=== PATIENT | male | born 1980 ===

== ENCOUNTER 2016-08-11 15:19 | Inpatient (IN) | payer MEDICAID ==
[2016-08-11 15:19] VITALS: BMI 27.0
[2016-08-11] MEDS ORDERED: Sodium Chloride 0.9% 500 ML IV STA (15:49)
[2016-08-11] MEDS ORDERED: Iohexol 240 (50 ml) PO ONE (15:49)
--- NOTE | 2016-08-11 15:53 | ED PDOC ---
HPI: Abdomen Time Seen by Provider: 08/11/16 15:38 Chief Complaint (Nursing): Abdominal Pain Chief Complaint (Provider): Abd pain History Per: Patient History/Exam Limitations: no limitations Onset/Duration Of Symptoms: Days (Yesterday) Outside of [place] travel?: No Additional Complaint(s): Pt. with abd pain diffuse. Also nausea, vomit, diarrhea nonbloody. Started yesterday. Blood pressure was high at home yesterday as well in the 200s. Called EMS today and brought to the ED. No back pain. No headaches, vision changes, numbness, tingles, chest pain, dyspnea. Has had same multiple times and admitted last week at [facility]. Tried taking his meds, but is vomiting them out. No fever, cough. No neck pain. Past Medical History Reviewed: Nursing Documentation, Vital Signs Vital Signs: Last Vital Signs Temp 98.2 F 08/11/16 20:40 Pulse 91 H 08/11/16 16:50 Resp 20 08/11/16 16:50 BP 125/72 08/11/16 16:50 Pulse Ox 98 08/11/16 22:37 - Medical History PMH: Diabetes, Gastritis, HTN, Hypercholesterolemia, End Stage Renal Disease, Chronic Kidney Disease Denies: HIV - Family History Family History: States: Unknown Family Hx - Living Arrangements Living Arrangements: With Family - Social History Current smoker - smoking cessation education provided: No Alcohol: None Drugs: Denies - Immunization History Hx Tetanus Toxoid Vaccination: Yes Hx Influenza Vaccination: Yes Hx Pneumococcal Vaccination: Yes - Home Medications Home Medications: Ambulatory Orders Medication Instructions Recorded Atorvastatin Calcium 40 mg PO HS 02/29/16 Insulin Human NPH/Reg [HumuLIN 20 unit SC BID 02/29/16 70/30 (NPH/Reg)] amLODIPine [Norvasc] 10 mg PO DAILY 02/29/16 hydrALAZINE [Apresoline] 25 mg PO TID #0 tab 03/06/16 Lisinopril [Zestril] 20 mg PO DAILY #0 tab 04/16/16 Metoprolol Tartrate [Lopressor] 25 mg PO BID #0 tab 04/16/16 Aspirin [Lo-Dose Aspirin EC] 81 mg PO DAILY 05/07/16 Gabapentin [Neurontin] 800 mg PO TID 05/07/16 Saccharomyces Boulardi [Florastor] 250 mg PO BID #20 cap 06/24/16 Sucralfate [Carafate Tab] 1 gm PO BID #60 tab 06/24/16 Labetalol [Trandate] 200 mg PO Q12H #30 tab 07/22/16 cloNIDine 0.3 mg/24 hr 1 patch TD Q7D@1000 #10 patch 07/22/16 [catapres-TTS3 0.3 mg/24 hr] - Allergies Allergies/Adverse Reactions: Allergies Allergy/AdvReac Type Severity Reaction Status Date / Time No Known Allergies Allergy Verified 06/04/16 02:41 Review of Systems ROS Statement: Except As Marked, All Systems Reviewed And Found Negative Gastrointestinal: Positive for: Nausea, Vomiting, Abdominal Pain, Diarrhea Physical Exam - Reviewed Nursing Documentation Reviewed: Yes Vital Signs Reviewed: Yes - Physical Exam Appears: Positive for: Non-toxic, No Acute Distress Head Exam: Positive for: ATRAUMATIC, NORMAL INSPECTION, NORMOCEPHALIC Skin: Positive for: Normal Color, Warm, DRY Eye Exam: Positive for: EOMI, Normal appearance, PERRL ENT: Positive for: Normal ENT Inspection Neck: Positive for: Normal, Painless ROM, Supple Cardiovascular/Chest: Positive for: Regular Rate, Rhythm. Negative for: Edema Respiratory: Positive for: CNT, Normal Breath Sounds Gastrointestinal/Abdominal: Positive for: Bowel Sounds, Soft, Tenderness ( diffuse). Negative for: Distended, Guarding Back: Positive for: Normal Inspection. Negative for: L CVA Tenderness, R CVA Tenderness Extremity: Positive for: Normal ROM. 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 Negative for: Motor/Sensory Deficits, Aphasia, Facial Droop - Laboratory Results Result Diagrams: 08/11/16 16:00 08/11/16 16:00 Interpretation Of Abn Labs: 13.9 wbc; 9 bands; 2.6 lactate - ECG ECG: Positive for: Interpreted By Me, Viewed By Me ECG Rhythm: Positive for: Normal QRS, Normal ST Segment, Sinus Rhythm O2 Sat by Pulse Oximetry: 98 Pulse Ox Interpretation: Normal - Radiology X-Ray: Read By Radiologist X-Ray Interpretation: No Acute Disease - Progress ED Course And Treament: 2235: Stable. AAOx3. Lactate 1.[address] Sleeping comfortably in room. 2339: Stable. AAOx3. Dr. Hewitt to take over care. FU on CT. Disposition - Clinical Impression Clinical Impression: Abdominal pain, Vomiting - Disposition Disposition Time: 23:39 Condition: FAIR Patient Signed Over To: Remedios Hewitt
[2016-08-11] MEDS ORDERED: HYDROmorphone 0.5 mg/0.5 ml ISec ONE (15:56)
--- NOTE | 2016-08-11 16:09 | RAD ---
HISTORY: abd pain COMPARISON: Comparison chest 05/06/2016 FINDINGS: LUNGS: Large-bore right IJ dialysis catheter with tip in the SVC/RA junction no acute consolidation. PLEURA: No significant pleural effusion identified, no pneumothorax apparent. CARDIOVASCULAR: Normal. OSSEOUS STRUCTURES: No significant abnormalities. VISUALIZED UPPER ABDOMEN: Normal. OTHER FINDINGS: None. IMPRESSION: No active disease. Re- demonstrated is in situ right IJ dialysis catheter.
[2016-08-11] MEDS ORDERED: Iohexol 240 (50 ml) ONE (16:21)
[2016-08-11 16:27] LABS: BASO # 0.1 K/uL (0.0-0.2); BASO % 0.7 % (0.0-2.0); EOS % 0.2 % (0.0-4.0); HEMATOCRIT 39.6 % (35.0-51.0); LYMPH # 0.9 K/uL (1.0-4.3); LYMPH % 6.4 % (20.0-40.0); MEAN CELL VOLUME 92.2 fl (80.0-94.0); MEAN CORPUSCULAR HEMOGLOBIN 29.1 pg (27.0-31.0); MEAN CORPUSCULAR HGB CONC 31.6 g/dL (33.0-37.0); MEAN PLATELET VOLUME 8.7 fl (7.2-11.7); MONO # 1.1 K/uL (0.0-0.8); MONO % 8.2 % (0.0-10.0); NEUT # 11.8 K/uL (1.8-7.0); NEUT % 84.5 % (50.0-75.0); NRBC % 0.1 % (0.0-0.0); PLATELET COUNT 213 K/uL (130-400); RED CELL DISTRIBUTION WIDTH 17.2 % (11.5-14.5); WHITE BLOOD COUNT 13.9 K/uL (4.8-10.8)
[2016-08-11 16:30] LABS: VENOUS BLOOD GAS PCO2 49 mmHg (40-60); VENOUS BLOOD PH 7.38 (7.32-7.43)
[2016-08-11 16:41] LABS: ALB/GLOB RATIO 0.9 (1.0-2.1); ALCOHOL SERUM < 10 mg/dl (0-10); ALKALINE PHOSPHATASE 139 U/L (38-126); ALT/SGPT 34 U/L (21-72); AST/SGOT 31 U/L (17-59); BILIRUBIN,TOTAL 0.3 mg/dl (0.2-1.3); BLOOD UREA NITROGEN 50 mg/dl (9-20); CALCIUM 9.4 mg/dL (8.4-10.2); CARBON DIOXIDE 27 mmol/L (22-30); CHLORIDE 98 mmol/L (98-107); GFR AFRICAN-AMERICAN 17; GLUCOSE,RANDOM 227 mg/dL (75-110); LIPASE 245 U/L (23-300); POTASSIUM 4.3 MMOL/L (3.6-5.0); SODIUM 136 mmol/l (132-148); TOTAL PROTEIN 6.9 G/DL (6.3-8.2)
[2016-08-11 16:57] LABS: NEUTROPHIL 73 % (42-75); TOTAL CELLS COUNTED 100
[2016-08-11 16:59] LABS: LARGE PLATELETS PRESENT; STOMATOCYTES SLIGHT
[2016-08-11 20:27] LABS: VENOUS BLOOD GAS BASE EXCESS 4.7 mmol/L (0.0-2.0); VENOUS BLOOD GAS PCO2 52 mmHg (40-60); VENOUS BLOOD PH 7.38 (7.32-7.43)
--- NOTE | 2016-08-12 00:05 | ED PDOC ---
- Laboratory Results Result Diagrams: 08/11/16 16:00 08/11/16 16:00 - ECG O2 Sat by Pulse Oximetry: 98 (RA) Pulse Ox Interpretation: Normal Medical Decision Making Medical Decision Making: Receiving Sign Out: Patient signed out to me by Dr. Erickson pending CT AP and reevaluation. Scribe Attestation: Documented by Rabia Rendon acting as a scribe for Remedios Hewitt MD Provider Scribe Attestation: All medical record entries made by the Scribe were at my direction and personally dictated by me. I have reviewed the chart and agree that the record accurately reflects my personal performance of the history, physical exam, medical decision making, and the department course for this patient. I have also personally directed, reviewed, and agree with the discharge instructions and disposition. Disposition Discussed With : Jean Paul Song Doctor Will See Patient In The: Hospital Counseled Patient/Family Regarding: Studies Performed, Diagnosis - Clinical Impression Clinical Impression: CRF (chronic renal failure), Intractable abdominal pain - POA Present On Arrival: Poor Glycemic Control - Disposition Disposition: Admitted as In-Patient Disposition Time: :00 Condition: SERIOUS Progress Note - Review of Symptoms Events since last encounter: Time: 49 CT AP FINDINGS: Lower thorax: There is streak artifact from a central line in the right atrium. Heart size is normal. There is trace pericardial effusion. There is a small hiatal hernia. There is dependent atelectasis and scarring at the lung bases. ABDOMEN: Liver: unremarkable Gallbladder and bile ducts: unremarkable Pancreas: unremarkable Spleen: unremarkable Adrenals: unremarkable Kidneys and ureters: unremarkable Stomach and bowel: Stomach is incompletely distended which accentuates the gastric wall.Bowel rotation is normal. Small bowel is partially opacified oral contrast. There is mild old thickening. There is terminal ileal wall and fold thickening. There is cecal and ascending colon wall thickening. There is mid and distal transverse colon wall thickening there is descending, sigmoid and rectal wall thickening. Appendix: See stomach and bowel PELVIS: Bladder: unremarkable Reproductive: Seminal vesicles and prostate are unremarkable. ABDOMEN and PELVIS: Intraperitoneal space: There is no free air. There is trace fluid in the pelvis. Bones/joints: There are degenerative changes in the osseus structures. Soft tissues: There is mild body wall edema Vasculature: There are vascular calcifications. Lymph nodes: There is shotty adenopathy. IMPRESSION: Enterocolitis Pt has persistent pain. Hospitalized for intractable pain and gastoparesis. Had episode of hypoglycemia. Given D50 with improvement. Also oral fluids.
--- NOTE | 2016-08-12 00:42 | CT ---
EXAM: CT Abdomen and Pelvis With Intravenous Contrast. CLINICAL HISTORY: 35 years old, male; Pain; Abdominal pain; Localized; Lower; Prior surgery; Surgery date: 6+ months; Surgery type: As a child one testes removed TECHNIQUE: Axial computed tomography images of the abdomen and pelvis with intravenous contrast. This CT exam was performed using one or more of the following dose reduction techniques: automated exposure control, adjustment of the mA and/or kV according to patient size, and/or use of iterative reconstruction technique. Coronal and sagittal reformatted images were created and reviewed. EXAM DATE/TIME: 08/11/2016 3:48 PM COMPARISON: CT - ABD PELVIS W/O PO OR IV CONT 07/11/2016 8:30:53 PM FINDINGS: Lower thorax: There is streak artifact from a central line in the right atrium. Heart size is normal. There is trace pericardial effusion. There is a small hiatal hernia. There is dependent atelectasis and scarring at the lung bases. ABDOMEN: Liver: unremarkable Gallbladder and bile ducts: unremarkable Pancreas: unremarkable Spleen: unremarkable Adrenals: unremarkable Kidneys and ureters: unremarkable Stomach and bowel: Stomach is incompletely distended which accentuates the gastric wall.Bowel rotation is normal. Small bowel is partially opacified oral contrast. There is mild old thickening. There is terminal ileal wall and fold thickening. There is cecal and ascending colon wall thickening. There is mid and distal transverse colon wall thickening there is descending, sigmoid and rectal wall thickening. Appendix: See stomach and bowel PELVIS: Bladder: unremarkable Reproductive: Seminal vesicles and prostate are unremarkable. ABDOMEN and PELVIS: Intraperitoneal space: There is no free air. There is trace fluid in the pelvis. Bones/joints: There are degenerative changes in the osseus structures. Soft tissues: There is mild body wall edema Vasculature: There are vascular calcifications. Lymph nodes: There is shotty adenopathy. IMPRESSION: Enterocolitis
[2016-08-12] MEDS ORDERED: Dextrose 50% SYRINGE Inj (50 ml) IVP STA ×2 (02:12→02:13)
[2016-08-12] MEDS ORDERED: metroNIDAZOLE 500mg/100ml NS 100 ML IVPB SCH (05:17)
[2016-08-12] MEDS: metroNIDAZOLE 500mg/100ml NS 100 ML IVPB SCH ×3 (06:04→21:11)
[2016-08-12] MEDS ORDERED: Influenza Vaccine(5yr & older) 0.5 ML/45 MCG IM ONE (06:29)
[2016-08-12] MEDS ORDERED: Pneumococcal 23-Valent Vaccine IM ONE (06:29)
[2016-08-12 07:31] LABS: THYROID STIMULATING HORMONE 1.25 mIU/ML (0.46-4.68)
[2016-08-12] MEDS: Insulin Regular 100 units/ml SC SCH ×4 (08:06→22:44)
[2016-08-12] MEDS: Saccharomyces Boulardi 250 mg Cap PO SCH ×2 (08:52→16:23)
[2016-08-12] MEDS: Insulin Lispro Mix 75/25 100 units/ml (HumaLog) 10ml SC SCH ×2 (08:57→16:24)
[2016-08-12] MEDS ORDERED: INSULIN ISOPHANE SC SCH (09:00)
[2016-08-12] MEDS ORDERED: INSULIN REGULAR SC SCH (09:00)
--- NOTE | 2016-08-12 10:59 | CP.PCM.CON ---
History of Present Illness - History of Present Illness History of Present Illness: This patient who is 35 years old male known to me with end-stage renal disease on maintenance hemodialysis Friday. He presented to the emergency room complaining of epigastric pain and abdominal pain and vomited several times for which she did not take any oral medication for the blood pressure or something else. And when he came his blood pressure was also elevated CT of the abdomen showed enterocolitis. Past medical history related to numerous of [facility], [facility] and [facility] and her for abdominal pain and gastroparesis and renal disease and diabetic.. Social history as noted in the H&P and review of system as noted above. Review of Systems - Constitutional Constitutional: As Per HPI. absent: Night Sweats - Cardiovascular Cardiovascular: absent: Chest Pain, Dyspnea - Respiratory Respiratory: absent: Cough, Dyspnea, Hemoptysis - Gastrointestinal Gastrointestinal: As Per HPI, Abdominal Pain, Cramping, Vomiting. absent: Coffee Ground Emesis - Genitourinary Genitourinary: Nocturia - Integumentary Integumentary: As Per HPI - Neurological Neurological: As Per HPI Past Patient History - Infectious Disease Hx of Infectious Diseases: None - Past Medical History & Family History Past Medical History?: Yes - Past Social History Smoking Status: Never Smoked - CARDIAC Hx Cardiac Disorders: Yes - PULMONARY Hx Respiratory Disorders: No - NEUROLOGICAL Hx Neurological Disorder: No - HEENT Hx HEENT Problems: Yes (cataracts RIGHT) Hx Cataracts: Yes - RENAL Hx Chronic Kidney Disease: Yes - ENDOCRINE/METABOLIC Hx Endocrine Disorders: Yes - HEMATOLOGICAL/ONCOLOGICAL Hx Human Immunodeficiency Virus (HIV): No - INTEGUMENTARY Hx Dermatological Problems: No - MUSCULOSKELETAL/RHEUMATOLOGICAL Hx Falls: No - GASTROINTESTINAL Hx Gastritis: Yes - GENITOURINARY/GYNECOLOGICAL Hx Genitourinary Disorders: No - PSYCHIATRIC Hx Substance Use: No - SURGICAL HISTORY Hx Surgeries: Yes Hx Bile Duct Stent: Yes Hx Cataract Extraction: Yes Hx Eye Surgery: Yes (CATARACT REMOVAL RT.) Hx Vascular Access Device: Yes Other/Comment: RT.PERMACATH INSERTION 04/17. LT.AV SHUNT CREATION 06/04/16. UNDESCENDED TESTES LT. REMOVED DURING CHILDHOOD - ANESTHESIA Hx Anesthesia: Yes Hx Anesthesia Reactions: No Hx Malignant Hyperthermia: No Meds Allergies/Adverse Reactions: Allergies Allergy/AdvReac Type Severity Reaction Status Date / Time No Known Allergies Allergy Verified 06/04/16 02:41 - Medications Medications: Current Medications Amlodipine Besylate (Norvasc) 10 mg PO DAILY [facility] Last Admin: 08/12/16 08:54 Dose: 10 mg Aspirin (Ecotrin) 81 mg PO DAILY [facility] Last Admin: 08/12/16 08:52 Dose: 81 mg Atorvastatin Calcium (Lipitor) 40 mg PO HS [facility] Clonidine HCl (Catapres-Tts3 0.3 Mg/24 Hr) 1 patch TD Q7D@1000 [facility] Last Admin: 08/12/16 09:00 Dose: 1 patch Heparin Sodium (Porcine) (Heparin) 5,000 units SC Q8 [facility] PRN Reason: Protocol Last Admin: 08/12/16 08:53 Dose: 5,000 units Home Med (Gabapentin [Neurontin]) 800 mg PO TID [facility] Hydralazine HCl (Apresoline) 25 mg PO TID [facility] Last Admin: 08/12/16 08:52 Dose: 25 mg Ciprofloxacin (Cipro 400mg/200ml Dsw) 200 mls @ 200 mls/hr IVPB DAILY [facility] Metronidazole (Flagyl 500mg/100ml Ns) 100 mls @ 100 mls/hr IVPB Q8H [facility] Last Admin: 08/12/16 06:04 Dose: 100 mls/hr Insulin Human Regular (Humulin R) 0 units SC ACHS [facility] Last Admin: 08/12/16 08:06 Dose: Not Given Insulin Lispro Protam/Lispro Human (Humalog Mix 75/25) 20 units SC BID [facility] Last Admin: 08/12/16 08:57 Dose: 20 units Labetalol HCl (Trandate) 200 mg PO Q12H [facility] Last Admin: 08/12/16 06:04 Dose: 200 mg Lisinopril (Zestril) 20 mg PO DAILY [facility] Last Admin: 08/12/16 08:53 Dose: 20 mg Metoprolol Tartrate (Lopressor) 25 mg PO BID [facility] Last Admin: 08/12/16 08:53 Dose: 25 mg Saccharomyces Boulardii (Florastor) 250 mg PO BID [facility] Last Admin: 08/12/16 08:52 Dose: 250 mg Sucralfate (Carafate Tab) 1 gm PO BID [facility] Last Admin: 08/12/16 08:52 Dose: 1 gm Physical Exam - Constitutional Appears: No Acute Distress - ENT Exam ENT Exam: Mucous Membranes Moist - Respiratory Exam Respiratory Exam: NORMAL BREATHING PATTERN. absent: Chest Wall Tenderness - Cardiovascular Exam Cardiovascular Exam: REGULAR RHYTHM - GI/Abdominal Exam GI & Abdominal Exam: Normal Bowel Sounds - Extremities Exam Extremities exam: Negative for: calf tenderness, pedal edema - Back Exam Back exam: absent: CVA tenderness (L), CVA tenderness (R) - Neurological Exam Neurological exam: Alert Results - Vital Signs Recent Vital Signs: Last Vital Signs Temp 98.1 F 08/12/16 07:54 Pulse 78 08/12/16 09:00 Resp 20 08/12/16 07:54 BP 186/105 H 08/12/16 07:54 Pulse Ox 98 08/12/16 07:54 - Labs Result Diagrams: 08/11/16 16:00 08/11/16 16:00 Labs: Laboratory Results - last 24 hr 08/12/16 08/12/16 08/12/16 02:12 03:11 05:52 APTT POC Glucose (mg/dL) 31 L* 188 H 155 H Triglycerides Cholesterol LDL Cholesterol Direct HDL Cholesterol Vitamin B12 TSH 3rd Generation 08/12/16 06:15 APTT 26.8 POC Glucose (mg/dL) Triglycerides 69 Cholesterol 253 H LDL Cholesterol Direct 135 H HDL Cholesterol 70 Vitamin B12 728 TSH 3rd Generation 1.25 Assessment & Plan (1) Abdominal pain Status: Acute (2) Gastroparesis due to secondary diabetes Status: Acute (3) ESRD (end stage renal disease) on dialysis Assessment and Plan: Patient with end stage renal disease admitted with abdominal pain with CT scan and enterocolitis started on Flagyl we need to adjust the dose of Cipro 200 mg twice a day. As far as dialysis patient need hemodialysis today order was given consent was taken Continue monitoring We will do venous mapping of the upper extremity for potential AV fistula Status: Chronic
[2016-08-12] MEDS: Ciprofloxacin 400mg/200ml D5W 200 ML IVPB SCH (11:05)
--- NOTE | 2016-08-12 16:25 | CP.PCM.CON ---
<Janel Pop - Last Filed: 08/12/16 16:26> History of Present Illness - History of Present Illness History of Present Illness: Gastroenterology Fellow/PGY4 Consult Note 35 year old male with history of Diabetes complicated by retinopathy, neuropathy , gastroparesis, ESRD on HD MWF, Hypertenesion, and PUD presenting with abdominal pain, nausea, and diarrhea. Patient admits symptoms to be similar to prior presentations. He notes acute onset of diffuse, severe abdominal pain with associated food vomitus. He has diarrhea at baseline which is not new, noting two to three episodes a day. Denies hematemesis, fever, chills, sweats, sick contacts, constipation, melena, hematochezia, or weight loss. Nursing notes tolerating diet for breakfast and patient as well denies vomiting breakfast or lunch. Notes continued abdominal pain mainly to palpation. No bowel movements today or yesterday. Multiple prior EGD, most recent 07/19/16 showed LA Grade B esophagitis, antral 4mm gastric ulcer negative for H pylori. Colonoscopy 04/2016 with 4mm sessile hyperplastic ascending polyp. Social-203 cigarettes a day, marijuana, denies alcohol Surgery- AV fistula 06/2016, Right Perm-a-cath 04/2016 Family-denies colon cancer Review of Systems - Review of Systems Review of Systems: A 12-point review of systems negative except for as above Past Patient History - Infectious Disease Hx of Infectious Diseases: None - Past Medical History & Family History Past Medical History?: Yes - Past Social History Smoking Status: Never Smoked - CARDIAC Hx Cardiac Disorders: Yes - PULMONARY Hx Respiratory Disorders: No - NEUROLOGICAL Hx Neurological Disorder: No - HEENT Hx HEENT Problems: Yes (cataracts RIGHT) Hx Cataracts: Yes - RENAL Hx Chronic Kidney Disease: Yes - ENDOCRINE/METABOLIC Hx Endocrine Disorders: Yes - HEMATOLOGICAL/ONCOLOGICAL Hx Human Immunodeficiency Virus (HIV): No - INTEGUMENTARY Hx Dermatological Problems: No - MUSCULOSKELETAL/RHEUMATOLOGICAL Hx Falls: No - GASTROINTESTINAL Hx Gastritis: Yes - GENITOURINARY/GYNECOLOGICAL Hx Genitourinary Disorders: No - PSYCHIATRIC Hx Substance Use: No - SURGICAL HISTORY Hx Surgeries: Yes Hx Bile Duct Stent: Yes Hx Cataract Extraction: Yes Hx Eye Surgery: Yes (CATARACT REMOVAL RT.) Hx Vascular Access Device: Yes Other/Comment: RT.PERMACATH INSERTION 11/16. LT.AV SHUNT CREATION 06/04/16. UNDESCENDED TESTES LT. REMOVED DURING CHILDHOOD - ANESTHESIA Hx Anesthesia: Yes Hx Anesthesia Reactions: No Hx Malignant Hyperthermia: No Meds Allergies/Adverse Reactions: Allergies Allergy/AdvReac Type Severity Reaction Status Date / Time No Known Allergies Allergy Verified 06/04/16 02:41 - Medications Medications: Current Medications Amlodipine Besylate (Norvasc) 10 mg PO DAILY [facility] Last Admin: 08/12/16 08:54 Dose: 10 mg Aspirin (Ecotrin) 81 mg PO DAILY [facility] Last Admin: 08/12/16 08:52 Dose: 81 mg Atorvastatin Calcium (Lipitor) 40 mg PO HS [facility] Clonidine HCl (Catapres-Tts3 0.3 Mg/24 Hr) 1 patch TD Q7D@1000 [facility] Last Admin: 08/12/16 09:00 Dose: 1 patch Famotidine (Pepcid) 20 mg IVP Q12 [facility] Last Admin: 08/12/16 15:14 Dose: Not Given Gabapentin (Neurontin) 300 mg PO DAILY [facility] Last Admin: 08/12/16 13:06 Dose: 300 mg Heparin Sodium (Porcine) (Heparin) 5,000 units SC Q8 [facility] PRN Reason: Protocol Last Admin: 08/12/16 08:53 Dose: 5,000 units Hydralazine HCl (Apresoline) 25 mg PO TID [facility] Last Admin: 08/12/16 12:15 Dose: 25 mg Ciprofloxacin (Cipro 400mg/200ml Dsw) 200 mls @ 200 mls/hr IVPB DAILY [facility] Last Admin: 08/12/16 11:05 Dose: 200 mls/hr Metronidazole (Flagyl 500mg/100ml Ns) 100 mls @ 100 mls/hr IVPB Q8H [facility] Last Admin: 08/12/16 13:05 Dose: 100 mls/hr Insulin Human Regular (Humulin R) 0 units SC ACHS [facility] PRN Reason: Protocol Insulin Lispro Protam/Lispro Human (Humalog Mix 75/25) 20 units SC BID [facility] Last Admin: 08/12/16 08:57 Dose: 20 units Labetalol HCl (Trandate) 200 mg PO Q12H [facility] Last Admin: 08/12/16 06:04 Dose: 200 mg Lisinopril (Zestril) 20 mg PO DAILY [facility] Last Admin: 08/12/16 08:53 Dose: 20 mg Metoprolol Tartrate (Lopressor) 25 mg PO BID [facility] Last Admin: 08/12/16 08:53 Dose: 25 mg Morphine Sulfate (Morphine) 2 mg IVP Q6 PRN PRN Reason: Pain, severe (8-10) Last Admin: 08/12/16 12:13 Dose: 2 mg Saccharomyces Boulardii (Florastor) 250 mg PO BID [facility] Last Admin: 08/12/16 08:52 Dose: 250 mg Sucralfate (Carafate Tab) 1 gm PO BID [facility] Last Admin: 08/12/16 08:52 Dose: 1 gm Physical Exam - Constitutional Appears: Non-toxic, No Acute Distress - Head Exam Head Exam: ATRAUMATIC, NORMOCEPHALIC - Eye Exam Eye Exam: EOMI, PERRL Pupil Exam: PERRL. absent: Miosis, Mydriatic - ENT Exam ENT Exam: Mucous Membranes Moist, Normal Oropharynx - Neck Exam Neck exam: Positive for: Full Rom, Normal Inspection - Respiratory Exam Respiratory Exam: Clear to Auscultation Bilateral. absent: Rales, Rhonchi, Wheezes - Cardiovascular Exam Cardiovascular Exam: RRR, +S1, +S2. absent: Gallop, Rubs - GI/Abdominal Exam GI & Abdominal Exam: Normal Bowel Sounds, Soft, Tenderness. absent: Distended, Firm, Guarding, Organomegaly, Rebound, Rigid - Extremities Exam Extremities exam: Positive for: full ROM. Negative for: pedal edema - Neurological Exam Neurological exam: Alert - Psychiatric Exam Psychiatric exam: Normal Affect, Normal Mood - Skin Skin Exam: Dry, Intact, Normal Color, Warm Results - Vital Signs Recent Vital Signs: Last Vital Signs Temp 99 F 08/12/16 16:06 Pulse 89 08/12/16 16:06 Resp 18 08/12/16 16:06 BP 138/56 L 08/12/16 16:06 Pulse Ox 96 08/12/16 16:06 - Labs Result Diagrams: 08/11/16 16:00 08/11/16 16:00 Labs: Laboratory Results - last 24 hr 08/12/16 08/12/16 08/12/16 02:12 03:11 05:52 APTT POC Glucose (mg/dL) 31 L* 188 H 155 H Hemoglobin A1c Triglycerides Cholesterol LDL Cholesterol Direct HDL Cholesterol Vitamin B12 TSH 3rd Generation 08/12/16 06:15 APTT 26.8 POC Glucose (mg/dL) Hemoglobin A1c 6.9 H Triglycerides 69 Cholesterol 253 H LDL Cholesterol Direct 135 H HDL Cholesterol 70 Vitamin B12 728 TSH 3rd Generation 1.25 Assessment & Plan - Assessment and Plan (Free Text) Assessment: 35 year old male with history of Diabetes complicated by retinopathy, neuropathy , gastroparesis, ESRD on HD MWF, Hypertension, and PUD presenting with abdominal pain, nausea, and diarrhea. CT A/P PO contrast with nonspecific diffuse colonic thickening. Multiple prior EGD, most recent 07/19/16 showed LA Grade B esophagitis, antral 4mm gastric ulcer negative for H pylori. Colonoscopy 04/2016 with 4mm sessile hyperplastic ascending polyp. Abdominal pain Gastroparesis Plan: >nonspecific colonic thickening >tolerating diet >continue PPI, antiemetics >if vomiting recurs consider prokinetic agent >on Cipro/ Flagyl-possible enterocolitis >if diarrhea occurs inpatient- consider infectious workup >continue Insulin regimen, counselled on compliance to medications, A1c 6.9 >no indication for endoscopic evaluation with multiple EGDs most recently <Demarco Bermeo MDcostilla - Last Filed: 08/12/16 19:43> Meds - Medications Medications: Current Medications Amlodipine Besylate (Norvasc) 10 mg PO DAILY [facility] Last Admin: 08/12/16 08:54 Dose: 10 mg Aspirin (Ecotrin) 81 mg PO DAILY [facility] Last Admin: 08/12/16 08:52 Dose: 81 mg Atorvastatin Calcium (Lipitor) 40 mg PO HS [facility] Clonidine HCl (Catapres-Tts3 0.3 Mg/24 Hr) 1 patch TD Q7D@1000 [facility] Last Admin: 08/12/16 09:00 Dose: 1 patch Famotidine (Pepcid) 20 mg IVP Q12 [facility] Last Admin: 08/12/16 15:14 Dose: Not Given Gabapentin (Neurontin) 300 mg PO DAILY [facility] Last Admin: 08/12/16 13:06 Dose: 300 mg Heparin Sodium (Porcine) (Heparin) 5,000 units SC Q8 [facility] PRN Reason: Protocol Last Admin: 08/12/16 16:24 Dose: 5,000 units Hydralazine HCl (Apresoline) 25 mg PO TID [facility] Last Admin: 08/12/16 16:27 Dose: Not Given Ciprofloxacin (Cipro 400mg/200ml Dsw) 200 mls @ 200 mls/hr IVPB DAILY [facility] Last Admin: 08/12/16 11:05 Dose: 200 mls/hr Metronidazole (Flagyl 500mg/100ml Ns) 100 mls @ 100 mls/hr IVPB Q8H [facility] Last Admin: 08/12/16 13:05 Dose: 100 mls/hr Insulin Human Regular (Humulin R) 0 units SC ACHS [facility] PRN Reason: Protocol Last Admin: 08/12/16 16:25 Dose: Not Given Insulin Lispro Protam/Lispro Human (Humalog Mix 75/25) 20 units SC BID [facility] Last Admin: 08/12/16 16:24 Dose: 20 units Labetalol HCl (Trandate) 200 mg PO Q12H [facility] Last Admin: 08/12/16 16:26 Dose: Not Given Lisinopril (Zestril) 20 mg PO DAILY [facility] Last Admin: 08/12/16 08:53 Dose: 20 mg Metoprolol Tartrate (Lopressor) 25 mg PO BID [facility] Last Admin: 08/12/16 16:27 Dose: Not Given Morphine Sulfate (Morphine) 2 mg IVP Q6 PRN PRN Reason: Pain, severe (8-10) Last Admin: 08/12/16 12:13 Dose: 2 mg Saccharomyces Boulardii (Florastor) 250 mg PO BID [facility] Last Admin: 08/12/16 16:23 Dose: 250 mg Sucralfate (Carafate Tab) 1 gm PO BID [facility] Last Admin: 08/12/16 16:24 Dose: 1 gm Results - Vital Signs Recent Vital Signs: Last Vital Signs Temp 99 F 08/12/16 16:06 Pulse 89 08/12/16 16:06 Resp 18 08/12/16 16:06 BP 138/56 L 08/12/16 16:06 Pulse Ox 96 08/12/16 16:06 - Labs Result Diagrams: 08/11/16 16:00 08/11/16 16:00 Labs: Laboratory Results - last 24 hr 08/12/16 08/12/16 08/12/16 02:12 03:11 05:52 APTT POC Glucose (mg/dL) 31 L* 188 H 155 H Hemoglobin A1c Triglycerides Cholesterol LDL Cholesterol Direct HDL Cholesterol Vitamin B12 TSH 3rd Generation 08/12/16 08/12/16 08/12/16 06:15 10:51 16:05 APTT 26.8 POC Glucose (mg/dL) 235 H 256 H Hemoglobin A1c 6.9 H Triglycerides 69 Cholesterol 253 H LDL Cholesterol Direct 135 H HDL Cholesterol 70 Vitamin B12 728 TSH 3rd Generation 1.25 Attending/Attestation - Attestation I have personally seen and examined this patient.: Yes I have fully participated in the care of the patient.: Yes I have reviewed all pertinent clinical information: Yes Notes (Text): 08/12/16 19:37 Patient seen and examined at bedside with GI fellow. This is a 35 year old male with history of Diabetes complicated by retinopathy, neuropathy, gastroparesis, ESRD on HD MWF, Hypertension, and PUD presenting with abdominal pain, nausea, and diarrhea. CT A/P PO contrast with nonspecific diffuse colonic thickening. Multiple prior EGD, most recent 07/19/16 showed LA Grade B esophagitis, antral 4mm gastric ulcer negative for H pylori. Colonoscopy 04/2016 with 4mm sessile hyperplastic ascending polyp. Colonic thickening non specific- does not require antibiotics. Continue PPI, anti emetics as needed. Able to tolerate full solid meal for lunch. Strict glycemic control. No indication for another endoscopic evaluation (most recent on 07/19/16) Please call prn. Thank you for letting us participate in the care of your patient
--- NOTE | 2016-08-12 19:56 | CARD ---
APPROVED REPORT EKG Measurement Heart [id number] <Conclusion> Normal sinus rhythm Nonspecific ST abnormality Abnormal ECG
[2016-08-13] MEDS: metroNIDAZOLE 500mg/100ml NS 100 ML IVPB SCH ×3 (06:13→21:06)
[2016-08-13 06:49] LABS: HEMATOCRIT 36.7 % (35.0-51.0); MEAN CELL VOLUME 92.2 fl (80.0-94.0); MEAN CORPUSCULAR HEMOGLOBIN 29.2 pg (27.0-31.0); MEAN CORPUSCULAR HGB CONC 31.7 g/dL (33.0-37.0); RED CELL DISTRIBUTION WIDTH 17.5 % (11.5-14.5); WHITE BLOOD COUNT 8.3 K/uL (4.8-10.8)
[2016-08-13] MEDS: Insulin Regular 100 units/ml SC SCH ×4 (07:10→22:00)
[2016-08-13 07:47] LABS: BILIRUBIN,TOTAL 0.2 mg/dl (0.2-1.3); CALCIUM 7.5 mg/dL (8.4-10.2); POTASSIUM 4.2 MMOL/L (3.6-5.0); TOTAL PROTEIN 5.5 G/DL (6.3-8.2)
[2016-08-13 07:53] LABS: ALB/GLOB RATIO 0.8 (1.0-2.1)
[2016-08-13] MEDS: Ciprofloxacin 400mg/200ml D5W 200 ML IVPB SCH (08:47)
[2016-08-13] MEDS: Saccharomyces Boulardi 250 mg Cap PO SCH ×2 (08:55→17:24)
[2016-08-13] MEDS: Insulin Lispro Mix 75/25 100 units/ml (HumaLog) 10ml SC SCH ×2 (08:57→17:26)
--- NOTE | 2016-08-13 12:50 | CP.PCM.PN ---
Subjective - Date & Time of Evaluation Date of Evaluation: 08/13/16 Time of Evaluation: 08:10 - Subjective Subjective: Pt seen this morning, states he still has abdominal pain, but nausea has resolved. he is doing ok otherwise Objective - Vital Signs/Intake and Output Vital Signs (last 24 hours): Temp Pulse Resp BP Pulse Ox 98.7 F 88 20 157/89 H 98 08/13/16 07:50 08/13/16 08:57 08/13/16 07:50 08/13/16 08:57 08/13/16 07:50 - Medications Medications: Current Medications Amlodipine Besylate (Norvasc) 10 mg PO DAILY [facility] Last Admin: 08/13/16 08:55 Dose: 10 mg Aspirin (Ecotrin) 81 mg PO DAILY [facility] Last Admin: 08/13/16 08:55 Dose: 81 mg Atorvastatin Calcium (Lipitor) 40 mg PO HS [facility] Last Admin: 08/12/16 21:11 Dose: 40 mg Clonidine HCl (Catapres-Tts3 0.3 Mg/24 Hr) 1 patch TD Q7D@1000 [facility] Last Admin: 08/12/16 09:00 Dose: 1 patch Famotidine (Pepcid) 20 mg IVP Q12 [facility] Last Admin: 08/13/16 08:48 Dose: 20 mg Gabapentin (Neurontin) 300 mg PO DAILY [facility] Last Admin: 08/13/16 08:56 Dose: 300 mg Heparin Sodium (Porcine) (Heparin) 5,000 units SC Q8 [facility] PRN Reason: Protocol Last Admin: 08/13/16 08:52 Dose: 5,000 units Hydralazine HCl (Apresoline) 25 mg PO TID [facility] Last Admin: 08/13/16 08:57 Dose: 25 mg Ciprofloxacin (Cipro 400mg/200ml Dsw) 200 mls @ 200 mls/hr IVPB DAILY [facility] Last Admin: 08/13/16 08:47 Dose: 200 mls/hr Metronidazole (Flagyl 500mg/100ml Ns) 100 mls @ 100 mls/hr IVPB Q8H [facility] Last Admin: 08/13/16 06:13 Dose: 100 mls/hr Insulin Human Regular (Humulin R) 0 units SC ACHS [facility] PRN Reason: Protocol Last Admin: 08/13/16 07:10 Dose: Not Given Insulin Lispro Protam/Lispro Human (Humalog Mix 75/25) 20 units SC BID [facility] Last Admin: 08/13/16 08:57 Dose: 20 units Labetalol HCl (Trandate) 200 mg PO Q12H [facility] Last Admin: 08/13/16 06:00 Dose: 200 mg Lisinopril (Zestril) 20 mg PO DAILY [facility] Last Admin: 08/13/16 08:56 Dose: 20 mg Metoprolol Tartrate (Lopressor) 25 mg PO BID [facility] Last Admin: 08/13/16 08:55 Dose: 25 mg Morphine Sulfate (Morphine) 2 mg IVP Q6 PRN PRN Reason: Pain, severe (8-10) Last Admin: 08/13/16 08:44 Dose: 2 mg Saccharomyces Boulardii (Florastor) 250 mg PO BID [facility] Last Admin: 08/13/16 08:55 Dose: 250 mg Sucralfate (Carafate Tab) 1 gm PO BID [facility] Last Admin: 08/13/16 08:49 Dose: 1 gm - Labs Labs: 08/13/16 04:50 08/13/16 04:50 APTT 26.8 SECONDS (23.3-32.5) 08/12/16 06:15 - Constitutional Appears: Non-toxic, No Acute Distress - ENT Exam ENT Exam: Mucous Membranes Moist - Respiratory Exam Respiratory Exam: Clear to Ausculation Bilateral, NORMAL BREATHING PATTERN - Cardiovascular Exam Cardiovascular Exam: REGULAR RHYTHM, +S1, +S2 - GI/Abdominal Exam GI & Abdominal Exam: Soft, Tenderness, Normal Bowel Sounds - Extremities Exam Extremities Exam: absent: Calf Tenderness - Neurological Exam Neurological Exam: Alert, Awake, CN II-XII Intact, Oriented x3 Assessment and Plan - Assessment and Plan (Free Text) Assessment: 35 y/o male insulin dependent diabetic and on dialysis for renal failure admitted for abdominal pain Plan: 1. abdominal pain- infectious enteritis Not sure how much abdominal pain has improved as today is my first time assess pt; if pain persist will consider GI consult continue antibiotic as ordered 2. Renal Failure dialysis MWF 3. Insulin Dependent diabetes continue as ordered 4. dvt prophylaxis- Heparin 5. Diet- Heart healthy
[2016-08-14] MEDS: metroNIDAZOLE 500mg/100ml NS 100 ML IVPB SCH ×2 (05:43→21:02)
[2016-08-14] MEDS: Insulin Regular 100 units/ml SC SCH ×4 (06:41→22:27)
[2016-08-14 07:01] LABS: MEAN CELL VOLUME 92.2 fl (80.0-94.0); MEAN CORPUSCULAR HEMOGLOBIN 29.4 pg (27.0-31.0); MEAN CORPUSCULAR HGB CONC 31.9 g/dL (33.0-37.0); RED CELL DISTRIBUTION WIDTH 17.6 % (11.5-14.5); WHITE BLOOD COUNT 9.1 K/uL (4.8-10.8)
[2016-08-14 07:03] LABS: ALB/GLOB RATIO 0.8 (1.0-2.1); BILIRUBIN,TOTAL 0.2 mg/dl (0.2-1.3); CALCIUM 7.5 mg/dL (8.4-10.2); POTASSIUM 4.8 MMOL/L (3.6-5.0); TOTAL PROTEIN 5.2 G/DL (6.3-8.2)
[2016-08-14] MEDS: Saccharomyces Boulardi 250 mg Cap PO SCH ×2 (08:24→19:07)
[2016-08-14] MEDS: Ciprofloxacin 400mg/200ml D5W 200 ML IVPB SCH (08:26)
[2016-08-14] MEDS: Insulin Lispro Mix 75/25 100 units/ml (HumaLog) 10ml SC SCH ×2 (08:27→16:30)
--- NOTE | 2016-08-14 08:43 | HP ---
The patient seen and examined. CHIEF COMPLAINT: Abdominal pain. HISTORY OF PRESENT ILLNESS: This is a 35-year-old male without significant past medical history who was having abdominal pain, diffuse in nature, associated with nausea, vomiting starting day before . The patient was brought to Emergency Room and was admitted for further management. The pat ient also states that his blood pressure was very high at home and was more than 200. REVIEW OF SYSTEMS: Positive for abdominal pain, nausea, vomiting and diarrhea. Review of systems ot herwise is negative for headache, dizziness, syncope, loss of consciousness, chest pain, shortness of breath, any new joint or extremity pain. Review of systems of all other organ systems is unremarkab le. PAST MEDICAL HISTORY: Significant for diabetes, hypertension, dyspepsia, elevated cholesterol, end-s tage renal disease. PAST SURGICAL HISTORY: Remarkable for procedures. PERSONAL HISTORY: The patient is currently a nonsmoker, nondrinker, no substance abuse. MEDICATIONS: The patient is on multiple medications which are as per reconciliation sheet which was reviewed in order. FAMILY HISTORY: Noncontributory. MEDICATIONS: The patient is on atorvastatin, insulin, amlodipine, hydralazine, lisinopril, metoprolo l, aspirin, gabapentin, Florastor, Carafate, labetalol and clonidine. ALLERGIES: The patient is not allergic to any medication. PHYSICAL EXAMINATION: GENERAL: Fairly-built, fairly-nourished, chronically sick looking 35-year-old male in no acute distr ess. VITAL SIGNS: Temperature 99, pulse 89, respiration 18, blood pressure 138/56. HEENT: Pupils reacting to light. NECK: No JVD, no thyromegaly, no lymphadenopathy, no nystagmus. Normocephalic, atraumatic skull. HEART: S1, S2 normal, regular. No significant murmur, gallop or rub is heard. LUNGS: Shows good bilateral air entry. No rales or rhonchi. ABDOMEN: Diffusely mildly tender, but no guarding, no rigidity, no rebound. Bowel sounds are plus a nd normal. EXTREMITIES: No edema, no calf swelling, no tenderness, no acute ischemia. CENTRAL NERVOUS SYSTEM: Essentially unchanged. DIAGNOSTIC DATA: Available diagnostic data reviewed. WBC 13.9, hemoglobin 12.5, hematocrit 39.6, pl atelet 213. Venous blood gases: PH 7.38, pCO2 of 52, pO2 46. Sodium ____, potassium 4.3, chloride 98, bicarbonate 27, BUN 50, creatinine 4.8. SMA-12 is unremarkable. Lipase level is 245. Alcohol l evel was less than 10. CAT scan of abdomen shows enterocolitis. Chest x-ray is clear. EKG does not reveal any acute ST-T changes. ADMITTING IMPRESSION: Enterocolitis end-stage renal disease, hypertension, diabetes. PLAN: As ordered. Case and plan discussed with patient. Jean Paul Song MD cc: [id number] TT: 08/12/2016 18:50:12 nick
--- NOTE | 2016-08-14 10:59 | CP.PCM.PN ---
Subjective - Date & Time of Evaluation Date of Evaluation: 08/14/16 Time of Evaluation: 10:57 - Subjective Subjective: Patient sitting up in chair His still complaining of lower abdominal pain no vomiting no diarrhea White count coming down No nausea or vomiting Objective - Vital Signs/Intake and Output Vital Signs (last 24 hours): Temp Pulse Resp BP Pulse Ox 98.8 F 84 18 173/87 H 97 08/14/16 08:29 08/14/16 08:29 08/14/16 08:29 08/14/16 08:29 08/14/16 08:29 - Medications Medications: Current Medications Amlodipine Besylate (Norvasc) 10 mg PO DAILY [facility] Last Admin: 08/14/16 08:28 Dose: 10 mg Aspirin (Ecotrin) 81 mg PO DAILY [facility] Last Admin: 08/14/16 08:26 Dose: 81 mg Atorvastatin Calcium (Lipitor) 40 mg PO HS [facility] Last Admin: 08/13/16 21:06 Dose: 40 mg Clonidine HCl (Catapres) 0.3 mg PO BID [facility] Famotidine (Pepcid) 20 mg IVP Q12 [facility] Last Admin: 08/14/16 08:43 Dose: 20 mg Gabapentin (Neurontin) 300 mg PO DAILY [facility] Last Admin: 08/14/16 08:25 Dose: 300 mg Heparin Sodium (Porcine) (Heparin) 5,000 units SC Q8 [facility] PRN Reason: Protocol Last Admin: 08/14/16 08:24 Dose: 5,000 units Hydralazine HCl (Apresoline) 25 mg PO TID [facility] Last Admin: 08/14/16 08:25 Dose: 25 mg Ciprofloxacin (Cipro 400mg/200ml Dsw) 200 mls @ 200 mls/hr IVPB DAILY [facility] Last Admin: 08/14/16 08:26 Dose: 200 mls/hr Metronidazole (Flagyl 500mg/100ml Ns) 100 mls @ 100 mls/hr IVPB Q8H [facility] Last Admin: 08/14/16 05:43 Dose: 100 mls/hr Insulin Human Regular (Humulin R) 0 units SC ACHS [facility] PRN Reason: Protocol Last Admin: 08/14/16 06:41 Dose: 2 unit Insulin Lispro Protam/Lispro Human (Humalog Mix 75/25) 20 units SC BID [facility] Last Admin: 03/15/17 08:27 Dose: 20 units Labetalol HCl (Trandate) 200 mg PO Q12H [facility] Last Admin: 08/14/16 05:58 Dose: 200 mg Lisinopril (Zestril) 20 mg PO DAILY [facility] Last Admin: 08/14/16 08:24 Dose: 20 mg Metoprolol Tartrate (Lopressor) 25 mg PO BID [facility] Last Admin: 08/14/16 08:28 Dose: 25 mg Morphine Sulfate (Morphine) 2 mg IVP Q4 PRN PRN Reason: Pain, severe (8-10) Last Admin: 08/14/16 10:31 Dose: 2 mg Saccharomyces Boulardii (Florastor) 250 mg PO BID [facility] Last Admin: 08/14/16 08:24 Dose: 250 mg Sucralfate (Carafate Tab) 1 gm PO BID [facility] Last Admin: 08/14/16 08:25 Dose: 1 gm - Labs Labs: 08/14/16 05:40 08/14/16 05:40 APTT 26.8 SECONDS (23.3-32.5) 08/12/16 06:15 - Constitutional Appears: No Acute Distress - ENT Exam ENT Exam: Mucous Membranes Moist - Respiratory Exam Respiratory Exam: NORMAL BREATHING PATTERN. absent: Chest Wall Tenderness - Cardiovascular Exam Cardiovascular Exam: REGULAR RHYTHM. absent: JVD, Rubs - GI/Abdominal Exam GI & Abdominal Exam: Soft, Normal Bowel Sounds - Back Exam Back Exam: absent: CVA tenderness (L), CVA tenderness (R) - Neurological Exam Neurological Exam: Alert Assessment and Plan (1) Abdominal pain Status: Acute (2) Gastroparesis due to secondary diabetes Status: Acute (3) ESRD (end stage renal disease) on dialysis Assessment & Plan: End stage renal disease patient to have dialysis now scheduled. Blood pressure is still somewhat elevated DC clonidine patches and switched to clonidine by mouth Ultrafiltration about 1500 mL potassium bath 2 mEq Patient is still have some abdominal pain he is receiving antibiotics for enteritis Status: Chronic
--- NOTE | 2016-08-14 13:39 | US ---
PROCEDURE: Duplex hemodialysis access HISTORY: Left brachial basilic AV fistula. PRIORS: None. TECHNIQUE: Right and left upper extremity venous duplex evaluation was performed for purposes of vein mapping. Flow was assessed with color Doppler, compressibility, assessment of phasic flow and augmentation response. FINDINGS: Left upper extremity: LEFT brachiocephalic AVF is patent. There is no stenosis at the arterial anastamosis. The flow is turbulent. Outflow vein velocities are normal. Waveforms throughout the brachial artery and outflow veins are normal. All of the visualize veins have normal compressibility and no evidence of thrombus. The visualized left subclavian vein and left internal jugular vein are normal. The left cephalic vein measures 3.5 millimeters proximally. The cephalic vein is 6 millimeters below the skin. Right upper extremity: All veins have normal compressibility with no evidence of DVT. The right cephalic vein measures 3.9 millimeters proximally and 3.1 millimeters distally. The cephalic vein is 6 millimeters below skin. The basilic vein measures 5 millimeter proximally and 6.2 millimeters distally. The basilic vein is 1 centimeter below the skin. The right axillary vein, visualized portion of subclavian vein and internal jugular vein are patent. OTHER FINDINGS: IMPRESSION: Left upper extremity: Patent left brachial basilic AV fistula. Waveforms and flow velocities are normal. Right upper extremity: Patent and compressible right upper extremity deep veins as outlined. Measurements as per above.
[2016-08-14] MEDS: Pantoprazole 40 mg EC Tab PO SCH (15:00)
--- NOTE | 2016-08-14 15:22 | CP.PCM.PN ---
Subjective - Date & Time of Evaluation Date of Evaluation: 08/14/16 Time of Evaluation: 08:50 - Subjective Subjective: Pt seen and examined at bedside, reports still having abdominal pain, denies any nausea, vomiting, urinary frequency or constipation. and pt made aware he has dialysis today and an ultrasound for AV fistula toward as well Objective - Vital Signs/Intake and Output Vital Signs (last 24 hours): Temp Pulse Resp BP Pulse Ox 98.8 F 92 H 18 173/87 H 96 08/14/16 08:29 08/14/16 12:02 08/14/16 08:29 08/14/16 08:29 08/14/16 12:02 - Medications Medications: Current Medications Amlodipine Besylate (Norvasc) 10 mg PO DAILY [facility] Last Admin: 08/14/16 08:28 Dose: 10 mg Aspirin (Ecotrin) 81 mg PO DAILY [facility] Last Admin: 08/14/16 08:26 Dose: 81 mg Atorvastatin Calcium (Lipitor) 40 mg PO HS [facility] Last Admin: 08/13/16 21:06 Dose: 40 mg Clonidine HCl (Catapres) 0.3 mg PO BID [facility] Dicyclomine HCl (Bentyl) 20 mg PO QID [facility] Last Admin: 08/14/16 14:41 Dose: 20 mg Gabapentin (Neurontin) 300 mg PO DAILY [facility] Last Admin: 08/14/16 08:25 Dose: 300 mg Heparin Sodium (Porcine) (Heparin) 5,000 units SC Q8 [facility] PRN Reason: Protocol Last Admin: 08/14/16 08:24 Dose: 5,000 units Hydralazine HCl (Apresoline) 25 mg PO TID [facility] Last Admin: 08/14/16 08:25 Dose: 25 mg Ciprofloxacin (Cipro 400mg/200ml Dsw) 200 mls @ 200 mls/hr IVPB DAILY [facility] Last Admin: 08/14/16 08:26 Dose: 200 mls/hr Metronidazole (Flagyl 500mg/100ml Ns) 100 mls @ 100 mls/hr IVPB Q8H [facility] Last Admin: 08/14/16 05:43 Dose: 100 mls/hr Insulin Human Regular (Humulin R) 0 units SC ACHS [facility] PRN Reason: Protocol Last Admin: 08/14/16 06:41 Dose: 2 unit Insulin Lispro Protam/Lispro Human (Humalog Mix 75/25) 20 units SC BID [facility] Last Admin: 08/14/16 08:27 Dose: 20 units Labetalol HCl (Trandate) 200 mg PO Q12H [facility] Last Admin: 08/14/16 05:58 Dose: 200 mg Lisinopril (Zestril) 20 mg PO DAILY [facility] Last Admin: 08/14/16 08:24 Dose: 20 mg Metoprolol Tartrate (Lopressor) 25 mg PO BID [facility] Last Admin: 08/14/16 08:28 Dose: 25 mg Pantoprazole Sodium (Protonix Ec Tab) 40 mg PO DAILY [facility] Saccharomyces Boulardii (Florastor) 250 mg PO BID [facility] Last Admin: 08/14/16 08:24 Dose: 250 mg Sucralfate (Carafate Tab) 1 gm PO BID [facility] Last Admin: 08/14/16 08:25 Dose: 1 gm - Labs Labs: 08/14/16 05:40 08/14/16 05:40 APTT 26.8 SECONDS (23.3-32.5) 08/12/16 06:15 - Constitutional Appears: Non-toxic, No Acute Distress - Head Exam Head Exam: NORMOCEPHALIC - Eye Exam Eye Exam: Normal appearance - ENT Exam ENT Exam: Mucous Membranes Moist - Respiratory Exam Respiratory Exam: Clear to Ausculation Bilateral, NORMAL BREATHING PATTERN. absent: Rhonchi, Wheezes - Cardiovascular Exam Cardiovascular Exam: REGULAR RHYTHM, +S1, +S2 - GI/Abdominal Exam GI & Abdominal Exam: Soft, Tenderness, Normal Bowel Sounds - Back Exam Back Exam: NORMAL INSPECTION. absent: CVA tenderness (L), CVA tenderness (R) - Neurological Exam Neurological Exam: Alert, Awake, CN II-XII Intact, Oriented x3 Assessment and Plan - Assessment and Plan (Free Text) Assessment: 35 y/o male with an extensive medical problems admitted for colitis Plan: 1. Colitis GI following continue antibiotic as ordered 2. Renal Failure dialysis MWF 3. Insulin Dependent diabetes continue as ordered 4. dvt prophylaxis- Heparin 5. Diet- Heart healthy
--- NOTE | 2016-08-15 02:00 | CP.PCM.PCO ---
Physician Communication Note - Physician Communication Note Physician Communication Note: Hazel Villaseñor Addendum Addendum: 08/15/16 01:59 CC: Abdominal Pain S: Pt c/o abdominal pain but denies N/V, last BM this AM and he reports passing flatus. He is tolerating PO w/o problems. O: GEN: tearful otherwise NAD ABD: soft, ND, no rebound, diffuse mild ttp Intervention: Tylenol 975mg, PO, x1; Heating pad PRN pain; d/w patient and agreeable understands importance in medication choice A/P: 35M admitted for abdominal pain with ?colitis and hx gastric ulcers/ESRD/ gastroparesis, non-acute abd and opioids likely to exacerbate current condition. - Tylenol 975mg, PO, x1 - Heating pad PRN - Consider limiting carbonated beverages - Further pain management as per primary team - Plan d/w patient as well as nursing
[2016-08-15] MEDS: metroNIDAZOLE 500mg/100ml NS 100 ML IVPB SCH ×2 (05:20→12:34)
[2016-08-15] MEDS: Insulin Regular 100 units/ml SC SCH ×2 (06:46→12:35)
[2016-08-15] MEDS: Saccharomyces Boulardi 250 mg Cap PO SCH ×2 (08:38→16:33)
[2016-08-15] MEDS: Insulin Lispro Mix 75/25 100 units/ml (HumaLog) 10ml SC SCH (08:39)
[2016-08-15] MEDS: Pantoprazole 40 mg EC Tab PO SCH (08:41)
[2016-08-15] MEDS: Ciprofloxacin 400mg/200ml D5W 200 ML IVPB SCH (08:42)
--- NOTE | 2016-08-15 10:45 | CP.PCM.DIS ---
Provider - Provider Date of Admission: 08/12/16 01:11 Attending physician: Jean Paul Song MD Consults: GI, Nephrology Time Spent in preparation of Discharge (in minutes): 30 Diagnosis - Discharge Diagnosis (1) Colitis Status: Acute Hospital Course - Lab Results Lab Results: Most Recent Lab Values WBC 9.1 K/uL (4.8-10.8) 08/14/16 05:40 RBC 3.80 Mil/uL (4.40-5.90) L 08/14/16 05:40 Hgb 11.2 g/dL (12.0-18.0) L 08/14/16 05:40 Hct 35.0 % (35.0-51.0) 08/14/16 05:40 MCV 92.2 fl (80.0-94.0) 08/14/16 05:40 MCH 29.4 pg (27.0-31.0) 08/14/16 05:40 MCHC 31.9 g/dL (33.0-37.0) L 08/14/16 05:40 RDW 17.6 % (11.5-14.5) H 08/14/16 05:40 Plt Count 174 K/uL (130-400) 08/14/16 05:40 MPV 8.7 fl (7.2-11.7) 08/11/16 16:00 Neut % (Auto) 84.5 % (50.0-75.0) H 08/11/16 16:00 Lymph % (Auto) 6.4 % (20.0-40.0) L 08/11/16 16:00 Laurel % (Auto) 8.2 % (0.0-10.0) 08/11/16 16:00 Eos % (Auto) 0.2 % (0.0-4.0) 08/11/16 16:00 Baso % (Auto) 0.7 % (0.0-2.0) 08/11/16 16:00 Neut # 11.8 K/uL (1.8-7.0) H 08/11/16 16:00 Lymph # 0.9 K/uL (1.0-4.3) L 08/11/16 16:00 [place] # 1.1 K/uL (0.0-0.8) H 08/11/16 16:00 Eos # 0.0 K/uL (0.0-0.7) 08/11/16 16:00 Baso # 0.1 K/uL (0.0-0.2) 08/11/16 16:00 Neutrophils % (Manual) 73 % (42-75) 08/11/16 16:00 Band Neutrophils % 9 % (0-2) H 08/11/16 16:00 Lymphocytes % (Manual) 8 % (20-50) L 08/11/16 16:00 Monocytes % (Manual) 10 % (0-10) 08/11/16 16:00 Platelet Estimate Normal (NORMAL) 08/11/16 16:00 Large Platelets Present 08/11/16 16:00 Hypochromasia (manual) Slight 08/11/16 16:00 Poikilocytosis (manual Slight 08/11/16 16:00 Anisocytosis (manual) Slight 08/11/16 16:00 Stomatocytes Slight 08/11/16 16:00 APTT 26.8 SECONDS (23.3-32.5) 08/12/16 06:15 pO2 46 mm/Hg (30-55) 08/11/16 20:25 VBG pH 7.38 (7.32-7.43) 08/11/16 20:25 VBG pCO2 52 mmHg (40-60) 08/11/16 20:25 VBG HCO3 28.2 mmol/L 08/11/16 20:25 VBG Total CO2 32.4 mmol/L (22-28) H 08/11/16 20:25 VBG O2 Sat (Calc) 82.8 % (40-65) H 08/11/16 20:25 VBG Base Excess 4.7 mmol/L (0.0-2.0) H 08/11/16 20:25 VBG Potassium 4.4 mmol/L (3.6-5.2) 08/11/16 20:25 Sodium 135.0 mmol/L (132-148) 08/11/16 20:25 Chloride 103.0 mmol/L (98-107) 08/11/16 20:25 Glucose 124 mg/dL (75-110) H 08/11/16 20:25 Lactate 1.1 mmol/L (0.7-2.1) 08/11/16 20:25 FiO2 21.0 % 08/11/16 20:25 Blood Gas Comments Lactate 2.6 08/11/16 16:26 Crit Value Called To misty Wallace 08/11/16 16:26 Crit Value Called By 203 08/11/16 16:26 Crit Value Read Back Y 08/11/16 16:26 Blood Gas Notified Time 1630 08/11/16 16:26 Sodium 135 mmol/l (132-148) 08/14/16 05:40 Potassium 4.8 MMOL/L (3.6-5.0) 08/14/16 05:40 Chloride 97 mmol/L (98-107) L 08/14/16 05:40 Carbon Dioxide 25 mmol/L (22-30) 08/14/16 05:40 Anion Gap 18 (10-20) 08/14/16 05:40 BUN 48 mg/dl (9-20) H 08/14/16 05:40 Creatinine 5.4 mg/dL (0.8-1.5) H 08/14/16 05:40 Est GFR ( Amer) 08/14/16 05:40 Est GFR (Non-Af Amer) 12 08/14/16 05:40 POC Glucose (mg/dL) 337 mg/dL (65-110) H 08/15/16 07:08 Random Glucose 195 mg/dL (75-110) H 08/14/16 05:40 Hemoglobin A1c 6.9 % (4.2-6.5) H 08/12/16 06:15 Calcium 7.5 mg/dL (8.4-10.2) L 08/14/16 05:40 Total Bilirubin 0.2 mg/dl (0.2-1.3) 08/14/16 05:40 AST 21 U/L (17-59) 08/14/16 05:40 ALT 30 U/L (21-72) 08/14/16 05:40 Alkaline Phosphatase 95 U/L (38-126) 08/14/16 05:40 Troponin I 0.0440 ng/mL (0.00-0.120) 08/11/16 16:00 Total Protein 5.2 G/DL (6.3-8.2) L 08/14/16 05:40 Albumin 2.4 g/dL (3.5-5.0) L 08/14/16 05:40 Globulin 2.9 gm/dL (2.2-3.9) 08/14/16 05:40 Albumin/Globulin Ratio 0.8 (1.0-2.1) L 08/14/16 05:40 Triglycerides 69 mg/DL (0-149) 08/12/16 06:15 Cholesterol 253 mg/dL (0-199) H 08/12/16 06:15 LDL Cholesterol Direct 135 mg/dL (0-129) H 08/12/16 06:15 HDL Cholesterol 70 MG/DL (30-70) 08/12/16 06:15 Lipase 245 U/L (23-300) 08/11/16 16:00 Vitamin B12 728 pg/mL (239-931) 08/12/16 06:15 TSH 3rd Generation 1.25 mIU/ML (0.46-4.68) 08/12/16 06:15 Venous Blood Potassium 4.4 mmol/L (3.6-5.2) 08/11/16 20:25 Alcohol, Quantitative < 10 mg/dl (0-10) 08/11/16 16:00 - Hospital Course Hospital Course: Pt was admitted for colitis started on antibiotics, during hospital stay complained of abdominal pain out of proportion to diagnosis. GI was and evaluated and cleared pt. remained stabled throughout stay and is being discharged home. Discharge Exam - Head Exam Head Exam: NORMOCEPHALIC - Eye Exam Eye Exam: Normal appearance - ENT Exam ENT Exam: Mucous Membranes Moist - Respiratory Exam Respiratory Exam: NORMAL BREATHING PATTERN - Cardiovascular Exam Cardiovascular Exam: REGULAR RHYTHM, +S1, +S2 - GI/Abdominal Exam GI & Abdominal Exam: Normal Bowel Sounds, Soft, Tenderness - Neurological Exam Neurological exam: Alert, CN II-XII Intact, Oriented x3 - Psychiatric Exam Psychiatric exam: Normal Affect - Skin Skin Exam: Normal Color Discharge Plan - Discharge Medications Prescriptions: Metronidazole [Flagyl] 500 mg PO Q8 #12 tablet Acetaminophen [Tylenol 325mg tab] 975 mg PO Q6 PRN #20 tab PRN Reason: Pain, Severe (8-10) - Follow Up Plan Condition: SERIOUS Disposition: HOME/ ROUTINE Instructions: Acute Abdominal Pain (GEN), Infectious Colitis (GEN) Additional Instructions: please follow up with your PCP and make sure to go to Dialysis tomorrow at your regular time Referrals: Jean Paul Song MD [Staff Provider] - Jean-Claude TONG,MD Celeste [Medical Doctor] -
--- NOTE | 2016-08-15 11:05 | CP.PCM.PN ---
Subjective - Date & Time of Evaluation Date of Evaluation: 08/15/16 Time of Evaluation: 11:03 - Subjective Subjective: He feels much better although still complaining of some lower abdominal pain at time Completed hemodialysis yesterday No nausea or vomiting Objective - Vital Signs/Intake and Output Vital Signs (last 24 hours): Temp Pulse Resp BP Pulse Ox 98.5 F 86 20 162/77 H 98 08/15/16 07:53 08/15/16 08:41 08/15/16 07:53 08/15/16 08:41 08/15/16 07:53 - Medications Medications: Current Medications Amlodipine Besylate (Norvasc) 10 mg PO DAILY [facility] Last Admin: 08/15/16 08:41 Dose: 10 mg Aspirin (Ecotrin) 81 mg PO DAILY [facility] Last Admin: 08/15/16 08:38 Dose: 81 mg Atorvastatin Calcium (Lipitor) 40 mg PO HS [facility] Last Admin: 08/14/16 21:03 Dose: 40 mg Clonidine HCl (Catapres) 0.3 mg PO BID [facility] Last Admin: 08/15/16 08:38 Dose: 0.3 mg Dicyclomine HCl (Bentyl) 20 mg PO QID [facility] Last Admin: 08/15/16 08:37 Dose: 20 mg Gabapentin (Neurontin) 300 mg PO DAILY [facility] Last Admin: 08/15/16 08:40 Dose: 300 mg Heparin Sodium (Porcine) (Heparin) 5,000 units SC Q8 [facility] PRN Reason: Protocol Last Admin: 08/15/16 08:39 Dose: 5,000 units Hydralazine HCl (Apresoline) 25 mg PO TID [facility] Last Admin: 08/15/16 08:37 Dose: 25 mg Ciprofloxacin (Cipro 400mg/200ml Dsw) 200 mls @ 200 mls/hr IVPB DAILY [facility] Last Admin: 08/15/16 08:42 Dose: 200 mls/hr Metronidazole (Flagyl 500mg/100ml Ns) 100 mls @ 100 mls/hr IVPB Q8H [facility] Last Admin: 08/15/16 05:20 Dose: 100 mls/hr Insulin Human Regular (Humulin R) 0 units SC ACHS [facility] PRN Reason: Protocol Last Admin: 08/15/16 06:46 Dose: 5 unit Insulin Lispro Protam/Lispro Human (Humalog Mix 75/25) 20 units SC BID [facility] Last Admin: 08/15/16 08:39 Dose: 20 units Labetalol HCl (Trandate) 200 mg PO Q12H [facility] Last Admin: 08/15/16 05:21 Dose: 200 mg Lisinopril (Zestril) 20 mg PO DAILY [facility] Last Admin: 08/15/16 08:41 Dose: 20 mg Metoprolol Tartrate (Lopressor) 25 mg PO BID [facility] Last Admin: 08/15/16 08:40 Dose: 25 mg Pantoprazole Sodium (Protonix Ec Tab) 40 mg PO DAILY [facility] Last Admin: 08/15/16 08:41 Dose: 40 mg Saccharomyces Boulardii (Florastor) 250 mg PO BID [facility] Last Admin: 08/15/16 08:38 Dose: 250 mg Sucralfate (Carafate Tab) 1 gm PO BID [facility] Last Admin: 08/15/16 08:37 Dose: 1 gm - Labs Labs: 08/14/16 05:40 08/14/16 05:40 APTT 26.8 SECONDS (23.3-32.5) 08/12/16 06:15 - Constitutional Appears: No Acute Distress - ENT Exam ENT Exam: Mucous Membranes Moist - Respiratory Exam Respiratory Exam: absent: Chest Wall Tenderness - GI/Abdominal Exam GI & Abdominal Exam: Soft. absent: Guarding - Extremities Exam Extremities Exam: absent: Calf Tenderness - Back Exam Back Exam: absent: CVA tenderness (L), CVA tenderness (R) - Neurological Exam Neurological Exam: Alert Assessment and Plan (1) Abdominal pain Status: Acute (2) Gastroparesis due to secondary diabetes Status: Acute (3) ESRD (end stage renal disease) on dialysis Assessment & Plan: End stage renal disease on maintenance hemodialysis Friday is been doing good on dialysis Abdominal pain related to arthritis patient appears to be seeking pain medication. Gastroparesis appears to be stable Diabetes mellitus on treatment. Follow-up at the dialysis Status: Chronic
[2016-08-15 16:24] VITALS: RESP 18
[2016-08-15 16:26] VITALS: BP 147/79; PULSE 89; TEMP 99; O2SAT 97
== END 2016-08-15 17:15 | disposition home or self-care (01) | DRG 813 ==
LOC: H.ER 15:19 → H.ERHOLD 08-12 01:11 → H.MEDSURG1 08-12 03:25
PROVIDERS: ADMIT Internal Medicine; ATTEND Internal Medicine
PROC: 5A1D60Z (ICD-10-PCS; principal; 2016-08-13)
DX: A09 Infectious gastroenteritis and colitis, unspecified (principal); E11.22 Type 2 diabetes mellitus with diabetic chronic kidney disease; I12.0 Hypertensive chronic kidney disease with stage 5 chronic kidney disease or end stage renal disease; N18.6 End stage renal disease; E11.43 Type 2 diabetes mellitus with diabetic autonomic (poly)neuropathy; E11.319 Type 2 diabetes mellitus with unspecified diabetic retinopathy without macular edema; E11.649 Type 2 diabetes mellitus with hypoglycemia without coma; K31.84 Gastroparesis; E78.00 Pure hypercholesterolemia, unspecified; Z79.4 Long term (current) use of insulin; Z79.82 Long term (current) use of aspirin; Z87.11 Personal history of peptic ulcer disease; Z99.2 Dependence on renal dialysis

== ENCOUNTER 2016-10-16 19:24 | Observation (INO) | payer MEDICAID ==
[2016-10-16 19:25] VITALS: BMI 27.0
[2016-10-16] MEDS ORDERED: Sodium Chloride 0.9% 500 ML IV STA (19:53)
--- NOTE | 2016-10-16 20:04 | ED PDOC ---
HPI:Nausea, Vomiting, Diarrhea Time Seen by Provider: 10/16/16 19:45 Chief Complaint (Nursing): GI Problem Chief Complaint (Provider): Vomiting History/Exam Limitations: no limitations Onset/Duration Of Symptoms: Days (3 days), Persistent Current Symptoms Are (Timing): Still Present Have you had recent travel within the past 21 days to any of the following countries: [place], [place], [place] or [place]?: No Severity: Moderate Pain Scale Rating Of: 7 Associated Symptoms: Fever, Nausea, Vomiting, Diarrhea, Other (abdominal discomfort; denies a cough or shortness of breath). denies: Chills Additional Complaint(s): Malcolm Kline is a 36 year old male, with a past medical history of end stage renal disease, type 1 diabetes mellitus, and hypertension, who presents to the emergency department via EMS for the evaluation of persistent vomiting, that the patient has been experiencing for the past 3 days. Associated abdominal discomfort, nausea, diarrhea, and a fever are currently present. Denies chills, a cough, or shortness of breath. Of note, patient's last dialysis treatment was completed today. PMD: David Gtz Past Medical History Reviewed: Historical Data, Nursing Documentation, Vital Signs Vital Signs: Last Vital Signs Temp 98.4 F 10/16/16 19:29 Pulse 86 10/16/16 19:29 Resp 18 10/16/16 19:29 BP 245/108 H 10/16/16 19:29 Pulse Ox 99 10/16/16 19:29 - Medical History PMH: CHF, Diabetes (type I), Gastritis, HTN, Hypercholesterolemia, Peripheral Edema, End Stage Renal Disease, Chronic Kidney Disease Denies: HIV - Surgical History Other surgeries: L Arm AV Shunt (06/04/16), L Eye Cataract Surgery - Family History Family History: States: No Known Family Hx - Living Arrangements Living Arrangements: With Family (with mother) - Social History Current smoker - smoking cessation education provided: Yes (Heavy Smoker > 10 cigarettes daily) Alcohol: None Drugs: Cannabis - Immunization History Hx Tetanus Toxoid Vaccination: Yes Hx Influenza Vaccination: Yes Hx Pneumococcal Vaccination: Yes - Home Medications Home Medications: Ambulatory Orders Medication Instructions Recorded Labetalol [Trandate] 200 mg PO Q12H #30 tab 07/22/16 hydrALAZINE [Apresoline] 50 mg PO Q8 #90 tab 08/27/16 Lisinopril [Zestril] 10 mg PO DAILY 08/30/16 Gabapentin [Neurontin] 800 mg PO TID #30 tab 09/02/16 Metoclopramide HCl [Reglan] 10 mg PO TID PRN #90 tablet 09/02/16 Sucralfate [Carafate Tab] 1 gm PO BID #60 tab 09/02/16 Ondansetron ODT [Zofran ODT] 4 mg PO Q8 09/10/16 oxyCODONE/Acetaminophen [Percocet 1 ea PO Q6H PRN #15 tab 09/17/16 5/325 mg Tab] Pantoprazole [Protonix EC Tab] 40 mg PO DAILY #30 ect 10/09/16 - Allergies Allergies/Adverse Reactions: Allergies Allergy/AdvReac Type Severity Reaction Status Date / Time No Known Allergies Allergy Verified 09/27/16 19:42 Review of Systems ROS Statement: Except As Marked, All Systems Reviewed And Found Negative Constitutional: Positive for: Fever. Negative for: Chills Respiratory: Negative for: Cough, Shortness of Breath Gastrointestinal: Positive for: Nausea, Vomiting, Abdominal Pain, Diarrhea Physical Exam - Reviewed Nursing Documentation Reviewed: Yes Vital Signs Reviewed: Yes - Physical Exam Appears: Positive for: Non-toxic, In Acute Distress (moderate painful distress) Head Exam: Positive for: ATRAUMATIC, NORMOCEPHALIC Skin: Positive for: Normal Color, Warm, Dry Cardiovascular/Chest: Positive for: Regular Rate, Rhythm. Negative for: Murmur Respiratory: Positive for: Normal Breath Sounds. Negative for: Respiratory Distress Gastrointestinal/Abdominal: Positive for: Normal Exam, Soft, Tenderness (mild diffuse abdominal tenderness). Negative for: Distended, Guarding, Rebound Back: Positive for: Normal Inspection. Negative for: L CVA Tenderness, R CVA Tenderness Extremity: Positive for: Normal ROM. Negative for: Tenderness, Swelling Neurologic/Psych: Positive for: Alert, Oriented - Laboratory Results Result Diagrams: 10/16/16 19:55 10/16/16 19:55 - ECG O2 Sat by Pulse Oximetry: 99 (RA) Pulse Ox Interpretation: Normal Medical Decision Making Medical Decision Makin:45 Initial Impression: Persistent vomiting Differential Diagnoses include, but are not limited to, viral syndrome, diabetic ketoacidosis, and obstruction. Initial Plan: * EKG * VBG Shock Panel * CBC * CMP * Lipase * Urine Dip * Urinalysis * Sodium Chloride 0.9% 500 ml IV at 500 mls/hr * Pepcid 20 mg IVP * Toradol 30 mg IVP * Zofran 4 mg IVP * Glucose, Blood, POC * Reevaluation Scribe Attestation: Documented by Alfonzo Helm, acting as a scribe for Eri Robins MD. Provider Scribe Attestation: All medical record entries made by the Scribe were at my direction and personally dictated by me. I have reviewed the chart and agree that the record accurately reflects my personal performance of the history, physical exam, medical decision making, and the department course for this patient. I have also personally directed, reviewed, and agree with the discharge instructions and disposition. Disposition - Clinical Impression Clinical Impression: Coffee ground emesis, ESRD (end stage renal disease) - Patient ED Disposition Is Patient to be Admitted: Yes Doctor Will See Patient In The: Hospital Counseled Patient/Family Regarding: Studies Performed - Disposition Disposition: Transfer of Care Disposition Time: 23:03 Condition: GUARDED - Pt Status Changed To: Hospital Disposition Of: Observation - POA Present On Arrival: None
[2016-10-16 20:09] LABS: BASO % 0.5 % (0.0-2.0); EOS % 0.3 % (0.0-4.0); HEMATOCRIT 42.9 % (35.0-51.0); LYMPH % 9.3 % (20.0-40.0); MEAN CELL VOLUME 88.1 fl (80.0-94.0); MEAN CORPUSCULAR HGB CONC 31.8 g/dL (33.0-37.0); MEAN PLATELET VOLUME 8.9 fl (7.2-11.7); MONO # 0.4 K/uL (0.0-0.8); MONO % 3.7 % (0.0-10.0); NEUT # 8.9 K/uL (1.8-7.0); NEUT % 86.2 % (50.0-75.0); NRBC % 0.1 % (0.0-0.0); PLATELET COUNT 254 K/uL (130-400); RED CELL DISTRIBUTION WIDTH 16.6 % (11.5-14.5); WHITE BLOOD COUNT 10.4 K/uL (4.8-10.8)
[2016-10-16 20:16] LABS: BILIRUBIN,TOTAL 0.7 mg/dl (0.2-1.3); CALCIUM 9.1 mg/dL (8.4-10.2); POTASSIUM 3.6 MMOL/L (3.6-5.0); TOTAL PROTEIN 7.7 G/DL (6.3-8.2)
[2016-10-16 20:47] LABS: NEUTROPHIL 78 % (42-75); TOTAL CELLS COUNTED 100
[2016-10-16 22:14] LABS: VENOUS BLOOD GAS BASE EXCESS 4.7 mmol/L (0.0-2.0); VENOUS BLOOD GAS PCO2 51 mmHg (40-60); VENOUS BLOOD PH 7.39 (7.32-7.43)
[2016-10-16] MEDS ORDERED: Nitroglycerin 2% 15 INCH/30 GM TUBE TOP STA (23:29)
[2016-10-17] MEDS ORDERED: Insulin Regular 100 units/ml ONE (09:00)
--- NOTE | 2016-10-17 15:05 | CARD ---
APPROVED REPORT EKG Measurement Heart [id number] <Conclusion> Normal sinus rhythm Nonspecific T wave abnormality Prolonged QT Abnormal ECG
[2016-10-18] MEDS ORDERED: Insulin Regular 100 units/ml SC SCH ×2 (07:30)
[2016-10-18 07:31] LABS: HEMATOCRIT 39.6 % (35.0-51.0); MEAN CELL VOLUME 87.2 fl (80.0-94.0); MEAN CORPUSCULAR HGB CONC 32.1 g/dL (33.0-37.0); RED CELL DISTRIBUTION WIDTH 16.2 % (11.5-14.5); WHITE BLOOD COUNT 11.1 K/uL (4.8-10.8)
[2016-10-18 07:51] LABS: POTASSIUM 3.5 MMOL/L (3.6-5.0)
--- NOTE | 2016-10-18 09:09 | HP ---
HISTORY OF PRESENT ILLNESS: This is a 36-year-old male with history of end-stage renal disease, on hemodialysis, presents to Emergency Room with symptoms of nausea and persistent vomiting of coffee ground material for the last 3 days prior to admission. The patient was evaluated in the Emergency Room and admitted for further management. PAST MEDICAL HISTORY: End-stage renal disease, on hemodialysis; hypertension, type 2 diabetes mellitus complicated. SOCIAL HISTORY: No history of smoking, ETOH or substance abuse. MEDICATIONS: Hydralazine 50 mg q. 8 hours, sucralfate 1 gram twice a day, Protonix 40 mg twice a day, Reglan 10 mg 3 times a day, lisinopril 20 mg q. 12 hours. FAMILY HISTORY: Not contributory. PHYSICAL EXAMINATION: GENERAL: The patient is a bit comfortable, not in any cardiopulmonary distress at the time of this examination. VITAL SIGNS: Blood pressure 130/70, temperature 98.3, respiratory rate is 13, pulse 91. HEENT: Pupils equal, reactive to light. Normal-appearing mucosa of the conjunctivae, oropharyngeal and nasal membrane mucosa. NECK: Supple, no JVD, no carotid bruit, no lymph node, no thyromegaly. CHEST AND LUNGS: Good air exchange , no rales , no ronchi. CARDIOVASCULAR: . S1, S2. No additional sounds. ABDOMEN: Normoactive bowel sounds, no tenderness, no organomegaly, no masses. EXTREMITIES: No cyanosis, no clubbing, no edema. CENTRAL NERVOUS SYSTEM: Alert, awake, oriented x 2 , no neurological deficits . ASSESSMENT: 1. Upper gastrointestinal bleeding, persistent nausea and vomiting. 2. End-stage renal disease, on hemodialysis. 3. Hypertension. PLAN: GI consult and follow the recommendations and resume all antihypertensive medications. Radha Luis E Mcgrath MD cc: 167 TT: 10/18/2016 01:51:08 nick WHEELER
--- NOTE | 2016-10-18 10:06 | RAD ---
HISTORY: Coffee-ground emesis. COMPARISON: No prior. FINDINGS: BOWEL: Mild retained feces. No bowel obstruction. No free intraperitoneal air. No hepatic or splenic enlargement. BONES: Normal. OTHER FINDINGS: None. IMPRESSION: Mild retained feces. Otherwise unremarkable examination
--- NOTE | 2016-10-18 10:06 | RAD ---
HISTORY: Coffee-ground emesis COMPARISON: 08/11/2016 TECHNIQUE: Chest PA and lateral FINDINGS: LUNGS: No active pulmonary disease. PLEURA: No significant pleural effusion identified. No pneumothorax apparent. CARDIOVASCULAR: Tunneled central venous dialysis catheter OSSEOUS STRUCTURES: No significant abnormalities. VISUALIZED UPPER ABDOMEN: Normal. OTHER FINDINGS: None. IMPRESSION: No active disease.
--- NOTE | 2016-10-18 11:41 | CP.PCM.CON ---
History of Present Illness - History of Present Illness History of Present Illness: GI consult requested by Dr Mcgrath- This is a 36 year old M admitted with nausea, vomiting and one episode of coffee ground emesis. Patient was seen by me in this am. As per patient he started to have several episodes of vomiting yesterday and then one episode of coffee ground emesis. He denies diaarhea, constipation, flu like symptoms. He has had such episodes in the past. He has uncontrolled DM on Insulin and uncontrolled HTN. He is on HD ,,Fri. As per patient he denies alcohol abuse or IVDA but endorses smoking marijuana daily for past 20 years. He had EGD twice at [facility] [place] and then at [facility] 3 weeks ago that showed Grade B esophagitis and erosive gastritis. S/P biopsy - no H pylori. Patient states his admission at that time was also for nausea and vomiting. Today he denies vomiting. He denies abdominal cramps or pain, or RUQ pain. He is hungry and ambulating and wants to eat. he does not follow up with GI as outpatient and states was never given any appointments. He had colonoscopy 3 months ago which was unremarkable. Review of Systems - Review of Systems Review of Systems: 12 point ROS unremarkable except that documented in HPI Past Patient History - Infectious Disease Hx of Infectious Diseases: None - Past Medical History & Family History Past Medical History?: Yes - Past Social History Alcohol: None Drugs: Cannabis - CARDIAC Hx Cardiac Disorders: Yes - PULMONARY Hx Respiratory Disorders: No - NEUROLOGICAL Hx Neurological Disorder: No - HEENT Hx HEENT Problems: Yes Hx Cataracts: Yes Other/Comment: cataract surgery left eye - RENAL Hx Chronic Kidney Disease: Yes - ENDOCRINE/METABOLIC Hx Endocrine Disorders: Yes Hx Diabetes Mellitus Type 2: Yes - HEMATOLOGICAL/ONCOLOGICAL Hx Human Immunodeficiency Virus (HIV): No - INTEGUMENTARY Hx Dermatological Problems: No - MUSCULOSKELETAL/RHEUMATOLOGICAL Hx Musculoskeletal Disorders: Yes Hx Falls: Yes - GASTROINTESTINAL Hx Gastritis: Yes - GENITOURINARY/GYNECOLOGICAL Hx Genitourinary Disorders: No - PSYCHIATRIC Hx Psychophysiologic Disorder: Yes Hx Substance Use: Yes (Cannabis) - SURGICAL HISTORY Hx Surgeries: Yes Other/Comment: RT.PERMACATH INSERTION 04/17. LT.AV SHUNT CREATION 06/04/16. UNDESCENDED TESTES LT. REMOVED DURING CHILDHOOD - ANESTHESIA Hx Anesthesia: Yes Hx Anesthesia Reactions: No Hx Malignant Hyperthermia: No Meds Home Medications: Home Medication List Medication Instructions Recorded Confirmed Type Atorvastatin [Lipitor] 40 mg PO HS tab 10/18/16 Rx Insulin Aspar/Insulin N 70/30 25 ml SC BID #1 misael 10/18/16 Rx [Novolog Mix 70/30-U/ml 3Ml] Metoclopramide HCl [Reglan] 5 mg PO TID PRN #30 tablet 10/18/16 Rx Pantoprazole [Protonix EC Tab] 40 mg PO DAILY #30 ect 10/18/16 Rx amLODIPine [Norvasc] 10 mg PO DAILY tab 10/18/16 Rx Allergies/Adverse Reactions: Allergies Allergy/AdvReac Type Severity Reaction Status Date / Time No Known Allergies Allergy Verified 09/27/16 19:42 - Medications Medications: Current Medications Acetaminophen (Tylenol 325mg Tab) 650 mg PO Q6 PRN PRN Reason: Pain, severe (8-10) Last Admin: 10/18/16 06:42 Dose: 650 mg Amlodipine Besylate (Norvasc) 10 mg PO DAILY [facility] Last Admin: 10/18/16 09:06 Dose: 10 mg Atorvastatin Calcium (Lipitor) 40 mg PO HS [facility] Gabapentin (Neurontin) 800 mg PO TID [facility] Last Admin: 10/18/16 09:06 Dose: 800 mg Insulin Human Regular (Humulin R) 0 units SC [facility] PRN Reason: Protocol Lisinopril (Zestril) 10 mg PO DAILY [facility] Last Admin: 10/18/16 10:32 Dose: 10 mg Metoclopramide HCl (Reglan) 5 mg IVP Q8H [facility] Stop: 10/19/16 04:00 Ondansetron HCl (Zofran Inj) 8 mg IVP Q6 PRN PRN Reason: Nausea/Vomiting Pantoprazole Sodium (Protonix Ec Tab) 40 mg PO DAILY [facility] Physical Exam - Constitutional Appears: Well, Non-toxic, No Acute Distress - Head Exam Head Exam: ATRAUMATIC, NORMAL INSPECTION, NORMOCEPHALIC - Eye Exam Eye Exam: EOMI, Normal appearance, PERRL - ENT Exam ENT Exam: Mucous Membranes Moist, Normal Exam - Respiratory Exam Respiratory Exam: Clear to Auscultation Bilateral, NORMAL BREATHING PATTERN - Cardiovascular Exam Cardiovascular Exam: REGULAR RHYTHM - GI/Abdominal Exam GI & Abdominal Exam: Normal Bowel Sounds, Soft. absent: Tenderness - Extremities Exam Extremities exam: Positive for: normal inspection Results - Vital Signs Recent Vital Signs: Last Vital Signs Temp 98.7 F 10/18/16 09:41 Pulse 78 10/18/16 09:06 Resp 16 10/18/16 07:47 BP 166/83 H 10/18/16 09:06 Pulse Ox 97 10/18/16 07:47 - Labs Result Diagrams: 10/18/16 07:15 10/18/16 07:15 Labs: Laboratory Results - last 24 hr 10/17/16 10/17/16 10/18/16 10:51 17:12 07:15 WBC 11.1 H RBC 4.54 Hgb 12.7 Hct 39.6 MCV 87.2 MCH 28.0 MCHC 32.1 L RDW 16.2 H Plt Count 222 Sodium Potassium Chloride Carbon Dioxide Anion Gap BUN Creatinine Est GFR ( Amer) Est GFR (Non-Af Amer) POC Glucose (mg/dL) 178 H 175 H Random Glucose Calcium 10/18/16 10/18/16 07:15 10:41 WBC RBC Hgb Hct MCV MCH MCHC RDW Plt Count Sodium 133 Potassium 3.5 L Chloride 93 L Carbon Dioxide 26 Anion Gap 18 BUN 38 H Creatinine 6.3 H Est GFR ( Amer) 12 Est GFR (Non-Af Amer) 10 POC Glucose (mg/dL) 394 H Random Glucose 144 H Calcium 8.0 L Assessment & Plan - Assessment and Plan (Free Text) Assessment: 36 yr old M with DM, HTN, ESRD on HD with multiple admissions for nausea, vomiting and one episode of coffee ground emesia. H/Hct at baseline. Multiple endoscopies including in the past 3 weeks with same findings. Nausea and vomiting may have component of gastroparesis. Poor outpatient follow up and only does hospital and doctor shopping. Rotates between [facility], [facility] and [facility] [place] [facility]. Today he denies nausea, vomiting and CGE. Plan: Anti emetic as needed Prokinetic will be beneficial only if he is compliant with outpatient follow up PPI once in am daily Needs established GI for follow up Diet as tolerated No urgent indication for endoscopy in setting of recent exam 3 weeks ago Discussed with medical team Regular diet as tolerated - Date & Time Date: 10/18/16
[2016-10-18] MEDS: Insulin Regular 100 units/ml SC SCH ×2 (12:41→16:42)
[2016-10-18] MEDS ORDERED: Insulin Regular 100 units/ml SC STA (13:25)
[2016-10-18 16:48] VITALS: BP 120/82; PULSE 90
--- NOTE | 2016-10-18 17:10 | CP.PCM.PN ---
Subjective - Date & Time of Evaluation Date of Evaluation: 10/18/16 Time of Evaluation: 17:07 - Subjective Subjective: Follow up Nephrology Consultation Note Assessment: End stage renal disease on hemodialysis (MWF) via permacath Anemia, Hyperphosphatemia, Secondary hyperparathyroidism, HTN urgency, DM, nausea/vomitting Plan: pt planned for dc home today and will go to his dialysis unit tomorrow AM for dialysis then will continue iwth his MWF schedule. No emergent need for dialysis today. can wait for dialysis till tomorrow. Continue with Nephrovite 1 tab/day. PRBC as needed for anemia. Last Hb 12.7 Continue with phos binders BP control with meds as ordered. Patient on RAAS sole as lisinopril, will maximise dose to 40 mg Glycemic control, Dialysis consistent diet Further work up/management as per primary team Dose meds/antibiotics (if needed) for ESRD status. Avoid fleets enema/magnesium based laxatives. Thanks for allowing me to participate in care of your patient. Please call if any Qs Dr Darrel Reynaga Office: [phone] Subjective: Noted events overnight. Patients feels okay. Denies chest pain, palpitation, shortness of breath, leg swelling. No further nausea/vomitting Physical Examination: General Appearance: Comfortable, in no acute respiratory distress, co- operative. Vitals reviewed and noted as below Lungs: Normal respiratory rate/effort. Breath sounds bilateral equal and clear Heart: Normal rate. s1s2 normal. No rub or gallop. Extremities: no edema. Neurological: Patient is alert, awake and oriented to person, place and time. No focal deficit. Strength bilateral appropriate and equal Skin: Warm and dry. Normal turgor. No rash. Palpitation: Normal elasticity for age Abdomen: Abdomen is soft. Bowel sounds +. There is no abdominal tenderness, no guarding/rigidity or organomegaly : kidney or bladder not palpable Access: permacath Labs/imaging reviewed. Past medical history, past surgical history, family history, social history, allergy reviewed Objective - Vital Signs/Intake and Output Vital Signs (last 24 hours): Temp Pulse Resp BP Pulse Ox 98.7 F 90 16 120/82 97 10/18/16 09:41 10/18/16 16:46 10/18/16 07:47 10/18/16 16:46 10/18/16 07:47 - Medications Medications: Current Medications Acetaminophen (Tylenol 325mg Tab) 650 mg PO Q6 PRN PRN Reason: Pain, severe (8-10) Last Admin: 10/18/16 06:42 Dose: 650 mg Amlodipine Besylate (Norvasc) 10 mg PO DAILY [facility] Last Admin: 10/18/16 09:06 Dose: 10 mg Atorvastatin Calcium (Lipitor) 40 mg PO HS [facility] Gabapentin (Neurontin) 800 mg PO TID [facility] Last Admin: 10/18/16 16:41 Dose: 800 mg Insulin Human Regular (Humulin R) 0 units SC [facility] PRN Reason: Protocol Last Admin: 10/18/16 16:42 Dose: 5 u Lisinopril (Zestril) 40 mg PO QPM [facility] Last Admin: 10/18/16 16:46 Dose: 40 mg Metoclopramide HCl (Reglan) 5 mg IVP Q8H [facility] Stop: 10/19/16 04:00 Last Admin: 10/18/16 12:40 Dose: 5 mg Ondansetron HCl (Zofran Inj) 8 mg IVP Q6 PRN PRN Reason: Nausea/Vomiting Pantoprazole Sodium (Protonix Ec Tab) 40 mg PO DAILY [facility] Vitamin B Complex/Vit C/Folic Acid (Nephro-Víctor) 1 tab PO DAILY [facility] - Labs Labs: 10/18/16 07:15 10/18/16 07:15
[2016-10-18 17:18] VITALS: RESP 20; TEMP 97.2; O2SAT 99
[2016-10-19] MEDS ORDERED: Multivitamin Vitamin B Complex (Nephro-Vite) Tab PO SCH (09:00)
[2016-10-19] MEDS ORDERED: Pantoprazole 40 mg EC Tab PO SCH (09:00)
== END 2016-10-18 19:35 | disposition home or self-care (01) ==
LOC: H.ER 19:24 → H.ERHOLD 23:04 → H.MEDSURG1 10-18 01:42
PROVIDERS: ADMIT Internal Medicine; ATTEND Internal Medicine
DX: K92.2 Gastrointestinal hemorrhage, unspecified (principal); E11.65 Type 2 diabetes mellitus with hyperglycemia; E83.39 Other disorders of phosphorus metabolism; F17.200 Nicotine dependence, unspecified, uncomplicated; I16.0 Hypertensive urgency; K20.9 Esophagitis, unspecified; N25.81 Secondary hyperparathyroidism of renal origin; Z99.2 Dependence on renal dialysis; N18.6 End stage renal disease; Z79.4 Long term (current) use of insulin; E11.319 Type 2 diabetes mellitus with unspecified diabetic retinopathy without macular edema; E11.21 Type 2 diabetes mellitus with diabetic nephropathy; I13.2 Hypertensive heart and chronic kidney disease with heart failure and with stage 5 chronic kidney disease, or end stage renal disease; I50.9 Heart failure, unspecified; E11.22 Type 2 diabetes mellitus with diabetic chronic kidney disease; D64.9 Anemia, unspecified; K29.60 Other gastritis without bleeding; E11.40 Type 2 diabetes mellitus with diabetic neuropathy, unspecified; R10.9 Unspecified abdominal pain; E78.00 Pure hypercholesterolemia, unspecified

== ENCOUNTER 2017-03-15 20:21 | Inpatient (IN) | payer MEDICAID, MEDICARE ==
[2017-03-15 20:21] VITALS: BMI 27.0
[2017-03-15] MEDS ORDERED: DiphenhydrAMINE 50 mg/ml Inj IVP STA (20:57)
[2017-03-15 21:03] LABS: VENOUS BLOOD GAS BASE EXCESS -4.3 mmol/L (0.0-2.0); VENOUS BLOOD GAS PCO2 68 mmHg (40-60); VENOUS BLOOD PH 7.18 (7.32-7.43)
[2017-03-15 21:12] LABS: ABG ALLEN TEST YES; ARTERIAL BLOOD GAS PO2 75 mm/Hg (80-100)
--- NOTE | 2017-03-15 21:21 | ED PDOC ---
HPI:Nausea, Vomiting, Diarrhea Time Seen by Provider: 03/15/17 20:32 Chief Complaint (Nursing): Abdominal Pain Chief Complaint (Provider): vomiting and abdominal pain History Per: Patient History/Exam Limitations: no limitations Onset/Duration Of Symptoms: Days (1), Persistent Current Symptoms Are (Timing): Still Present Associated Symptoms: Chills, Nausea, Vomiting, Loss Of Appetite. denies: Fever , Diarrhea, Urinary Symptoms Exacerbating Factors: None Alleviating Factors: None Additional Complaint(s): Similar to previous episodes. Has multiple admissions to hospital for same thing. He was just discharged 3 days ago from [facility] PMD Dr Gtz Past Medical History Reviewed: Historical Data, Nursing Documentation, Vital Signs Vital Signs: Last Vital Signs Temp 99.0 F 03/15/17 20:22 Pulse 101 H 03/15/17 20:22 Resp 18 03/15/17 20:22 BP 200/97 H 03/15/17 20:22 Pulse Ox 99 03/15/17 20:22 - Medical History PMH: Anemia, CHF, Diabetes (type I), Gastritis, HTN, Hypercholesterolemia, Peripheral Edema, End Stage Renal Disease, Chronic Kidney Disease Other PMH: Neuropathy - Family History Family History: States: Diabetes, Hypertension - Social History Alcohol: None Drugs: Denies - Immunization History Hx Tetanus Toxoid Vaccination: Yes Hx Influenza Vaccination: Yes Hx Pneumococcal Vaccination: Yes - Home Medications Home Medications: Ambulatory Orders Medication Instructions Recorded Aspirin [Ecotrin] 81 mg PO DAILY 01/19/17 Gabapentin [Neurontin] 300 mg PO DAILY #30 cap 02/17/17 Insulin Aspart, Recombinant 14 unit SC AC unit 02/17/17 [Novolog] Insulin Glargine, Recombina 40 unit SC HS unit 02/17/17 [Lantus] Losartan [Cozaar] 50 mg PO DAILY tab 02/17/17 amLODIPine [Norvasc] 10 mg PO DAILY tab 02/17/17 cloNIDine [Catapres] 0.3 mg PO TID tab 02/17/17 hydrALAZINE [Apresoline] 100 mg PO Q8 tab 02/17/17 Pantoprazole Sodium [Protonix] 40 mg PO DAILY #30 tablet. 03/11/17 - Allergies Allergies/Adverse Reactions: Allergies Allergy/AdvReac Type Severity Reaction Status Date / Time No Known Allergies Allergy Verified 02/28/17 10:45 Review of Systems ROS Statement: Except As Marked, All Systems Reviewed And Found Negative (and as per HPI) Constitutional: Positive for: Chills, Weakness, Malaise Cardiovascular: Negative for: Chest Pain Respiratory: Negative for: Shortness of Breath Gastrointestinal: Positive for: Nausea, Vomiting, Abdominal Pain Physical Exam - Reviewed Nursing Documentation Reviewed: Yes Vital Signs Reviewed: Yes - Physical Exam Appears: Positive for: Uncomfortable, In Acute Distress Head Exam: Positive for: ATRAUMATIC, NORMOCEPHALIC Skin: Positive for: Warm, Dry Eye Exam: Positive for: EOMI, PERRL ENT: Positive for: Other (dry mucus membranes). Negative for: Pharyngeal Erythema, Tonsillar Exudate Neck: Positive for: Painless ROM, Supple Cardiovascular/Chest: Positive for: Chest Non Tender, Tachycardia (regular rhythm). Negative for: Murmur Respiratory: Positive for: Normal Breath Sounds. Negative for: Rales, Respiratory Distress Gastrointestinal/Abdominal: Positive for: Soft, Tenderness (periumbilical). Negative for: Mass, Distended, Guarding, Rebound Back: Positive for: Normal Inspection. Negative for: Decreased ROM Extremity: Positive for: Other (poor muscle bulk). Negative for: Pedal Edema Lymphatic: Negative for: Adenopathy Neurologic/Psych: Positive for: Alert, Oriented (x3). Negative for: Motor/ Sensory Deficits (grossly) - Laboratory Results Result Diagrams: 03/15/17 21:00 03/15/17 21:00 - ECG ECG Rhythm: Positive for: Normal ST Segment, Sinus Rhythm O2 Sat by Pulse Oximetry: 99 Pulse Ox Interpretation: Normal - Progress Re-evaluation Time: 21:30 Condition: Unchanged Disposition - Clinical Impression Clinical Impression: ESRD (end stage renal disease) on dialysis, Intractable abdominal pain, Intractable vomiting Discussed With : Tal Mcgrath Comment: Admitting for PMD Dr Gtz Doctor Will See Patient In The: Hospital Counseled Patient/Family Regarding: Studies Performed, Diagnosis - Disposition Disposition Time: 22:00 Condition: FAIR - Pt Status Changed To: Hospital Disposition Of: Observation - POA Present On Arrival: Poor Glycemic Control
[2017-03-15 21:25] LABS: BASO # 0.2 K/uL (0.0-0.2); BASO % 1.3 % (0.0-2.0); EOS # 0.2 K/uL (0.0-0.7); EOS % 1.2 % (0.0-4.0); HEMATOCRIT 42.2 % (35.0-51.0); LYMPH # 0.9 K/uL (1.0-4.3); LYMPH % 6.7 % (20.0-40.0); MEAN CELL VOLUME 92.2 fl (80.0-94.0); MEAN CORPUSCULAR HEMOGLOBIN 28.5 pg (27.0-31.0); MEAN CORPUSCULAR HGB CONC 30.9 g/dL (33.0-37.0); MEAN PLATELET VOLUME 8.9 fl (7.2-11.7); MONO # 0.9 K/uL (0.0-0.8); MONO % 7.2 % (0.0-10.0); NEUT % 83.6 % (50.0-75.0); PLATELET COUNT 328 K/uL (130-400); RED CELL DISTRIBUTION WIDTH 19.9 % (11.5-14.5); WHITE BLOOD COUNT 13.2 K/uL (4.8-10.8)
[2017-03-15 21:30] LABS: ALB/GLOB RATIO 1.1 (1.0-2.1); ALCOHOL SERUM < 10 mg/dl (0-10); ALKALINE PHOSPHATASE 141 U/L (38-126); ALT/SGPT 27 U/L (21-72); AST/SGOT 40 U/L (17-59); BILIRUBIN,TOTAL 0.7 mg/dl (0.2-1.3); BLOOD UREA NITROGEN 39 mg/dl (9-20); CALCIUM 8.8 mg/dL (8.4-10.2); CARBON DIOXIDE 23 mmol/L (22-30); CHLORIDE 98 mmol/L (98-107); GFR AFRICAN-AMERICAN 13; GLUCOSE,RANDOM 207 mg/dL (75-110); LIPASE 59 U/L (23-300); MAGNESIUM 2.1 MG/DL (1.6-2.3); PHOSPHOROUS 7.1 mg/dl (2.5-4.5); POTASSIUM 5.1 MMOL/L (3.6-5.0); SODIUM 140 mmol/l (132-148)
[2017-03-15 21:49] LABS: PARTIAL THROMBOPLASTIN TIME 31.9 Seconds (25.6-37.1)
[2017-03-15 23:17] LABS: BASOPHIL 1 % (0-2); EOSINOPHIL 1 % (0-7); NEUTROPHIL 85 % (42-75); TOTAL CELLS COUNTED 100
[2017-03-16] MEDS ORDERED: Sterile Water 10 ML IV ONE (00:24)
[2017-03-16] MEDS: Insulin Lispro (humaLOG) 100 Units/ml Inj SC SCH ×4 (06:37→23:50)
--- NOTE | 2017-03-16 09:39 | RAD ---
HISTORY: vomiting COMPARISON: 10/17/2016 FINDINGS: LUNGS: No active pulmonary disease. PLEURA: No significant pleural effusion identified, no pneumothorax apparent. CARDIOVASCULAR: Heart is unchanged in size. OSSEOUS STRUCTURES: No significant abnormalities. VISUALIZED UPPER ABDOMEN: Normal. OTHER FINDINGS: None. IMPRESSION: No active disease.
--- NOTE | 2017-03-17 00:12 | CP.PCM.CON ---
History of Present Illness - History of Present Illness History of Present Illness: 36 yr old with esrd.htn, dm is admitted with recurrent nausea and vomiting. has significant hx of dm gastroparesis. he was recently discharged from [facility] with similar complaints. usual hd days are mwf. has been compliant with hd Review of Systems - Review of Systems All systems: reviewed and no additional remarkable complaints except Past Patient History - Infectious Disease Hx of Infectious Diseases: None - Past Medical History & Family History Past Medical History?: Yes - Past Social History Smoking Status: Light Smoker < 10 Cigarettes Daily - CARDIAC Hx Cardiac Disorders: Yes Hx Congestive Heart Failure: Yes Hx Hypercholesterolemia: Yes Hx Hypertension: Yes Hx Peripheral Edema: Yes - PULMONARY Hx Respiratory Disorders: No - NEUROLOGICAL Hx Neurological Disorder: Yes Other/Comment: Bilateral leg neuropathy - HEENT Hx HEENT Problems: Yes Hx Cataracts: Yes Other/Comment: cataract surgery asad eye 10 years ago - RENAL Hx Chronic Kidney Disease: Yes Hx Dialysis: Yes Other/Comment: ESRD - ENDOCRINE/METABOLIC Hx Endocrine Disorders: Yes Hx Diabetes Mellitus Type 1: Yes - HEMATOLOGICAL/ONCOLOGICAL Hx Blood Disorders: Yes Hx Anemia: Yes - INTEGUMENTARY Hx Dermatological Problems: No - MUSCULOSKELETAL/RHEUMATOLOGICAL Hx Musculoskeletal Disorders: Yes Hx Falls: Yes - GASTROINTESTINAL Hx Gastrointestinal Disorders: Yes Hx Gastritis: Yes - GENITOURINARY/GYNECOLOGICAL Hx Genitourinary Disorders: No - PSYCHIATRIC Hx Psychophysiologic Disorder: Yes Hx Substance Use: Yes (marijuana 1 per day) - SURGICAL HISTORY Hx Surgeries: Yes Hx Cataract Extraction: Yes (bilateral) Hx Vascular Access Device: Yes Other/Comment: RT.PERMACATH INSERTION 04/17. LT.AV SHUNT CREATION 06/04/16. UNDESCENDED TESTES LT. REMOVED DURING CHILDHOOD - ANESTHESIA Hx Anesthesia: Yes Hx Anesthesia Reactions: No Hx Malignant Hyperthermia: No Meds Allergies/Adverse Reactions: Allergies Allergy/AdvReac Type Severity Reaction Status Date / Time No Known Allergies Allergy Verified 02/28/17 10:45 - Medications Medications: Current Medications Acetaminophen (Tylenol 325mg Tab) 650 mg PO Q6 PRN PRN Reason: Pain, moderate (4-7) Last Admin: 03/17/17 00:04 Dose: 650 mg Amlodipine Besylate (Norvasc) 10 mg PO DAILY [facility] Last Admin: 03/16/17 08:20 Dose: 10 mg Aspirin (Ecotrin) 81 mg PO DAILY [facility] Last Admin: 03/16/17 08:34 Dose: 81 mg Clonidine HCl (Catapres) 0.3 mg PO TID [facility] Last Admin: 03/16/17 18:22 Dose: Not Given Hydralazine HCl (Apresoline) 100 mg PO Q8 [facility] Last Admin: 03/16/17 18:21 Dose: Not Given Insulin Human Lispro (Humalog) 0 units SC ACCU-CHECK [facility] PRN Reason: Protocol Last Admin: 03/16/17 23:50 Dose: Not Given Metoclopramide HCl (Reglan) 5 mg IVP TIDAC [facility] Last Admin: 03/16/17 18:23 Dose: 5 mg Morphine Sulfate (Morphine) 2 mg IVP Q6 PRN PRN Reason: Pain, severe (8-10) Last Admin: 03/16/17 18:32 Dose: 2 mg Ondansetron HCl (Zofran Inj) 8 mg IV Q4 PRN PRN Reason: Nausea/Vomiting Last Admin: 03/16/17 05:47 Dose: 8 mg Pantoprazole Sodium (Protonix Inj) 40 mg IVP DAILY [facility] Last Admin: 03/16/17 08:21 Dose: 40 mg Physical Exam - Constitutional Appears: Non-toxic, No Acute Distress - Head Exam Head Exam: NORMAL INSPECTION - Eye Exam Eye Exam: Normal appearance - ENT Exam ENT Exam: Mucous Membranes Moist - Neck Exam Neck exam: Positive for: Normal Inspection - Respiratory Exam Respiratory Exam: NORMAL BREATHING PATTERN - Cardiovascular Exam Cardiovascular Exam: +S1, +S2 - GI/Abdominal Exam GI & Abdominal Exam: Soft - Extremities Exam Extremities exam: Positive for: normal inspection - Neurological Exam Neurological exam: Alert, Oriented x3 - Psychiatric Exam Psychiatric exam: Flat Affect - Skin Skin Exam: Dry Results - Vital Signs Recent Vital Signs: Last Vital Signs Temp 98.6 F 03/16/17 19:49 Pulse 79 03/16/17 19:49 Resp 20 03/16/17 19:49 BP 139/71 03/16/17 19:49 Pulse Ox 98 03/16/17 19:49 - Labs Result Diagrams: 03/18/17 05:45 03/18/17 05:45 Labs: Laboratory Results - last 24 hr 03/15/17 03/16/17 03/16/17 21:00 05:29 11:53 POC Glucose (mg/dL) 166 H 286 H Blood Type O POSITIVE Antibody Screen Negative BBK History Checked Patient has bt 03/16/17 03/16/17 17:07 22:01 POC Glucose (mg/dL) 242 H 164 H Blood Type Antibody Screen BBK History Checked Assessment & Plan - Assessment and Plan (Free Text) Plan: ESRD/HTN/DM/DM gastroparesis/sec hyperpth hd mwf, continue per schedule lytes reviewed anemia stable epo as needed bp continue current meds dm management per primary team
--- NOTE | 2017-03-17 04:42 | HP ---
HISTORY OF PRESENT ILLNESS: This is a 36-year-old -[place] male with history of end-stage renal disease, on hemodialysis, hypertension, presented to emergency room again with symptoms of vomiting and abdominal pain. The patient complained of nausea, early satiety, and vomiting. He denied any diarrhea or fever. Patient recently discharged from [facility] with similar presentation. The patient was diagnosed before with gastroparesis and he was advised to take small frequent diets and stay in prokinetic agent. The patient is not compliant to his medications. The patient denied to have any other symptoms at the time of his examination. PAST MEDICAL HISTORY: Hypertension, end-stage renal disease; on hemodialysis. SOCIAL HISTORY: Denied smoking, EtOH, or substance abuse. MEDICATIONS: Hydralazine 100 mg every 8 hours, clonidine 0.3 mg three times a day, aspirin 81 mg daily, amlodipine 10 mg daily, losartan 50 mg daily. FAMILY HISTORY: Not contributory. PHYSICAL EXAMINATION GENERAL: The patient is in bed, comfortable, not in any cardiopulmonary distress. VITAL SIGNS: Blood pressure 116/71, temperature 98.4, respiratory rate 20, and pulse 78. HEENT: Pupils equal and reactive to light. Normal-appearing mucosa of the conjunctivae, oropharyngeal and nasal membrane mucosa. NECK: Supple. No JVD. No carotid bruit. No lymph node. No thyromegaly. CHEST AND LUNGS: Bilateral symmetrical expansion. Good air exchange. No rales. No rhonchi. CARDIOVASCULAR SYSTEM: PMI not localized. S1, S2. No additional sounds. ABDOMEN: Normoactive bowel sounds. No tenderness. No organomegaly. No masses. EXTREMITIES: No cyanosis. No clubbing. No edema. CHEMIST HELPER: Alert, awake, oriented x2 and no neurological deficit could be appreciated. ASSESSMENT 1. Frequent vomiting and nausea, likely gastroparesis. 2. End-stage renal disease, on hemodialysis. 3. Type 2 diabetes mellitus. PLAN: Will give patient Reglan 5 mg IV q.8 hours a.c. half an hour before meal three times a day and Protonix 40 mg daily. If patient persists to vomit, we will call GI consult. Tal Mcgrath MD [facility] # [phone]
--- NOTE | 2017-03-17 09:57 | CP.PCM.PN ---
Subjective - Date & Time of Evaluation Date of Evaluation: 03/17/17 Time of Evaluation: 09:53 - Subjective Subjective: Patient is less nauseous today. feeling better Objective - Vital Signs/Intake and Output Vital Signs (last 24 hours): Temp Pulse Resp BP Pulse Ox 98.4 F 84 20 174/88 H 95 03/17/17 09:00 03/17/17 09:00 03/17/17 09:00 03/17/17 09:00 03/17/17 09:00 - Medications Medications: Current Medications Acetaminophen (Tylenol 325mg Tab) 650 mg PO Q6 PRN PRN Reason: Pain, moderate (4-7) Last Admin: 03/17/17 00:04 Dose: 650 mg Amlodipine Besylate (Norvasc) 10 mg PO DAILY [facility] Last Admin: 03/16/17 08:20 Dose: 10 mg Aspirin (Ecotrin) 81 mg PO DAILY [facility] Last Admin: 03/17/17 09:12 Dose: 81 mg Clonidine HCl (Catapres) 0.3 mg PO TID [facility] Last Admin: 03/16/17 18:22 Dose: Not Given Hydralazine HCl (Apresoline) 100 mg PO Q8 [facility] Last Admin: 03/17/17 01:09 Dose: 100 mg Insulin Human Lispro (Humalog) 0 units SC ACCU-CHECK [facility] PRN Reason: Protocol Last Admin: 03/16/17 23:50 Dose: Not Given Metoclopramide HCl (Reglan) 5 mg IVP TIDAC [facility] Last Admin: 03/17/17 09:13 Dose: 5 mg Morphine Sulfate (Morphine) 2 mg IVP Q6 PRN PRN Reason: Pain, severe (8-10) Last Admin: 03/17/17 09:17 Dose: 2 mg Ondansetron HCl (Zofran Inj) 8 mg IV Q4 PRN PRN Reason: Nausea/Vomiting Last Admin: 03/16/17 05:47 Dose: 8 mg Pantoprazole Sodium (Protonix Inj) 40 mg IVP DAILY [facility] Last Admin: 03/17/17 09:13 Dose: 40 mg - Labs Labs: 03/15/17 21:00 03/15/17 21:00 PT 11.3 Seconds (9.8-13.1) 03/15/17 21:00 INR 1.0 (0.9-1.2) 03/15/17 21:00 APTT 31.9 Seconds (25.6-37.1) 03/15/17 21:00 - Constitutional Appears: No Acute Distress - ENT Exam ENT Exam: Mucous Membranes Moist - Respiratory Exam Respiratory Exam: NORMAL BREATHING PATTERN. absent: Chest Wall Tenderness - Cardiovascular Exam Cardiovascular Exam: REGULAR RHYTHM. absent: JVD, Rubs - GI/Abdominal Exam GI & Abdominal Exam: Soft, Normal Bowel Sounds - Extremities Exam Extremities Exam: absent: Calf Tenderness - Back Exam Back Exam: absent: CVA tenderness (L), CVA tenderness (R) - Neurological Exam Neurological Exam: Alert - Psychiatric Exam Psychiatric exam: Normal Affect Assessment and Plan (1) ESRD (end stage renal disease) on dialysis Assessment & Plan: Patient with end stage renal disease admitted for nausea. Patient has been using marijuana all along. And every time he inhales marijuana C/O severe nauseous and come to the emergency room Patient has been in and out in the hospital for sodium many time he just left [facility] was very much similar complain he was evaluated has upper and lower endoscopy and many evaluations and he continue to use marijuana. Dialysis schedule now reveals ultrafiltration about 1500 mL Sodium 138 Potassium 10 mEq Status: Chronic
--- NOTE | 2017-03-17 10:48 | CARD ---
APPROVED REPORT EKG Measurement Heart [id number] <Conclusion> Normal sinus rhythm Nonspecific T wave abnormality Prolonged QT Abnormal ECG
[2017-03-17 12:38] LABS: HEMATOCRIT 35.8 % (35.0-51.0); MEAN CORPUSCULAR HEMOGLOBIN 28.4 pg (27.0-31.0); MEAN CORPUSCULAR HGB CONC 31.2 g/dL (33.0-37.0); RED CELL DISTRIBUTION WIDTH 19.6 % (11.5-14.5); WHITE BLOOD COUNT 10.1 K/uL (4.8-10.8)
[2017-03-17 12:50] LABS: ALB/GLOB RATIO 1.1 (1.0-2.1); BILIRUBIN,TOTAL 0.4 mg/dl (0.2-1.3); CALCIUM 7.6 mg/dL (8.4-10.2); POTASSIUM 5.9 MMOL/L (3.6-5.0); TOTAL PROTEIN 6.2 G/DL (6.3-8.2)
[2017-03-17] MEDS: Insulin Lispro (humaLOG) 100 Units/ml Inj SC SCH ×3 (13:03→22:18)
[2017-03-17] MEDS ORDERED: Sod Polystyrene Sulf 15 gm/60 ml Susp PO ONE (13:38)
--- NOTE | 2017-03-17 14:29 | CT ---
PROCEDURE: CT Abdomen and Pelvis without intravenous contrast HISTORY: Abdominal pain COMPARISON: Noncontrast and pelvis CT 08/12/2016. TECHNIQUE: Helical CT of the abdomen and pelvis was performed without oral or intravenous contrast as per referring physician request. Contrast Dose: None Radiation dose: Total exam DLP = 402.36 mGy-cm. This CT exam was performed using one or more of the following dose reduction techniques: Automated exposure control, adjustment of the mA and/or kV according to patient size, and/or use of iterative reconstruction technique. FINDINGS: The lack of contrast agents specifics of particularly in a patient with abdominal pain limits interpretation of this examination significantly. LOWER THORAX: Limited bilateral basilar linear atelectasis appreciated at the right greater than left bases. Further, very silhouette appears prominent in a relatively prominent cysts interlobular septal mammography is appreciated as compared to the prior CT from 08/12/2016. Consider potential fluid overload/pulmonary venous congestion. LIVER: Unremarkable. No gross lesion or ductal dilatation. GALLBLADDER AND BILE DUCTS: Unremarkable. PANCREAS: Unremarkable. No gross lesion or ductal dilatation. SPLEEN: Unremarkable. ADRENALS: Unremarkable. No mass. KIDNEYS AND URETERS: Unremarkable. No hydronephrosis. No solid mass. VASCULATURE: Unremarkable. No aortic aneurysm. BOWEL: The stomach is mildly distend with retained food. Retained fecal material is seen scattered throughout the majority of the colon limiting the interpretation further. No bowel obstruction is grossly evident. Small-bowel loops are unremarkable as imaged. APPENDIX: Unremarkable. Normal appendix. PERITONEUM: Unremarkable. No free fluid. No free air. LYMPH NODES: Unremarkable. No enlarged lymph nodes. BLADDER: Mildly distended but appears mildly thick-walled. Clinically correlate for possible cystitis though this is not definite. Prostate gland is appears upper limits normal size. BONES: A chronic T11 compression fracture is again seen anteriorly wedged. OTHER FINDINGS: None. IMPRESSION: Limited abdomen and pelvis CT due lack of contrast agents as discussed above. No bowel obstruction, mesenteric edema, ascites or free intrarenal gas identified. The stomach distended with retained food moderately. Prominent interlobular septal markings at the bilateral lung bases may indicate fluid overload or pulmonary venous congestion from another etiology. No pleural effusions bilaterally.
--- NOTE | 2017-03-17 22:51 | PN ---
DAILY PROGRESS NOTE DATE: 03/17/2017 SUBJECTIVE: He has abdominal pain and nausea, but did not vomit. PHYSICAL EXAMINATION: VITAL SIGNS: Blood pressure 164/79, temperature 98.4, respiratory rate 20, and pulse 84. HEENT: Pupils equal and reactive to light. Normal-appearing mucosa of the conjunctivae, oropharyngeal, and nasal membrane mucosa. NECK: Supple. No JVD. No carotid bruit. No lymph node. No thyromegaly. CHEST AND LUNGS: Bilateral symmetrical expansion. Good air exchange. No rales. No rhonchi. CARDIOVASCULAR SYSTEM: PMI not localized. S1 and S2. No additional sounds. ABDOMEN: Normoactive bowel sounds. There is diffuse tenderness of the abdomen, but no rebound tenderness or rigidity. EXTREMITIES: No cyanosis. No clubbing. No edema. CENTRAL NERVOUS SYSTEM: Alert, awake, and oriented x2. No neurological deficits could be appreciated. DIAGNOSTIC DATA: CAT scan of the abdomen and pelvis was done and it was limited abdomen and pelvic CT due to lack of contrast agent. No bowel obstruction, mesenteric edema, ascites, or free internal gas identified. The stomach distended with retained food, moderately, makes prominent interlobular septal marking at the bilateral lung bases, likely due to venous congestion. ASSESSMENT: 1. Nausea and frequent vomiting secondary to diabetic gastroparesis. 2. Hypertension. 3. End-stage renal disease, on hemodialysis. PLAN: Dietary consult for small frequent portions and continue Reglan as tolerated. Continue hemodialysis as per broadcast transmitter operator. Tal Mcgrath MD
[2017-03-17] MEDS: Morphine 4 MG/ML VIAL IVP PRN (23:39)
[2017-03-18] MEDS: Morphine 4 MG/ML VIAL IVP PRN ×2 (06:02→22:09)
[2017-03-18] MEDS: Insulin Lispro (humaLOG) 100 Units/ml Inj SC SCH ×4 (06:08→23:05)
[2017-03-18 06:16] LABS: HEMATOCRIT 38.7 % (35.0-51.0); MEAN CELL VOLUME 90.7 fl (80.0-94.0); MEAN CORPUSCULAR HEMOGLOBIN 28.6 pg (27.0-31.0); MEAN CORPUSCULAR HGB CONC 31.5 g/dL (33.0-37.0); RED CELL DISTRIBUTION WIDTH 18.9 % (11.5-14.5); WHITE BLOOD COUNT 10.6 K/uL (4.8-10.8)
[2017-03-18 07:05] LABS: CALCIUM 7.9 mg/dL (8.4-10.2); POTASSIUM 3.8 MMOL/L (3.6-5.0)
--- NOTE | 2017-03-18 10:43 | CP.PCM.PN ---
Subjective - Date & Time of Evaluation Date of Evaluation: 03/18/17 Time of Evaluation: 10:41 - Subjective Subjective: Patient and bed awake and conscious There is feeling much better Completed hemodialysis yesterday Objective - Vital Signs/Intake and Output Vital Signs (last 24 hours): Temp Pulse Resp BP Pulse Ox 98.4 F 91 H 17 194/89 H 96 03/18/17 08:25 03/18/17 08:25 03/18/17 08:25 03/18/17 08:25 03/18/17 08:25 - Medications Medications: Current Medications Acetaminophen (Tylenol 325mg Tab) 650 mg PO Q6 PRN PRN Reason: Pain, moderate (4-7) Last Admin: 03/17/17 00:04 Dose: 650 mg Amlodipine Besylate (Norvasc) 10 mg PO DAILY [facility] Last Admin: 03/18/17 08:20 Dose: 10 mg Aspirin (Ecotrin) 81 mg PO DAILY [facility] Last Admin: 03/18/17 08:18 Dose: 81 mg Clonidine HCl (Catapres) 0.3 mg PO TID [facility] Last Admin: 03/18/17 08:18 Dose: 0.3 mg Heparin Sodium (Porcine) (Heparin) 5,000 units SC Q12 [facility] PRN Reason: Protocol Last Admin: 03/18/17 08:19 Dose: 5,000 units Hydralazine HCl (Apresoline) 100 mg PO Q8 [facility] Last Admin: 03/18/17 08:17 Dose: 100 mg Insulin Human Lispro (Humalog) 0 units SC ACCU-CHECK [facility] PRN Reason: Protocol Last Admin: 03/18/17 06:08 Dose: 2 units Metoclopramide HCl (Reglan) 5 mg IVP TIDAC [facility] Last Admin: 03/18/17 08:19 Dose: 5 mg Morphine Sulfate (Morphine) 2 mg IVP Q6 PRN PRN Reason: Pain, severe (8-10) Last Admin: 03/18/17 06:02 Dose: 2 mg Mupirocin (Bactroban Ointment) 1 applic TOP BID [facility] Last Admin: 03/18/17 08:19 Dose: 1 applic Ondansetron HCl (Zofran Inj) 8 mg IV Q4 PRN PRN Reason: Nausea/Vomiting Last Admin: 03/16/17 05:47 Dose: 8 mg Pantoprazole Sodium (Protonix Inj) 40 mg IVP DAILY [facility] Last Admin: 03/18/17 08:21 Dose: 40 mg - Labs Labs: 03/18/17 05:45 03/18/17 05:45 PT 11.3 Seconds (9.8-13.1) 03/15/17 21:00 INR 1.0 (0.9-1.2) 03/15/17 21:00 APTT 31.9 Seconds (25.6-37.1) 03/15/17 21:00 - Constitutional Appears: No Acute Distress - ENT Exam ENT Exam: Mucous Membranes Moist - Respiratory Exam Respiratory Exam: NORMAL BREATHING PATTERN. absent: Chest Wall Tenderness, Rales - Cardiovascular Exam Cardiovascular Exam: absent: JVD, Rubs - GI/Abdominal Exam GI & Abdominal Exam: Normal Bowel Sounds - Extremities Exam Extremities Exam: absent: Calf Tenderness - Back Exam Back Exam: absent: CVA tenderness (L), CVA tenderness (R) - Neurological Exam Neurological Exam: Alert - Psychiatric Exam Psychiatric exam: Normal Affect Assessment and Plan (1) ESRD (end stage renal disease) on dialysis Assessment & Plan: Stage renal disease patient admitted with abdominal pain and vomited I believe because of the marijuana use Blood pressure elevated patient on clonidine 0.3 mg 3 times a day and hydralazine Norvasc I will add lisinopril 20 mg daily for now and increase to twice a day if needed Status: Chronic
--- NOTE | 2017-03-18 17:57 | CP.PCM.CON ---
History of Present Illness - History of Present Illness History of Present Illness: GI consult requested by Dr Mcgrath- This is a 36 year old male with history of diabetes, HTN, ESRD on HD MWF who presents to the hospital with complaint of abdominal pain, nausea, and vomiting and chronic loose stools. Patient was recently discharged with similar complains and has had similar presentation with hospitalizations in the past. EGD/colonoscopy performed 02/[address] Fox , showed reflux esophagitis with erythematous duodenopathy and external/ internal hemorrhoids, respectively. Pathology was negative for H. pylori from EGD and colonoscopy pathology specimen was negative for colitis. Patient admits he did not take any medication prescribed for him at discharge because insurance would not cover the cost. Patient states he was tolerating full diet at home before he became ill. He denies hematochezia, dizziness, SOB, Chest pain , confusion, or palpitations. He smokes marijuana daily and states he buys it on the street for chronic pain. He is not able to quantify how much marijuana he smokes. He states symptoms get better with hot showers Review of Systems - Review of Systems Review of Systems: 12 point ROS unremarkable except that documented in HPI Past Patient History - Infectious Disease Hx of Infectious Diseases: None - Past Medical History & Family History Past Medical History?: Yes - Past Social History Smoking Status: Light Smoker < 10 Cigarettes Daily - CARDIAC Hx Cardiac Disorders: Yes Hx Congestive Heart Failure: Yes Hx Hypercholesterolemia: Yes Hx Hypertension: Yes Hx Peripheral Edema: Yes - PULMONARY Hx Respiratory Disorders: No - NEUROLOGICAL Hx Neurological Disorder: Yes Other/Comment: Bilateral leg neuropathy - HEENT Hx HEENT Problems: Yes Hx Cataracts: Yes Other/Comment: cataract surgery asad eye 10 years ago - RENAL Hx Chronic Kidney Disease: Yes Hx Dialysis: Yes Other/Comment: ESRD - ENDOCRINE/METABOLIC Hx Endocrine Disorders: Yes Hx Diabetes Mellitus Type 1: Yes - HEMATOLOGICAL/ONCOLOGICAL Hx Blood Disorders: Yes Hx Anemia: Yes - INTEGUMENTARY Hx Dermatological Problems: No - MUSCULOSKELETAL/RHEUMATOLOGICAL Hx Musculoskeletal Disorders: Yes Hx Falls: Yes - GASTROINTESTINAL Hx Gastrointestinal Disorders: Yes Hx Gastritis: Yes - GENITOURINARY/GYNECOLOGICAL Hx Genitourinary Disorders: No - PSYCHIATRIC Hx Psychophysiologic Disorder: Yes Hx Substance Use: Yes (marijuana 1 per day) - SURGICAL HISTORY Hx Surgeries: Yes Hx Cataract Extraction: Yes (bilateral) Hx Vascular Access Device: Yes Other/Comment: RT.PERMACATH INSERTION 04/17. LT.AV SHUNT CREATION 06/04/16. UNDESCENDED TESTES LT. REMOVED DURING CHILDHOOD - ANESTHESIA Hx Anesthesia: Yes Hx Anesthesia Reactions: No Hx Malignant Hyperthermia: No Meds Allergies/Adverse Reactions: Allergies Allergy/AdvReac Type Severity Reaction Status Date / Time No Known Allergies Allergy Verified 02/28/17 10:45 - Medications Medications: Current Medications Acetaminophen (Tylenol 325mg Tab) 650 mg PO Q6 PRN PRN Reason: Pain, moderate (4-7) Last Admin: 03/17/17 00:04 Dose: 650 mg Amlodipine Besylate (Norvasc) 10 mg PO DAILY [facility] Last Admin: 03/18/17 08:20 Dose: 10 mg Aspirin (Ecotrin) 81 mg PO DAILY [facility] Last Admin: 03/18/17 08:18 Dose: 81 mg Clonidine HCl (Catapres) 0.3 mg PO TID [facility] Last Admin: 03/18/17 12:52 Dose: Not Given Heparin Sodium (Porcine) (Heparin) 5,000 units SC Q12 [facility] PRN Reason: Protocol Last Admin: 03/18/17 08:19 Dose: 5,000 units Hydralazine HCl (Apresoline) 100 mg PO Q8 [facility] Last Admin: 03/18/17 08:17 Dose: 100 mg Insulin Human Lispro (Humalog) 0 units SC ACCU-CHECK [facility] PRN Reason: Protocol Last Admin: 03/18/17 12:54 Dose: Not Given Lisinopril (Zestril) 20 mg PO DAILY [facility] Last Admin: 03/18/17 11:44 Dose: Not Given Metoclopramide HCl (Reglan) 5 mg IVP TIDAC [facility] Last Admin: 03/18/17 11:44 Dose: 5 mg Morphine Sulfate (Morphine) 2 mg IVP Q6 PRN PRN Reason: Pain, severe (8-10) Last Admin: 03/18/17 06:02 Dose: 2 mg Mupirocin (Bactroban Ointment) 1 applic TOP BID [facility] Last Admin: 03/18/17 08:19 Dose: 1 applic Ondansetron HCl (Zofran Inj) 8 mg IV Q4 PRN PRN Reason: Nausea/Vomiting Last Admin: 03/18/17 11:42 Dose: 8 mg Pantoprazole Sodium (Protonix Inj) 40 mg IVP DAILY [facility] Last Admin: 03/18/17 08:21 Dose: 40 mg Physical Exam - Constitutional Appears: No Acute Distress, Unkempt - Head Exam Head Exam: ATRAUMATIC, NORMAL INSPECTION, NORMOCEPHALIC - Eye Exam Eye Exam: EOMI, Normal appearance, PERRL - ENT Exam ENT Exam: Mucous Membranes Moist, Normal Exam - Respiratory Exam Respiratory Exam: Clear to Auscultation Bilateral, NORMAL BREATHING PATTERN - Cardiovascular Exam Cardiovascular Exam: REGULAR RHYTHM, RRR, +S1, +S2 - GI/Abdominal Exam GI & Abdominal Exam: Distended, Hypoactive Bowel Sounds, Soft. absent: Tenderness - Neurological Exam Neurological exam: Alert, Oriented x3 - Skin Skin Exam: Dry, Normal Color Results - Vital Signs Recent Vital Signs: Last Vital Signs Temp 98.7 F 03/18/17 17:03 Pulse 87 03/18/17 17:03 Resp 14 03/18/17 17:03 BP 132/69 03/18/17 17:03 Pulse Ox 95 03/18/17 17:03 - Labs Result Diagrams: 03/18/17 05:45 03/18/17 05:45 Labs: Laboratory Results - last 24 hr 03/17/17 03/17/17 03/18/17 17:07 21:35 00:24 WBC RBC Hgb Hct MCV MCH MCHC RDW Plt Count Sodium Potassium Chloride Carbon Dioxide Anion Gap BUN Creatinine Est GFR ( Amer) Est GFR (Non-Af Amer) POC Glucose (mg/dL) 153 H 144 H Random Glucose Calcium Hep Bs Antigen Negative Hep B Core IgM Ab Negative 03/18/17 03/18/17 03/18/17 05:45 05:45 06:04 WBC 10.6 RBC 4.26 L Hgb 12.2 Hct 38.7 MCV 90.7 MCH 28.6 MCHC 31.5 L RDW 18.9 H Plt Count 217 Sodium 135 Potassium 3.8 Chloride 95 L Carbon Dioxide 25 Anion Gap 19 BUN 29 H Creatinine 5.8 H Est GFR ( Amer) 13 Est GFR (Non-Af Amer) 11 POC Glucose (mg/dL) 153 H Random Glucose 154 H Calcium 7.9 L Hep Bs Antigen Hep B Core IgM Ab 03/18/17 03/18/17 11:36 17:09 WBC RBC Hgb Hct MCV MCH MCHC RDW Plt Count Sodium Potassium Chloride Carbon Dioxide Anion Gap BUN Creatinine Est GFR ( Amer) Est GFR (Non-Af Amer) POC Glucose (mg/dL) 158 H 160 H Random Glucose Calcium Hep Bs Antigen Hep B Core IgM Ab Assessment & Plan - Assessment and Plan (Free Text) Assessment: 36 yr old M with DM, HTN, ESRD on HD with multiple admissions for nausea, vomiting and loose stools. Multiple endoscopies including in the past with same findings. Nausea and vomiting may have component of gastroparesis and chronic marijuana use. Poor outpatient follow up and only does hospital and doctor shopping. Rotates between [facility], [facility] and [facility] [place]. Plan: Anti emetic as needed Prokinetic will be beneficial only if he is compliant with outpatient follow up PPI once in am daily Needs established GI for follow up Marijuana cesstaion stressed Cyclical vomiting syndrome may be contributing Diet as tolerated No urgent indication for endoscopy in setting of recent exam Discussed with medical team Regular diet as tolerated
--- NOTE | 2017-03-18 23:25 | PN ---
DATE: 03/18/2017 SUBJECTIVE: The patient is seen today on 03/18/2017. He still has nausea and vomiting. PHYSICAL EXAMINATION: VITAL SIGNS: Blood pressure is 132/69, temperature 98.7, respiratory rate 14, and pulse 87. HEENT: Pupils equal and reactive to light. Normal-appearing mucosa of the conjunctivae, oropharyngeal, and nasal membrane mucosa. NECK: Supple. No JVD. No carotid bruits. No lymph node. No thyromegaly. CHEST AND LUNGS: Bilateral symmetrical expansion. Good air exchange. No rales. No rhonchi. CARDIOVASCULAR SYSTEM: PMI not localized. S1 and S2. No additional sounds. ABDOMEN: Normoactive bowel sounds. No tenderness. No organomegaly. No masses. EXTREMITIES: No cyanosis. No clubbing. No edema. SEO ASSOCIATE: Alert, awake, and oriented x2. No neurological deficits could be appreciated. ASSESSMENT: 1. Frequent nausea and vomiting secondary to diabetic gastroparesis. 2. End-stage renal disease, on hemodialysis. 3. Hypertension. PLAN: Continue Reglan and Zofran. GI consult and follow recommendations. Continue hemodialysis and antihypertensive medications. Tal Mcgrath MD
[2017-03-19] MEDS: Morphine 4 MG/ML VIAL IVP PRN (04:45)
--- NOTE | 2017-03-19 08:16 | PQF GENQUE ---
Dr. Mcgrath, Please specify the type and acuity of heart failure in your progress notes: VERSUS: hx. only and not a chronic condition? OR: Unable to determine OR: Other explanation of clinical finding If CHF is ruled in please clarify the following if known: 1. TYPE: Combined systolic and diastolic Diastolic Systolic Other (please specify) 2. ACUITY: Acute Chronic Acute on chronic Other (please specify) OR: Unable to determine OR: Other explanation of clinical finding ER MD: PMH: CHF and Renal consult: PMH: CHF: Yes H and P:Assessment :1. Frequent vomiting and nausea, likely gastroparesis. 2. End-stage renal disease, on hemodialysis. 3. Type 2 DM This form is a permanent part of the medical record Clarification of your documentation is requested to better reflect the severity of illness and intensity of treatment of your patient. Indicators present [] Specify: [] [] Specify: [] [] Specify: [] [] Specify: [] Location in the medical record that reflects the above clinical findings: [] Treatment Provided: [] PHYSICIAN'S RESPONSE Based on your medical judgment of the clinical indicators outlined above please clarify the following: [] Practitioner response [] If unable to determine, please check the box, sign and date. Present On Admission (POA) Indicator: [] Present at the time of admission [] Not present at the time of admission [] Clinically Undetermined In responding to this query, please exercise your independent professional judgment. The fact that a question is asked does not imply that any particular answer is desired or expected. Thank you for your clarification on this documentation. If you have any questions please call. * Thank you, Shira Madsen RN ext. #[phone]: Nanette Baron RN MTDD
[2017-03-19 08:42] VITALS: PULSE 80; RESP 20; TEMP 98.2; O2SAT 93
[2017-03-19] MEDS: Insulin Lispro (humaLOG) 100 Units/ml Inj SC SCH ×2 (08:58→12:44)
[2017-03-19 12:52] VITALS: BP 158/84
--- NOTE | 2017-03-19 14:48 | CP.PCM.PN ---
Subjective - Date & Time of Evaluation Date of Evaluation: 03/19/17 Time of Evaluation: 13:00 - Subjective Subjective: He was seen on hemodialysis about to finish Tolerating hemodialysis well Ultrafiltration done was about 2000 mL No nausea or vomiting reported Objective - Vital Signs/Intake and Output Vital Signs (last 24 hours): Temp Pulse Resp BP Pulse Ox 98.2 F 80 20 158/84 H 93 L 03/19/17 08:41 03/19/17 08:41 03/19/17 08:41 03/19/17 12:52 03/19/17 08:41 - Medications Medications: Current Medications Acetaminophen (Tylenol 325mg Tab) 650 mg PO Q6 PRN PRN Reason: Pain, moderate (4-7) Last Admin: 03/18/17 23:01 Dose: 650 mg Amlodipine Besylate (Norvasc) 10 mg PO DAILY [facility] Last Admin: 03/19/17 08:59 Dose: Not Given Aspirin (Ecotrin) 81 mg PO DAILY [facility] Last Admin: 03/19/17 08:55 Dose: 81 mg Clonidine HCl (Catapres) 0.3 mg PO TID [facility] Last Admin: 03/19/17 12:38 Dose: 0.3 mg Heparin Sodium (Porcine) (Heparin) 5,000 units SC Q12 [facility] PRN Reason: Protocol Last Admin: 03/19/17 08:55 Dose: 5,000 units Hydralazine HCl (Apresoline) 100 mg PO Q8 [facility] Last Admin: 03/19/17 08:52 Dose: Not Given Insulin Human Lispro (Humalog) 0 units SC ACCU-CHECK [facility] PRN Reason: Protocol Last Admin: 03/19/17 12:44 Dose: Not Given Lisinopril (Zestril) 20 mg PO DAILY [facility] Last Admin: 03/19/17 09:01 Dose: Not Given Metoclopramide HCl (Reglan) 5 mg IVP TIDAC [facility] Last Admin: 03/19/17 12:38 Dose: 5 mg Morphine Sulfate (Morphine) 2 mg IVP Q6 PRN PRN Reason: Pain, severe (8-10) Last Admin: 03/19/17 04:45 Dose: 2 mg Mupirocin (Bactroban Ointment) 1 applic TOP BID [facility] Last Admin: 03/19/17 08:54 Dose: 1 applic Ondansetron HCl (Zofran Inj) 8 mg IV Q4 PRN PRN Reason: Nausea/Vomiting Last Admin: 03/19/17 04:08 Dose: 8 mg Pantoprazole Sodium (Protonix Inj) 40 mg IVP DAILY [facility] Last Admin: 03/19/17 08:59 Dose: 40 mg - Labs Labs: 03/18/17 05:45 03/18/17 05:45 PT 11.3 Seconds (9.8-13.1) 03/15/17 21:00 INR 1.0 (0.9-1.2) 03/15/17 21:00 APTT 31.9 Seconds (25.6-37.1) 03/15/17 21:00 - Constitutional Appears: No Acute Distress - ENT Exam ENT Exam: Mucous Membranes Moist - Cardiovascular Exam Cardiovascular Exam: REGULAR RHYTHM. absent: JVD, Rubs - GI/Abdominal Exam GI & Abdominal Exam: Soft, Normal Bowel Sounds - Extremities Exam Extremities Exam: absent: Calf Tenderness - Back Exam Back Exam: absent: CVA tenderness (L), CVA tenderness (R) - Neurological Exam Neurological Exam: Alert Assessment and Plan (1) ESRD (end stage renal disease) on dialysis Assessment & Plan: End stage renal disease on maintenance hemodialysis receiving dialysis now one tolerating well Hypertension appeared to be controlled Cessation of marijuana use if possible Gastroparesis appeared to be stable at this point Patient will have dialysis as outpatient Continue the same medication Patient is going home and outpatient dialysis Status: Chronic
--- NOTE | 2017-03-19 15:09 | PQF GENQUE ---
Dr. Mcgrath, Please specify the status of Type 2 DM: i.e. > With hyperglycemia (poorly controlled, out of control, etc.) Other (please specify) Clinically unable to determine Unknown POC:207->166->286->242->164->342->292 Random Glucose:207->278->154 insulin This form is a permanent part of the medical record Clarification of your documentation is requested to better reflect the severity of illness and intensity of treatment of your patient. Indicators present [] Specify: [] [] Specify: [] [] Specify: [] [] Specify: [] Location in the medical record that reflects the above clinical findings: [] Treatment Provided: [] PHYSICIAN'S RESPONSE Based on your medical judgment of the clinical indicators outlined above please clarify the following: [] Practitioner response [] If unable to determine, please check the box, sign and date. Present On Admission (POA) Indicator: [] Present at the time of admission [] Not present at the time of admission [] Clinically Undetermined In responding to this query, please exercise your independent professional judgment. The fact that a question is asked does not imply that any particular answer is desired or expected. Thank you for your clarification on this documentation. If you have any questions please call. * Thank you, Shira Madsen RN ext. #[phone]:Nanette Baron RN MTDD
== END 2017-03-19 14:46 | disposition home or self-care (01) | DRG 73 ==
LOC: H.ER 20:21 → H.ERHOLD 22:39 → H.TEL 23:42 → OBSVTOIN 03-17 06:48 → H.MEDSURG1 03-18 22:32
PROVIDERS: ADMIT Internal Medicine; ATTEND Internal Medicine
PROC: 5A1D70Z Performance of Urinary Filtration, Intermittent, Less than 6 Hours Per Day (ICD-10-PCS; principal; 2017-03-17)
DX: E11.43 Type 2 diabetes mellitus with diabetic autonomic (poly)neuropathy (principal); N18.6 End stage renal disease; I12.0 Hypertensive chronic kidney disease with stage 5 chronic kidney disease or end stage renal disease; K31.84 Gastroparesis; E11.22 Type 2 diabetes mellitus with diabetic chronic kidney disease; Z99.2 Dependence on renal dialysis; G89.29 Other chronic pain; F12.90 Cannabis use, unspecified, uncomplicated; D64.9 Anemia, unspecified; E78.00 Pure hypercholesterolemia, unspecified; K29.70 Gastritis, unspecified, without bleeding; F17.210 Nicotine dependence, cigarettes, uncomplicated; Z79.82 Long term (current) use of aspirin; Z79.4 Long term (current) use of insulin

== ENCOUNTER 2017-03-27 08:44 | Inpatient (IN) | payer MEDICARE ==
[2017-03-27] MEDS ORDERED: Sodium Chloride 0.9% 500 ML IV STA (09:30)
--- NOTE | 2017-03-27 09:30 | ED PDOC ---
HPI:Nausea, Vomiting, Diarrhea Chief Complaint (Nursing): Abdominal Pain Chief Complaint (Provider): Nausea/Vomiting Additional Complaint(s): 36M p/w 2 days of questionable non-bloody nausea and vomiting (12x) began after dialysis yesterday, but denies fever, chills, cough, sick contacts. Last BM was yesterday and normal in character for him. He does c/o mild sore throat. Otherwise, he denies SOB, chest pain or palpitations. AFTER physical exam patient reported abdominal pain. He was admitted 03/22/2017 at [facility]. PMH: ESRD (M/W/F), HTN, DM, chronic diarrhea, gastroparesis PSH: LUE AV fistula Smoke: Occasional Alcohol: Denies Drugs: Daily marijuana Allergies: NKDA Past Medical History Vital Signs: Last Vital Signs Temp 36.1 C L 03/27/17 08:46 Pulse 119 H 03/27/17 08:46 Resp BP 208/117 H 03/27/17 08:46 Pulse Ox 97 03/27/17 08:46 - Medical History PMH: Anemia (Pt denies), CHF, Diabetes (type I), Gastritis, HTN, Hypercholesterolemia, Peripheral Edema, End Stage Renal Disease, Chronic Kidney Disease - Family History Family History: States: Unknown Family Hx, Diabetes, Hypertension - Immunization History Hx Tetanus Toxoid Vaccination: Yes Hx Influenza Vaccination: Yes Hx Pneumococcal Vaccination: Yes - Home Medications Home Medications: Ambulatory Orders Medication Instructions Recorded Pantoprazole Sodium [Protonix] 40 mg PO DAILY #30 tablet. 03/11/17 Ondansetron ODT [Zofran ODT] 4 mg PO Q6 PRN #30 odt 03/19/17 Aspirin [Aspirin Chewable] 81 mg PO DAILY chew 03/24/17 Gabapentin [Neurontin] 300 mg PO DAILY cap 03/24/17 Insulin Glargine, Recombina 20 unit SC HS unit 03/24/17 [Lantus] amLODIPine [Norvasc] 10 mg PO DAILY tab 03/24/17 cloNIDine [Catapres] 0.2 mg PO TID tab 03/24/17 - Allergies Allergies/Adverse Reactions: Allergies Allergy/AdvReac Type Severity Reaction Status Date / Time No Known Allergies Allergy Verified 03/27/17 08:59 Review of Systems ROS Statement: Except As Marked, All Systems Reviewed And Found Negative Constitutional: Negative for: Fever, Chills ENT: Positive for: Throat Pain Cardiovascular: Negative for: Chest Pain, Palpitations Respiratory: Negative for: Shortness of Breath Gastrointestinal: Positive for: Nausea, Vomiting (Not sure if bloody), Abdominal Pain (Lower abd), Diarrhea (chronic) Physical Exam - Reviewed Vital Signs Reviewed: Yes (Re-take vital signs, no tachypnea (RR- 12)) - Physical Exam Appears: Positive for: Non-toxic, In Acute Distress (vomiting) Head Exam: Positive for: ATRAUMATIC Skin: Positive for: Normal Color, Warm, Dry Eye Exam: Positive for: EOMI, PERRL ENT: Positive for: Pharynx Is (clear) - Laboratory Results Result Diagrams: 03/27/17 09:27 03/27/17 09:27 - ECG O2 Sat by Pulse Oximetry: 97 Medical Decision Making Medical Decision Making: Suspect gastroparesis, however - CBC: leukocytosis w/ left shift - CMP: hyperkalemia, hyperglycemic - Coags: WNL - VBG: Lactate- 3.4 - 500ml NS bolus x1 - Zofran x1 - Reglan x1 - CT abd/pelvis 8U insulin, IVP 10mg Labetalol, IVP 40mg Protonix, IVP 0.5mg Dilaudid, IVP Disposition - Clinical Impression Clinical Impression: Hyperkalemia, Hyperglycemia, ESRD (end stage renal disease), Intractable vomiting with nausea - Patient ED Disposition Is Patient to be Admitted: Yes Discussed With : Nehemias Zamora Doctor Will See Patient In The: Hospital Counseled Patient/Family Regarding: Studies Performed, Diagnosis - Disposition Disposition Time: 15:20 Condition: IMPROVED - Pt Status Changed To: Hospital Disposition Of: Inpatient - Admit Certification Admit to Inpatient:: After my assessment, the patient will require hospitalization for at least two midnights. This is because of the severity of symptoms shown, intensity of services needed, and/or the medical risk in this patient being treated as an outpatient.
[2017-03-27] MEDS ORDERED: Sodium Chloride 0.9% 500 ML IV ONE (09:33)
[2017-03-27 09:40] LABS: BASO # 0.1 K/uL (0.0-0.2); BASO % 0.6 % (0.0-2.0); EOS # 0.1 K/uL (0.0-0.7); EOS % 0.3 % (0.0-4.0); HEMATOCRIT 41.1 % (35.0-51.0); LYMPH # 0.5 K/uL (1.0-4.3); LYMPH % 2.4 % (20.0-40.0); MEAN CELL VOLUME 87.2 fl (80.0-94.0); MEAN CORPUSCULAR HEMOGLOBIN 27.9 pg (27.0-31.0); MEAN PLATELET VOLUME 9.9 fl (7.2-11.7); MONO # 0.6 K/uL (0.0-0.8); MONO % 2.6 % (0.0-10.0); NEUT # 20.9 K/uL (1.8-7.0); NEUT % 94.1 % (50.0-75.0); NRBC % 0.1 % (0.0-0.0); PLATELET COUNT 271 K/uL (130-400); RED CELL DISTRIBUTION WIDTH 18.1 % (11.5-14.5); WHITE BLOOD COUNT 22.2 K/uL (4.8-10.8)
[2017-03-27 09:45] LABS: VENOUS BLOOD GAS BASE EXCESS 4.5 mmol/L (0.0-2.0); VENOUS BLOOD GAS PCO2 49 mmHg (40-60)
[2017-03-27 09:47] LABS: ALB/GLOB RATIO 1.2 (1.0-2.1); BILIRUBIN,TOTAL 0.8 mg/dl (0.2-1.3); CALCIUM 9.2 mg/dL (8.4-10.2); POTASSIUM 5.2 MMOL/L (3.6-5.0); TOTAL PROTEIN 7.9 G/DL (6.3-8.2)
[2017-03-27 09:53] LABS: PARTIAL THROMBOPLASTIN TIME 30.7 Seconds (25.6-37.1)
[2017-03-27] MEDS ORDERED: Insulin Regular 100 units/ml IVP ONE (09:56)
[2017-03-27] MEDS ORDERED: Iohexol 240 (50 ml) PO ONE (09:58)
[2017-03-27 10:27] LABS: EOSINOPHIL 1 % (0-7); NEUTROPHIL 91 % (42-75); TOTAL CELLS COUNTED 100
[2017-03-27] MEDS ORDERED: Insulin Regular 100 units/ml ONE (10:27)
[2017-03-27 10:30] LABS: LARGE PLATELETS PRESENT
[2017-03-27] MEDS ORDERED: Labetalol 5 mg/ml Inj 20ML IVP ONE (10:45)
[2017-03-27] MEDS ORDERED: HYDROmorphone 0.5 mg/0.5 ml ISec IVP ONE (10:46)
--- NOTE | 2017-03-27 13:02 | CT ---
PROCEDURE: CT Abdomen and Pelvis without intravenous contrast HISTORY: lower abdominal pain COMPARISON: None. TECHNIQUE: Without contrast.. Contrast Dose: 0 Radiation dose: Total exam DLP = 352.44 mGy-cm. This CT exam was performed using one or more of the following dose reduction techniques: Automated exposure control, adjustment of the mA and/or kV according to patient size, and/or use of iterative reconstruction technique. FINDINGS: LOWER THORAX: Unremarkable. LIVER: Unremarkable. No gross lesion or ductal dilatation. GALLBLADDER AND BILE DUCTS: Unremarkable. PANCREAS: Unremarkable. No gross lesion or ductal dilatation. SPLEEN: Unremarkable. ADRENALS: Unremarkable. No mass. KIDNEYS AND URETERS: Unremarkable. No hydronephrosis. No solid mass. VASCULATURE: Unremarkable. No aortic aneurysm. BOWEL: There is no evidence of bowel obstruction. There is mild mural thickening of the ascending colon and of the rectosigmoid colon. This may be artifactual due to inadequate distention. However, the possibility of a colitis must be considered. Evaluation is limited by the absence of oral contrast opacification. No other abnormal bowel loops are identified. There is a small hiatal hernia. . APPENDIX: Unremarkable. Normal appendix. PERITONEUM: Unremarkable. No free fluid. No free air. LYMPH NODES: Unremarkable. No enlarged lymph nodes. BLADDER: Mild diffuse mural thickening but the bladder is poorly distended. REPRODUCTIVE: Unremarkable prostate BONES: Mild anterior wedge compression deformity of the T11 and T12 vertebra, nonacute. This is unchanged from prior CT examination. This is present on examination dating back to 11/26/2015. No acute fracture identified. OTHER FINDINGS: None. IMPRESSION: Mild diffuse mural thickening of the ascending colon and of the rectosigmoid colon. Consider colitis. Mild diffuse mural thickening of the urinary bladder above the bladder is poorly distended. Consider cystitis. No evidence of appendicitis. Additional nonacute findings as above.
[2017-03-27] MEDS ORDERED: Piperacillin/Tazobact 4.5 GM in Sodium Chloride 0.9% 100 ML IVPB STA (13:30)
[2017-03-27] MEDS ORDERED: Piperacillin/Tazobact 3.375 GM in Sodium Chloride 0.9% 100 ML IVPB STA (13:36)
[2017-03-27] MEDS ORDERED: Labetalol 5 mg/ml Inj 20ML IVP STA (14:06)
[2017-03-27 14:32] LABS: VENOUS BLOOD GAS BASE EXCESS 6.6 mmol/L (0.0-2.0); VENOUS BLOOD GAS PCO2 47 mmHg (40-60); VENOUS BLOOD PH 7.44 (7.32-7.43)
[2017-03-27] MEDS ORDERED: Piperacill/Tazo 3.375gm in Dex 3.375 GM/50 ML BAG IVPB STA (14:54)
--- NOTE | 2017-03-27 17:46 | CP.PCM.CON ---
History of Present Illness - History of Present Illness History of Present Illness: Patient is 36 years of age known to me with end-stage renal disease on maintenance dialysis MWF he presented to the emergency room as noted in the record with a past medical history of IDDM x 16 years, HTN, colitis, gastroperesis, neuropathy & ESRD on HD MWF x 1 year. Patient presented in ED with complaints of abdominal pain, nausea and vomiting x 3 days with reports of "blood in vomit " x 1 day. Patient reports chronic hyperemesis every other wee Patient has multitude of previous admission in this hospital and in [facility] with similar episode chronic vomiting with gastroparesis and the patient has multitude of evaluation related to endoscopy GI evaluation x-rays among other things and the patient keep using marijuana and every time he used marijuana he comes back was nausea vomiting and he is still living May he continue to use marijuana despite so many counseling Review of Systems - Constitutional Constitutional: As Per HPI - EENT Nose/Mouth/Throat: absent: Epistaxis, Nasal Discharge - Cardiovascular Cardiovascular: Dyspnea. absent: Chest Pain, Leg Edema - Gastrointestinal Gastrointestinal: Abdominal Pain, Belching, Cramping, Vomiting - Genitourinary Genitourinary: Nocturia - Neurological Neurological: absent: Confusion, Focal Weakness - Psychiatric Psychiatric: As Per HPI - Endocrine Endocrine: As Per HPI - Hematologic/Lymphatic Hematologic: As Per HPI Past Patient History - Infectious Disease Hx of Infectious Diseases: None - Past Medical History & Family History Past Medical History?: Yes - Past Social History Smoking Status: Light Smoker < 10 Cigarettes Daily - CARDIAC Hx Cardiac Disorders: Yes Hx Congestive Heart Failure: Yes Hx Hypercholesterolemia: Yes Hx Hypertension: Yes Hx Peripheral Edema: Yes - PULMONARY Hx Respiratory Disorders: No Other/Comment: CLAIMED SMOKES MARIJUANA DAILY FOR PAIN - NEUROLOGICAL Hx Neurological Disorder: Yes Other/Comment: Bilateral leg neuropathy - HEENT Hx HEENT Problems: Yes Hx Cataracts: Yes Other/Comment: cataract surgery asad eye 10 years ago - RENAL Hx Chronic Kidney Disease: Yes Hx Dialysis: Yes Type of Dialysis Access: LEFT UPPER EXTREMITY AV FISTULA Date of Last Dialysis Treatment: 03/26/17 Hx Kidney Stones: No - ENDOCRINE/METABOLIC Hx Endocrine Disorders: Yes Hx Diabetes Mellitus Type 1: Yes - HEMATOLOGICAL/ONCOLOGICAL Hx Blood Disorders: Yes Hx AIDS: No Hx Anemia: Yes (Pt denies) Hx Human Immunodeficiency Virus (HIV): No - INTEGUMENTARY Hx Dermatological Problems: No - MUSCULOSKELETAL/RHEUMATOLOGICAL Hx Musculoskeletal Disorders: Yes Hx Falls: Yes - GASTROINTESTINAL Hx Gastritis: Yes - GENITOURINARY/GYNECOLOGICAL Hx Genitourinary Disorders: No - PSYCHIATRIC Hx Psychophysiologic Disorder: Yes Hx Substance Use: Yes (marijuana) - SURGICAL HISTORY Hx Surgeries: Yes Hx Cataract Extraction: Yes (bilateral) Hx Vascular Access Device: Yes Other/Comment: RT.PERMACATH INSERTION 04/17. LT.AV SHUNT CREATION 06/04/16. UNDESCENDED TESTES LT. REMOVED DURING CHILDHOOD - ANESTHESIA Hx Anesthesia: Yes Hx Anesthesia Reactions: No Hx Malignant Hyperthermia: No Meds Allergies/Adverse Reactions: Allergies Allergy/AdvReac Type Severity Reaction Status Date / Time No Known Allergies Allergy Verified 03/27/17 08:59 Physical Exam - Constitutional Appears: Non-toxic, No Acute Distress - ENT Exam ENT Exam: Mucous Membranes Moist - Neck Exam Neck exam: Negative for: Lymphadenopathy - Respiratory Exam Respiratory Exam: Rhonchi. absent: Chest Wall Tenderness - Cardiovascular Exam Cardiovascular Exam: REGULAR RHYTHM. absent: Rubs - Extremities Exam Extremities exam: Negative for: calf tenderness - Back Exam Back exam: absent: CVA tenderness (L), CVA tenderness (R) - Neurological Exam Neurological exam: Alert - Psychiatric Exam Psychiatric exam: Normal Affect Results - Vital Signs Recent Vital Signs: Last Vital Signs Temp 98.4 F 03/27/17 16:48 Pulse 100 H 03/27/17 16:48 Resp 14 03/27/17 16:48 BP 192/84 H 03/27/17 16:48 Pulse Ox 98 03/27/17 16:48 - Labs Result Diagrams: 03/28/17 05:25 03/28/17 05:25 Labs: Laboratory Results - last 24 hr 03/27/17 03/27/17 03/27/17 08:53 09:27 09:27 WBC 22.2 H D RBC 4.71 Hgb 13.2 Hct 41.1 MCV 87.2 D MCH 27.9 MCHC 32.0 L RDW 18.1 H Plt Count 271 MPV 9.9 Neut % (Auto) 94.1 H Lymph % (Auto) 2.4 L Park % (Auto) 2.6 Eos % (Auto) 0.3 Baso % (Auto) 0.6 Neut # 20.9 H Lymph # 0.5 L Park # 0.6 Eos # 0.1 Baso # 0.1 Neutrophils % (Manual) 91 H Lymphocytes % (Manual) 5 L Monocytes % (Manual) 3 Eosinophils % (Manual) 1 Toxic Granulation Present Platelet Estimate Normal Large Platelets Present Anisocytosis (manual) Slight Target Cells Slight PT INR APTT pO2 VBG pH VBG pCO2 VBG HCO3 VBG Total CO2 VBG O2 Sat (Calc) VBG Base Excess VBG Potassium Glucose Lactate FiO2 Blood Gas Comments Crit Value Called To Crit Value Called By Crit Value Read Back Blood Gas Notified Time Sodium 137 Potassium 5.2 H Chloride 92 L Carbon Dioxide 23 Anion Gap 27 H BUN 47 H Creatinine 7.4 H* D Est GFR ( Amer) 10 Est GFR (Non-Af Amer) 8 POC Glucose (mg/dL) 434 H* Random Glucose 565 H* D Calcium 9.2 Total Bilirubin 0.8 AST 26 ALT 30 Alkaline Phosphatase 127 H Total Protein 7.9 Albumin 4.3 Globulin 3.6 Albumin/Globulin Ratio 1.2 Venous Blood Potassium 03/27/17 03/27/17 03/27/17 09:33 09:34 14:26 WBC RBC Hgb Hct MCV MCH MCHC RDW Plt Count MPV Neut % (Auto) Lymph % (Auto) Park % (Auto) Eos % (Auto) Baso % (Auto) Neut # Lymph # Park # Eos # Baso # Neutrophils % (Manual) Lymphocytes % (Manual) Monocytes % (Manual) Eosinophils % (Manual) Toxic Granulation Platelet Estimate Large Platelets Anisocytosis (manual) Target Cells PT 11.3 INR 1.0 APTT 30.7 pO2 53 52 VBG pH 7.40 7.44 H VBG pCO2 49 47 VBG HCO3 28.2 29.8 VBG Total CO2 31.9 H 33.3 H VBG O2 Sat (Calc) 84.5 H 85.6 H VBG Base Excess 4.5 H 6.6 H VBG Potassium 5.6 H 4.3 Glucose 636 H* D 428 H* D Lactate 3.8 H 3.3 H FiO2 21.0 21.0 Blood Gas Comments Lactate 3.8 Lac 3.3 Crit Value Called To laz Valdovinos john Crit Value Called By 203 203 Crit Value Read Back Y Y Blood Gas Notified Time 945 1432 Sodium 138.0 138.0 Potassium Chloride 87.0 L 95.0 L Carbon Dioxide Anion Gap BUN Creatinine Est GFR ( Amer) Est GFR (Non-Af Amer) POC Glucose (mg/dL) Random Glucose Calcium Total Bilirubin AST ALT Alkaline Phosphatase Total Protein Albumin Globulin Albumin/Globulin Ratio Venous Blood Potassium 5.6 H 4.3 03/27/17 16:44 WBC RBC Hgb Hct MCV MCH MCHC RDW Plt Count MPV Neut % (Auto) Lymph % (Auto) Park % (Auto) Eos % (Auto) Baso % (Auto) Neut # Lymph # Park # Eos # Baso # Neutrophils % (Manual) Lymphocytes % (Manual) Monocytes % (Manual) Eosinophils % (Manual) Toxic Granulation Platelet Estimate Large Platelets Anisocytosis (manual) Target Cells PT INR APTT pO2 VBG pH VBG pCO2 VBG HCO3 VBG Total CO2 VBG O2 Sat (Calc) VBG Base Excess VBG Potassium Glucose Lactate FiO2 Blood Gas Comments Crit Value Called To Crit Value Called By Crit Value Read Back Blood Gas Notified Time Sodium Potassium Chloride Carbon Dioxide Anion Gap BUN Creatinine Est GFR ( Amer) Est GFR (Non-Af Amer) POC Glucose (mg/dL) 400 H* Random Glucose Calcium Total Bilirubin AST ALT Alkaline Phosphatase Total Protein Albumin Globulin Albumin/Globulin Ratio Venous Blood Potassium Assessment & Plan (1) ESRD (end stage renal disease) Assessment and Plan: Patient with end stage renal disease on maintenance hemodialysis Friday Patient admitted was is vomiting leukocytosis and potassium 5.1 and patient was congested therefore we will proceed with hemodialysis as soon as possible Patient has multitude of other problem related to gastroparesis vomiting perhaps related to the use of marijuana Diabetes mellitus patient need the glycemic controlled Hypertension patient to continue take his medications Hyperphosphatemia and secondary hyperparathyroidism Patient has AV access in the left upper arm with a good bruit Status: Acute (2) Hyperglycemia Status: Acute (3) Hyperkalemia Status: Acute (4) Intractable vomiting with nausea Status: Acute
[2017-03-27 20:01] VITALS: BMI 21.4
[2017-03-27] MEDS: HYDROmorphone 0.5 mg/0.5 ml ISec IVP PRN (20:22)
[2017-03-27] MEDS: Insulin Detemir 100 Units/ml Inj SC SCH (22:20)
[2017-03-27] MEDS: Insulin Lispro (humaLOG) 100 Units/ml Inj SC SCH (22:21)
[2017-03-28] MEDS: Metoprolol 1 mg/ml Inj IVP SCH ×5 (00:09→22:28)
[2017-03-28] MEDS: HYDROmorphone 0.5 mg/0.5 ml ISec IVP PRN ×3 (04:20→22:04)
[2017-03-28 06:12] LABS: HEMATOCRIT 42.4 % (35.0-51.0); MEAN CELL VOLUME 89.5 fl (80.0-94.0); MEAN CORPUSCULAR HEMOGLOBIN 27.9 pg (27.0-31.0); MEAN CORPUSCULAR HGB CONC 31.2 g/dL (33.0-37.0); RED CELL DISTRIBUTION WIDTH 18.1 % (11.5-14.5); WHITE BLOOD COUNT 16.1 K/uL (4.8-10.8)
[2017-03-28 06:50] LABS: ALB/GLOB RATIO 1.1 (1.0-2.1); BILIRUBIN,TOTAL 0.7 mg/dl (0.2-1.3); CALCIUM 8.9 mg/dL (8.4-10.2); TOTAL PROTEIN 7.9 G/DL (6.3-8.2)
[2017-03-28] MEDS: Insulin Lispro (humaLOG) 100 Units/ml Inj SC SCH ×4 (06:54→22:22)
[2017-03-28 07:19] LABS: THYROID STIMULATING HORMONE 1.32 mIU/ML (0.46-4.68)
--- NOTE | 2017-03-28 08:11 | CP.PCM.CON ---
<Mary Parham - Last Filed: 03/28/17 11:08> History of Present Illness - History of Present Illness History of Present Illness: GI Fellow PGY4 Consult Note This is a 36 year old male with history of IDDM, HTN, ESRD on HD MWF who presents to the hospital with complaints of abdominal pain, nausea, and vomiting and chronic loose stools. Patient was recently discharged 03/17/17 with similar complaints and has had multiple hospitalizations. Pt reports that he was only taking his insulin and BP medications but could not afford the rest of his medications. Pt admits to continuing marijuana since discharge even though it was discussed in detail multiple time that this can lead to cyclical vomiting. On presentation this time to the ER pt's BP has been in the 200s and BG 400-600. Pt also reports 2 days of hematemesis with dark blood but denies any bleeding now. He denies melena, hematochezia, dizziness, SOB, chest pain, confusion, or palpitations. Pt's CTAP shows mural thickening of ascending and rectosigmoid colon with underdistention vs possible colitis, WBC 22 afebrile. EGD/colonoscopy performed 02/[address] Fox, showed reflux esophagitis with erythematous duodenopathy and external/internal hemorrhoids, respectively. Pathology was negative for H. pylori from EGD and colonoscopy pathology specimen was negative for colitis. ROS: A 12pt ROS negative except as above. PmHx: As stated in HPI PsHx: Denies FHx: Denies colon cancer SHx: Marijuana, denies alcohol Past Patient History - Infectious Disease Hx of Infectious Diseases: None - Past Medical History & Family History Past Medical History?: Yes - Past Social History Smoking Status: Light Smoker < 10 Cigarettes Daily - CARDIAC Hx Cardiac Disorders: Yes Hx Congestive Heart Failure: Yes Hx Hypercholesterolemia: Yes Hx Hypertension: Yes Hx Peripheral Edema: Yes - PULMONARY Hx Respiratory Disorders: No Other/Comment: CLAIMED SMOKES MARIJUANA DAILY FOR PAIN - NEUROLOGICAL Hx Neurological Disorder: Yes Other/Comment: Bilateral leg neuropathy - HEENT Hx HEENT Problems: Yes Hx Cataracts: Yes Other/Comment: cataract surgery [facility] eye 10 years ago - RENAL Hx Chronic Kidney Disease: Yes Hx Dialysis: Yes Type of Dialysis Access: LEFT UPPER EXTREMITY AV FISTULA Date of Last Dialysis Treatment: 03/26/17 Hx Kidney Stones: No - ENDOCRINE/METABOLIC Hx Endocrine Disorders: Yes Hx Diabetes Mellitus Type 1: Yes - HEMATOLOGICAL/ONCOLOGICAL Hx Blood Disorders: Yes Hx AIDS: No Hx Anemia: Yes (Pt denies) Hx Human Immunodeficiency Virus (HIV): No - INTEGUMENTARY Hx Dermatological Problems: No - MUSCULOSKELETAL/RHEUMATOLOGICAL Hx Musculoskeletal Disorders: Yes Hx Falls: Yes - GASTROINTESTINAL Hx Gastritis: Yes - GENITOURINARY/GYNECOLOGICAL Hx Genitourinary Disorders: No - PSYCHIATRIC Hx Psychophysiologic Disorder: Yes Hx Substance Use: Yes (marijuana) - SURGICAL HISTORY Hx Surgeries: Yes Hx Cataract Extraction: Yes (bilateral) Hx Vascular Access Device: Yes Other/Comment: RT.PERMACATH INSERTION 04/17. LT.AV SHUNT CREATION 06/04/16. UNDESCENDED TESTES LT. REMOVED DURING CHILDHOOD - ANESTHESIA Hx Anesthesia: Yes Hx Anesthesia Reactions: No Hx Malignant Hyperthermia: No Meds Allergies/Adverse Reactions: Allergies Allergy/AdvReac Type Severity Reaction Status Date / Time No Known Allergies Allergy Verified 03/27/17 08:59 - Medications Medications: Current Medications Amlodipine Besylate (Norvasc) 10 mg PO DAILY [facility] Aspirin (Aspirin Chewable) 81 mg PO DAILY [facility] Clonidine HCl (Catapres) 0.2 mg PO TID [facility] Gabapentin (Neurontin) 300 mg PO DAILY [facility] Hydromorphone HCl (Dilaudid) 0.5 mg IVP Q4 PRN PRN Reason: Pain, severe (8-10) Last Admin: 03/28/17 04:20 Dose: 0.5 mg Insulin Detemir (Levemir) 20 units SC HS [facility] Last Admin: 03/27/17 22:20 Dose: 20 units Insulin Human Lispro (Humalog) 0 units SC ACHS [facility] PRN Reason: Protocol Last Admin: 03/28/17 06:54 Dose: Not Given Metoprolol Tartrate (Lopressor) 5 mg IVP Q6 [facility] Last Admin: 03/28/17 04:00 Dose: Not Given Ondansetron HCl (Zofran Inj) 4 mg IVP Q6 PRN PRN Reason: Nausea/Vomiting Last Admin: 03/28/17 04:13 Dose: 4 mg Pantoprazole Sodium (Protonix Inj) 40 mg IVP DAILY [facility] Physical Exam - Constitutional Appears: Chronically Ill - Head Exam Head Exam: ATRAUMATIC, NORMAL INSPECTION, NORMOCEPHALIC - Eye Exam Eye Exam: EOMI, Normal appearance, PERRL Pupil Exam: PERRL - ENT Exam ENT Exam: Mucous Membranes Moist, Normal Exam - Respiratory Exam Respiratory Exam: Rales, NORMAL BREATHING PATTERN - Cardiovascular Exam Cardiovascular Exam: RRR, +S1, +S2 - GI/Abdominal Exam GI & Abdominal Exam: Normal Bowel Sounds, Soft, Tenderness. absent: Distended, Organomegaly - Rectal Exam Rectal Exam: Deferred - Extremities Exam Extremities exam: Positive for: pedal edema - Back Exam Back exam: NORMAL INSPECTION - Neurological Exam Neurological exam: Alert, Oriented x3 - Psychiatric Exam Psychiatric exam: Normal Affect, Normal Mood - Skin Skin Exam: Dry, Intact, Normal Color, Warm Results - Vital Signs Recent Vital Signs: Last Vital Signs Temp 98.1 F 03/28/17 08:04 Pulse 84 03/28/17 08:04 Resp 18 03/28/17 08:04 BP 116/66 03/28/17 08:04 Pulse Ox 97 03/28/17 08:04 - Labs Result Diagrams: 03/28/17 05:25 03/28/17 05:25 Labs: Laboratory Results - last 24 hr 03/27/17 03/27/17 03/27/17 08:53 09:27 09:27 WBC 22.2 H D RBC 4.71 Hgb 13.2 Hct 41.1 MCV 87.2 D MCH 27.9 MCHC 32.0 L RDW 18.1 H Plt Count 271 MPV 9.9 Neut % (Auto) 94.1 H Lymph % (Auto) 2.4 L [place] % (Auto) 2.6 Eos % (Auto) 0.3 Baso % (Auto) 0.6 Neut # 20.9 H Lymph # 0.5 L [place] # 0.6 Eos # 0.1 Baso # 0.1 Neutrophils % (Manual) 91 H Lymphocytes % (Manual) 5 L Monocytes % (Manual) 3 Eosinophils % (Manual) 1 Toxic Granulation Present Platelet Estimate Normal Large Platelets Present Anisocytosis (manual) Slight Target Cells Slight PT INR APTT pO2 VBG pH VBG pCO2 VBG HCO3 VBG Total CO2 VBG O2 Sat (Calc) VBG Base Excess VBG Potassium Glucose Lactate FiO2 Blood Gas Comments Crit Value Called To Crit Value Called By Crit Value Read Back Blood Gas Notified Time Sodium 137 Potassium 5.2 H Chloride 92 L Carbon Dioxide 23 Anion Gap 27 H BUN 47 H Creatinine 7.4 H* D Est GFR ( Amer) 10 Est GFR (Non-Af Amer) 8 POC Glucose (mg/dL) 434 H* Random Glucose 565 H* D Calcium 9.2 Total Bilirubin 0.8 AST 26 ALT 30 Alkaline Phosphatase 127 H Total Protein 7.9 Albumin 4.3 Globulin 3.6 Albumin/Globulin Ratio 1.2 Triglycerides Cholesterol LDL Cholesterol Direct HDL Cholesterol TSH 3rd Generation Venous Blood Potassium 03/27/17 03/27/17 03/27/17 09:33 09:34 11:36 WBC RBC Hgb Hct MCV MCH MCHC RDW Plt Count MPV Neut % (Auto) Lymph % (Auto) [place] % (Auto) Eos % (Auto) Baso % (Auto) Neut # Lymph # [place] # Eos # Baso # Neutrophils % (Manual) Lymphocytes % (Manual) Monocytes % (Manual) Eosinophils % (Manual) Toxic Granulation Platelet Estimate Large Platelets Anisocytosis (manual) Target Cells PT 11.3 INR 1.0 APTT 30.7 pO2 53 VBG pH 7.40 VBG pCO2 49 VBG HCO3 28.2 VBG Total CO2 31.9 H VBG O2 Sat (Calc) 84.5 H VBG Base Excess 4.5 H VBG Potassium 5.6 H Glucose 636 H* D Lactate 3.8 H FiO2 21.0 Blood Gas Comments Lactate 3.8 Crit Value Called To laz Valdovinos Crit Value Called By 203 Crit Value Read Back Y Blood Gas Notified Time 945 Sodium 138.0 Potassium Chloride 87.0 L Carbon Dioxide Anion Gap BUN Creatinine Est GFR ( Amer) Est GFR (Non-Af Amer) POC Glucose (mg/dL) 350 H Random Glucose Calcium Total Bilirubin AST ALT Alkaline Phosphatase Total Protein Albumin Globulin Albumin/Globulin Ratio Triglycerides Cholesterol LDL Cholesterol Direct HDL Cholesterol TSH 3rd Generation Venous Blood Potassium 5.6 H 03/27/17 03/27/17 03/27/17 14:26 16:44 21:47 WBC RBC Hgb Hct MCV MCH MCHC RDW Plt Count MPV Neut % (Auto) Lymph % (Auto) [place] % (Auto) Eos % (Auto) Baso % (Auto) Neut # Lymph # [place] # Eos # Baso # Neutrophils % (Manual) Lymphocytes % (Manual) Monocytes % (Manual) Eosinophils % (Manual) Toxic Granulation Platelet Estimate Large Platelets Anisocytosis (manual) Target Cells PT INR APTT pO2 52 VBG pH 7.44 H VBG pCO2 47 VBG HCO3 29.8 VBG Total CO2 33.3 H VBG O2 Sat (Calc) 85.6 H VBG Base Excess 6.6 H VBG Potassium 4.3 Glucose 428 H* D Lactate 3.3 H FiO2 21.0 Blood Gas Comments Lac 3.3 Crit Value Called To juan f Do Crit Value Called By 203 Crit Value Read Back Y Blood Gas Notified Time 1432 Sodium 138.0 Potassium Chloride 95.0 L Carbon Dioxide Anion Gap BUN Creatinine Est GFR ( Amer) Est GFR (Non-Af Amer) POC Glucose (mg/dL) 400 H* 182 H Random Glucose Calcium Total Bilirubin AST ALT Alkaline Phosphatase Total Protein Albumin Globulin Albumin/Globulin Ratio Triglycerides Cholesterol LDL Cholesterol Direct HDL Cholesterol TSH 3rd Generation Venous Blood Potassium 4.3 03/28/17 03/28/17 03/28/17 04:19 05:25 05:25 WBC 16.1 H RBC 4.74 Hgb 13.2 Hct 42.4 MCV 89.5 D MCH 27.9 MCHC 31.2 L RDW 18.1 H Plt Count 268 MPV Neut % (Auto) Lymph % (Auto) [place] % (Auto) Eos % (Auto) Baso % (Auto) Neut # Lymph # [place] # Eos # Baso # Neutrophils % (Manual) Lymphocytes % (Manual) Monocytes % (Manual) Eosinophils % (Manual) Toxic Granulation Platelet Estimate Large Platelets Anisocytosis (manual) Target Cells PT INR APTT pO2 VBG pH VBG pCO2 VBG HCO3 VBG Total CO2 VBG O2 Sat (Calc) VBG Base Excess VBG Potassium Glucose Lactate FiO2 Blood Gas Comments Crit Value Called To Crit Value Called By Crit Value Read Back Blood Gas Notified Time Sodium 141 Potassium 4.0 Chloride 95 L Carbon Dioxide 28 Anion Gap 22 H BUN 22 H Creatinine 5.1 H Est GFR ( Amer) 16 Est GFR (Non-Af Amer) 13 POC Glucose (mg/dL) 71 Random Glucose 62 L Calcium 8.9 Total Bilirubin 0.7 AST 24 ALT 22 Alkaline Phosphatase 111 Total Protein 7.9 Albumin 4.2 Globulin 3.7 Albumin/Globulin Ratio 1.1 Triglycerides 65 Cholesterol 276 H LDL Cholesterol Direct 180 H HDL Cholesterol 62 TSH 3rd Generation 1.32 Venous Blood Potassium Assessment & Plan - Assessment and Plan (Free Text) Assessment: This is a 36 yr old M with DM, HTN, ESRD on HD with multiple admissions for nausea and vomiting. 1. Nausea and Vomiting 2. Gastroparesis 3. Cannabis induced Cyclical Vomiting Syndrome 4. Colitis 5. Hematemesis 6. Uncontrolled HTN 7. Uncontrolled IDDM Plan: -Continue supportive care with anti emetic as needed -Continue IV abx treatment for possible colitis and leukocytes -Will order stool studies -Better control of BG which is in the 400-600 causing worsening of gastroparesis and leading to N/V -Uncontrolled HTN and uremia can also be contributing to N/V, nephrology managing HD -Marijuana cessation stressed may be contributing cyclical vomiting syndrome -Hematemesis reported, no active GI bleed at this time, H/H stable, continue to monitor ddx: esophagitis, lul blair tear, gastritis, PUD, AVM -No plan for emergent endoscopic evaluation at this time -Continue PPI daily -Diet as tolerated -Will continue to follow closely <Jean-Claude TONG,Celeste - Last Filed: 03/28/17 13:27> Meds - Medications Medications: Current Medications Amlodipine Besylate (Norvasc) 10 mg PO DAILY [facility] Last Admin: 03/28/17 09:15 Dose: Not Given Aspirin (Aspirin Chewable) 81 mg PO DAILY [facility] Last Admin: 03/28/17 09:14 Dose: 81 mg Clonidine HCl (Catapres) 0.2 mg PO TID [facility] Last Admin: 03/28/17 09:14 Dose: Not Given Gabapentin (Neurontin) 300 mg PO DAILY [facility] Last Admin: 03/28/17 09:15 Dose: 300 mg Hydromorphone HCl (Dilaudid) 0.5 mg IVP Q4 PRN PRN Reason: Pain, severe (8-10) Last Admin: 03/28/17 09:27 Dose: 0.5 mg Piperacillin Sod/Tazobactam Sod (Zosyn 3.375 Gm Iv Premix) 3.375 gm in 50 mls @ 50 mls/hr IVPB Q8 [facility] PRN Reason: Protocol Last Admin: 03/28/17 11:44 Dose: 50 mls/hr Insulin Detemir (Levemir) 20 units SC HS [facility] Last Admin: 03/27/17 22:20 Dose: 20 units Insulin Human Lispro (Humalog) 0 units SC ACHS [facility] PRN Reason: Protocol Last Admin: 03/28/17 11:18 Dose: Not Given Metoprolol Tartrate (Lopressor) 5 mg IVP Q6 [facility] Last Admin: 03/28/17 09:14 Dose: Not Given Mupirocin (Bactroban Ointment) 1 applic TOP BID [facility] Last Admin: 03/28/17 11:45 Dose: 1 applic Ondansetron HCl (Zofran Inj) 4 mg IVP Q4 PRN PRN Reason: Nausea/Vomiting Last Admin: 03/28/17 09:21 Dose: 4 mg Pantoprazole Sodium (Protonix Inj) 40 mg IVP DAILY [facility] Last Admin: 03/28/17 09:15 Dose: 40 mg Results - Vital Signs Recent Vital Signs: Last Vital Signs Temp 98.3 F 03/28/17 12:18 Pulse 89 03/28/17 12:18 Resp 18 03/28/17 12:18 BP 169/89 H 03/28/17 12:18 Pulse Ox 97 03/28/17 12:18 - Labs Result Diagrams: 03/28/17 05:25 03/28/17 05:25 Labs: Laboratory Results - last 24 hr 03/27/17 03/27/17 03/27/17 11:36 14:26 16:44 WBC RBC Hgb Hct MCV MCH MCHC RDW Plt Count pO2 52 VBG pH 7.44 H VBG pCO2 47 VBG HCO3 29.8 VBG Total CO2 33.3 H VBG O2 Sat (Calc) 85.6 H VBG Base Excess 6.6 H VBG Potassium 4.3 Sodium 138.0 Chloride 95.0 L Glucose 428 H* D Lactate 3.3 H FiO2 21.0 Blood Gas Comments Lac 3.3 Crit Value Called To juan f Do Crit Value Called By 203 Crit Value Read Back Y Blood Gas Notified Time 1432 Potassium Carbon Dioxide Anion Gap BUN Creatinine Est GFR ( Amer) Est GFR (Non-Af Amer) POC Glucose (mg/dL) 350 H 400 H* Random Glucose Hemoglobin A1c Calcium Total Bilirubin AST ALT Alkaline Phosphatase Total Protein Albumin Globulin Albumin/Globulin Ratio Triglycerides Cholesterol LDL Cholesterol Direct HDL Cholesterol TSH 3rd Generation Venous Blood Potassium 4.3 03/27/17 03/28/17 03/28/17 21:47 04:19 05:25 WBC 16.1 H RBC 4.74 Hgb 13.2 Hct 42.4 MCV 89.5 D MCH 27.9 MCHC 31.2 L RDW 18.1 H Plt Count 268 pO2 VBG pH VBG pCO2 VBG HCO3 VBG Total CO2 VBG O2 Sat (Calc) VBG Base Excess VBG Potassium Sodium Chloride Glucose Lactate FiO2 Blood Gas Comments Crit Value Called To Crit Value Called By Crit Value Read Back Blood Gas Notified Time Potassium Carbon Dioxide Anion Gap BUN Creatinine Est GFR ( Amer) Est GFR (Non-Af Amer) POC Glucose (mg/dL) 182 H 71 Random Glucose Hemoglobin A1c Calcium Total Bilirubin AST ALT Alkaline Phosphatase Total Protein Albumin Globulin Albumin/Globulin Ratio Triglycerides Cholesterol LDL Cholesterol Direct HDL Cholesterol TSH 3rd Generation Venous Blood Potassium 03/28/17 03/28/17 03/28/17 05:25 05:25 10:59 WBC RBC Hgb Hct MCV MCH MCHC RDW Plt Count pO2 VBG pH VBG pCO2 VBG HCO3 VBG Total CO2 VBG O2 Sat (Calc) VBG Base Excess VBG Potassium Sodium 141 Chloride 95 L Glucose Lactate FiO2 Blood Gas Comments Crit Value Called To Crit Value Called By Crit Value Read Back Blood Gas Notified Time Potassium 4.0 Carbon Dioxide 28 Anion Gap 22 H BUN 22 H Creatinine 5.1 H Est GFR ( Amer) 16 Est GFR (Non-Af Amer) 13 POC Glucose (mg/dL) 77 Random Glucose 62 L Hemoglobin A1c 7.1 H D Calcium 8.9 Total Bilirubin 0.7 AST 24 ALT 22 Alkaline Phosphatase 111 Total Protein 7.9 Albumin 4.2 Globulin 3.7 Albumin/Globulin Ratio 1.1 Triglycerides 65 Cholesterol 276 H LDL Cholesterol Direct 180 H HDL Cholesterol 62 TSH 3rd Generation 1.32 Venous Blood Potassium Attending/Attestation - Attestation I have personally seen and examined this patient.: Yes I have fully participated in the care of the patient.: Yes I have reviewed all pertinent clinical information: Yes Notes (Text): 03/28/17 13:09 Patient seen at bedside this am. This is a 36 yr old M with DM, HTN, ESRD on HD with multiple admissions for nausea, vomiting and loose stools. Multiple endoscopies in the past with same findings. Nausea and vomiting may have component of gastroparesis and chronic marijuana use. Poor outpatient follow up and does not fill scripts. Admitted with HTN urgency and electrolyte disbalance and uncontrolled DM. Was discharged two weeks ago for similar symptoms. Anti emetic prn- reglan preferable. PPI in am once daily. Again marijuana cessation stressed. Regular diet as tolerated. No diarrhea. Last BM more than two days ago. Stool softeners. Needs regular outpatient follow up. Will sign off. CT findings are chronic. Symptoms are chronic due to non compliance
[2017-03-28] MEDS ORDERED: Piperacillin/Tazobact 2.25 GM in Sodium Chloride 0.9% 50 ML IVPB SCH (09:15)
--- NOTE | 2017-03-28 09:29 | CP.PCM.PCO ---
Assessment/Plan - Assessment/Plan Assessment (Free Text): HPI: 36 year old male with a past medical history of IDDM diagnosed at ago 20, HTN, ESRD on HD x 1 year on MWF schedule. Presented to the ED with complaints History of Present Illness: GI Fellow PGY4 Consult Note This is a 36 year old male with history of IDDM, HTN, ESRD on HD MWF who presents to the hospital with complaints of abdominal pain, nausea, and vomiting and chronic loose stools. Patient was recently discharged 03/17/17 with similar complaints and has had multiple hospitalizations. Pt reports that he was only taking his insulin and BP medications but could not afford the rest of his medications. Pt admits to continuing marijuana since discharge even though it was discussed in detail multiple time that this can lead to cyclical vomiting. On presentation this time to the ER pt's BP has been in the 200s and BG 400-600. Pt also reports 2 days of hematemesis with dark blood but denies any bleeding now. He denies melena, hematochezia, dizziness, SOB, chest pain, confusion, or palpitations. Pt's CTAP shows mural thickening of ascending and rectosigmoid colon with underdistention vs possible colitis, WBC 22 afebrile. EGD/colonoscopy performed 02/[address] Fox, showed reflux esophagitis with erythematous duodenopathy and external/internal hemorrhoids, respectively. Pathology was negative for H. pylori from EGD and colonoscopy pathology specimen was negative for colitis. ROS: A 12pt ROS negative except as above. PmHx: As stated in HPI PsHx: Denies FHx: Denies colon cancer SHx: Marijuana, denies alcohol Past Patient History - Infectious Disease Hx of Infectious Diseases: None - Past Medical History & Family History Past Medical History?: Yes - Past Social History Smoking Status: Light Smoker < 10 Cigarettes Daily - CARDIAC Hx Cardiac Disorders: Yes Hx Congestive Heart Failure: Yes Hx Hypercholesterolemia: Yes Hx Hypertension: Yes Hx Peripheral Edema: Yes - PULMONARY Hx Respiratory Disorders: No Other/Comment: CLAIMED SMOKES MARIJUANA DAILY FOR PAIN - NEUROLOGICAL Hx Neurological Disorder: Yes Other/Comment: Bilateral leg neuropathy - HEENT Hx HEENT Problems: Yes Hx Cataracts: Yes Other/Comment: cataract surgery asad eye 10 years ago - RENAL Hx Chronic Kidney Disease: Yes Hx Dialysis: Yes Type of Dialysis Access: LEFT UPPER EXTREMITY AV FISTULA Date of Last Dialysis Treatment: 03/26/17 Hx Kidney Stones: No - ENDOCRINE/METABOLIC Hx Endocrine Disorders: Yes Hx Diabetes Mellitus Type 1: Yes - HEMATOLOGICAL/ONCOLOGICAL Hx Blood Disorders: Yes Hx AIDS: No Hx Anemia: Yes (Pt denies) Hx Human Immunodeficiency Virus (HIV): No - INTEGUMENTARY Hx Dermatological Problems: No - MUSCULOSKELETAL/RHEUMATOLOGICAL Hx Musculoskeletal Disorders: Yes Hx Falls: Yes - GASTROINTESTINAL Hx Gastritis: Yes - GENITOURINARY/GYNECOLOGICAL Hx Genitourinary Disorders: No - PSYCHIATRIC Hx Psychophysiologic Disorder: Yes Hx Substance Use: Yes (marijuana) - SURGICAL HISTORY Hx Surgeries: Yes Hx Cataract Extraction: Yes (bilateral) Hx Vascular Access Device: Yes Other/Comment: RT.PERMACATH INSERTION 04/17. LT.AV SHUNT CREATION 06/04/16. UNDESCENDED TESTES LT. REMOVED DURING CHILDHOOD - ANESTHESIA Hx Anesthesia: Yes Hx Anesthesia Reactions: No Hx Malignant Hyperthermia: No Meds Allergies/Adverse Reactions: Allergies Allergy/AdvReac Type Severity Reaction Status Date / Time No Known Allergies Allergy Verified 03/27/17 08:59 - Medications Medications: Current Medications Amlodipine Besylate (Norvasc) 10 mg PO DAILY [facility] Aspirin (Aspirin Chewable) 81 mg PO DAILY [facility] Clonidine HCl (Catapres) 0.2 mg PO TID [facility] Gabapentin (Neurontin) 300 mg PO DAILY [facility] Hydromorphone HCl (Dilaudid) 0.5 mg IVP Q4 PRN PRN Reason: Pain, severe (8-10) Last Admin: 03/28/17 04:20 Dose: 0.5 mg Insulin Detemir (Levemir) 20 units SC HS [facility] Last Admin: 03/27/17 22:20 Dose: 20 units Insulin Human Lispro (Humalog) 0 units SC ACHS [facility] PRN Reason: Protocol Last Admin: 03/28/17 06:54 Dose: Not Given Metoprolol Tartrate (Lopressor) 5 mg IVP Q6 [facility] Last Admin: 03/28/17 04:00 Dose: Not Given Ondansetron HCl (Zofran Inj) 4 mg IVP Q6 PRN PRN Reason: Nausea/Vomiting Last Admin: 03/28/17 04:13 Dose: 4 mg Pantoprazole Sodium (Protonix Inj) 40 mg IVP DAILY [facility] Physical Exam - Constitutional Appears: Chronically Ill - Head Exam Head Exam: ATRAUMATIC, NORMAL INSPECTION, NORMOCEPHALIC - Eye Exam Eye Exam: EOMI, Normal appearance, PERRL Pupil Exam: PERRL - ENT Exam ENT Exam: Mucous Membranes Moist, Normal Exam - Respiratory Exam Respiratory Exam: Rales, NORMAL BREATHING PATTERN - Cardiovascular Exam Cardiovascular Exam: RRR, +S1, +S2 - GI/Abdominal Exam GI & Abdominal Exam: Normal Bowel Sounds, Soft, Tenderness. absent: Distended, Organomegaly - Rectal Exam Rectal Exam: Deferred - Extremities Exam Extremities exam: Positive for: pedal edema - Back Exam Back exam: NORMAL INSPECTION - Neurological Exam Neurological exam: Alert, Oriented x3 - Psychiatric Exam Psychiatric exam: Normal Affect, Normal Mood - Skin Skin Exam: Dry, Intact, Normal Color, Warm Results - Vital Signs Recent Vital Signs: Last Vital Signs Temp 98.1 F 03/28/17 08:04 Pulse 84 03/28/17 08:04 Resp 18 03/28/17 08:04 BP 116/66 03/28/17 08:04 Pulse Ox 97 03/28/17 08:04 - Labs Result Diagrams: 03/28/17 05:25 03/28/17 05:25 Labs: Laboratory Results - last 24 hr 03/27/17 03/27/17 03/27/17 08:53 09:27 09:27 WBC 22.2 H D RBC 4.71 Hgb 13.2 Hct 41.1 MCV 87.2 D MCH 27.9 MCHC 32.0 L RDW 18.1 H Plt Count 271 MPV 9.9 Neut % (Auto) 94.1 H Lymph % (Auto) 2.4 L [place] % (Auto) 2.6 Eos % (Auto) 0.3 Baso % (Auto) 0.6 Neut # 20.9 H Lymph # 0.5 L [place] # 0.6 Eos # 0.1 Baso # 0.1 Neutrophils % (Manual) 91 H Lymphocytes % (Manual) 5 L Monocytes % (Manual) 3 Eosinophils % (Manual) 1 Toxic Granulation Present Platelet Estimate Normal Large Platelets Present Anisocytosis (manual) Slight Target Cells Slight PT INR APTT pO2 VBG pH VBG pCO2 VBG HCO3 VBG Total CO2 VBG O2 Sat (Calc) VBG Base Excess VBG Potassium Glucose Lactate FiO2 Blood Gas Comments Crit Value Called To Crit Value Called By Crit Value Read Back Blood Gas Notified Time Sodium 137 Potassium 5.2 H Chloride 92 L Carbon Dioxide 23 Anion Gap 27 H BUN 47 H Creatinine 7.4 H* D Est GFR ( Amer) 10 Est GFR (Non-Af Amer) 8 POC Glucose (mg/dL) 434 H* Random Glucose 565 H* D Calcium 9.2 Total Bilirubin 0.8 AST 26 ALT 30 Alkaline Phosphatase 127 H Total Protein 7.9 Albumin 4.3 Globulin 3.6 Albumin/Globulin Ratio 1.2 Triglycerides Cholesterol LDL Cholesterol Direct HDL Cholesterol TSH 3rd Generation Venous Blood Potassium 03/27/17 03/27/17 03/27/17 09:33 09:34 11:36 WBC RBC Hgb Hct MCV MCH MCHC RDW Plt Count MPV Neut % (Auto) Lymph % (Auto) [place] % (Auto) Eos % (Auto) Baso % (Auto) Neut # Lymph # [place] # Eos # Baso # Neutrophils % (Manual) Lymphocytes % (Manual) Monocytes % (Manual) Eosinophils % (Manual) Toxic Granulation Platelet Estimate Large Platelets Anisocytosis (manual) Target Cells PT 11.3 INR 1.0 APTT 30.7 pO2 53 VBG pH 7.40 VBG pCO2 49 VBG HCO3 28.2 VBG Total CO2 31.9 H VBG O2 Sat (Calc) 84.5 H VBG Base Excess 4.5 H VBG Potassium 5.6 H Glucose 636 H* D Lactate 3.8 H FiO2 21.0 Blood Gas Comments Lactate 3.8 Crit Value Called To laz Valdovinos Crit Value Called By 203 Crit Value Read Back Y Blood Gas Notified Time 945 Sodium 138.0 Potassium Chloride 87.0 L Carbon Dioxide Anion Gap BUN Creatinine Est GFR ( Amer) Est GFR (Non-Af Amer) POC Glucose (mg/dL) 350 H Random Glucose Calcium Total Bilirubin AST ALT Alkaline Phosphatase Total Protein Albumin Globulin Albumin/Globulin Ratio Triglycerides Cholesterol LDL Cholesterol Direct HDL Cholesterol TSH 3rd Generation Venous Blood Potassium 5.6 H 03/27/17 03/27/17 03/27/17 14:26 16:44 21:47 WBC RBC Hgb Hct MCV MCH MCHC RDW Plt Count MPV Neut % (Auto) Lymph % (Auto) [place] % (Auto) Eos % (Auto) Baso % (Auto) Neut # Lymph # [place] # Eos # Baso # Neutrophils % (Manual) Lymphocytes % (Manual) Monocytes % (Manual) Eosinophils % (Manual) Toxic Granulation Platelet Estimate Large Platelets Anisocytosis (manual) Target Cells PT INR APTT pO2 52 VBG pH 7.44 H VBG pCO2 47 VBG HCO3 29.8 VBG Total CO2 33.3 H VBG O2 Sat (Calc) 85.6 H VBG Base Excess 6.6 H VBG Potassium 4.3 Glucose 428 H* D Lactate 3.3 H FiO2 21.0 Blood Gas Comments Lac 3.3 Crit Value Called To juan f Do Crit Value Called By 203 Crit Value Read Back Y Blood Gas Notified Time 1432 Sodium 138.0 Potassium Chloride 95.0 L Carbon Dioxide Anion Gap BUN Creatinine Est GFR ( Amer) Est GFR (Non-Af Amer) POC Glucose (mg/dL) 400 H* 182 H Random Glucose Calcium Total Bilirubin AST ALT Alkaline Phosphatase Total Protein Albumin Globulin Albumin/Globulin Ratio Triglycerides Cholesterol LDL Cholesterol Direct HDL Cholesterol TSH 3rd Generation Venous Blood Potassium 4.3 03/28/17 03/28/17 03/28/17 04:19 05:25 05:25 WBC 16.1 H RBC 4.74 Hgb 13.2 Hct 42.4 MCV 89.5 D MCH 27.9 MCHC 31.2 L RDW 18.1 H Plt Count 268 MPV Neut % (Auto) Lymph % (Auto) [place] % (Auto) Eos % (Auto) Baso % (Auto) Neut # Lymph # [place] # Eos # Baso # Neutrophils % (Manual) Lymphocytes % (Manual) Monocytes % (Manual) Eosinophils % (Manual) Toxic Granulation Platelet Estimate Large Platelets Anisocytosis (manual) Target Cells PT INR APTT pO2 VBG pH VBG pCO2 VBG HCO3 VBG Total CO2 VBG O2 Sat (Calc) VBG Base Excess VBG Potassium Glucose Lactate FiO2 Blood Gas Comments Crit Value Called To Crit Value Called By Crit Value Read Back Blood Gas Notified Time Sodium 141 Potassium 4.0 Chloride 95 L Carbon Dioxide 28 Anion Gap 22 H BUN 22 H Creatinine 5.1 H Est GFR ( Amer) 16 Est GFR (Non-Af Amer) 13 POC Glucose (mg/dL) 71 Random Glucose 62 L Calcium 8.9 Total Bilirubin 0.7 AST 24 ALT 22 Alkaline Phosphatase 111 Total Protein 7.9 Albumin 4.2 Globulin 3.7 Albumin/Globulin Ratio 1.1 Triglycerides 65 Cholesterol 276 H LDL Cholesterol Direct 180 H HDL Cholesterol 62 TSH 3rd Generation 1.32 Venous Blood Potassium Assessment & Plan - Assessment and Plan (Free Text) Assessment: This is a 36 yr old M with DM, HTN, ESRD on HD with multiple admissions for nausea and vomiting. 1. Nausea and Vomiting 2. Gastroparesis 3. Cannabis induced Cyclical Vomiting Syndrome 4. Colitis 5. Hematemesis 6. Uncontrolled HTN 7. Uncontrolled IDDM Plan: -Continue supportive care with anti emetic as needed -Continue IV abx treatment for possible colitis and leukocytes -Will order stool studies -Better control of BG which is in the 400-600 causing worsening of gastroparesis and leading to N/V -Uncontrolled HTN and uremia can also be contributing to N/V, nephrology managing HD -Marijuana cessation stressed may be contributing cyclical vomiting syndrome -Hematemesis reported, no active GI bleed at this time, H/H stable, continue to monitor ddx: esophagitis, lul blair tear, gastritis, PUD, AVM -No plan for emergent endoscopic evaluation at this time -Continue PPI daily -Diet as tolerated -Will continue to follow closely - Consults Consult Orders: Consultations 03/27/17 17:00 Social Work Referral Routine Comment: HD MWF Physician Instructions: Reason For Exam: HD MWF 03/27/17 20:15 Wound Care [Nursing Referral for Wound Care] Routine Comment: Open wound 3cm x .5 cm Physician Instructions: Reason For Exam: Right plantar diabetic wound - Problems Patient Problems: Problem List (Active/Current) Problem Status Onset Code ESRD (end stage renal disease) Acute N18.6 Hyperglycemia Acute R73.9 Hyperkalemia Acute E87.5 Intractable vomiting with nausea Acute R11.2
--- NOTE | 2017-03-28 10:23 | CP.PCM.PCO ---
Assessment/Plan - Assessment/Plan Assessment (Free Text): 36 year-old male with a past medical history of IDDM x 16 years, HTN, colitis, gastroperesis, neuropathy & ESRD on HD MWF x 1 year. Patient presented in ED with complaints of abdominal pain, nausea and vomiting x 3 days with reports of "blood in vomit" x 1 day. Patient reports chronic hyperemesis every other week requiring hospitalization since he lost his insurance and is unable to afford his nausea medications. Patient denies alcohol use but reports daily marijuana use which he was recommended to discontinue after previous hospitalizations. Patient presented in the ED with hyperglycemia (BG 400-600) and WBC of 22,000. Patient now presents with periumbilical abdominal pain that is tender to the touch and reports last episode of vomiting this morning without any blood in vomit. Abdomen soft, bowel sounds present x 4 quadrants. Denies shortness of breath, chest pain, diarrhea or dizziness. Skin is dry, - edema, lungs clear bilaterally. Patient lives alone with his mother who manages his diabetes and does not know what his blood sugar levels normally are. He reports taking his insulin and blood pressure medications but being unable to afford his other medications. Patient received an additional dose of dialysis last night upon admission. Plan: Continue with antiemetic treatment as needed, continue IV antibiotics for colitis and leukocytosis, continue with hyperglycemia control (last BS 70), continue with pain control, educate regarding marijuana cessation, continue PPI , continue to monitor patient, consult oncology social work for assistance with insurance and obtaining home medications, follow with recommendations by GI and renal consults. - Consults Consult Orders: Consultations 03/27/17 17:00 Social Work Referral Routine Comment: HD MWF Physician Instructions: Reason For Exam: HD MWF 03/27/17 20:15 Wound Care [Nursing Referral for Wound Care] Routine Comment: Open wound 3cm x .5 cm Physician Instructions: Reason For Exam: Right plantar diabetic wound - Problems Patient Problems: Problem List (Active/Current) Problem Status Onset Code ESRD (end stage renal disease) Acute N18.6 Hyperglycemia Acute R73.9 Hyperkalemia Acute E87.5 Intractable vomiting with nausea Acute R11.2
[2017-03-28] MEDS: Piperacill/Tazo 3.375gm in Dex 3.375 GM/50 ML BAG IVPB SCH ×2 (11:44→17:26)
--- NOTE | 2017-03-28 12:30 | CP.PCM.CON ---
History of Present Illness - History of Present Illness History of Present Illness: Patient is 36 years of age known to me with end-stage renal disease on maintenance dialysis MWF he presented to the emergency room as noted in the record with a past medical history of IDDM x 16 years, HTN, colitis, gastroperesis, neuropathy & ESRD on HD MWF x 1 year. Patient presented in ED with complaints of abdominal pain, nausea and vomiting x 3 days with reports of "blood in vomit " x 1 day. Patient reports chronic hyperemesis every other wee Patient has multitude of previous admission in this hospital and in [facility] with similar episode chronic vomiting with gastroparesis and the patient has multitude of evaluation related to endoscopy GI evaluation x-rays among other things and the patient keep using marijuana and every time he used marijuana he comes back was nausea vomiting and he is still living May he continue to use marijuana despite so many counseling Review of Systems - Constitutional Constitutional: Anorexia. absent: Chills - EENT Eyes: As Per HPI Additional comments: patient is legally blind - Cardiovascular Cardiovascular: Dyspnea. absent: Chest Pain - Respiratory Respiratory: Dyspnea. absent: Hemoptysis - Gastrointestinal Gastrointestinal: Abdominal Pain, Bloating, Vomiting - Genitourinary Genitourinary: Nocturia - Musculoskeletal Musculoskeletal: Muscle Weakness - Neurological Neurological: As Per HPI. absent: Confusion, Focal Weakness - Psychiatric Psychiatric: Depression - Endocrine Endocrine: As Per HPI - Hematologic/Lymphatic Hematologic: absent: Easy Bleeding Past Patient History - Infectious Disease Hx of Infectious Diseases: None - Past Medical History & Family History Past Medical History?: Yes - Past Social History Smoking Status: Light Smoker < 10 Cigarettes Daily - CARDIAC Hx Cardiac Disorders: Yes Hx Congestive Heart Failure: Yes Hx Hypercholesterolemia: Yes Hx Hypertension: Yes Hx Peripheral Edema: Yes - PULMONARY Hx Respiratory Disorders: No Other/Comment: CLAIMED SMOKES MARIJUANA DAILY FOR PAIN - NEUROLOGICAL Hx Neurological Disorder: Yes Other/Comment: Bilateral leg neuropathy - HEENT Hx HEENT Problems: Yes Hx Cataracts: Yes Other/Comment: cataract surgery asad eye 10 years ago - RENAL Hx Chronic Kidney Disease: Yes Hx Dialysis: Yes Type of Dialysis Access: LEFT UPPER EXTREMITY AV FISTULA Date of Last Dialysis Treatment: 03/26/17 Hx Kidney Stones: No - ENDOCRINE/METABOLIC Hx Endocrine Disorders: Yes Hx Diabetes Mellitus Type 1: Yes - HEMATOLOGICAL/ONCOLOGICAL Hx Blood Disorders: Yes Hx AIDS: No Hx Anemia: Yes (Pt denies) Hx Human Immunodeficiency Virus (HIV): No - INTEGUMENTARY Hx Dermatological Problems: No - MUSCULOSKELETAL/RHEUMATOLOGICAL Hx Musculoskeletal Disorders: Yes Hx Falls: Yes - GASTROINTESTINAL Hx Gastritis: Yes - GENITOURINARY/GYNECOLOGICAL Hx Genitourinary Disorders: No - PSYCHIATRIC Hx Psychophysiologic Disorder: Yes Hx Substance Use: Yes (marijuana) - SURGICAL HISTORY Hx Surgeries: Yes Hx Cataract Extraction: Yes (bilateral) Hx Vascular Access Device: Yes Other/Comment: RT.PERMACATH INSERTION 04/17. LT.AV SHUNT CREATION 06/04/16. UNDESCENDED TESTES LT. REMOVED DURING CHILDHOOD - ANESTHESIA Hx Anesthesia: Yes Hx Anesthesia Reactions: No Hx Malignant Hyperthermia: No Meds Allergies/Adverse Reactions: Allergies Allergy/AdvReac Type Severity Reaction Status Date / Time No Known Allergies Allergy Verified 03/27/17 08:59 - Medications Medications: Current Medications Amlodipine Besylate (Norvasc) 10 mg PO DAILY [facility] Last Admin: 03/28/17 09:15 Dose: Not Given Aspirin (Aspirin Chewable) 81 mg PO DAILY [facility] Last Admin: 03/28/17 09:14 Dose: 81 mg Clonidine HCl (Catapres) 0.2 mg PO TID [facility] Last Admin: 03/28/17 09:14 Dose: Not Given Gabapentin (Neurontin) 300 mg PO DAILY [facility] Last Admin: 03/28/17 09:15 Dose: 300 mg Hydromorphone HCl (Dilaudid) 0.5 mg IVP Q4 PRN PRN Reason: Pain, severe (8-10) Last Admin: 03/28/17 09:27 Dose: 0.5 mg Piperacillin Sod/Tazobactam Sod (Zosyn 3.375 Gm Iv Premix) 3.375 gm in 50 mls @ 50 mls/hr IVPB Q8 [facility] PRN Reason: Protocol Last Admin: 03/28/17 11:44 Dose: 50 mls/hr Insulin Detemir (Levemir) 20 units SC HS [facility] Last Admin: 03/27/17 22:20 Dose: 20 units Insulin Human Lispro (Humalog) 0 units SC ACHS [facility] PRN Reason: Protocol Last Admin: 03/28/17 11:18 Dose: Not Given Metoprolol Tartrate (Lopressor) 5 mg IVP Q6 [facility] Last Admin: 03/28/17 09:14 Dose: Not Given Mupirocin (Bactroban Ointment) 1 applic TOP BID [facility] Last Admin: 03/28/17 11:45 Dose: 1 applic Ondansetron HCl (Zofran Inj) 4 mg IVP Q4 PRN PRN Reason: Nausea/Vomiting Last Admin: 03/28/17 09:21 Dose: 4 mg Pantoprazole Sodium (Protonix Inj) 40 mg IVP DAILY [facility] Last Admin: 03/28/17 09:15 Dose: 40 mg Physical Exam - Constitutional Appears: In Acute Distress - ENT Exam ENT Exam: Mucous Membranes Moist - Respiratory Exam Respiratory Exam: NORMAL BREATHING PATTERN. absent: Chest Wall Tenderness - Cardiovascular Exam Cardiovascular Exam: REGULAR RHYTHM. absent: JVD, Rubs - GI/Abdominal Exam GI & Abdominal Exam: Guarding - Extremities Exam Extremities exam: Negative for: calf tenderness - Back Exam Back exam: absent: CVA tenderness (L), CVA tenderness (R) - Neurological Exam Neurological exam: Alert - Psychiatric Exam Psychiatric exam: Normal Affect Results - Vital Signs Recent Vital Signs: Last Vital Signs Temp 98.3 F 03/28/17 12:18 Pulse 89 03/28/17 12:18 Resp 18 03/28/17 12:18 BP 169/89 H 03/28/17 12:18 Pulse Ox 97 03/28/17 12:18 - Labs Result Diagrams: 03/28/17 05:25 03/28/17 05:25 Labs: Laboratory Results - last 24 hr 03/27/17 03/27/17 03/27/17 11:36 14:26 16:44 WBC RBC Hgb Hct MCV MCH MCHC RDW Plt Count pO2 52 VBG pH 7.44 H VBG pCO2 47 VBG HCO3 29.8 VBG Total CO2 33.3 H VBG O2 Sat (Calc) 85.6 H VBG Base Excess 6.6 H VBG Potassium 4.3 Sodium 138.0 Chloride 95.0 L Glucose 428 H* D Lactate 3.3 H FiO2 21.0 Blood Gas Comments Lac 3.3 Crit Value Called To juan f Do Crit Value Called By 203 Crit Value Read Back Y Blood Gas Notified Time 1432 Potassium Carbon Dioxide Anion Gap BUN Creatinine Est GFR ( Amer) Est GFR (Non-Af Amer) POC Glucose (mg/dL) 350 H 400 H* Random Glucose Hemoglobin A1c Calcium Total Bilirubin AST ALT Alkaline Phosphatase Total Protein Albumin Globulin Albumin/Globulin Ratio Triglycerides Cholesterol LDL Cholesterol Direct HDL Cholesterol TSH 3rd Generation Venous Blood Potassium 4.3 03/27/17 03/28/17 03/28/17 21:47 04:19 05:25 WBC 16.1 H RBC 4.74 Hgb 13.2 Hct 42.4 MCV 89.5 D MCH 27.9 MCHC 31.2 L RDW 18.1 H Plt Count 268 pO2 VBG pH VBG pCO2 VBG HCO3 VBG Total CO2 VBG O2 Sat (Calc) VBG Base Excess VBG Potassium Sodium Chloride Glucose Lactate FiO2 Blood Gas Comments Crit Value Called To Crit Value Called By Crit Value Read Back Blood Gas Notified Time Potassium Carbon Dioxide Anion Gap BUN Creatinine Est GFR ( Amer) Est GFR (Non-Af Amer) POC Glucose (mg/dL) 182 H 71 Random Glucose Hemoglobin A1c Calcium Total Bilirubin AST ALT Alkaline Phosphatase Total Protein Albumin Globulin Albumin/Globulin Ratio Triglycerides Cholesterol LDL Cholesterol Direct HDL Cholesterol TSH 3rd Generation Venous Blood Potassium 03/28/17 03/28/17 03/28/17 05:25 05:25 10:59 WBC RBC Hgb Hct MCV MCH MCHC RDW Plt Count pO2 VBG pH VBG pCO2 VBG HCO3 VBG Total CO2 VBG O2 Sat (Calc) VBG Base Excess VBG Potassium Sodium 141 Chloride 95 L Glucose Lactate FiO2 Blood Gas Comments Crit Value Called To Crit Value Called By Crit Value Read Back Blood Gas Notified Time Potassium 4.0 Carbon Dioxide 28 Anion Gap 22 H BUN 22 H Creatinine 5.1 H Est GFR ( Amer) 16 Est GFR (Non-Af Amer) 13 POC Glucose (mg/dL) 77 Random Glucose 62 L Hemoglobin A1c 7.1 H D Calcium 8.9 Total Bilirubin 0.7 AST 24 ALT 22 Alkaline Phosphatase 111 Total Protein 7.9 Albumin 4.2 Globulin 3.7 Albumin/Globulin Ratio 1.1 Triglycerides 65 Cholesterol 276 H LDL Cholesterol Direct 180 H HDL Cholesterol 62 TSH 3rd Generation 1.32 Venous Blood Potassium Assessment & Plan (1) ESRD (end stage renal disease) Assessment and Plan: Patient with end stage renal disease on maintenance hemodialysis Friday Patient admitted was is vomiting leukocytosis and potassium 5.1 and patient was congested patient have hemodialysis last night Patient has multitude of other problem related to gastroparesis vomiting perhaps related to the use of marijuana Diabetes mellitus patient need the glycemic controlled Hypertension patient to continue take his medications Hyperphosphatemia and secondary hyperparathyroidism Patient has AV access in the left upper arm with a good bruit Status: Acute (2) Hyperglycemia Status: Acute (3) Hyperkalemia Status: Acute (4) Intractable vomiting with nausea Status: Acute
--- NOTE | 2017-03-28 16:35 | CP.PCM.HP ---
History of Present Illness - History of Present Illness History of Present Illness: Patient Ad with 2 days nausea, vomiting , He had dialysis past 3 days [employer] , the next day was vomiting , up to DOA, vomiting bilious type , with abdominal pain lower quadrants , no diarrhea, no hematemesis , melena or rectal bleeeding. Patient came to [facility] and AD. Patialexandra smokes Marihuana , He was told previously that this may cause emesis Hx of ESKD , on Dialysis for one year with numerous ad to with vomiting post dialysis, Patient was recently DD 03/17- [facility] with same symptoms. Patient had dialysis yesterday and is going to have dialysis tomorrow, there after to continue next week with his regular scheedule MWF. Present on Admission - Present on Admission History of Uncontrolled Diabetes: No Review of Systems - Constitutional Constitutional: Other - EENT Eyes: Other Ears: Other Nose/Mouth/Throat: Sore Throat - Cardiovascular Cardiovascular: Other - Respiratory Respiratory: Other - Gastrointestinal Gastrointestinal: Abdominal Pain, Nausea, Vomiting - Genitourinary Genitourinary: Other - Musculoskeletal Musculoskeletal: Other - Integumentary Integumentary: Other - Neurological Neurological: Other - Psychiatric Psychiatric: Other - Endocrine Endocrine: Other - Hematologic/Lymphatic Hematologic: Other Past Patient History - Infectious Disease Hx of Infectious Diseases: None - Past Medical History & Family History Past Medical History?: Yes - Past Social History Smoking Status: Light Smoker < 10 Cigarettes Daily - CARDIAC Hx Cardiac Disorders: Yes Hx Congestive Heart Failure: Yes Hx Hypercholesterolemia: Yes Hx Hypertension: Yes Hx Peripheral Edema: Yes - PULMONARY Hx Respiratory Disorders: No Other/Comment: CLAIMED SMOKES MARIJUANA DAILY FOR PAIN - NEUROLOGICAL Hx Neurological Disorder: Yes Other/Comment: Bilateral leg neuropathy - HEENT Hx HEENT Problems: Yes Hx Cataracts: Yes Other/Comment: cataract surgery asad eye 10 years ago - RENAL Hx Chronic Kidney Disease: Yes Hx Dialysis: Yes Type of Dialysis Access: LEFT UPPER EXTREMITY AV FISTULA Date of Last Dialysis Treatment: 03/26/17 Hx Kidney Stones: No - ENDOCRINE/METABOLIC Hx Endocrine Disorders: Yes Hx Diabetes Mellitus Type 1: Yes - HEMATOLOGICAL/ONCOLOGICAL Hx Blood Disorders: Yes Hx AIDS: No Hx Anemia: Yes (Pt denies) Hx Human Immunodeficiency Virus (HIV): No - INTEGUMENTARY Hx Dermatological Problems: No - MUSCULOSKELETAL/RHEUMATOLOGICAL Hx Musculoskeletal Disorders: Yes Hx Falls: Yes - GASTROINTESTINAL Hx Gastritis: Yes - GENITOURINARY/GYNECOLOGICAL Hx Genitourinary Disorders: No - PSYCHIATRIC Hx Psychophysiologic Disorder: Yes Hx Substance Use: Yes (marijuana) - SURGICAL HISTORY Hx Surgeries: Yes Hx Cataract Extraction: Yes (bilateral) Hx Vascular Access Device: Yes Other/Comment: RT.PERMACATH INSERTION 04/17. LT.AV SHUNT CREATION 06/04/16. UNDESCENDED TESTES LT. REMOVED DURING CHILDHOOD - ANESTHESIA Hx Anesthesia: Yes Hx Anesthesia Reactions: No Hx Malignant Hyperthermia: No Meds Home Medications: Home Medication List Medication Instructions Recorded Confirmed Type Metoprolol Tartrate [Lopressor] 50 mg PO Q12 #0 tab 03/31/17 Rx Allergies/Adverse Reactions: Allergies Allergy/AdvReac Type Severity Reaction Status Date / Time No Known Allergies Allergy Verified 03/27/17 08:59 Physical Exam - Constitutional Appears: Chronically Ill - Head Exam Head Exam: NORMAL INSPECTION - Eye Exam Eye Exam: EOMI Pupil Exam: PERRL - ENT Exam ENT Exam: Normal Exam - Neck Exam Neck exam: Positive for: Normal Inspection - Respiratory Exam Respiratory Exam: Clear to Auscultation Bilateral - Cardiovascular Exam Cardiovascular Exam: REGULAR RHYTHM - GI/Abdominal Exam GI & Abdominal Exam: Normal Bowel Sounds, Tenderness (lower quadrants) - Extremities Exam Additional comments: L arm AV Fistula - Back Exam Back exam: NORMAL INSPECTION - Neurological Exam Neurological exam: Alert, Oriented x3 Additional comments: no focal motor/sensory feficit - Psychiatric Exam Psychiatric exam: Anxious, Depressed - Skin Skin Exam: Warm Results - Vital Signs Recent Vital Signs: Last Vital Signs Temp 98.3 F 03/28/17 12:18 Pulse 89 03/28/17 13:20 Resp 18 03/28/17 12:18 BP 169/89 H 03/28/17 13:20 Pulse Ox 97 03/28/17 12:18 - Labs Result Diagrams: 03/31/17 12:26 03/31/17 12:26 Labs: Laboratory Results - last 24 hr 03/27/17 03/27/17 03/27/17 11:36 16:44 21:47 WBC RBC Hgb Hct MCV MCH MCHC RDW Plt Count Sodium Potassium Chloride Carbon Dioxide Anion Gap BUN Creatinine Est GFR ( Amer) Est GFR (Non-Af Amer) POC Glucose (mg/dL) 350 H 400 H* 182 H Random Glucose Hemoglobin A1c Calcium Total Bilirubin AST ALT Alkaline Phosphatase Total Protein Albumin Globulin Albumin/Globulin Ratio Triglycerides Cholesterol LDL Cholesterol Direct HDL Cholesterol TSH 3rd Generation 03/28/17 03/28/17 03/28/17 04:19 05:25 05:25 WBC 16.1 H RBC 4.74 Hgb 13.2 Hct 42.4 MCV 89.5 D MCH 27.9 MCHC 31.2 L RDW 18.1 H Plt Count 268 Sodium 141 Potassium 4.0 Chloride 95 L Carbon Dioxide 28 Anion Gap 22 H BUN 22 H Creatinine 5.1 H Est GFR ( Amer) 16 Est GFR (Non-Af Amer) 13 POC Glucose (mg/dL) 71 Random Glucose 62 L Hemoglobin A1c Calcium 8.9 Total Bilirubin 0.7 AST 24 ALT 22 Alkaline Phosphatase 111 Total Protein 7.9 Albumin 4.2 Globulin 3.7 Albumin/Globulin Ratio 1.1 Triglycerides 65 Cholesterol 276 H LDL Cholesterol Direct 180 H HDL Cholesterol 62 TSH 3rd Generation 1.32 03/28/17 03/28/17 05:25 10:59 WBC RBC Hgb Hct MCV MCH MCHC RDW Plt Count Sodium Potassium Chloride Carbon Dioxide Anion Gap BUN Creatinine Est GFR ( Amer) Est GFR (Non-Af Amer) POC Glucose (mg/dL) 77 Random Glucose Hemoglobin A1c 7.1 H D Calcium Total Bilirubin AST ALT Alkaline Phosphatase Total Protein Albumin Globulin Albumin/Globulin Ratio Triglycerides Cholesterol LDL Cholesterol Direct HDL Cholesterol TSH 3rd Generation Assessment & Plan (1) Intractable vomiting with nausea Status: Acute (2) ESRD (end stage renal disease) Status: Acute (3) Abdominal pain Status: Acute (4) Hyperglycemia Status: Acute (5) Diabetes Status: Chronic (6) Hypertension Status: Chronic (7) Leukocytosis Status: Acute - Assessment and Plan (Free Text) Plan: Continue Zofran, Protonix, Zosyn , BP and BS control , Dyalisis in am, Renal and GI consult appreciated - Date & Time Date: 03/28/17 Time: 12:00
[2017-03-28] MEDS: Insulin Detemir 100 Units/ml Inj SC SCH (22:25)
[2017-03-29] MEDS: Piperacill/Tazo 3.375gm in Dex 3.375 GM/50 ML BAG IVPB SCH ×3 (00:25→17:17)
[2017-03-29] MEDS: HYDROmorphone 0.5 mg/0.5 ml ISec IVP PRN ×3 (02:28→23:20)
[2017-03-29] MEDS: Metoprolol 1 mg/ml Inj IVP SCH (04:56)
[2017-03-29] MEDS: Insulin Lispro (humaLOG) 100 Units/ml Inj SC SCH ×4 (06:30→21:39)
[2017-03-29] MEDS ORDERED: Glucagon Recombinant 1 mg Inj IM PRN (12:26)
[2017-03-29] MEDS ORDERED: Dextrose 50% SYRINGE Inj (50 ml) IV PRN (12:26)
--- NOTE | 2017-03-29 12:47 | CP.PCM.PN ---
Subjective - Date & Time of Evaluation Date of Evaluation: 03/29/17 Time of Evaluation: 12:20 - Subjective Subjective: tolerating Renal diet with mild nausea , no vomiting , diarrhea x 1 today , Objective - Vital Signs/Intake and Output Vital Signs (last 24 hours): Temp Pulse Resp BP Pulse Ox 98.2 F 74 18 110/68 100 03/29/17 11:56 03/29/17 11:56 03/29/17 11:56 03/29/17 11:56 03/29/17 11:56 - Medications Medications: Current Medications Amlodipine Besylate (Norvasc) 10 mg PO DAILY [facility] Last Admin: 03/29/17 09:14 Dose: 10 mg Aspirin (Aspirin Chewable) 81 mg PO DAILY [facility] Last Admin: 03/29/17 09:15 Dose: 81 mg Clonidine HCl (Catapres) 0.2 mg PO TID [facility] Last Admin: 03/29/17 09:15 Dose: 0.2 mg Dextrose (Dextrose 50% Inj) 0 ml IV STAT PRN; Protocol PRN Reason: Hypoglycemia Protocol Dextrose (Glutose 15) 0 gm PO ONCE PRN; Protocol PRN Reason: Hypoglycemia Protocol Gabapentin (Neurontin) 300 mg PO DAILY [facility] Last Admin: 03/29/17 09:14 Dose: 300 mg Glucagon (Glucagen Diagnostic Kit) 0 mg IM STAT PRN; Protocol PRN Reason: Hypoglycemia Protocol Hydromorphone HCl (Dilaudid) 0.5 mg IVP Q4 PRN PRN Reason: Pain, severe (8-10) Last Admin: 03/29/17 02:28 Dose: 0.5 mg Piperacillin Sod/Tazobactam Sod (Zosyn 3.375 Gm Iv Premix) 3.375 gm in 50 mls @ 50 mls/hr IVPB Q8 [facility] PRN Reason: Protocol Last Admin: 03/29/17 09:13 Dose: 50 mls/hr Insulin Detemir (Levemir) 20 units SC HS [facility] Last Admin: 03/28/17 22:25 Dose: 20 units Insulin Human Lispro (Humalog) 0 units SC ACHS [facility] PRN Reason: Protocol Last Admin: 03/29/17 12:27 Dose: Not Given Metoprolol Tartrate (Lopressor) 50 mg PO Q12 [facility] Mupirocin (Bactroban Ointment) 1 applic TOP BID [facility] Last Admin: 03/29/17 09:14 Dose: 1 applic Ondansetron HCl (Zofran Inj) 4 mg IVP Q4 PRN PRN Reason: Nausea/Vomiting Last Admin: 03/29/17 02:28 Dose: 4 mg Pantoprazole Sodium (Protonix Inj) 40 mg IVP DAILY [facility] Last Admin: 03/29/17 09:13 Dose: 40 mg - Labs Labs: 03/28/17 05:25 03/28/17 05:25 PT 11.3 Seconds (9.8-13.1) 03/27/17 09:33 INR 1.0 (0.9-1.2) 03/27/17 09:33 APTT 30.7 Seconds (25.6-37.1) 03/27/17 09:33 - Constitutional Appears: No Acute Distress - Head Exam Head Exam: NORMAL INSPECTION - Eye Exam Eye Exam: PERRL - ENT Exam ENT Exam: Normal Exam - Neck Exam Neck Exam: Normal Inspection - Respiratory Exam Respiratory Exam: Clear to Ausculation Bilateral - Cardiovascular Exam Cardiovascular Exam: REGULAR RHYTHM - GI/Abdominal Exam GI & Abdominal Exam: Soft, Normal Bowel Sounds - Extremities Exam Additional comments: L arm AV shunt - Neurological Exam Neurological Exam: Alert, CN II-XII Intact. absent: Motor Sensory Deficit - Psychiatric Exam Psychiatric exam: Anxious - Skin Skin Exam: Warm Assessment and Plan (1) Intractable vomiting with nausea Status: Acute (2) ESRD (end stage renal disease) Status: Acute (3) Abdominal pain Status: Acute (4) Hyperglycemia Status: Acute (5) Diabetes Status: Chronic (6) Hypertension Status: Chronic (7) Leukocytosis Status: Acute - Assessment and Plan (Free Text) Plan: Leukocytosisi improved , continue Zosyn, DM Hyperglicemia, BS control , K normal, continue dialysis
--- NOTE | 2017-03-29 20:53 | CP.PCM.PN ---
Subjective - Date & Time of Evaluation Date of Evaluation: 03/29/17 Time of Evaluation: 10:00 - Subjective Subjective: renal follow up note no events overnight PE: ao times 3 vss nad heent normal op moist s1s2 present no resp distress abd soft skin normal flat affect A&P: esrddmdm gastropatesis/htn/anemia hd usual days are mw, but missed on friday hence will do today lytes reviewed anemia stable, epogen as needed with hd bp ok sec hyperpth: follow phos levels please call us @ [phone] if any qs Objective - Vital Signs/Intake and Output Vital Signs (last 24 hours): Temp Pulse Resp BP Pulse Ox 98.5 F 80 20 141/82 96 03/29/17 19:19 03/29/17 19:58 03/29/17 19:19 03/29/17 19:19 03/29/17 19:19 Intake and Output: 03/29/17 03/30/17 18:59 06:59 Intake Total 100 Balance 100 - Medications Medications: Current Medications Amlodipine Besylate (Norvasc) 10 mg PO DAILY [facility] Last Admin: 03/29/17 09:14 Dose: 10 mg Aspirin (Aspirin Chewable) 81 mg PO DAILY [facility] Last Admin: 03/29/17 09:15 Dose: 81 mg Clonidine HCl (Catapres) 0.2 mg PO TID [facility] Last Admin: 03/29/17 17:14 Dose: Not Given Dextrose (Dextrose 50% Inj) 0 ml IV STAT PRN; Protocol PRN Reason: Hypoglycemia Protocol Dextrose (Glutose 15) 0 gm PO ONCE PRN; Protocol PRN Reason: Hypoglycemia Protocol Gabapentin (Neurontin) 300 mg PO DAILY [facility] Last Admin: 03/29/17 09:14 Dose: 300 mg Glucagon (Glucagen Diagnostic Kit) 0 mg IM STAT PRN; Protocol PRN Reason: Hypoglycemia Protocol Hydromorphone HCl (Dilaudid) 0.5 mg IVP Q4 PRN PRN Reason: Pain, severe (8-10) Last Admin: 03/29/17 18:38 Dose: 0.5 mg Piperacillin Sod/Tazobactam Sod (Zosyn 3.375 Gm Iv Premix) 3.375 gm in 50 mls @ 50 mls/hr IVPB Q8 [facility] PRN Reason: Protocol Last Admin: 03/29/17 17:17 Dose: 50 mls/hr Insulin Detemir (Levemir) 20 units SC HS [facility] Last Admin: 03/28/17 22:25 Dose: 20 units Insulin Human Lispro (Humalog) 0 units SC ACHS [facility] PRN Reason: Protocol Last Admin: 03/29/17 17:15 Dose: 3 units Metoprolol Tartrate (Lopressor) 50 mg PO Q12 [facility] Mupirocin (Bactroban Ointment) 1 applic TOP BID [facility] Last Admin: 03/29/17 17:15 Dose: 1 applic Ondansetron HCl (Zofran Inj) 4 mg IVP Q4 PRN PRN Reason: Nausea/Vomiting Last Admin: 03/29/17 02:28 Dose: 4 mg Pantoprazole Sodium (Protonix Inj) 40 mg IVP DAILY [facility] Last Admin: 03/29/17 09:13 Dose: 40 mg - Labs Labs: 03/28/17 05:25 03/28/17 05:25 PT 11.3 Seconds (9.8-13.1) 03/27/17 09:33 INR 1.0 (0.9-1.2) 03/27/17 09:33 APTT 30.7 Seconds (25.6-37.1) 03/27/17 09:33
[2017-03-29] MEDS: Insulin Detemir 100 Units/ml Inj SC SCH (21:42)
[2017-03-29] MEDS ORDERED: Insulin Lispro (humaLOG) 100 Units/ml Inj SC ONE (23:24)
[2017-03-30] MEDS: Piperacill/Tazo 3.375gm in Dex 3.375 GM/50 ML BAG IVPB SCH ×3 (00:30→16:22)
[2017-03-30] MEDS: HYDROmorphone 0.5 mg/0.5 ml ISec IVP PRN ×4 (03:30→20:20)
[2017-03-30] MEDS: Insulin Lispro (humaLOG) 100 Units/ml Inj SC SCH ×4 (09:24→22:17)
--- NOTE | 2017-03-30 16:00 | CP.PCM.PN ---
Subjective - Date & Time of Evaluation Date of Evaluation: 03/30/17 Time of Evaluation: 11:50 - Subjective Subjective: F/U Vomiting/ ESRD. Tolerating Renal diet, mild nausea, no vomiting. Objective - Vital Signs/Intake and Output Vital Signs (last 24 hours): Temp Pulse Resp BP Pulse Ox 97.9 F 83 20 99/67 L 99 03/30/17 15:53 03/30/17 15:53 03/30/17 15:53 03/30/17 15:53 03/30/17 15:53 - Medications Medications: Current Medications Amlodipine Besylate (Norvasc) 10 mg PO DAILY [facility] Last Admin: 03/30/17 09:23 Dose: 10 mg Aspirin (Aspirin Chewable) 81 mg PO DAILY [facility] Last Admin: 03/30/17 09:23 Dose: 81 mg Clonidine HCl (Catapres) 0.2 mg PO TID [facility] Last Admin: 03/30/17 12:41 Dose: 0.2 mg Dextrose (Dextrose 50% Inj) 0 ml IV STAT PRN; Protocol PRN Reason: Hypoglycemia Protocol Dextrose (Glutose 15) 0 gm PO ONCE PRN; Protocol PRN Reason: Hypoglycemia Protocol Gabapentin (Neurontin) 300 mg PO DAILY [facility] Last Admin: 03/30/17 09:23 Dose: 300 mg Glucagon (Glucagen Diagnostic Kit) 0 mg IM STAT PRN; Protocol PRN Reason: Hypoglycemia Protocol Hydromorphone HCl (Dilaudid) 0.5 mg IVP Q4 PRN PRN Reason: Pain, severe (8-10) Last Admin: 03/30/17 10:44 Dose: 0.5 mg Piperacillin Sod/Tazobactam Sod (Zosyn 3.375 Gm Iv Premix) 3.375 gm in 50 mls @ 50 mls/hr IVPB Q8 [facility] PRN Reason: Protocol Last Admin: 03/30/17 09:25 Dose: 50 mls/hr Insulin Detemir (Levemir) 20 units SC HS [facility] Last Admin: 03/29/17 21:42 Dose: 20 units Insulin Human Lispro (Humalog) 0 units SC ACHS [facility] PRN Reason: Protocol Last Admin: 03/30/17 12:41 Dose: 4 units Metoprolol Tartrate (Lopressor) 50 mg PO Q12 [facility] Last Admin: 03/30/17 09:27 Dose: 50 mg Mupirocin (Bactroban Ointment) 1 applic TOP BID [facility] Last Admin: 03/30/17 09:22 Dose: 1 applic Ondansetron HCl (Zofran Inj) 4 mg IVP Q4 PRN PRN Reason: Nausea/Vomiting Last Admin: 03/30/17 00:25 Dose: 4 mg Pantoprazole Sodium (Protonix Inj) 40 mg IVP DAILY [facility] Last Admin: 03/30/17 09:23 Dose: 40 mg - Labs Labs: 03/28/17 05:25 03/28/17 05:25 PT 11.3 Seconds (9.8-13.1) 03/27/17 09:33 INR 1.0 (0.9-1.2) 03/27/17 09:33 APTT 30.7 Seconds (25.6-37.1) 03/27/17 09:33 - Constitutional Appears: No Acute Distress - Head Exam Head Exam: NORMAL INSPECTION - Eye Exam Eye Exam: PERRL - ENT Exam ENT Exam: Normal Exam - Neck Exam Neck Exam: Normal Inspection - Respiratory Exam Respiratory Exam: Clear to Ausculation Bilateral - Cardiovascular Exam Cardiovascular Exam: REGULAR RHYTHM - GI/Abdominal Exam GI & Abdominal Exam: Soft, Normal Bowel Sounds - Extremities Exam Additional comments: L arm AV shunt - Back Exam Back Exam: NORMAL INSPECTION - Neurological Exam Neurological Exam: Alert, CN II-XII Intact. absent: Motor Sensory Deficit - Psychiatric Exam Psychiatric exam: Anxious - Skin Skin Exam: Warm Assessment and Plan (1) Intractable vomiting with nausea Status: Acute (2) ESRD (end stage renal disease) Status: Acute (3) Abdominal pain Status: Acute (4) Hyperglycemia Status: Acute (5) Diabetes Status: Chronic (6) Hypertension Status: Chronic (7) Leukocytosis Status: Acute - Assessment and Plan (Free Text) Plan: BS high but better controlled, Continue Renal diet, HD and rest of Tx.
[2017-03-30] MEDS: Insulin Detemir 100 Units/ml Inj SC SCH (22:29)
[2017-03-31] MEDS: Piperacill/Tazo 3.375gm in Dex 3.375 GM/50 ML BAG IVPB SCH ×3 (00:15→16:52)
[2017-03-31] MEDS: HYDROmorphone 0.5 mg/0.5 ml ISec IVP PRN ×3 (01:09→09:23)
--- NOTE | 2017-03-31 03:43 | CON ---
ENDOCRINOLOGY CONSULTATION LOCATION: Room 410. HISTORY OF PRESENT ILLNESS: This is a 36-year-old male with known history of type 1 insulin-dependent diabetes, presenting here with a 2-day history of nausea, dyspepsia, vomiting, and diarrhea, and has now been admitted once again for GI evaluation and management and is also being referred now for diabetic evaluation and management because of supervening hyperglycemic accelerations as noted thereof. PAST MEDICAL HISTORY: As mentioned above, history of type 1 insulin-dependent diabetes, currently on Lantus given as 20 units subcu at bedtime daily with no rapid acting insulin regimen is given; history of hypertensive cardiovascular disease and dyslipidemia; history of diabetic retinopathy, polyneuropathy, and nephropathy with end-stage renal disease and dialysis dependence; history of diabetic gastroparesis with multiple admissions for nausea, vomiting, and diarrhea, as noted; and also multiple upper and lower endoscopic procedures undertaken. FAMILY HISTORY: Positive for diabetes and hypertension. SOCIAL HISTORY: The patient admits to smoking daily marijuana for apparent pain relief. No other known substance use. REVIEW OF SYSTEMS: As mentioned above. Admits to generalized body weakness with easy fatigability and tiredness and suboptimal energy level. Also admits to episodic bouts of dizziness and lightheadedness, worse on the day of admission. No chest pains or palpitations or PND since oral intake is variable with nausea, dyspepsia, and intractable vomiting episodes, worse on the day of admission. Also admits to chronic loose watery diarrhea as noted. PHYSICAL EXAMINATION: GENERAL: This is an asthenic male in no apparent distress. VITAL SIGNS: Blood pressure of 140/80, pulse of 70 beats per minute and regular, temperature 98.0, respirations 20, height is 5 feet 7 inches, weight is 127 pounds. HEENT: Head normocephalic. Eyes anicteric with pink conjunctivae. Funduscopy not possible at this time. Ears, nose, and throat otherwise normal. NECK: Supple. Thyroid gland is normal in size. No carotid bruits or any cervical adenopathy. Cardiopulmonary: Some adynamic precordium. S1, S2 is rapid and regular. Lungs: Clear to auscultation. Abdomen: Flat, soft, with positive bowel sounds. Extremities: No peripheral edema. Pulses are +2 bilaterally. LABORATORY DATA: His initial chemistries showed a BUN of 47, sodium 137, potassium 5.2, chloride 92, CO2 of 23, glucose 565, and creatinine 7.4. His glucose levels have ranged from 350 to 400 and 434 mg/dL. He had low normal glycemic levels early this morning as noted. His hemoglobin A1c is 7.1%. ASSESSMENT: This is a 36-year-old male with uncontrolled and decompensated type 1 insulin-dependent diabetes, presenting here with intractable vomiting and diarrhea on the background of diabetic gastroparesis and is now being referred for diabetic evaluation and management because of recent extremes of glycemic fluctuations as noted thereof. He also has diabetic microvascular complications of retinopathy, polyneuropathy, and nephropathy with end-stage renal disease and dialysis dependence. PLAN OF MANAGEMENT: As discussed with the patient and staff, we will switch him over to a more physiologic basal and bolus insulin drug combination as ordered. We will start him on Humalog given at the low dose of 6 units subcu t.i.d. before meals, to start tomorrow morning before breakfast as ordered. We will modify the coverage scale to a very low-dose algorithm using Humalog insulin to obviate hypoglycemia and detailed orders have been given. We will continue the basal insulin ordered as Levemir at 20 units subcu at bedtime daily as ordered. We will titrate incrementally as indicated to optimize metabolic control. We will also initiate diabetic education and dietary instructions, especially with his upper mentioned extremes of glycemic fluctuations because of underlying diabetic gastroparesis. We will follow and advise accordingly. Haley Scruggs MD
[2017-03-31] MEDS ORDERED: Insulin Lispro (humaLOG) 100 Units/ml Inj SC SCH ×2 (07:30→16:30)
[2017-03-31] MEDS: Insulin Lispro (humaLOG) 100 Units/ml Inj SC SCH ×3 (09:26→16:51)
--- NOTE | 2017-03-31 10:15 | CP.PCM.PN ---
Subjective - Date & Time of Evaluation Date of Evaluation: 03/31/17 Time of Evaluation: 10:12 - Subjective Subjective: Dialysis note He was seen on hemodialysis now Discussed the case with the dialysis nurse at the bedside Patient sitting up in bed on the machine receiving dialysis Patient is watching TV Patient awake and conscious No more nausea reported today No more vomiting Dialysis orders reviewed Sodium bath 138 Potassium bath 2 mEq Bicarbonate bacillary for Ultrafiltration 1500 mL as tolerated Physical exam Chest clear Heart no rubs Abdomen soft Still limiting no edema Patient and plan End stage renal disease on dialysis admitted because of nausea vomiting with gastroparesis, diabetes mellitus, hypertension, Patient tolerating dialysis very well Continue the same scheduled MWF Objective - Vital Signs/Intake and Output Vital Signs (last 24 hours): Temp Pulse Resp BP Pulse Ox 98.1 F 79 18 121/84 100 03/31/17 08:12 03/31/17 09:26 03/31/17 08:12 03/31/17 09:26 03/31/17 08:12 - Medications Medications: Current Medications Amlodipine Besylate (Norvasc) 10 mg PO DAILY [facility] Last Admin: 03/31/17 09:26 Dose: Not Given Aspirin (Aspirin Chewable) 81 mg PO DAILY [facility] Last Admin: 03/31/17 09:25 Dose: 81 mg Clonidine HCl (Catapres) 0.2 mg PO TID [facility] Last Admin: 03/31/17 09:24 Dose: Not Given Dextrose (Dextrose 50% Inj) 0 ml IV STAT PRN; Protocol PRN Reason: Hypoglycemia Protocol Dextrose (Glutose 15) 0 gm PO ONCE PRN; Protocol PRN Reason: Hypoglycemia Protocol Gabapentin (Neurontin) 300 mg PO DAILY [facility] Last Admin: 03/31/17 09:25 Dose: 300 mg Glucagon (Glucagen Diagnostic Kit) 0 mg IM STAT PRN; Protocol PRN Reason: Hypoglycemia Protocol Hydromorphone HCl (Dilaudid) 0.5 mg IVP Q4 PRN PRN Reason: Pain, severe (8-10) Last Admin: 03/31/17 09:23 Dose: 0.5 mg Piperacillin Sod/Tazobactam Sod (Zosyn 3.375 Gm Iv Premix) 3.375 gm in 50 mls @ 50 mls/hr IVPB Q8 [facility] PRN Reason: Protocol Last Admin: 03/31/17 09:34 Dose: 50 mls/hr Insulin Detemir (Levemir) 20 units SC HS [facility] Last Admin: 03/30/17 22:29 Dose: 20 units Insulin Human Lispro (Humalog) 6 units SC AC [facility] Last Admin: 03/31/17 09:26 Dose: 6 units Insulin Human Lispro (Humalog) 0 units SC ACHS [facility] PRN Reason: Protocol Last Admin: 03/31/17 09:26 Dose: Not Given Metoprolol Tartrate (Lopressor) 50 mg PO Q12 [facility] Last Admin: 03/31/17 09:24 Dose: Not Given Mupirocin (Bactroban Ointment) 1 applic TOP BID [facility] Last Admin: 03/31/17 09:25 Dose: 1 applic Ondansetron HCl (Zofran Inj) 4 mg IVP Q4 PRN PRN Reason: Nausea/Vomiting Last Admin: 03/31/17 09:08 Dose: 4 mg Pantoprazole Sodium (Protonix Inj) 40 mg IVP DAILY [facility] Last Admin: 03/31/17 09:27 Dose: 40 mg - Labs Labs: 03/28/17 05:25 03/28/17 05:25 PT 11.3 Seconds (9.8-13.1) 03/27/17 09:33 INR 1.0 (0.9-1.2) 03/27/17 09:33 APTT 30.7 Seconds (25.6-37.1) 03/27/17 09:33 Assessment and Plan (1) ESRD (end stage renal disease) Status: Acute (2) Hyperglycemia Status: Acute (3) Hyperkalemia Status: Acute (4) Intractable vomiting with nausea Status: Acute
[2017-03-31 12:35] LABS: HEMATOCRIT 39.2 % (35.0-51.0); MEAN CELL VOLUME 85.6 fl (80.0-94.0); MEAN CORPUSCULAR HEMOGLOBIN 27.9 pg (27.0-31.0); MEAN CORPUSCULAR HGB CONC 32.6 g/dL (33.0-37.0); RED CELL DISTRIBUTION WIDTH 17.9 % (11.5-14.5); WHITE BLOOD COUNT 6.4 K/uL (4.8-10.8)
[2017-03-31 13:07] LABS: POTASSIUM 3.1 MMOL/L (3.6-5.0)
[2017-03-31 16:15] VITALS: BP 146/95; PULSE 91; RESP 20; O2SAT 97
--- NOTE | 2017-03-31 17:01 | CP.PCM.PN ---
Subjective - Date & Time of Evaluation Date of Evaluation: 03/31/17 Time of Evaluation: 10:20 - Subjective Subjective: F/U Vomiting/ ESRD Pt with no c/o, no nausea or vomiting, tolerating well HD. Objective - Vital Signs/Intake and Output Vital Signs (last 24 hours): Temp Pulse Resp BP Pulse Ox 98 F 91 H 20 146/95 H 97 03/31/17 16:14 03/31/17 16:49 03/31/17 16:14 03/31/17 16:49 03/31/17 16:14 Intake and Output: 03/31/17 03/31/17 06:59 18:59 Intake Total 50 Balance 50 - Medications Medications: Current Medications Amlodipine Besylate (Norvasc) 10 mg PO DAILY [facility] Last Admin: 03/31/17 09:26 Dose: Not Given Aspirin (Aspirin Chewable) 81 mg PO DAILY [facility] Last Admin: 03/31/17 09:25 Dose: 81 mg Clonidine HCl (Catapres) 0.2 mg PO TID [facility] Last Admin: 03/31/17 16:49 Dose: 0.2 mg Dextrose (Dextrose 50% Inj) 0 ml IV STAT PRN; Protocol PRN Reason: Hypoglycemia Protocol Dextrose (Glutose 15) 0 gm PO ONCE PRN; Protocol PRN Reason: Hypoglycemia Protocol Gabapentin (Neurontin) 300 mg PO DAILY [facility] Last Admin: 03/31/17 09:25 Dose: 300 mg Glucagon (Glucagen Diagnostic Kit) 0 mg IM STAT PRN; Protocol PRN Reason: Hypoglycemia Protocol Hydromorphone HCl (Dilaudid) 0.5 mg IVP Q4 PRN PRN Reason: Pain, severe (8-10) Last Admin: 03/31/17 09:23 Dose: 0.5 mg Piperacillin Sod/Tazobactam Sod (Zosyn 3.375 Gm Iv Premix) 3.375 gm in 50 mls @ 50 mls/hr IVPB Q8 TREE PRN Reason: Protocol Last Admin: 03/31/17 16:52 Dose: Not Given Insulin Detemir (Levemir) 22 units SC HS TREE Insulin Human Lispro (Humalog) 0 units SC ACHS TREE PRN Reason: Protocol Last Admin: 03/31/17 16:51 Dose: 3 units Insulin Human Lispro (Humalog) 8 units SC AC [facility] Last Admin: 03/31/17 16:49 Dose: 8 units Metoprolol Tartrate (Lopressor) 50 mg PO Q12 [facility] Last Admin: 03/31/17 09:24 Dose: Not Given Mupirocin (Bactroban Ointment) 1 applic TOP BID [facility] Last Admin: 03/31/17 16:48 Dose: 1 applic Ondansetron HCl (Zofran Inj) 4 mg IVP Q4 PRN PRN Reason: Nausea/Vomiting Last Admin: 03/31/17 09:08 Dose: 4 mg Pantoprazole Sodium (Protonix Inj) 40 mg IVP DAILY [facility] Last Admin: 03/31/17 09:27 Dose: 40 mg - Labs Labs: 03/31/17 12:26 03/31/17 12:26 PT 11.3 Seconds (9.8-13.1) 03/27/17 09:33 INR 1.0 (0.9-1.2) 03/27/17 09:33 APTT 30.7 Seconds (25.6-37.1) 03/27/17 09:33 - Constitutional Appears: No Acute Distress - Head Exam Head Exam: NORMAL INSPECTION - Eye Exam Eye Exam: PERRL - ENT Exam ENT Exam: Normal Exam - Neck Exam Neck Exam: Normal Inspection - Respiratory Exam Respiratory Exam: Clear to Ausculation Bilateral - Cardiovascular Exam Cardiovascular Exam: REGULAR RHYTHM - GI/Abdominal Exam GI & Abdominal Exam: Soft, Normal Bowel Sounds - Extremities Exam Additional comments: L arm AV shunt - Back Exam Back Exam: NORMAL INSPECTION - Neurological Exam Neurological Exam: Alert, CN II-XII Intact, Oriented x3. absent: Motor Sensory Deficit - Psychiatric Exam Psychiatric exam: Anxious - Skin Skin Exam: Warm Assessment and Plan (1) Intractable vomiting with nausea Status: Acute (2) ESRD (end stage renal disease) Status: Acute (3) Abdominal pain Status: Acute (4) Hyperglycemia Status: Acute (5) Diabetes Status: Chronic (6) Hypertension Status: Chronic (7) Leukocytosis Status: Acute - Assessment and Plan (Free Text) Plan: Pt improved and stable to be discharged, see instruction medication list, f/u with PMD in a week, call [facility] for f/u dialysis as out Pt.
[2017-03-31 18:48] VITALS: TEMP 98
[2017-03-31] MEDS ORDERED: Insulin Detemir 100 Units/ml Inj SC SCH (22:00)
--- NOTE | 2017-03-31 22:16 | PN ---
ENDOCRINOLOGY FOLLOWUP NOTE DATE: LOCATION: Room 410, bed 1. SUBJECTIVE: This is a 36-year-old male with recent uncontrolled type 1 insulin-dependent diabetes, now being followed closely for metabolic management. He presented here with intractable vomiting episodes and dehydration and is now being followed closely for metabolic management. His glycemic levels are fluctuating, ranging from 191 to 399 mg/dL. His latest chemistry showed a BUN of 21, sodium 135, potassium 3.1, chloride 94, CO2 29, glucose 204, and creatinine 3.5. So, at this time, we will modify once again his basal and bolus insulin regimen and increase the Humalog to 8 units subcu t.i.d. before meals to start at dinnertime today as ordered. We will also increase the basal insulin with Levemir to be given as 22 units subcu at bedtime daily as given. We will continue the low-dose correction scale using Humalog insulin as ordered. We will titrate incrementally as indicated to optimize metabolic control. We will follow and advise accordingly. Haley Scruggs MD
== END 2017-03-31 17:55 | disposition home or self-care (01) | DRG 73 ==
LOC: H.ER 08:44 → H.ERHOLD 13:06 → H.TEL 15:59
PROVIDERS: ADMIT Internal Medicine Pulmonary Disease; ATTEND Internal Medicine Pulmonary Disease
PROC: 5A1D70Z Performance of Urinary Filtration, Intermittent, Less than 6 Hours Per Day (ICD-10-PCS; principal; 2017-03-27)
DX: E10.43 Type 1 diabetes mellitus with diabetic autonomic (poly)neuropathy (principal); N18.6 End stage renal disease; I13.2 Hypertensive heart and chronic kidney disease with heart failure and with stage 5 chronic kidney disease, or end stage renal disease; K31.84 Gastroparesis; N25.81 Secondary hyperparathyroidism of renal origin; E10.22 Type 1 diabetes mellitus with diabetic chronic kidney disease; E10.42 Type 1 diabetes mellitus with diabetic polyneuropathy; E10.65 Type 1 diabetes mellitus with hyperglycemia; E87.5 Hyperkalemia; E86.0 Dehydration; E78.5 Hyperlipidemia, unspecified; I16.0 Hypertensive urgency; I50.9 Heart failure, unspecified; K52.9 Noninfective gastroenteritis and colitis, unspecified; Z91.19 Patient's noncompliance with other medical treatment and regimen; G43.A0 Cyclical vomiting, in migraine, not intractable; F12.90 Cannabis use, unspecified, uncomplicated; D72.829 Elevated white blood cell count, unspecified; Z99.2 Dependence on renal dialysis; F17.210 Nicotine dependence, cigarettes, uncomplicated; E10.319 Type 1 diabetes mellitus with unspecified diabetic retinopathy without macular edema; G57.93 Unspecified mononeuropathy of bilateral lower limbs; Z79.4 Long term (current) use of insulin; E83.39 Other disorders of phosphorus metabolism

== ENCOUNTER 2017-04-25 15:27 | Observation (INO) | payer MEDICARE ==
[2017-04-25 15:27] VITALS: BMI 19.5
[2017-04-25] MEDS ORDERED: DiphenhydrAMINE 50 mg/ml Inj IVP STA (15:49)
--- NOTE | 2017-04-25 16:02 | ED PDOC ---
HPI: Abdomen Time Seen by Provider: 04/25/17 15:42 Chief Complaint (Nursing): Abdominal Pain Chief Complaint (Provider): Abdominal Pain, Vomiting History Per: Patient History/Exam Limitations: no limitations Onset/Duration Of Symptoms: Days (x4) Current Symptoms Are (Timing): Still Present Additional Complaint(s): Malcolm is a 36-year-old male who presents to the ED complaining hes been having abdominal pain and intractable vomiting. Symptoms are similar to previous episodes of gastroparesis, for which hes been admitted multiple times to [facility] as well as here. He was discharged from his most recent admission 3 days ago. Patient underwent full hemodialysis today, which he does MWF. Also reports chest pain and shortness of breath. He denies any bilious or bloody vomit. Reports intermittent diarrhea but none today, and no black or bloody stools. At baseline he has minimal urine output, which is normal today. He has not eaten or drank anything today due to vomiting. 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 PMD: Dr. Gtz Past Medical History Reviewed: Historical Data, Nursing Documentation, Vital Signs Vital Signs: Last Vital Signs Temp 98.3 F 04/28/17 11:47 Pulse 79 04/28/17 12:55 Resp 20 04/28/17 11:47 BP 158/76 H 04/28/17 12:55 Pulse Ox 94 L 04/28/17 11:47 - Medical History PMH: Anemia (Pt denies), CHF, Diabetes (type I), Gastritis, HTN, Hypercholesterolemia, Peripheral Edema, End Stage Renal Disease, Chronic Kidney Disease Denies: HIV, Kidney Stones Other PMH: Gastroparesis - Family History Family History: States: Unknown Family Hx, Diabetes, Hypertension - Immunization History Hx Tetanus Toxoid Vaccination: Yes Hx Influenza Vaccination: Yes Hx Pneumococcal Vaccination: Yes - Home Medications Home Medications: Ambulatory Orders Medication Instructions Recorded Insulin Glargine, Recombina 20 unit SC HS unit 03/24/17 [Lantus] Aspirin [Aspirin Chewable] 81 mg PO DAILY #60 chew 04/07/17 Famotidine [Pepcid] 20 mg PO BID #60 tab 04/07/17 Gabapentin [Neurontin] 300 mg PO DAILY #60 cap 04/07/17 Insulin Aspart, Recombinant 5 - 20 unit SC ACTID 90 Days #10 04/07/17 [Novolog] vial Lisinopril [Zestril] 10 mg PO DAILY #60 tablet 04/07/17 Metoprolol Tartrate [Lopressor] 50 mg PO Q12 #60 tab 04/07/17 Ondansetron ODT [Zofran ODT] 4 mg PO Q6 PRN #30 odt 04/07/17 Pantoprazole Sodium [Protonix] 40 mg PO DAILY #30 tablet. 04/07/17 amLODIPine [Norvasc] 10 mg PO DAILY #30 tab 04/07/17 cloNIDine [Catapres] 0.2 mg PO TID #90 tab 04/07/17 Vitamin B Complex/Vit C/Folic 1 tab PO 0800 tab 04/22/17 [Nephro-Víctor] Dicyclomine [Bentyl] 10 mg PO QID PRN #60 cap 04/28/17 Fluconazole [Diflucan] 100 mg PO DAILY #3 tab 04/28/17 Polyethylene Glycol 3350 [Miralax] 17 gm PO BID #14 packet 04/28/17 hydrALAZINE [Apresoline] 25 mg PO Q6 #21 tab 04/28/17 - Allergies Allergies/Adverse Reactions: Allergies Allergy/AdvReac Type Severity Reaction Status Date / Time No Known Allergies Allergy Verified 04/18/17 01:32 Review of Systems ROS Statement: Except As Marked, All Systems Reviewed And Found Negative (as per HPI) Cardiovascular: Positive for: Chest Pain Respiratory: Positive for: Shortness of Breath Gastrointestinal: Positive for: Nausea, Vomiting, Abdominal Pain, Diarrhea ( intermittent). Negative for: Melena, Hematemesis Physical Exam - Reviewed Nursing Documentation Reviewed: Yes Vital Signs Reviewed: Yes - Physical Exam Appears: Positive for: Uncomfortable, In Acute Distress Head Exam: Positive for: ATRAUMATIC, NORMOCEPHALIC Skin: Positive for: Warm, Dry Eye Exam: Positive for: EOMI, PERRL ENT: Positive for: Pharynx Is (clear), Other (dry mucus membranes) Neck: Positive for: Painless ROM, Supple Cardiovascular/Chest: Positive for: Regular Rate, Rhythm, Chest Non Tender Respiratory: Positive for: Normal Breath Sounds. Negative for: Rales, Respiratory Distress Gastrointestinal/Abdominal: Positive for: Soft, Tenderness (diffuse distractible ). Negative for: Mass, Distended, Guarding, Rebound Back: Positive for: Normal Inspection. Negative for: Decreased ROM Extremity: Positive for: Normal ROM. Negative for: Deformity Lymphatic: Negative for: Adenopathy (cervical) Neurologic/Psych: Positive for: Alert. Negative for: Motor/Sensory Deficits - Laboratory Results Result Diagrams: 04/28/17 10:21 04/28/17 10:21 - ECG O2 Sat by Pulse Oximetry: 100 (RA) Pulse Ox Interpretation: Normal Medical Decision Making Medical Decision Making: Initial Impression: Intractable vomiting, recurrent Differentials include but are not limited to: gastroparesis, dehydration, electrolyte abnormality, and gastritis. Time: 15:47 Initial Plan: --EKG --Blood type and screen --Alcohol serum --Urine drug screen --Amylase --Lipase --Magnesium --Phosphorous --Troponin I --CMP --CBC w/ differential --PTT --Prothrombin time --Urine dipstick --Blood glucose POC --Blood culture --Chest x-ray --Clonidine 0.2 mg PO --Benadryl 25 mg IV --Phenergan Inj 25 mg IV --Protonix Inj 40 mg IV --Pending reevaluation Time: 16:27 CHEST X-RAY: FINDINGS: LUNGS: No active pulmonary disease. PLEURA: No significant pleural effusion identified, no pneumothorax apparent. CARDIOVASCULAR: Normal. OSSEOUS STRUCTURES: No significant abnormalities. VISUALIZED UPPER ABDOMEN: Normal. OTHER FINDINGS: None. IMPRESSION: No active disease. 7p Persistent nausea and retching despite ER treatment. Needs hospitalization for bowel rest. Scribe Attestation: Documented by Alison Diaz, acting as a scribe for Remedios Hewitt MD Provider Scribe Attestation: All medical record entries made by the Scribe were at my direction and personally dictated by me. I have reviewed the chart and agree that the record accurately reflects my personal performance of the history, physical exam, medical decision making, and the department course for this patient. I have also personally directed, reviewed, and agree with the discharge instructions and disposition. Disposition - Clinical Impression Clinical Impression: Intractable vomiting Discussed With : Heather Gupta Counseled Patient/Family Regarding: Studies Performed, Diagnosis - Disposition Disposition Time: 19:00 Condition: GUARDED - Pt Status Changed To: Hospital Disposition Of: Observation - POA Present On Arrival: None
--- NOTE | 2017-04-25 16:28 | RAD ---
HISTORY: chest pain vomiting COMPARISON: Chest radiograph dated 04/04/2017 FINDINGS: LUNGS: No active pulmonary disease. PLEURA: No significant pleural effusion identified, no pneumothorax apparent. CARDIOVASCULAR: Normal. OSSEOUS STRUCTURES: No significant abnormalities. VISUALIZED UPPER ABDOMEN: Normal. OTHER FINDINGS: None. IMPRESSION: No active disease.
[2017-04-25 18:22] LABS: BASO # 0.1 K/uL (0.0-0.2); BASO % 0.7 % (0.0-2.0); EOS # 0.7 K/uL (0.0-0.7); EOS % 5.3 % (0.0-4.0); HEMATOCRIT 33.3 % (35.0-51.0); LYMPH # 1.5 K/uL (1.0-4.3); LYMPH % 11.5 % (20.0-40.0); MEAN CELL VOLUME 85.8 fl (80.0-94.0); MEAN CORPUSCULAR HGB CONC 31.5 g/dL (33.0-37.0); MEAN PLATELET VOLUME 8.6 fl (7.2-11.7); MONO # 1.5 K/uL (0.0-0.8); MONO % 12.1 % (0.0-10.0); NEUT # 8.9 K/uL (1.8-7.0); NEUT % 70.4 % (50.0-75.0); RED CELL DISTRIBUTION WIDTH 18.2 % (11.5-14.5); WHITE BLOOD COUNT 12.6 K/uL (4.8-10.8)
[2017-04-25 18:32] LABS: ALCOHOL SERUM < 10 mg/dl (0-10); ALKALINE PHOSPHATASE 144 U/L (38-126); ALT/SGPT 37 U/L (21-72); AMYLASE 110 U/L (30-110); AST/SGOT 28 U/L (17-59); BILIRUBIN,TOTAL 0.4 mg/dl (0.2-1.3); BLOOD UREA NITROGEN 34 mg/dl (9-20); CALCIUM 8.7 mg/dL (8.4-10.2); CARBON DIOXIDE 31 mmol/L (22-30); CHLORIDE 98 mmol/L (98-107); GFR AFRICAN-AMERICAN 16; GLUCOSE,RANDOM 163 mg/dL (75-110); LIPASE 61 U/L (23-300); MAGNESIUM 1.9 MG/DL (1.6-2.3); PHOSPHOROUS 4.6 mg/dl (2.5-4.5); POTASSIUM 4.7 MMOL/L (3.6-5.0); SODIUM 138 mmol/l (132-148); TOTAL PROTEIN 7.3 G/DL (6.3-8.2)
[2017-04-25] MEDS ORDERED: DiphenhydrAMINE 50 mg/ml Inj ONE (18:33)
[2017-04-25 18:38] LABS: PARTIAL THROMBOPLASTIN TIME 30.9 Seconds (25.6-37.1)
[2017-04-25] MEDS ORDERED: Sodium Chloride 0.9% 1,000 ML IV SCH (23:00)
[2017-04-26] MEDS ORDERED: Sodium Chloride 0.9% 1,000 ML IV SCH (03:15)
[2017-04-26 08:12] LABS: HEMATOCRIT 32.4 % (35.0-51.0); MEAN CELL VOLUME 85.8 fl (80.0-94.0); MEAN CORPUSCULAR HEMOGLOBIN 27.6 pg (27.0-31.0); MEAN CORPUSCULAR HGB CONC 32.2 g/dL (33.0-37.0); RED CELL DISTRIBUTION WIDTH 17.8 % (11.5-14.5); WHITE BLOOD COUNT 11.4 K/uL (4.8-10.8)
[2017-04-26 09:06] LABS: BILIRUBIN,TOTAL 0.4 mg/dl (0.2-1.3); CALCIUM 8.7 mg/dL (8.4-10.2); POTASSIUM 5.3 MMOL/L (3.6-5.0); TOTAL PROTEIN 6.8 G/DL (6.3-8.2)
--- NOTE | 2017-04-26 09:18 | CP.PCM.CON ---
<SilverioVlad - Last Filed: 04/26/17 10:13> History of Present Illness - History of Present Illness History of Present Illness: GI Fellow PGY4 Consult Note This is a 36 year old male with history of IDDM, HTN, ESRD on HD MWF who presents to the hospital with complaints of abdominal pain, nausea, and vomiting and constipation. Patient was recently discharged 04/22/17 with similar complaints, coffee-ground emesis and has had multiple hospitalizations. He subsequently had an EGD on 04/18/17 which revealed possible esophageal caniditis, gastritis, and retained food in the stomach. He was discharged on diflucan, PPI , and reglan. Pt states that he was initially doing fine after discharge. He notes that he stated having nausea and vomiting 1-2 days ago. He reports 5-6 episodes of vomiting at home and in the ER. He denied any hematemesis or coffee-ground emesis. He states that he continued to follow a gastroparesis diet and was complaint on his meds. He continues to smoke marijuana daily. His last BM was 3 days ago He denies melena, hematochezia, dizziness, SOB, chest pain, confusion, or palpitations. EGD/colonoscopy performed on 02/11/17/by Dr. Fox, showed reflux esophagitis with erythematous duodenopathy and external/internal hemorrhoids, respectively. Pathology was negative for H. pylori from EGD and colonoscopy pathology specimen was negative for colitis. ROS: A 12pt ROS negative except as above. PmHx: As stated in HPI PsHx: Denies FHx: Denies colon cancer SHx: Marijuana, denies alcohol Past Patient History - Infectious Disease Hx of Infectious Diseases: None - Past Medical History & Family History Past Medical History?: Yes - Past Social History Smoking Status: Former Smoker - CARDIAC Hx Congestive Heart Failure: Yes Hx Hypercholesterolemia: Yes Hx Hypertension: Yes Hx Peripheral Edema: Yes - PULMONARY Hx Respiratory Disorders: No - NEUROLOGICAL Hx Neurological Disorder: Yes - HEENT Hx HEENT Problems: Yes Hx Cataracts: Yes - RENAL Hx Chronic Kidney Disease: Yes Hx Dialysis: Yes Type of Dialysis Access: AV SHUNT Date of Last Dialysis Treatment: 04/25/17 Hx Kidney Stones: No Hx Neurogenic Bladder: No Hx Pyelonephritis: No Hx Renal (Kidney) Cancer: No Hx Renal Failure: No - ENDOCRINE/METABOLIC Hx Endocrine Disorders: Yes Hx Diabetes Mellitus Type 1: Yes - HEMATOLOGICAL/ONCOLOGICAL Hx AIDS: No Hx Anemia: Yes (Pt denies) Hx Human Immunodeficiency Virus (HIV): No - INTEGUMENTARY Hx Dermatological Problems: No - MUSCULOSKELETAL/RHEUMATOLOGICAL Hx Musculoskeletal Disorders: Yes Hx Falls: No - GASTROINTESTINAL Hx Gastritis: Yes - GENITOURINARY/GYNECOLOGICAL Hx Genitourinary Disorders: No - PSYCHIATRIC Hx Psychophysiologic Disorder: Yes Hx Substance Use: Yes (MARIJUANA) - SURGICAL HISTORY Hx Surgeries: Yes Hx Cataract Extraction: Yes (bilateral) Hx Vascular Access Device: Yes Other/Comment: RT.PERMACATH INSERTION 04/17. LT.AV SHUNT CREATION 06/04/16. UNDESCENDED TESTES LT. REMOVED DURING CHILDHOOD - ANESTHESIA Hx Anesthesia: Yes Hx Anesthesia Reactions: No Hx Malignant Hyperthermia: No Has any member of the family had a problem w/ anesthesia?: No Meds Allergies/Adverse Reactions: Allergies Allergy/AdvReac Type Severity Reaction Status Date / Time No Known Allergies Allergy Verified 04/18/17 01:32 - Medications Medications: Current Medications Amlodipine Besylate (Norvasc) 10 mg PO DAILY [facility] Aspirin (Aspirin Chewable) 81 mg PO DAILY [facility] Clonidine HCl (Catapres) 0.2 mg PO TID [facility] Gabapentin (Neurontin) 300 mg PO DAILY [facility] Heparin Sodium (Porcine) (Heparin) 5,000 units SC Q12 [facility] PRN Reason: Protocol Insulin Detemir (Levemir) 20 units SC HS [facility] Insulin Human Lispro (Humalog) 5 units SC BID [facility] Lisinopril (Zestril) 10 mg PO DAILY [facility] Metoclopramide HCl (Reglan) 10 mg IVP ACHS [facility] Metoprolol Tartrate (Lopressor) 50 mg PO Q12 [facility] Ondansetron HCl (Zofran Inj) 4 mg IVP Q4 PRN PRN Reason: Nausea/Vomiting Pantoprazole Sodium (Protonix Ec Tab) 40 mg PO DAILY [facility] Polyethylene Glycol (Miralax) 17 gm PO BID [facility] Vitamin B Complex/Vit C/Folic Acid (Nephro-Víctor) 1 tab PO DAILY@0800 [facility] Physical Exam - Constitutional Appears: No Acute Distress - Head Exam Head Exam: ATRAUMATIC, NORMOCEPHALIC - Eye Exam Eye Exam: Normal appearance - ENT Exam ENT Exam: Mucous Membranes Moist - Respiratory Exam Respiratory Exam: Clear to Auscultation Bilateral, NORMAL BREATHING PATTERN. absent: Rales, Rhonchi, Wheezes, Respiratory Distress - Cardiovascular Exam Cardiovascular Exam: REGULAR RHYTHM, +S1, +S2 - GI/Abdominal Exam GI & Abdominal Exam: Hypoactive Bowel Sounds, Normal Bowel Sounds, Soft. absent : Distended, Guarding, Rebound, Rigid, Tenderness - Extremities Exam Extremities exam: Negative for: joint swelling, pedal edema - Neurological Exam Neurological exam: Alert, Oriented x3 - Psychiatric Exam Psychiatric exam: Normal Affect, Normal Mood - Skin Skin Exam: Dry, Intact, Normal Color, Warm Results - Vital Signs Recent Vital Signs: Last Vital Signs Temp 99.1 F 04/26/17 08:00 Pulse 91 H 04/26/17 08:00 Resp 18 04/26/17 08:00 BP 185/90 H 04/26/17 08:00 Pulse Ox 95 04/26/17 08:00 - Labs Result Diagrams: 04/26/17 06:30 04/26/17 06:30 Labs: Laboratory Results - last 24 hr 04/25/17 04/25/17 04/25/17 18:00 18:00 18:00 WBC 12.6 H RBC 3.88 L Hgb 10.5 L Hct 33.3 L MCV 85.8 MCH 27.0 MCHC 31.5 L RDW 18.2 H Plt Count 264 MPV 8.6 Neut % (Auto) 70.4 Lymph % (Auto) 11.5 L [place] % (Auto) 12.1 H Eos % (Auto) 5.3 H Baso % (Auto) 0.7 Neut # 8.9 H Lymph # 1.5 Potter # 1.5 H Eos # 0.7 Baso # 0.1 PT 11.9 INR 1.1 APTT 30.9 Sodium 138 Potassium 4.7 Chloride 98 Carbon Dioxide 31 H Anion Gap 14 BUN 34 H Creatinine 4.9 H Est GFR ( Amer) 16 Est GFR (Non-Af Amer) 14 POC Glucose (mg/dL) Random Glucose 163 H Calcium 8.7 Phosphorus 4.6 H Magnesium 1.9 Total Bilirubin 0.4 AST 28 ALT 37 Alkaline Phosphatase 144 H Troponin I 0.0900 Total Protein 7.3 Albumin 3.7 Globulin 3.6 Albumin/Globulin Ratio 1.0 Triglycerides Cholesterol LDL Cholesterol Direct HDL Cholesterol Amylase 110 Lipase 61 Alcohol, Quantitative < 10 Blood Type Antibody Screen BBK History Checked 04/25/17 04/25/17 04/26/17 18:04 18:10 02:00 WBC RBC Hgb Hct MCV MCH MCHC RDW Plt Count MPV Neut % (Auto) Lymph % (Auto) [place] % (Auto) Eos % (Auto) Baso % (Auto) Neut # Lymph # [place] # Eos # Baso # PT INR APTT Sodium Potassium Chloride Carbon Dioxide Anion Gap BUN Creatinine Est GFR ( Amer) Est GFR (Non-Af Amer) POC Glucose (mg/dL) 166 H Random Glucose Calcium Phosphorus Magnesium Total Bilirubin AST ALT Alkaline Phosphatase Troponin I 0.0870 Total Protein Albumin Globulin Albumin/Globulin Ratio Triglycerides Cholesterol LDL Cholesterol Direct HDL Cholesterol Amylase Lipase Alcohol, Quantitative Blood Type O POSITIVE Antibody Screen Negative BBK History Checked Patient has bt 04/26/17 04/26/17 04/26/17 05:43 06:30 06:30 WBC 11.4 H RBC 3.78 L Hgb 10.4 L Hct 32.4 L MCV 85.8 MCH 27.6 MCHC 32.2 L RDW 17.8 H Plt Count 261 MPV Neut % (Auto) Lymph % (Auto) [place] % (Auto) Eos % (Auto) Baso % (Auto) Neut # Lymph # Potter # Eos # Baso # PT INR APTT Sodium 139 Potassium 5.3 H Chloride 99 Carbon Dioxide 31 H Anion Gap 14 BUN 41 H Creatinine 6.2 H Est GFR ( Amer) 12 Est GFR (Non-Af Amer) 10 POC Glucose (mg/dL) 148 H Random Glucose 159 H Calcium 8.7 Phosphorus Magnesium Total Bilirubin 0.4 AST 20 ALT 31 Alkaline Phosphatase 128 H Troponin I Total Protein 6.8 Albumin 3.3 L Globulin 3.5 Albumin/Globulin Ratio 1.0 Triglycerides 170 H D Cholesterol 208 H LDL Cholesterol Direct 120 HDL Cholesterol 36 Amylase Lipase Alcohol, Quantitative Blood Type Antibody Screen BBK History Checked Assessment & Plan - Assessment and Plan (Free Text) Assessment: This is a 36 yr old M with DM, HTN, ESRD on HD with multiple admissions for nausea and vomiting. 1. Nausea and Vomiting 2. Gastroparesis 3. Cannabis induced Cyclical Vomiting Syndrome 4. Hematemesis 5. Uncontrolled HTN 6. Uncontrolled IDDM 7. esophageal johnathan Plan: -Continue supportive care with anti emetic as needed -continue diflucan 100mg daily for 15 more days -Better control of BG which is in the 400-600 causing worsening of gastroparesis and leading to N/V -Marijuana cessation stressed may be contributing cyclical vomiting syndrome -No plan for emergent endoscopic evaluation at this time -Continue PPI daily -Diet as tolerated -Will continue to follow closely -started on reglan before meals and bedtime -start on liquid diet, advance as tolerated D/W Dr. Navarrete <Drake Navarrete - Last Filed: 04/26/17 10:35> Meds - Medications Medications: Current Medications Amlodipine Besylate (Norvasc) 10 mg PO DAILY [facility] Aspirin (Aspirin Chewable) 81 mg PO DAILY [facility] Clonidine HCl (Catapres) 0.2 mg PO TID [facility] Gabapentin (Neurontin) 300 mg PO DAILY [facility] Heparin Sodium (Porcine) (Heparin) 5,000 units SC Q12 [facility] PRN Reason: Protocol Insulin Detemir (Levemir) 20 units SC HS [facility] Insulin Human Lispro (Humalog) 5 units SC BID [facility] Lisinopril (Zestril) 10 mg PO DAILY [facility] Metoclopramide HCl (Reglan) 10 mg IVP ACHS [facility] Metoprolol Tartrate (Lopressor) 50 mg PO Q12 [facility] Ondansetron HCl (Zofran Inj) 4 mg IVP Q4 PRN PRN Reason: Nausea/Vomiting Pantoprazole Sodium (Protonix Ec Tab) 40 mg PO DAILY [facility] Polyethylene Glycol (Miralax) 17 gm PO BID [facility] Vitamin B Complex/Vit C/Folic Acid (Nephro-Víctor) 1 tab PO DAILY@0800 [facility] Results - Vital Signs Recent Vital Signs: Last Vital Signs Temp 99.1 F 04/26/17 08:00 Pulse 91 H 04/26/17 08:00 Resp 18 04/26/17 08:00 BP 185/90 H 04/26/17 08:00 Pulse Ox 95 04/26/17 08:00 - Labs Result Diagrams: 04/26/17 06:30 04/26/17 06:30 Labs: Laboratory Results - last 24 hr 04/25/17 04/25/17 04/25/17 18:00 18:00 18:00 WBC 12.6 H RBC 3.88 L Hgb 10.5 L Hct 33.3 L MCV 85.8 MCH 27.0 MCHC 31.5 L RDW 18.2 H Plt Count 264 MPV 8.6 Neut % (Auto) 70.4 Lymph % (Auto) 11.5 L [place] % (Auto) 12.1 H Eos % (Auto) 5.3 H Baso % (Auto) 0.7 Neut # 8.9 H Lymph # 1.5 Potter # 1.5 H Eos # 0.7 Baso # 0.1 PT 11.9 INR 1.1 APTT 30.9 Sodium 138 Potassium 4.7 Chloride 98 Carbon Dioxide 31 H Anion Gap 14 BUN 34 H Creatinine 4.9 H Est GFR ( Amer) 16 Est GFR (Non-Af Amer) 14 POC Glucose (mg/dL) Random Glucose 163 H Calcium 8.7 Phosphorus 4.6 H Magnesium 1.9 Total Bilirubin 0.4 AST 28 ALT 37 Alkaline Phosphatase 144 H Troponin I 0.0900 Total Protein 7.3 Albumin 3.7 Globulin 3.6 Albumin/Globulin Ratio 1.0 Triglycerides Cholesterol LDL Cholesterol Direct HDL Cholesterol Amylase 110 Lipase 61 Alcohol, Quantitative < 10 Blood Type Antibody Screen BBK History Checked 04/25/17 04/25/17 04/26/17 18:04 18:10 02:00 WBC RBC Hgb Hct MCV MCH MCHC RDW Plt Count MPV Neut % (Auto) Lymph % (Auto) [place] % (Auto) Eos % (Auto) Baso % (Auto) Neut # Lymph # Potter # Eos # Baso # PT INR APTT Sodium Potassium Chloride Carbon Dioxide Anion Gap BUN Creatinine Est GFR ( Amer) Est GFR (Non-Af Amer) POC Glucose (mg/dL) 166 H Random Glucose Calcium Phosphorus Magnesium Total Bilirubin AST ALT Alkaline Phosphatase Troponin I 0.0870 Total Protein Albumin Globulin Albumin/Globulin Ratio Triglycerides Cholesterol LDL Cholesterol Direct HDL Cholesterol Amylase Lipase Alcohol, Quantitative Blood Type O POSITIVE Antibody Screen Negative BBK History Checked Patient has bt 04/26/17 04/26/17 04/26/17 05:43 06:30 06:30 WBC 11.4 H RBC 3.78 L Hgb 10.4 L Hct 32.4 L MCV 85.8 MCH 27.6 MCHC 32.2 L RDW 17.8 H Plt Count 261 MPV Neut % (Auto) Lymph % (Auto) [place] % (Auto) Eos % (Auto) Baso % (Auto) Neut # Lymph # [place] # Eos # Baso # PT INR APTT Sodium 139 Potassium 5.3 H Chloride 99 Carbon Dioxide 31 H Anion Gap 14 BUN 41 H Creatinine 6.2 H Est GFR ( Amer) 12 Est GFR (Non-Af Amer) 10 POC Glucose (mg/dL) 148 H Random Glucose 159 H Calcium 8.7 Phosphorus Magnesium Total Bilirubin 0.4 AST 20 ALT 31 Alkaline Phosphatase 128 H Troponin I Total Protein 6.8 Albumin 3.3 L Globulin 3.5 Albumin/Globulin Ratio 1.0 Triglycerides 170 H D Cholesterol 208 H LDL Cholesterol Direct 120 HDL Cholesterol 36 Amylase Lipase Alcohol, Quantitative Blood Type Antibody Screen BBK History Checked Attending/Attestation - Attestation I have personally seen and examined this patient.: Yes I have fully participated in the care of the patient.: Yes I have reviewed all pertinent clinical information: Yes Notes (Text): 04/26/17 10:29 I have seen and examined patient with GI fellow. Agree with above documentation with the following additions. In brief, this is a 36 year old male with history of DM, ESRD on HD, polysubstance abuse, HTN who presents to hospital with complaint of abdominal pain, nausea, vomiting. He has had multiple recurrent hospitalizations for similar complaints with a presumptive diagnosis of gastroparesis. He describes bilateral lower quadrant abdominal pain, 5/10 intensity, which is worsened after meal consumption, started 2 days ago. He also reports associated nausea and 4-5 episodes of non-bloody emesis yesterday. He denies fever/chills, weight loss, rectal bleeding, or change in bowel habits. He admits to ongoing daily marijuana use along with cigarette smoking. He had a recent hospitalization one week ago at [facility] and underwent EGD with Dr. Fox which showed esophageal candidiasis and retained food in stomach. Patient admits to poor glycemic control with FS range in 200s on most days. Additional physical examination: Abdomen: no palpable hepato/splenomegaly DM ESRD on HD Polysubstance abuse HTN Abdominal pain, nausea, vomiting - gastroparesis - Full liquid diet as tolerated - Anti-emetic therapy PRN - Continue with pro-motility therapy for adjunct therapy of gastroparesis - Continue with diflucan to complete additional 2 weeks of therapy - Patient requires more optimal glycemic control, would consider endocrine evaluation - Patient counseled on importance of marijuana smoking cessation as this may exacerbate underlying symptoms - Will continue to monitor patient clinical course
[2017-04-26] MEDS: Pantoprazole 40 mg EC Tab PO SCH (10:47)
[2017-04-26] MEDS: Multivitamin Vitamin B Complex (Nephro-Vite) Tab PO SCH (10:48)
[2017-04-26] MEDS: Insulin Lispro (humaLOG) 100 Units/ml Inj SC SCH ×2 (10:48→18:05)
--- NOTE | 2017-04-26 12:48 | CARD ---
APPROVED REPORT EKG Measurement Heart [id number] <Conclusion> Normal sinus rhythm Prolonged QT Abnormal ECG
[2017-04-26] MEDS: POLYETHYLENE GLYCOL 3350 17 GM/Dose PACKET PO SCH ×2 (13:04→18:06)
--- NOTE | 2017-04-26 15:55 | CP.PCM.HP ---
History of Present Illness - History of Present Illness History of Present Illness: A 36 year old male with history of IDDM, HTN, kidney failure with dialysis on Friday, Friday, Friday came for nausea, vomiting, dyspnea, chest pain and abdominal pain started on 04/25/17 from the morning. He has had diabetes for about 14 years, and hypertension for 3 to 4 years. He has history of multiple admission at [facility] as his primary doctor is working there and he was just discharged from there four days ago. He has low abdominal pain, diffuse, intermittent. He had intractable vomiting yesterday, but non-bilous, non-bloody. Recently he had an EGD by Dr. Fox and an EGD showed reflux esophagitis. He denies coughing, fever or chills. He has two times of BM every days, and mostly it is loose. He is disabled and uses a walker when he walks. He smokes marijuana as per the chart. The only past surgical history was AV fistula operation for dialysis on left upper arm. Present on Admission - Present on Admission Any Indicators Present on Admission: No History of DVT/PE: No History of Uncontrolled Diabetes: No Urinary Catheter: No Decubitus Ulcer Present: No Review of Systems - Constitutional Constitutional: absent: Daytime Sleepiness - EENT Eyes: Blurred Vision (cataract sugery) Nose/Mouth/Throat: absent: Dry Mouth - Cardiovascular Cardiovascular: Chest Pain (mild). absent: Claudication - Respiratory Respiratory: Dyspnea. absent: Cough, Wheezing, Stridor - Gastrointestinal Gastrointestinal: Bloating, Change in Stool Character, Nausea, Vomiting. absent : Melena - Genitourinary Genitourinary: Difficulty Urinating - Integumentary Integumentary: absent: Sores Past Patient History - Infectious Disease Hx of Infectious Diseases: None - Past Medical History & Family History Past Medical History?: Yes - Past Social History Smoking Status: Former Smoker - CARDIAC Hx Congestive Heart Failure: Yes Hx Hypercholesterolemia: Yes Hx Hypertension: Yes Hx Peripheral Edema: Yes - PULMONARY Hx Respiratory Disorders: No - NEUROLOGICAL Hx Neurological Disorder: Yes - HEENT Hx HEENT Problems: Yes Hx Cataracts: Yes - RENAL Hx Chronic Kidney Disease: Yes Hx Dialysis: Yes Type of Dialysis Access: AV SHUNT Date of Last Dialysis Treatment: 04/25/17 Hx Kidney Stones: No Hx Neurogenic Bladder: No Hx Pyelonephritis: No Hx Renal (Kidney) Cancer: No Hx Renal Failure: No - ENDOCRINE/METABOLIC Hx Endocrine Disorders: Yes Hx Diabetes Mellitus Type 1: Yes - HEMATOLOGICAL/ONCOLOGICAL Hx AIDS: No Hx Anemia: Yes (Pt denies) Hx Human Immunodeficiency Virus (HIV): No - INTEGUMENTARY Hx Dermatological Problems: No - MUSCULOSKELETAL/RHEUMATOLOGICAL Hx Musculoskeletal Disorders: Yes Hx Falls: No - GASTROINTESTINAL Hx Gastritis: Yes - GENITOURINARY/GYNECOLOGICAL Hx Genitourinary Disorders: No - PSYCHIATRIC Hx Psychophysiologic Disorder: Yes Hx Substance Use: Yes (MARIJUANA) - SURGICAL HISTORY Hx Surgeries: Yes Hx Cataract Extraction: Yes (bilateral) Hx Vascular Access Device: Yes Other/Comment: RT.PERMACATH INSERTION 04/17. LT.AV SHUNT CREATION 06/04/16. UNDESCENDED TESTES LT. REMOVED DURING CHILDHOOD - ANESTHESIA Hx Anesthesia: Yes Hx Anesthesia Reactions: No Hx Malignant Hyperthermia: No Has any member of the family had a problem w/ anesthesia?: No Meds Allergies/Adverse Reactions: Allergies Allergy/AdvReac Type Severity Reaction Status Date / Time No Known Allergies Allergy Verified 04/18/17 01:32 Physical Exam - Constitutional Appears: Non-toxic, No Acute Distress - Eye Exam Eye Exam: Normal appearance - ENT Exam ENT Exam: Mucous Membranes Moist - Neck Exam Neck exam: Positive for: Full Rom - Respiratory Exam Respiratory Exam: Clear to Auscultation Bilateral, NORMAL BREATHING PATTERN. absent: Rales, Wheezes - Cardiovascular Exam Cardiovascular Exam: REGULAR RHYTHM. absent: Systolic Murmur - GI/Abdominal Exam GI & Abdominal Exam: Normal Bowel Sounds, Soft, Tenderness (diffuse lower) - Rectal Exam Rectal Exam: Deferred - Extremities Exam Extremities exam: Negative for: pedal edema Results - Vital Signs Recent Vital Signs: Last Vital Signs Temp 98.6 F 04/26/17 11:58 Pulse 92 H 04/26/17 11:58 Resp 18 04/26/17 11:58 BP 152/82 H 04/26/17 11:58 Pulse Ox 97 04/26/17 11:58 - Labs Result Diagrams: 04/26/17 06:30 04/26/17 06:30 Labs: Laboratory Results - last 24 hr 04/25/17 04/25/17 04/25/17 18:00 18:00 18:00 WBC 12.6 H RBC 3.88 L Hgb 10.5 L Hct 33.3 L MCV 85.8 MCH 27.0 MCHC 31.5 L RDW 18.2 H Plt Count 264 MPV 8.6 Neut % (Auto) 70.4 Lymph % (Auto) 11.5 L [place] % (Auto) 12.1 H Eos % (Auto) 5.3 H Baso % (Auto) 0.7 Neut # 8.9 H Lymph # 1.5 [place] # 1.5 H Eos # 0.7 Baso # 0.1 PT 11.9 INR 1.1 APTT 30.9 Sodium 138 Potassium 4.7 Chloride 98 Carbon Dioxide 31 H Anion Gap 14 BUN 34 H Creatinine 4.9 H Est GFR ( Amer) 16 Est GFR (Non-Af Amer) 14 POC Glucose (mg/dL) Random Glucose 163 H Calcium 8.7 Phosphorus 4.6 H Magnesium 1.9 Total Bilirubin 0.4 AST 28 ALT 37 Alkaline Phosphatase 144 H Troponin I 0.0900 Total Protein 7.3 Albumin 3.7 Globulin 3.6 Albumin/Globulin Ratio 1.0 Triglycerides Cholesterol LDL Cholesterol Direct HDL Cholesterol Amylase 110 Lipase 61 Alcohol, Quantitative < 10 Blood Type Antibody Screen BBK History Checked 04/25/17 04/25/17 04/26/17 18:04 18:10 02:00 WBC RBC Hgb Hct MCV MCH MCHC RDW Plt Count MPV Neut % (Auto) Lymph % (Auto) [place] % (Auto) Eos % (Auto) Baso % (Auto) Neut # Lymph # [place] # Eos # Baso # PT INR APTT Sodium Potassium Chloride Carbon Dioxide Anion Gap BUN Creatinine Est GFR ( Amer) Est GFR (Non-Af Amer) POC Glucose (mg/dL) 166 H Random Glucose Calcium Phosphorus Magnesium Total Bilirubin AST ALT Alkaline Phosphatase Troponin I 0.0870 Total Protein Albumin Globulin Albumin/Globulin Ratio Triglycerides Cholesterol LDL Cholesterol Direct HDL Cholesterol Amylase Lipase Alcohol, Quantitative Blood Type O POSITIVE Antibody Screen Negative BBK History Checked Patient has bt 04/26/17 04/26/17 04/26/17 05:43 06:30 06:30 WBC 11.4 H RBC 3.78 L Hgb 10.4 L Hct 32.4 L MCV 85.8 MCH 27.6 MCHC 32.2 L RDW 17.8 H Plt Count 261 MPV Neut % (Auto) Lymph % (Auto) [place] % (Auto) Eos % (Auto) Baso % (Auto) Neut # Lymph # [place] # Eos # Baso # PT INR APTT Sodium 139 Potassium 5.3 H Chloride 99 Carbon Dioxide 31 H Anion Gap 14 BUN 41 H Creatinine 6.2 H Est GFR ( Amer) 12 Est GFR (Non-Af Amer) 10 POC Glucose (mg/dL) 148 H Random Glucose 159 H Calcium 8.7 Phosphorus Magnesium Total Bilirubin 0.4 AST 20 ALT 31 Alkaline Phosphatase 128 H Troponin I Total Protein 6.8 Albumin 3.3 L Globulin 3.5 Albumin/Globulin Ratio 1.0 Triglycerides 170 H D Cholesterol 208 H LDL Cholesterol Direct 120 HDL Cholesterol 36 Amylase Lipase Alcohol, Quantitative Blood Type Antibody Screen BBK History Checked Assessment & Plan - Assessment and Plan (Free Text) Assessment: abdominal pain uncertain cause due to diabetic gastroparesis chest pain R/O ACS history of DM, HTN, Renal failure Plan: iv fluid antiemetics GI consult for abdominal pain cardiology consult for chest pain monitor vitals as per renal, today extra dialysis. - Date & Time Date: 04/26/17 Time: 15:58 Decision To Admit - Pt Status Changed To: Hospital Disposition Of: Inpatient - Admit Certification Admit to Inpatient:: After my assessment, the patient will require hospitalization for at least two midnights. This is because of the severity of symptoms shown, intensity of services needed, and/or the medical risk in this patient being treated as an outpatient. - . Bed Request Type: Telemetry Admitting Physician: Heather Gupta
--- NOTE | 2017-04-26 17:40 | CP.PCM.CON ---
History of Present Illness - History of Present Illness History of Present Illness: Initial Nephrology Consultation Note Assessment: Stable recurrent nausea/vomitting, cyclic emesis syndrome, marijuana abuse, gastroparesis Diabetic chronic Kidney Disease (E11.22) Hypertensive Chronic Kidney Disease (I12.0) End stage renal disease (N18.6) dependence on hemodialysis (Z99.2) (MWF) via AVF Anemia (D64.9), Hyperphosphatemia (E83.39), Secondary Hyperparathyroidism (E21.1 ), HTN (I12.0) Plan: dialysis today as ordered for extra session. Continue with Nephrovite 1 tab/ day. no SWAPNIL as HB 12-13 Continue with phos binders BP control with meds as ordered. has tendency to get hyperkalemic, will d/c ACEI /ARB Glycemic control, Dialysis consistent diet Further work up/management as per primary team Dose meds/antibiotics (if needed) for ESRD status. Avoid fleets enema/magnesium based laxatives. premeal reglan 5 mg and PPI. pt counselled to abstain from marijuana Thanks for allowing me to participate in care of your patient. Will follow patient with you. Please call if any Qs Dr Darrel Reynaga Office: [phone] Chief Complaint; nausea/vomiting Reason for consult; ESRD, HTN HPI: Pt is a 36 y/o M with hx of ESRD on hemodialysis (MWF) via AVF, last dialysis yesterday, chronic anemia, hyperphosphatemia, secondary hyperparathyroidism, Diabetes Mellitus, hypertension, recurrent nausea/vomiting and multiple hospitalization for same came back with nausea/vomitting. continue to smoke marijuana Denies chest pain, palpitation, shortness of breath, leg swelling ROS: Constitutional Symptoms: Denies fever. No chills. No Recent Weight Changes Eyes: denies change in vision, denies watery eyes, denies double vision Ears/Nose/Mouth/Throat: Denies Abnormal Taste. No Bad breath or Bad Taste. Cardiovascular: No chest pain. There is no shortness of breath. No palpitations. Pulmonary: No shortness of breath or cough. Gastrointestinal: c/o abdominal pain now c/o nausea. c/o vomiting. Denies change in bowel habits. Denies Bleeding Genitourinary: makes urine. No associated pain or blood. Neurological: Denies headaches. No dizziness. Denies loss of balance. Denies weakness, denies tingling/numbness Dermatological: No Rash or Bruising or ulcers. Psychiatric: Denies Anxiety. No depression. Denies hallucinations. Rheumatological: No joint pain. Denies Joint swelling Endocrine: Denies over tiredness. Denies Fatigue and denies Heat/Cold Intolerance. All other negative. Physical Examination: General Appearance: Comfortable, in no acute respiratory distress, co-operative . Vitals reviewed and noted as below Head; Atraumatic, normocephalic ENT: no ulcers no thrush. Tongue is midline. Oropharynx: no rash or ulcers. EYES: Pupils are equal, round and reactive to light accommodation. Eye muscles and extraocular movement intact. Sclera is anicteric. Neck; supple no lymphadenopathy, no thyromegaly or bruit Lungs: Normal respiratory rate/effort. Breath sounds bilateral equal and clear Heart: Normal rate. s1s2 normal. No rub or gallop. Extremities: no edema. No varicose veins Neurological: Patient is alert, awake and oriented to person, place and time. No focal deficit. Strength bilateral appropriate and equal Skin: Warm and dry. Normal turgor. No rash. Palpitation: Normal elasticity for age Abdomen: Abdomen is soft. Bowel sounds +. There is epigastric abdominal tenderness, no guarding/rigidity or organomegaly Psych: normal insight and normal affect/mood MSK: no joint tenderness or swelling. Digits and nails normal, no deformity. : kidney or bladder not palpable. Access: AVF Labs/imaging reviewed. Past medical history, past surgical history, family history, social history, allergy reviewed and noted as below Family Hx: no hx of CKD. Non contributory Past Patient History - Infectious Disease Hx of Infectious Diseases: None - Past Medical History & Family History Past Medical History?: Yes - Past Social History Smoking Status: Former Smoker - CARDIAC Hx Congestive Heart Failure: Yes Hx Hypercholesterolemia: Yes Hx Hypertension: Yes Hx Peripheral Edema: Yes - PULMONARY Hx Respiratory Disorders: No - NEUROLOGICAL Hx Neurological Disorder: Yes - HEENT Hx HEENT Problems: Yes Hx Cataracts: Yes - RENAL Hx Chronic Kidney Disease: Yes Hx Dialysis: Yes Type of Dialysis Access: AV SHUNT Date of Last Dialysis Treatment: 04/25/17 Hx Kidney Stones: No Hx Neurogenic Bladder: No Hx Pyelonephritis: No Hx Renal (Kidney) Cancer: No Hx Renal Failure: No - ENDOCRINE/METABOLIC Hx Endocrine Disorders: Yes Hx Diabetes Mellitus Type 1: Yes - HEMATOLOGICAL/ONCOLOGICAL Hx AIDS: No Hx Anemia: Yes (Pt denies) Hx Human Immunodeficiency Virus (HIV): No - INTEGUMENTARY Hx Dermatological Problems: No - MUSCULOSKELETAL/RHEUMATOLOGICAL Hx Musculoskeletal Disorders: Yes Hx Falls: No - GASTROINTESTINAL Hx Gastritis: Yes - GENITOURINARY/GYNECOLOGICAL Hx Genitourinary Disorders: No - PSYCHIATRIC Hx Psychophysiologic Disorder: Yes Hx Substance Use: Yes (MARIJUANA) - SURGICAL HISTORY Hx Surgeries: Yes Hx Cataract Extraction: Yes (bilateral) Hx Vascular Access Device: Yes Other/Comment: RT.PERMACATH INSERTION 04/17. LT.AV SHUNT CREATION 06/04/16. UNDESCENDED TESTES LT. REMOVED DURING CHILDHOOD - ANESTHESIA Hx Anesthesia: Yes Hx Anesthesia Reactions: No Hx Malignant Hyperthermia: No Has any member of the family had a problem w/ anesthesia?: No Meds Allergies/Adverse Reactions: Allergies Allergy/AdvReac Type Severity Reaction Status Date / Time No Known Allergies Allergy Verified 04/18/17 01:32 - Medications Medications: Current Medications Acetaminophen (Tylenol 325mg Tab) 650 mg PO Q6 PRN PRN Reason: Pain, Mild (1-3) Last Admin: 04/26/17 10:46 Dose: 650 mg Amlodipine Besylate (Norvasc) 10 mg PO DAILY [facility] Last Admin: 04/26/17 10:47 Dose: 10 mg Aspirin (Aspirin Chewable) 81 mg PO DAILY [facility] Last Admin: 04/26/17 10:46 Dose: 81 mg Clonidine HCl (Catapres) 0.2 mg PO TID [facility] Last Admin: 04/26/17 17:24 Dose: Not Given Gabapentin (Neurontin) 300 mg PO DAILY [facility] Last Admin: 04/26/17 10:47 Dose: 300 mg Heparin Sodium (Porcine) (Heparin) 5,000 units SC Q12 [facility] PRN Reason: Protocol Last Admin: 04/26/17 10:49 Dose: 5,000 units Insulin Detemir (Levemir) 20 units SC HS [facility] Insulin Human Lispro (Humalog) 5 units SC BID [facility] Last Admin: 04/26/17 10:48 Dose: 5 u Lisinopril (Zestril) 10 mg PO DAILY [facility] Last Admin: 04/26/17 10:47 Dose: 10 mg Metoclopramide HCl (Reglan) 10 mg IVP ACHS [facility] Last Admin: 04/26/17 13:04 Dose: Not Given Metoprolol Tartrate (Lopressor) 50 mg PO Q12 [facility] Last Admin: 04/26/17 10:48 Dose: 50 mg Ondansetron HCl (Zofran Inj) 4 mg IVP Q4 PRN PRN Reason: Nausea/Vomiting Pantoprazole Sodium (Protonix Ec Tab) 40 mg PO DAILY [facility] Last Admin: 04/26/17 10:47 Dose: 40 mg Polyethylene Glycol (Miralax) 17 gm PO BID [facility] Last Admin: 04/26/17 13:04 Dose: Not Given Vitamin B Complex/Vit C/Folic Acid (Nephro-Víctor) 1 tab PO DAILY@0800 [facility] Last Admin: 04/26/17 10:48 Dose: 1 tab Results - Vital Signs Recent Vital Signs: Last Vital Signs Temp 97.8 F 04/26/17 16:20 Pulse 85 04/26/17 16:20 Resp 20 04/26/17 16:20 BP 115/62 04/26/17 16:20 Pulse Ox 99 04/26/17 16:20 - Labs Result Diagrams: 04/26/17 06:30 04/26/17 06:30 Labs: Laboratory Results - last 24 hr 04/25/17 04/25/17 04/25/17 18:00 18:00 18:00 WBC 12.6 H RBC 3.88 L Hgb 10.5 L Hct 33.3 L MCV 85.8 MCH 27.0 MCHC 31.5 L RDW 18.2 H Plt Count 264 MPV 8.6 Neut % (Auto) 70.4 Lymph % (Auto) 11.5 L [place] % (Auto) 12.1 H Eos % (Auto) 5.3 H Baso % (Auto) 0.7 Neut # 8.9 H Lymph # 1.5 [place] # 1.5 H Eos # 0.7 Baso # 0.1 PT 11.9 INR 1.1 APTT 30.9 Sodium 138 Potassium 4.7 Chloride 98 Carbon Dioxide 31 H Anion Gap 14 BUN 34 H Creatinine 4.9 H Est GFR ( Amer) 16 Est GFR (Non-Af Amer) 14 POC Glucose (mg/dL) Random Glucose 163 H Calcium 8.7 Phosphorus 4.6 H Magnesium 1.9 Total Bilirubin 0.4 AST 28 ALT 37 Alkaline Phosphatase 144 H Troponin I 0.0900 Total Protein 7.3 Albumin 3.7 Globulin 3.6 Albumin/Globulin Ratio 1.0 Triglycerides Cholesterol LDL Cholesterol Direct HDL Cholesterol Amylase 110 Lipase 61 Alcohol, Quantitative < 10 Blood Type Antibody Screen BBK History Checked 04/25/17 04/25/17 04/26/17 18:04 18:10 02:00 WBC RBC Hgb Hct MCV MCH MCHC RDW Plt Count MPV Neut % (Auto) Lymph % (Auto) [place] % (Auto) Eos % (Auto) Baso % (Auto) Neut # Lymph # [place] # Eos # Baso # PT INR APTT Sodium Potassium Chloride Carbon Dioxide Anion Gap BUN Creatinine Est GFR ( Amer) Est GFR (Non-Af Amer) POC Glucose (mg/dL) 166 H Random Glucose Calcium Phosphorus Magnesium Total Bilirubin AST ALT Alkaline Phosphatase Troponin I 0.0870 Total Protein Albumin Globulin Albumin/Globulin Ratio Triglycerides Cholesterol LDL Cholesterol Direct HDL Cholesterol Amylase Lipase Alcohol, Quantitative Blood Type O POSITIVE Antibody Screen Negative BBK History Checked Patient has bt 04/26/17 04/26/17 04/26/17 05:43 06:30 06:30 WBC 11.4 H RBC 3.78 L Hgb 10.4 L Hct 32.4 L MCV 85.8 MCH 27.6 MCHC 32.2 L RDW 17.8 H Plt Count 261 MPV Neut % (Auto) Lymph % (Auto) [place] % (Auto) Eos % (Auto) Baso % (Auto) Neut # Lymph # [place] # Eos # Baso # PT INR APTT Sodium 139 Potassium 5.3 H Chloride 99 Carbon Dioxide 31 H Anion Gap 14 BUN 41 H Creatinine 6.2 H Est GFR ( Amer) 12 Est GFR (Non-Af Amer) 10 POC Glucose (mg/dL) 148 H Random Glucose 159 H Calcium 8.7 Phosphorus Magnesium Total Bilirubin 0.4 AST 20 ALT 31 Alkaline Phosphatase 128 H Troponin I Total Protein 6.8 Albumin 3.3 L Globulin 3.5 Albumin/Globulin Ratio 1.0 Triglycerides 170 H D Cholesterol 208 H LDL Cholesterol Direct 120 HDL Cholesterol 36 Amylase Lipase Alcohol, Quantitative Blood Type Antibody Screen BBK History Checked 04/26/17 04/26/17 11:05 16:03 WBC RBC Hgb Hct MCV MCH MCHC RDW Plt Count MPV Neut % (Auto) Lymph % (Auto) [place] % (Auto) Eos % (Auto) Baso % (Auto) Neut # Lymph # [place] # Eos # Baso # PT INR APTT Sodium Potassium Chloride Carbon Dioxide Anion Gap BUN Creatinine Est GFR ( Amer) Est GFR (Non-Af Amer) POC Glucose (mg/dL) 225 H 285 H Random Glucose Calcium Phosphorus Magnesium Total Bilirubin AST ALT Alkaline Phosphatase Troponin I Total Protein Albumin Globulin Albumin/Globulin Ratio Triglycerides Cholesterol LDL Cholesterol Direct HDL Cholesterol Amylase Lipase Alcohol, Quantitative Blood Type Antibody Screen BBK History Checked
[2017-04-26] MEDS: Insulin Detemir 100 Units/ml Inj SC SCH (22:57)
[2017-04-27] MEDS: Multivitamin Vitamin B Complex (Nephro-Vite) Tab PO SCH (08:23)
[2017-04-27] MEDS: Pantoprazole 40 mg EC Tab PO SCH (08:23)
--- NOTE | 2017-04-27 08:23 | CP.PCM.PN ---
<Vlad Sawyer - Last Filed: 04/27/17 10:38> Subjective - Date & Time of Evaluation Date of Evaluation: 04/27/17 Time of Evaluation: 08:15 - Subjective Subjective: PGY4 GI Follow-up Pt seen and examined bedside Resting comfortably Pt reports episode of abd pain and nausea overnight +BM tolerating diet ROS: Other than above, ROS is neg Objective - Vital Signs/Intake and Output Vital Signs (last 24 hours): Temp Pulse Resp BP Pulse Ox 97.5 F L 74 18 201/96 H 98 04/27/17 04:05 04/27/17 06:47 04/27/17 04:05 04/27/17 06:47 04/27/17 04:05 - Medications Medications: Current Medications Acetaminophen (Tylenol 325mg Tab) 650 mg PO Q6 PRN PRN Reason: Pain, Mild (1-3) Last Admin: 04/26/17 10:46 Dose: 650 mg Amlodipine Besylate (Norvasc) 10 mg PO DAILY [facility] Last Admin: 04/26/17 10:47 Dose: 10 mg Aspirin (Aspirin Chewable) 81 mg PO DAILY [facility] Last Admin: 04/26/17 10:46 Dose: 81 mg Clonidine HCl (Catapres) 0.2 mg PO TID [facility] Last Admin: 04/26/17 17:24 Dose: Not Given Dicyclomine HCl (Bentyl) 10 mg PO QID PRN PRN Reason: GI distress Last Admin: 04/26/17 22:00 Dose: 10 mg Gabapentin (Neurontin) 300 mg PO DAILY [facility] Last Admin: 04/26/17 10:47 Dose: 300 mg Heparin Sodium (Porcine) (Heparin) 5,000 units SC Q12 [facility] PRN Reason: Protocol Last Admin: 04/26/17 22:00 Dose: 5,000 units Insulin Detemir (Levemir) 20 units SC HS [facility] Last Admin: 04/26/17 22:57 Dose: 20 units Insulin Human Lispro (Humalog) 5 units SC BID [facility] Last Admin: 04/26/17 18:05 Dose: 5 u Metoclopramide HCl (Reglan) 10 mg IVP ACHS [facility] Last Admin: 04/27/17 01:49 Dose: 10 mg Metoprolol Tartrate (Lopressor) 50 mg PO Q12 [facility] Last Admin: 04/26/17 22:02 Dose: 50 mg Ondansetron HCl (Zofran Inj) 4 mg IVP Q4 PRN PRN Reason: Nausea/Vomiting Pantoprazole Sodium (Protonix Ec Tab) 40 mg PO DAILY [facility] Last Admin: 04/26/17 10:47 Dose: 40 mg Polyethylene Glycol (Miralax) 17 gm PO BID [facility] Last Admin: 04/26/17 18:06 Dose: 17 gm Vitamin B Complex/Vit C/Folic Acid (Nephro-Víctor) 1 tab PO DAILY@0800 [facility] Last Admin: 04/26/17 10:48 Dose: 1 tab - Labs Labs: 04/26/17 06:30 04/26/17 06:30 PT 11.9 Seconds (9.8-13.1) 04/25/17 18:00 INR 1.1 (0.9-1.2) 04/25/17 18:00 APTT 30.9 Seconds (25.6-37.1) 04/25/17 18:00 - Constitutional Appears: Well, No Acute Distress - Head Exam Head Exam: ATRAUMATIC, NORMAL INSPECTION, NORMOCEPHALIC - Eye Exam Eye Exam: Normal appearance Pupil Exam: NORMAL ACCOMODATION - ENT Exam ENT Exam: Mucous Membranes Moist - Respiratory Exam Respiratory Exam: Clear to Ausculation Bilateral, NORMAL BREATHING PATTERN. absent: Prolonged Expiratory Phase, Rales, Rhonchi, Wheezes, Respiratory Distress - Cardiovascular Exam Cardiovascular Exam: REGULAR RHYTHM, +S1, +S2 - GI/Abdominal Exam GI & Abdominal Exam: Soft, Normal Bowel Sounds. absent: Guarding, Rigid, Tenderness, Hyperactive Bowel Sounds - Extremities Exam Extremities Exam: absent: Joint Swelling, Pedal Edema - Neurological Exam Neurological Exam: Alert, Awake, Oriented x3 - Psychiatric Exam Psychiatric exam: Normal Affect, Normal Mood - Skin Skin Exam: Dry, Intact, Normal Color, Warm Assessment and Plan - Assessment and Plan (Free Text) Assessment: This is a 36 yr old M with DM, HTN, ESRD on HD with multiple admissions for nausea and vomiting. 1. Nausea and Vomiting 2. Gastroparesis 3. Cannabis induced Cyclical Vomiting Syndrome 4. Hematemesis 5. Uncontrolled HTN 6. Uncontrolled IDDM 7. esophageal johnathan 8. ESRD on HD Plan: -Continue supportive care with anti emetic as needed -continue diflucan 100mg daily for 14 more days -Better control of BG -Marijuana cessation stressed may be contributing cyclical vomiting syndrome -No plan for emergent endoscopic evaluation at this time -Continue PPI daily -Diet as tolerated -Will continue to follow closely -continue reglan before meals and bedtime -will advance to regular diet D/W Dr. Navarrete <LandonDrake - Last Filed: 04/27/17 10:51> Objective - Vital Signs/Intake and Output Vital Signs (last 24 hours): Temp Pulse Resp BP Pulse Ox 98.4 F 97 H 18 211/98 H 93 L 04/27/17 08:00 04/27/17 08:28 04/27/17 08:00 04/27/17 08:28 04/27/17 08:00 - Medications Medications: Current Medications Acetaminophen (Tylenol 325mg Tab) 650 mg PO Q6 PRN PRN Reason: Pain, Mild (1-3) Last Admin: 04/26/17 10:46 Dose: 650 mg Amlodipine Besylate (Norvasc) 10 mg PO DAILY [facility] Last Admin: 04/26/17 10:47 Dose: 10 mg Aspirin (Aspirin Chewable) 81 mg PO DAILY [facility] Last Admin: 04/27/17 08:23 Dose: 81 mg Clonidine HCl (Catapres) 0.2 mg PO TID [facility] Last Admin: 04/27/17 08:24 Dose: 0.2 mg Dicyclomine HCl (Bentyl) 10 mg PO QID PRN PRN Reason: GI distress Last Admin: 04/27/17 08:23 Dose: 10 mg Fluconazole (Diflucan) 100 mg PO DAILY [facility] PRN Reason: Protocol Gabapentin (Neurontin) 300 mg PO DAILY [facility] Last Admin: 04/27/17 08:28 Dose: 300 mg Heparin Sodium (Porcine) (Heparin) 5,000 units SC Q12 [facility] PRN Reason: Protocol Last Admin: 04/27/17 08:25 Dose: 5,000 units Hydralazine HCl (Apresoline) 25 mg PO Q4 PRN PRN Reason: Other Insulin Detemir (Levemir) 20 units SC HS [facility] Last Admin: 04/26/17 22:57 Dose: 20 units Insulin Human Lispro (Humalog) 5 units SC BID [facility] Last Admin: 04/27/17 08:27 Dose: 5 units Metoclopramide HCl (Reglan) 10 mg IVP ACHS [facility] Last Admin: 11/26/17 08:29 Dose: 10 mg Metoprolol Tartrate (Lopressor) 50 mg PO Q12 [facility] Last Admin: 04/27/17 08:28 Dose: 50 mg Ondansetron HCl (Zofran Inj) 4 mg IVP Q4 PRN PRN Reason: Nausea/Vomiting Pantoprazole Sodium (Protonix Ec Tab) 40 mg PO DAILY [facility] Last Admin: 04/27/17 08:23 Dose: 40 mg Polyethylene Glycol (Miralax) 17 gm PO BID [facility] Last Admin: 04/27/17 08:28 Dose: 17 gm Vitamin B Complex/Vit C/Folic Acid (Nephro-Víctor) 1 tab PO DAILY@0800 [facility] Last Admin: 04/27/17 08:23 Dose: 1 tab - Labs Labs: 04/26/17 06:30 04/26/17 06:30 PT 11.9 Seconds (9.8-13.1) 04/25/17 18:00 INR 1.1 (0.9-1.2) 04/25/17 18:00 APTT 30.9 Seconds (25.6-37.1) 04/25/17 18:00 Attending/Attestation - Attestation I have personally seen and examined this patient.: Yes I have fully participated in the care of the patient.: Yes I have reviewed all pertinent clinical information, including history, physical exam and plan: Yes Notes (Text): 04/27/17 10:48 I have seen and examined patient with GI fellow. No acute events overnight, he continues to endorse epigastric abdominal pain, chronic in nature similar to baseline. He denies recurrent vomiting and has been tolerating PO diet without difficulty. Review of vitals from today shows elevated BP. DM / HTN ESRD on HD Abdominal pain, vomiting - gastroparesis Polysubstance abuse - Continue with diet as tolerated, suggest small frequent meals - Anti-emetic therapy PRN - Continue with pro-motility therapy - Blood sugars remain elevated, patient requires tight gylcemic control, consider endocrine evaluation - Continue with diflucan to complete 14 day course - Continue with PPI therapy - Marijuana cessation counseling provided to patient - From GI perspective, ok to discharge patient home with subsequent outpatient follow up. Will sign off case, please reconsult as necessary, thank you.
[2017-04-27] MEDS: Insulin Lispro (humaLOG) 100 Units/ml Inj SC SCH ×2 (08:27→17:12)
[2017-04-27] MEDS: POLYETHYLENE GLYCOL 3350 17 GM/Dose PACKET PO SCH ×2 (08:28→16:23)
--- NOTE | 2017-04-27 12:32 | CP.PCM.PN ---
Subjective - Date & Time of Evaluation Date of Evaluation: 04/27/17 Time of Evaluation: 12:30 - Subjective Subjective: lower abdominal pain getting better less shortness of breath tolerating regular diet always loose BMs yesterday extra dialysis Objective - Vital Signs/Intake and Output Vital Signs (last 24 hours): Temp Pulse Resp BP Pulse Ox 98.2 F 79 18 135/81 97 04/27/17 12:00 04/27/17 12:00 04/27/17 12:00 04/27/17 12:00 04/27/17 12:00 - Medications Medications: Current Medications Acetaminophen (Tylenol 325mg Tab) 650 mg PO Q6 PRN PRN Reason: Pain, Mild (1-3) Last Admin: 04/26/17 10:46 Dose: 650 mg Amlodipine Besylate (Norvasc) 10 mg PO DAILY [facility] Last Admin: 04/26/17 10:47 Dose: 10 mg Aspirin (Aspirin Chewable) 81 mg PO DAILY [facility] Last Admin: 04/27/17 08:23 Dose: 81 mg Clonidine HCl (Catapres) 0.2 mg PO TID [facility] Last Admin: 04/27/17 08:24 Dose: 0.2 mg Dicyclomine HCl (Bentyl) 10 mg PO QID PRN PRN Reason: GI distress Last Admin: 04/27/17 08:23 Dose: 10 mg Fluconazole (Diflucan) 100 mg PO DAILY [facility] PRN Reason: Protocol Gabapentin (Neurontin) 300 mg PO DAILY [facility] Last Admin: 04/27/17 08:28 Dose: 300 mg Heparin Sodium (Porcine) (Heparin) 5,000 units SC Q12 [facility] PRN Reason: Protocol Last Admin: 04/27/17 08:25 Dose: 5,000 units Hydralazine HCl (Apresoline) 25 mg PO Q4 PRN PRN Reason: Other Insulin Detemir (Levemir) 20 units SC HS [facility] Last Admin: 04/26/17 22:57 Dose: 20 units Insulin Human Lispro (Humalog) 5 units SC BID [facility] Last Admin: 04/27/17 08:27 Dose: 5 units Metoclopramide HCl (Reglan) 10 mg IVP ACHS [facility] Last Admin: 04/27/17 08:29 Dose: 10 mg Metoprolol Tartrate (Lopressor) 50 mg PO Q12 [facility] Last Admin: 04/27/17 08:28 Dose: 50 mg Ondansetron HCl (Zofran Inj) 4 mg IVP Q4 PRN PRN Reason: Nausea/Vomiting Pantoprazole Sodium (Protonix Ec Tab) 40 mg PO DAILY [facility] Last Admin: 04/27/17 08:23 Dose: 40 mg Polyethylene Glycol (Miralax) 17 gm PO BID [facility] Last Admin: 04/27/17 08:28 Dose: 17 gm Vitamin B Complex/Vit C/Folic Acid (Nephro-Víctor) 1 tab PO DAILY@0800 [facility] Last Admin: 04/27/17 08:23 Dose: 1 tab - Labs Labs: 04/26/17 06:30 04/26/17 06:30 PT 11.9 Seconds (9.8-13.1) 04/25/17 18:00 INR 1.1 (0.9-1.2) 04/25/17 18:00 APTT 30.9 Seconds (25.6-37.1) 04/25/17 18:00 - Constitutional Appears: No Acute Distress - Respiratory Exam Respiratory Exam: Clear to Ausculation Bilateral, NORMAL BREATHING PATTERN - Cardiovascular Exam Cardiovascular Exam: REGULAR RHYTHM. absent: Murmur - GI/Abdominal Exam GI & Abdominal Exam: Soft, Tenderness (diffuse lower), Normal Bowel Sounds Assessment and Plan - Assessment and Plan (Free Text) Assessment: diabetic gastroparesis abdominal pain and nausea on iv metoclopramide Plan: as per GI D/C planning continue medicines.
--- NOTE | 2017-04-27 16:20 | CP.PCM.PN ---
Subjective - Date & Time of Evaluation Date of Evaluation: 04/27/17 Time of Evaluation: 16:17 - Subjective Subjective: Follow up Nephrology Consultation Note Assessment: Stable recurrent nausea/vomitting, cyclic emesis syndrome, marijuana abuse, gastroparesis Diabetic chronic Kidney Disease (E11.22) Hypertensive Chronic Kidney Disease (I12.0) End stage renal disease (N18.6) dependence on hemodialysis (Z99.2) (MWF) via AVF Anemia (D64.9), Hyperphosphatemia (E83.39), Secondary Hyperparathyroidism (E21.1 ), HTN (I12.0) uncontrolled severe HTN Plan: dialysis tomorrow as ordered. Continue with Nephrovite 1 tab/day. no SWAPNIL as Hb >10 and high BP Continue with phos binders BP control with meds as ordered. has tendency to get hyperkalemic, will d/c ACEI /ARB. secondary HTN work up with plasma metanephrine, renin/sharlene and Renal artery doppler Glycemic control, Dialysis consistent diet Further work up/management as per primary team Dose meds/antibiotics (if needed) for ESRD status. Avoid fleets enema/magnesium based laxatives. premeal reglan 5 mg and PPI. pt counselled to abstain from marijuana Thanks for allowing me to participate in care of your patient. Will follow patient with you. Please call if any Qs Dr Darrel Reynaga Office: [phone] Chief Complaint; pain abdomen Reason for consult; ESRD, HTN HPI: Pt is a 36 y/o M with hx of ESRD on hemodialysis (MWF) via AVF, last dialysis yesterday, chronic anemia, hyperphosphatemia, secondary hyperparathyroidism, Diabetes Mellitus, hypertension, recurrent nausea/vomiting and multiple hospitalization for same came back with nausea/vomitting. continue to smoke marijuana feels better Denies chest pain, palpitation, shortness of breath, leg swelling. improved nausea/vomitting Physical Examination: General Appearance: Comfortable, in no acute respiratory distress, co-operative . Vitals reviewed and noted as below Head; Atraumatic, normocephalic ENT: no ulcers no thrush. Tongue is midline. Oropharynx: no rash or ulcers. EYES: Pupils are equal, round and reactive to light accommodation. Eye muscles and extraocular movement intact. Sclera is anicteric. Neck; supple no lymphadenopathy, no thyromegaly or bruit Lungs: Normal respiratory rate/effort. Breath sounds bilateral equal and clear Heart: Normal rate. s1s2 normal. No rub or gallop. Extremities: no edema. No varicose veins Neurological: Patient is alert, awake and oriented to person, place and time. No focal deficit. Strength bilateral appropriate and equal Skin: Warm and dry. Normal turgor. No rash. Palpitation: Normal elasticity for age Abdomen: Abdomen is soft. Bowel sounds +. There is mild epigastric abdominal tenderness, no guarding/rigidity or organomegaly Psych: normal insight and normal affect/mood MSK: no joint tenderness or swelling. Digits and nails normal, no deformity. : kidney or bladder not palpable. Access: AVF Labs/imaging reviewed. Past medical history, past surgical history, family history, social history, allergy reviewed and noted as below Family Hx: no hx of CKD. Non contributory Objective - Vital Signs/Intake and Output Vital Signs (last 24 hours): Temp Pulse Resp BP Pulse Ox 98.2 F 79 18 135/81 97 04/27/17 12:00 04/27/17 13:30 04/27/17 12:00 04/27/17 13:30 04/27/17 12:00 - Medications Medications: Current Medications Acetaminophen (Tylenol 325mg Tab) 650 mg PO Q6 PRN PRN Reason: Pain, Mild (1-3) Last Admin: 04/26/17 10:46 Dose: 650 mg Amlodipine Besylate (Norvasc) 10 mg PO DAILY [facility] Last Admin: 04/26/17 10:47 Dose: 10 mg Aspirin (Aspirin Chewable) 81 mg PO DAILY [facility] Last Admin: 04/27/17 08:23 Dose: 81 mg Clonidine HCl (Catapres) 0.2 mg PO TID [facility] Last Admin: 04/27/17 13:30 Dose: 0.2 mg Dicyclomine HCl (Bentyl) 10 mg PO QID PRN PRN Reason: GI distress Last Admin: 04/27/17 08:23 Dose: 10 mg Fluconazole (Diflucan) 100 mg PO DAILY [facility] PRN Reason: Protocol Last Admin: 04/27/17 13:30 Dose: 100 mg Gabapentin (Neurontin) 300 mg PO DAILY [facility] Last Admin: 04/27/17 08:28 Dose: 300 mg Heparin Sodium (Porcine) (Heparin) 5,000 units SC Q12 [facility] PRN Reason: Protocol Last Admin: 04/27/17 08:25 Dose: 5,000 units Hydralazine HCl (Apresoline) 25 mg PO Q4 PRN PRN Reason: Other Insulin Detemir (Levemir) 20 units SC HS [facility] Last Admin: 04/26/17 22:57 Dose: 20 units Insulin Human Lispro (Humalog) 5 units SC BID [facility] Last Admin: 04/27/17 08:27 Dose: 5 units Metoclopramide HCl (Reglan) 10 mg IVP ACHS [facility] Last Admin: 04/27/17 13:31 Dose: Not Given Metoprolol Tartrate (Lopressor) 50 mg PO Q12 [facility] Last Admin: 04/27/17 08:28 Dose: 50 mg Ondansetron HCl (Zofran Inj) 4 mg IVP Q4 PRN PRN Reason: Nausea/Vomiting Pantoprazole Sodium (Protonix Ec Tab) 40 mg PO DAILY [facility] Last Admin: 04/27/17 08:23 Dose: 40 mg Polyethylene Glycol (Miralax) 17 gm PO BID [facility] Last Admin: 04/27/17 08:28 Dose: 17 gm Vitamin B Complex/Vit C/Folic Acid (Nephro-Víctor) 1 tab PO DAILY@0800 [facility] Last Admin: 04/27/17 08:23 Dose: 1 tab - Labs Labs: 04/26/17 06:30 04/26/17 06:30 PT 11.9 Seconds (9.8-13.1) 04/25/17 18:00 INR 1.1 (0.9-1.2) 04/25/17 18:00 APTT 30.9 Seconds (25.6-37.1) 04/25/17 18:00
[2017-04-27] MEDS: Insulin Detemir 100 Units/ml Inj SC SCH (22:36)
[2017-04-28] MEDS: Insulin Lispro (humaLOG) 100 Units/ml Inj SC SCH ×2 (08:48→17:08)
[2017-04-28] MEDS: Insulin Regular 100 units/ml SC SCH ×2 (09:10→13:04)
[2017-04-28] MEDS: Pantoprazole 40 mg EC Tab PO SCH (09:17)
[2017-04-28] MEDS: Multivitamin Vitamin B Complex (Nephro-Vite) Tab PO SCH (09:17)
[2017-04-28] MEDS: POLYETHYLENE GLYCOL 3350 17 GM/Dose PACKET PO SCH ×3 (09:18→16:47)
--- NOTE | 2017-04-28 10:12 | US ---
PROCEDURE: Ultrasonography renal arterial evaluation HISTORY: Please eval for GANESH COMPARISON: None available. TECHNIQUE: Real-time ultrasonography evaluation of the renal arteries were performed. Comparison is made to the aorta. FINDINGS: AORTA: Patent. Peak systolic velocity 85.4 centimeters/second RIGHT RENAL ARTERY: Renal artery to aorta ratio: 1.6 * Proximal segment: Patent. Peak systolic velocity 133.3 centimeters/second * Mid segment: Patent. Peak systolic velocity 137.4 centimeters/second * Distal segment: Patent. Peak systolic velocity 82.5 centimeters/second Other findings: Right Kidney measures approximately 11.8 x 4.6 x 6.3 centimeters. LEFT RENAL ARTERY: Renal artery to aorta ratio: 1.6 * Proximal segment: Patent. Peak systolic velocity 140.3 centimeters/second * Mid segment: Patent. Peak systolic velocity 118.3 centimeters/second * Distal segment: Patent. Peak systolic velocity 81.0 centimeters/second Other findings: Left Kidney measures approximately 10.9 x 6.4 x 4.2 centimeters. IMPRESSION: No definite hemodynamically significant stenosis involving the renal arteries as visualized.
[2017-04-28 10:25] LABS: HEMATOCRIT 31.2 % (35.0-51.0); MEAN CELL VOLUME 85.9 fl (80.0-94.0); MEAN CORPUSCULAR HEMOGLOBIN 27.4 pg (27.0-31.0); MEAN CORPUSCULAR HGB CONC 31.9 g/dL (33.0-37.0); RED CELL DISTRIBUTION WIDTH 17.5 % (11.5-14.5); WHITE BLOOD COUNT 12.6 K/uL (4.8-10.8)
--- NOTE | 2017-04-28 10:40 | CP.PCM.PN ---
Subjective - Date & Time of Evaluation Date of Evaluation: 04/28/17 Time of Evaluation: 10:38 - Subjective Subjective: Patient is up and around no complaints reported this morning. No nausea no vomiting and he ate his breakfast normal. No abdominal pain. Objective - Vital Signs/Intake and Output Vital Signs (last 24 hours): Temp Pulse Resp BP Pulse Ox 98.4 F 79 18 168/83 H 96 04/28/17 08:00 04/28/17 09:15 04/28/17 08:00 04/28/17 09:15 04/28/17 08:00 - Medications Medications: Current Medications Acetaminophen (Tylenol 325mg Tab) 650 mg PO Q6 PRN PRN Reason: Pain, Mild (1-3) Last Admin: 04/26/17 10:46 Dose: 650 mg Amlodipine Besylate (Norvasc) 10 mg PO DAILY [facility] Last Admin: 04/28/17 09:15 Dose: Not Given Aspirin (Aspirin Chewable) 81 mg PO DAILY [facility] Last Admin: 04/28/17 09:17 Dose: 81 mg Clonidine HCl (Catapres) 0.2 mg PO TID [facility] Last Admin: 04/28/17 09:13 Dose: Not Given Dicyclomine HCl (Bentyl) 10 mg PO QID PRN PRN Reason: GI distress Last Admin: 04/27/17 22:10 Dose: 10 mg Fluconazole (Diflucan) 100 mg PO DAILY [facility] PRN Reason: Protocol Last Admin: 04/28/17 09:17 Dose: 100 mg Gabapentin (Neurontin) 300 mg PO DAILY [facility] Last Admin: 04/28/17 09:17 Dose: 300 mg Heparin Sodium (Porcine) (Heparin) 5,000 units SC Q12 [facility] PRN Reason: Protocol Last Admin: 04/28/17 09:25 Dose: Not Given Hydralazine HCl (Apresoline) 25 mg PO Q4 PRN PRN Reason: Other Hydromorphone HCl (Dilaudid) 0.5 mg IVP Q6 PRN PRN Reason: Pain, severe (8-10) Last Admin: 04/28/17 04:11 Dose: 0.5 mg Insulin Detemir (Levemir) 20 units SC HS [facility] Last Admin: 04/27/17 22:36 Dose: 20 units Insulin Human Lispro (Humalog) 5 units SC BID [facility] Last Admin: 04/28/17 08:48 Dose: 5 units Insulin Human Regular (Humulin R) 0 units SC ACCU-CHECK [facility] PRN Reason: Protocol Last Admin: 04/28/17 09:10 Dose: 6 unit Metoclopramide HCl (Reglan) 10 mg IVP ACHS [facility] Last Admin: 04/28/17 09:19 Dose: 10 mg Metoprolol Tartrate (Lopressor) 50 mg PO Q12 [facility] Last Admin: 04/28/17 09:14 Dose: Not Given Ondansetron HCl (Zofran Inj) 4 mg IVP Q4 PRN PRN Reason: Nausea/Vomiting Pantoprazole Sodium (Protonix Ec Tab) 40 mg PO DAILY [facility] Last Admin: 04/28/17 09:17 Dose: 40 mg Polyethylene Glycol (Miralax) 17 gm PO BID [facility] Last Admin: 04/28/17 09:25 Dose: Not Given Vitamin B Complex/Vit C/Folic Acid (Nephro-Víctor) 1 tab PO DAILY@0800 [facility] Last Admin: 04/28/17 09:17 Dose: 1 tab - Labs Labs: 04/28/17 10:21 04/26/17 06:30 PT 11.9 Seconds (9.8-13.1) 04/25/17 18:00 INR 1.1 (0.9-1.2) 04/25/17 18:00 APTT 30.9 Seconds (25.6-37.1) 04/25/17 18:00 - Constitutional Appears: No Acute Distress - Eye Exam Eye Exam: Conjunctival injection - ENT Exam ENT Exam: Mucous Membranes Moist - Neck Exam Neck Exam: absent: Lymphadenopathy - Respiratory Exam Respiratory Exam: absent: Chest Wall Tenderness - Cardiovascular Exam Cardiovascular Exam: REGULAR RHYTHM. absent: JVD, Rubs - GI/Abdominal Exam GI & Abdominal Exam: Soft, Normal Bowel Sounds - Extremities Exam Extremities Exam: absent: Calf Tenderness - Back Exam Back Exam: absent: CVA tenderness (L), CVA tenderness (R) - Neurological Exam Neurological Exam: Alert - Psychiatric Exam Psychiatric exam: Normal Affect - Skin Skin Exam: Normal Color. absent: Cyanosis Assessment and Plan - Assessment and Plan (Free Text) Assessment: recurrent nausea/vomitting, cyclic emesis syndrome, marijuana abuse, gastroparesis Diabetic chronic Kidney Disease (E11.22) Hypertensive Chronic Kidney Disease (I12.0) End stage renal disease (N18.6) dependence on hemodialysis (Z99.2) (MWF) via AVF Anemia (D64.9), Hyperphosphatemia (E83.39), Secondary Hyperparathyroidism (E21.1 ), HTN (I12.0) uncontrolled severe HTN Patient is waiting to have dialysis shortly as scheduled. Increase clonidine 0.3 mg because of blood pressures are still elevated. Ultrafiltration about 3000 mL on hemodialysis as expected and ordered. Sodium bath 138 Potassium bath 2 mEq Patient has been tolerating hemodialysis well. Patient continued to seek for marijuana. And pain medication.
[2017-04-28 11:03] LABS: CALCIUM 8.4 mg/dL (8.4-10.2); POTASSIUM 5.6 MMOL/L (3.6-5.0)
[2017-04-28 11:48] VITALS: RESP 20
--- NOTE | 2017-04-28 13:48 | CP.PCM.PCO ---
Assessment & Plan - Assessment and Plan (Free Text) Assessment: pt. doing well , denies sob, cp, fever chills, n/v/d pt. cleared for discharge to home today after dialysis by , ,GI Rx for meds faxed to [facility] pharmacy as per pt. request pt. will f/u with pmd outpatient in 1 week cont. HD MWF above d/w and RN
[2017-04-28] MEDS ORDERED: Insulin Regular 100 units/ml SC SCH (17:00)
--- NOTE | 2017-04-28 17:53 | CP.PCM.PN ---
Subjective - Date & Time of Evaluation Date of Evaluation: 04/28/17 Time of Evaluation: 17:51 - Subjective Subjective: patient is having a dialysis at bed side. a little lower abdominal pain but improved no nausea no fever Objective - Vital Signs/Intake and Output Vital Signs (last 24 hours): Temp Pulse Resp BP Pulse Ox 97.7 F 82 20 158/81 H 95 04/28/17 16:14 04/28/17 16:46 04/28/17 16:14 04/28/17 16:46 04/28/17 16:14 Intake and Output: 04/28/17 04/28/17 06:59 18:59 Intake Total 300 Balance 300 - Medications Medications: Current Medications Acetaminophen (Tylenol 325mg Tab) 650 mg PO Q6 PRN PRN Reason: Pain, Mild (1-3) Last Admin: 04/26/17 10:46 Dose: 650 mg Amlodipine Besylate (Norvasc) 10 mg PO DAILY [facility] Last Admin: 04/28/17 09:15 Dose: Not Given Aspirin (Aspirin Chewable) 81 mg PO DAILY [facility] Last Admin: 04/28/17 09:17 Dose: 81 mg Clonidine HCl (Catapres) 0.2 mg PO TID [facility] Last Admin: 04/28/17 16:46 Dose: Not Given Dicyclomine HCl (Bentyl) 10 mg PO QID PRN PRN Reason: GI distress Last Admin: 04/27/17 22:10 Dose: 10 mg Fluconazole (Diflucan) 100 mg PO DAILY [facility] PRN Reason: Protocol Last Admin: 04/28/17 09:17 Dose: 100 mg Gabapentin (Neurontin) 300 mg PO DAILY [facility] Last Admin: 04/28/17 09:17 Dose: 300 mg Heparin Sodium (Porcine) (Heparin) 5,000 units SC Q12 [facility] PRN Reason: Protocol Last Admin: 04/28/17 09:25 Dose: Not Given Hydralazine HCl (Apresoline) 25 mg PO Q4 PRN PRN Reason: Other Hydromorphone HCl (Dilaudid) 0.5 mg IVP Q6 PRN PRN Reason: Pain, severe (8-10) Last Admin: 04/28/17 17:01 Dose: 0.5 mg Insulin Detemir (Levemir) [address] [facility] Last Admin: 04/27/17 22:36 Dose: 20 units Insulin Human Lispro (Humalog) 5 units SC BID [facility] Last Admin: 04/28/17 17:08 Dose: 5 units Insulin Human Regular (Humulin R) 0 units SC BID [facility] PRN Reason: Protocol Last Admin: 04/28/17 17:12 Dose: 2 units Metoclopramide HCl (Reglan) 10 mg IVP ACHS [facility] Last Admin: 04/28/17 16:59 Dose: 10 mg Metoprolol Tartrate (Lopressor) 50 mg PO Q12 [facility] Last Admin: 04/28/17 09:14 Dose: Not Given Ondansetron HCl (Zofran Inj) 4 mg IVP Q4 PRN PRN Reason: Nausea/Vomiting Pantoprazole Sodium (Protonix Ec Tab) 40 mg PO DAILY [facility] Last Admin: 04/28/17 09:17 Dose: 40 mg Polyethylene Glycol (Miralax) 17 gm PO BID [facility] Last Admin: 04/28/17 16:47 Dose: Not Given Vitamin B Complex/Vit C/Folic Acid (Nephro-Víctor) 1 tab PO DAILY@0800 [facility] Last Admin: 04/28/17 09:17 Dose: 1 tab - Labs Labs: 04/28/17 10:21 04/28/17 10:21 PT 11.9 Seconds (9.8-13.1) 04/25/17 18:00 INR 1.1 (0.9-1.2) 04/25/17 18:00 APTT 30.9 Seconds (25.6-37.1) 04/25/17 18:00 - Constitutional Appears: No Acute Distress - Respiratory Exam Respiratory Exam: Clear to Ausculation Bilateral, NORMAL BREATHING PATTERN. absent: Rales, Wheezes - Cardiovascular Exam Cardiovascular Exam: REGULAR RHYTHM. absent: Murmur - GI/Abdominal Exam GI & Abdominal Exam: Soft, Normal Bowel Sounds. absent: Tenderness Assessment and Plan - Assessment and Plan (Free Text) Assessment: abdominal pain diabetic gastroparesis cannabinoid use diabetes - uncontrolled kidney failure on hemodialysis Plan: discharge patient home today follow up with his primary doctor, Dr. Gtz. continue reglan.
[2017-04-28 19:34] VITALS: TEMP 97.9; O2SAT 98
[2017-04-28 20:26] VITALS: BP 175/93; PULSE 93
== END 2017-04-28 20:40 | disposition home or self-care (01) ==
LOC: H.ER 15:27 → H.ERHOLD 19:01 → H.TEL 21:42
PROVIDERS: ADMIT Internal Medicine; ATTEND Internal Medicine
DX: E10.43 Type 1 diabetes mellitus with diabetic autonomic (poly)neuropathy (principal); K31.84 Gastroparesis; D64.9 Anemia, unspecified; E83.39 Other disorders of phosphorus metabolism; N25.81 Secondary hyperparathyroidism of renal origin; E10.22 Type 1 diabetes mellitus with diabetic chronic kidney disease; E10.65 Type 1 diabetes mellitus with hyperglycemia; E78.00 Pure hypercholesterolemia, unspecified; F12.10 Cannabis abuse, uncomplicated; F17.210 Nicotine dependence, cigarettes, uncomplicated; G43.A0 Cyclical vomiting, in migraine, not intractable; I13.2 Hypertensive heart and chronic kidney disease with heart failure and with stage 5 chronic kidney disease, or end stage renal disease; I50.9 Heart failure, unspecified; K21.0 Gastro-esophageal reflux disease with esophagitis; K59.00 Constipation, unspecified; K92.0 Hematemesis; N18.6 End stage renal disease; Z79.4 Long term (current) use of insulin; Z79.899 Other long term (current) drug therapy; Z99.2 Dependence on renal dialysis; H26.9 Unspecified cataract; K29.70 Gastritis, unspecified, without bleeding; K64.4 Residual hemorrhoidal skin tags; R60.0 Localized edema; R06.02 Shortness of breath; R10.31 Right lower quadrant pain; R10.32 Left lower quadrant pain; R19.7 Diarrhea, unspecified
CPT/HCPCS: 36415; 71010; 76770; 80048; 80053; 80061; 82088; 82150; 82948; 83036; 83690; 83735; 83835; 84100; 84244; 84484; 85025; 85027; 85610; 85730; 86706; 86803; 86850; 86900; 87040; 87340; 93005; 96372; 96374; 96375; 96376; 99285; C9113; G0378; G0480; J1170; J1200; J1644; J1885; J2550; J2765

== ENCOUNTER 2017-05-01 17:05 | Inpatient (IN) | payer MEDICARE ==
[2017-05-01 17:05] VITALS: BMI 19.5
[2017-05-01] MEDS ORDERED: Sodium Chloride 0.9% 1,000 ML IV STA (17:59)
[2017-05-01] MEDS ORDERED: Morphine 4 MG/ML VIAL IVP ONE ×2 (17:59→20:51)
[2017-05-01] MEDS ORDERED: Labetalol 5mg/ml (4ml) IVP STA (18:00)
--- NOTE | 2017-05-01 18:16 | ED PDOC ---
HPI: Abdomen Time Seen by Provider: 05/01/17 17:37 Chief Complaint (Nursing): Abdominal Pain Chief Complaint (Provider): Abdominal pain History Per: Patient History/Exam Limitations: no limitations Onset/Duration Of Symptoms: Days (1) Additional Complaint(s): Patient is a 36 y/o male with a past medical history of hypertension, diabetes, and end stage renal disease who presents to the emergency department for lower abdominal pain with associated nausea, vomiting, and diarrhea since this morning. Of note, patient is on dialysis and his most recent session was yesterday. Denies fever, bloody vomitus, or other complaints. PCP: Dr. Federico Mora Past Medical History Reviewed: Historical Data, Nursing Documentation, Vital Signs Vital Signs: Last Vital Signs Temp 98.2 F 05/01/17 17:06 Pulse 107 H 05/01/17 17:06 Resp 20 05/01/17 17:06 BP 200/110 H 05/01/17 17:06 Pulse Ox 100 05/01/17 18:23 - Medical History PMH: Anemia (Pt denies), CHF, Diabetes (type I), Gastritis, HTN, Hypercholesterolemia, Peripheral Edema, End Stage Renal Disease, Chronic Kidney Disease Denies: HIV, Kidney Stones - Family History Family History: States: Unknown Family Hx, Diabetes, Hypertension - Immunization History Hx Tetanus Toxoid Vaccination: Yes Hx Influenza Vaccination: Yes Hx Pneumococcal Vaccination: Yes - Home Medications Home Medications: Ambulatory Orders Medication Instructions Recorded Insulin Glargine, Recombina 20 unit SC HS unit 03/24/17 [Lantus] Aspirin [Aspirin Chewable] 81 mg PO DAILY #60 chew 04/07/17 Famotidine [Pepcid] 20 mg PO BID #60 tab 04/07/17 Gabapentin [Neurontin] 300 mg PO DAILY #60 cap 04/07/17 Insulin Aspart, Recombinant 5 - 20 unit SC ACTID 90 Days #10 04/07/17 [Novolog] vial Lisinopril [Zestril] 10 mg PO DAILY #60 tablet 04/07/17 Metoprolol Tartrate [Lopressor] 50 mg PO Q12 #60 tab 04/07/17 Ondansetron ODT [Zofran ODT] 4 mg PO Q6 PRN #30 odt 04/07/17 Pantoprazole Sodium [Protonix] 40 mg PO DAILY #30 tablet. 04/07/17 amLODIPine [Norvasc] 10 mg PO DAILY #30 tab 04/07/17 cloNIDine [Catapres] 0.2 mg PO TID #90 tab 04/07/17 Vitamin B Complex/Vit C/Folic 1 tab PO 0800 tab 04/22/17 [Nephro-Víctor] Dicyclomine [Bentyl] 10 mg PO QID PRN #60 cap 04/28/17 Fluconazole [Diflucan] 100 mg PO DAILY #3 tab 04/28/17 Polyethylene Glycol 3350 [Miralax] 17 gm PO BID #14 packet 04/28/17 hydrALAZINE [Apresoline] 25 mg PO Q6 #21 tab 04/28/17 - Allergies Allergies/Adverse Reactions: Allergies Allergy/AdvReac Type Severity Reaction Status Date / Time No Known Allergies Allergy Verified 04/18/17 01:32 Review of Systems ROS Statement: Except As Marked, All Systems Reviewed And Found Negative Constitutional: Negative for: Fever Gastrointestinal: Positive for: Nausea, Vomiting (non-bloody), Abdominal Pain ( lower), Diarrhea Physical Exam - Reviewed Nursing Documentation Reviewed: Yes Vital Signs Reviewed: Yes - Physical Exam Appears: Positive for: Well, Non-toxic, No Acute Distress Head Exam: Positive for: ATRAUMATIC, NORMAL INSPECTION, NORMOCEPHALIC Skin: Positive for: Normal Color, Warm, Dry Eye Exam: Positive for: Normal appearance Neck: Positive for: Normal Cardiovascular/Chest: Positive for: Regular Rate, Rhythm. Negative for: Murmur Respiratory: Positive for: Normal Breath Sounds. Negative for: Accessory Muscle Use, Respiratory Distress Gastrointestinal/Abdominal: Positive for: Soft, Tenderness (lower abdominal quadrants bilaterally) Extremity: Positive for: Normal ROM Neurologic/Psych: Positive for: Alert, Oriented (x3). Negative for: Motor/ Sensory Deficits - Laboratory Results Result Diagrams: 05/01/17 18:25 - ECG O2 Sat by Pulse Oximetry: 100 (RA) Pulse Ox Interpretation: Normal Medical Decision Making Medical Decision Making: Time: 17:59 Initial impression: Lower abdominal pain Initial plan: Abdominal/pelvic CT scan EKG Labs: CMP, CBCc ED Urine Dipstick Labetalol 10 mg IVP Morphine 2 mg IVP Normal Saline 1 L IV Ondansetron 4 mg IVP Reevaluation Scribe Attestation: Documented by Lizzy Sharma, acting as a scribe for Nam Carrillo MD. Provider Scribe Attestation: All medical record entries made by the Scribe were at my direction and personally dictated by me. I have reviewed the chart and agree that the record accurately reflects my personal performance of the history, physical exam, medical decision making, and the department course for this patient. I have also personally directed, reviewed, and agree with the discharge instructions and disposition. Disposition - Clinical Impression Clinical Impression: Abdominal pain - Patient ED Disposition Is Patient to be Admitted: Transfer of Care - Disposition Disposition: Transfer of Care Disposition Time: 19:00 Condition: FAIR Forms: [employer] (Pashto) Patient Signed Over To: Domingo Luther
[2017-05-01 18:35] LABS: BASO # 0.1 K/uL (0.0-0.2); BASO % 0.9 % (0.0-2.0); EOS # 0.2 K/uL (0.0-0.7); EOS % 1.1 % (0.0-4.0); HEMATOCRIT 33.6 % (35.0-51.0); LYMPH # 1.2 K/uL (1.0-4.3); LYMPH % 7.2 % (20.0-40.0); MEAN CELL VOLUME 85.7 fl (80.0-94.0); MEAN CORPUSCULAR HEMOGLOBIN 26.8 pg (27.0-31.0); MEAN CORPUSCULAR HGB CONC 31.3 g/dL (33.0-37.0); MEAN PLATELET VOLUME 8.9 fl (7.2-11.7); MONO # 0.7 K/uL (0.0-0.8); NEUT # 14.6 K/uL (1.8-7.0); NEUT % 86.8 % (50.0-75.0); PLATELET COUNT 282 K/uL (130-400); RED CELL DISTRIBUTION WIDTH 18.5 % (11.5-14.5); WHITE BLOOD COUNT 16.8 K/uL (4.8-10.8)
[2017-05-01] MEDS ORDERED: Labetalol 5mg/ml (4ml) ONE (18:43)
--- NOTE | 2017-05-01 19:04 | ED PDOC ---
HPI: Abdomen Time Seen by Provider: 05/01/17 17:37 Chief Complaint (Nursing): Abdominal Pain Chief Complaint (Provider): Abdominal pain History Per: Patient History/Exam Limitations: no limitations Onset/Duration Of Symptoms: Days (1) Past Medical History Vital Signs: Last Vital Signs Temp 98.2 F 05/01/17 17:06 Pulse 107 H 05/01/17 17:06 Resp 20 05/01/17 17:06 BP 200/110 H 05/01/17 17:06 Pulse Ox 100 05/01/17 18:56 - Medical History PMH: Anemia (Pt denies), CHF, Diabetes (type I), Gastritis, HTN, Hypercholesterolemia, Peripheral Edema, End Stage Renal Disease, Chronic Kidney Disease Denies: HIV, Kidney Stones - Family History Family History: States: Unknown Family Hx, Diabetes, Hypertension - Immunization History Hx Tetanus Toxoid Vaccination: Yes Hx Influenza Vaccination: Yes Hx Pneumococcal Vaccination: Yes - Home Medications Home Medications: Ambulatory Orders Medication Instructions Recorded Insulin Glargine, Recombina 20 unit SC HS unit 03/24/17 [Lantus] Aspirin [Aspirin Chewable] 81 mg PO DAILY #60 chew 04/07/17 Famotidine [Pepcid] 20 mg PO BID #60 tab 04/07/17 Gabapentin [Neurontin] 300 mg PO DAILY #60 cap 04/07/17 Insulin Aspart, Recombinant 5 - 20 unit SC ACTID 90 Days #10 04/07/17 [Novolog] vial Lisinopril [Zestril] 10 mg PO DAILY #60 tablet 04/07/17 Metoprolol Tartrate [Lopressor] 50 mg PO Q12 #60 tab 04/07/17 Ondansetron ODT [Zofran ODT] 4 mg PO Q6 PRN #30 odt 04/07/17 Pantoprazole Sodium [Protonix] 40 mg PO DAILY #30 tablet. 04/07/17 amLODIPine [Norvasc] 10 mg PO DAILY #30 tab 04/07/17 cloNIDine [Catapres] 0.2 mg PO TID #90 tab 04/07/17 Vitamin B Complex/Vit C/Folic 1 tab PO 0800 tab 04/22/17 [Nephro-Víctor] Dicyclomine [Bentyl] 10 mg PO QID PRN #60 cap 04/28/17 Fluconazole [Diflucan] 100 mg PO DAILY #3 tab 04/28/17 Polyethylene Glycol 3350 [Miralax] 17 gm PO BID #14 packet 04/28/17 hydrALAZINE [Apresoline] 25 mg PO Q6 #21 tab 04/28/17 - Allergies Allergies/Adverse Reactions: Allergies Allergy/AdvReac Type Severity Reaction Status Date / Time No Known Allergies Allergy Verified 04/18/17 01:32 - Laboratory Results Result Diagrams: 05/01/17 18:25 - ECG O2 Sat by Pulse Oximetry: 100 (RA) Disposition - Clinical Impression Clinical Impression: Abdominal pain - Disposition Disposition: Transfer of Care Disposition Time: 19:00 Condition: FAIR Forms: [employer] (Italian)
--- NOTE | 2017-05-01 19:06 | ED PDOC ---
- Laboratory Results Result Diagrams: 05/01/17 18:25 05/01/17 20:57 - ECG O2 Sat by Pulse Oximetry: 100 (RA) Pulse Ox Interpretation: Normal Medical Decision Making Medical Decision Makin:00 Patient signed over to me from Dr. Carrillo. Abdominal/pelvic CT scan pending. 20:13 Abdominal/pelvic CT scan reviewed. Findings noted as follows: FINDINGS: Lower thorax: The bilateral lung bases are clear. ABDOMEN: Liver: The liver is enlarged and demonstrates diffuse fatty infiltration. Gallbladder and bile ducts: The gallbladder is minimally distended, without calcified stones. No intra-extrahepatic biliary ductal dilation. Pancreas: Limited evaluation secondary to the lack of intravenous contrast. Spleen: No acute findings. Adrenals: No acute findings. Kidneys and ureters: No obstructing stones. No hydronephrosis. PELVIS: Bladder: The bladder demonstrates thickened michaels, possibly related to underdistention. Reproductive: No acute findings. Appendix: Air-filled appendix is of normal caliber (series 3, image 113). ABDOMEN and PELVIS: Stomach and bowel: Aerated stool within the colon, with trace mural thickening, similar to prior examination. Peritoneum: No acute findings. Lymph nodes: Limited evaluation without intravenous contrast. Vasculature: No aortic aneurysm. Calcified atherosclerotic disease. Bones: No acute fracture. Stable T11 compression fracture. IMPRESSION: No acute intra-abdominal pathology. Multiple nonacute findings, as detailed above. 20:55. Patient complains of persistent nausea and vomiting. Additional morphine and Zofran ordered. Discussed case with Dr. Mcgrath. Dr. Ling agrees to admit patient under hospital's observation. Clinical impression: Contractable nausea, vomiting and abdominal pain. Gastroparesis and end stage renal disease (on hemodialysis). Scribe Attestation: Documented by Lizzy Sharma, acting as a scribe for Dmoingo Luther MD. Provider Scribe Attestation: All medical record entries made by the Scribe were at my direction and personally dictated by me. I have reviewed the chart and agree that the record accurately reflects my personal performance of the history, physical exam, medical decision making, and the department course for this patient. I have also personally directed, reviewed, and agree with the discharge instructions and disposition. Disposition Discussed With DrSoraida: Tal Mcgrath Counseled Patient/Family Regarding: Studies Performed, Diagnosis - Clinical Impression Clinical Impression: Abdominal pain, ESRD (end stage renal disease) on dialysis, Gastroparesis due to DM - POA Present On Arrival: Poor Glycemic Control - Disposition Disposition: Hospitalized as Observation Patient Disposition Time: 20:00 Condition: FAIR
[2017-05-01 19:22] LABS: BASOPHIL 1 % (0-2); EOSINOPHIL 2 % (0-7); NEUTROPHIL 80 % (42-75); TOTAL CELLS COUNTED 100
[2017-05-01 19:24] LABS: ACANTHOCYTES SLIGHT
[2017-05-01] MEDS ORDERED: Morphine 4 MG/ML VIAL ONE ×2 (19:25→21:10)
--- NOTE | 2017-05-01 20:14 | CT ---
EXAM: CT Abdomen and Pelvis Without Intravenous Contrast CLINICAL HISTORY: 36 years old, male; Pain; Abdominal pain; Generalized; Additional info: R/O kidney stone TECHNIQUE: Axial computed tomography images of the abdomen and pelvis without intravenous contrast. All CT scans at this facility use one or more dose reduction techniques, viz.: automated exposure control; ma/kV adjustment per patient size (including targeted exams where dose is matched to indication; i.e. head); or iterative reconstruction technique. Coronal and sagittal reformatted images were created and reviewed. COMPARISON: CT - ABD PELVIS W/O PO OR IV CONT 2017-03-27 12:08 FINDINGS: Lower thorax: The bilateral lung bases are clear. ABDOMEN: Liver: The liver is enlarged and demonstrates diffuse fatty infiltration. Gallbladder and bile ducts: The gallbladder is minimally distended, without calcified stones. No intra-extrahepatic biliary ductal dilation. Pancreas: Limited evaluation secondary to the lack of intravenous contrast. Spleen: No acute findings. Adrenals: No acute findings. Kidneys and ureters: No obstructing stones. No hydronephrosis. PELVIS: Bladder: The bladder demonstrates thickened michaels, possibly related to underdistention. Reproductive: No acute findings. Appendix: Air-filled appendix is of normal caliber (series 3, image 113). ABDOMEN and PELVIS: Stomach and bowel: Aerated stool within the colon, with trace mural thickening, similar to prior examination. Peritoneum: No acute findings. Lymph nodes: Limited evaluation without intravenous contrast. Vasculature: No aortic aneurysm. Calcified atherosclerotic disease. Bones: No acute fracture. Stable T11 compression fracture. IMPRESSION: No acute intra-abdominal pathology. Multiple nonacute findings, as detailed above.
[2017-05-01 21:15] LABS: ALB/GLOB RATIO 1.1 (1.0-2.1); BILIRUBIN,TOTAL 0.6 mg/dl (0.2-1.3); CALCIUM 8.7 mg/dL (8.4-10.2); TOTAL PROTEIN 7.8 G/DL (6.3-8.2)
[2017-05-01 21:17] LABS: POTASSIUM 5.3 MMOL/L (3.6-5.0)
[2017-05-02] MEDS: Insulin Detemir 100 Units/ml Inj SC SCH ×2 (00:47→22:36)
[2017-05-02] MEDS: Multivitamin Vitamin B Complex (Nephro-Vite) Tab PO SCH (09:29)
[2017-05-02] MEDS: POLYETHYLENE GLYCOL 3350 17 GM/Dose PACKET PO SCH ×3 (09:30→16:39)
[2017-05-02] MEDS: Pantoprazole 40 mg EC Tab PO SCH (09:31)
[2017-05-02] MEDS: Insulin Lispro (humaLOG) 100 Units/ml Inj SC SCH ×3 (09:32→16:41)
[2017-05-02 10:47] LABS: HEMATOCRIT 30.1 % (35.0-51.0); MEAN CELL VOLUME 86.6 fl (80.0-94.0); MEAN CORPUSCULAR HEMOGLOBIN 26.4 pg (27.0-31.0); MEAN CORPUSCULAR HGB CONC 30.5 g/dL (33.0-37.0); RED CELL DISTRIBUTION WIDTH 17.8 % (11.5-14.5); WHITE BLOOD COUNT 13.7 K/uL (4.8-10.8)
[2017-05-02 10:55] LABS: POTASSIUM 4.6 MMOL/L (3.6-5.0)
--- NOTE | 2017-05-02 12:16 | CARD ---
APPROVED REPORT EKG Measurement Heart [id number] <Conclusion> Sinus tachycardia Left atrial enlargement Possible Anterior infarct, age undetermined Abnormal ECG
--- NOTE | 2017-05-02 13:14 | CP.PCM.CON ---
History of Present Illness - History of Present Illness History of Present Illness: Patient is a 36 years of age nontender male with end-stage renal disease on maintenance hemodialysis. He was admitted with nausea vomiting abdominal pain as usual after he inhaled and smoked marijuana. Patient has been his habit with this.. Then he required to have multiple admission . Patient has been admitted to this hospital and other hospital for the same problem nausea vomiting abdomen pain after using marijuana. Patient has been receiving so multiple evaluation and so multiple endoscopy in the past and CAT scan x-ray among other things. Patient I believe is legally blind as well. And is diabetic and poorly controlled with glucose Patient also receiving dialysis MWF 3 times a week. History of hypertension. History of noncompliance with dialysis and medications Review of Systems - Review of Systems Systems not reviewed;Unavailable: Uncooperative - Constitutional Constitutional: Weakness. absent: Chills - EENT Nose/Mouth/Throat: Dry Mouth. absent: Nasal Congestion - Cardiovascular Cardiovascular: absent: Chest Pain, Dyspnea, Leg Edema - Respiratory Respiratory: absent: Cough, Hemoptysis - Gastrointestinal Gastrointestinal: Abdominal Pain, Belching, Bloating, Nausea, Vomiting. absent : Coffee Ground Emesis, Excessive Flatus - Genitourinary Genitourinary: Change in Urinary Stream, Nocturia - Reproductive: Male Reproductive:Male: As Per HPI - Musculoskeletal Musculoskeletal: Abnormal Gait, Muscle Weakness - Integumentary Integumentary: As Per HPI - Neurological Neurological: Confusion, Dizziness. absent: Numbness, Focal Weakness - Psychiatric Psychiatric: Abnormal Sleep Pattern, Anxiety - Endocrine Endocrine: Fatigue - Hematologic/Lymphatic Hematologic: absent: Easy Bleeding Past Patient History - Infectious Disease Hx of Infectious Diseases: None - Past Medical History & Family History Past Medical History?: Yes - Past Social History Smoking Status: Former Smoker - CARDIAC Hx Cardiac Disorders: Yes Hx Congestive Heart Failure: Yes Hx Hypertension: Yes - PULMONARY Hx Respiratory Disorders: No - NEUROLOGICAL Hx Neurological Disorder: No - HEENT Hx HEENT Problems: Yes Hx Cataracts: Yes - RENAL Hx Chronic Kidney Disease: Yes Hx Dialysis: Yes Type of Dialysis Access: AV shunt Date of Last Dialysis Treatment: 05/30/17 Hx Kidney Stones: No Hx Renal (Kidney) Cancer: No - ENDOCRINE/METABOLIC Hx Endocrine Disorders: Yes Hx Diabetes Mellitus Type 1: Yes - HEMATOLOGICAL/ONCOLOGICAL Hx Blood Disorders: No Hx AIDS: No Hx Human Immunodeficiency Virus (HIV): No - INTEGUMENTARY Hx Dermatological Problems: No - MUSCULOSKELETAL/RHEUMATOLOGICAL Hx Musculoskeletal Disorders: Yes Hx Falls: No - GASTROINTESTINAL Hx Gastritis: Yes - GENITOURINARY/GYNECOLOGICAL Hx Genitourinary Disorders: No - PSYCHIATRIC Hx Psychophysiologic Disorder: Yes Hx Substance Use: Yes (MARIJUANA) - SURGICAL HISTORY Hx Surgeries: Yes Hx Cataract Extraction: Yes (bilateral) Hx Vascular Access Device: Yes Other/Comment: RT.PERMACATH INSERTION 04/17. LT.AV SHUNT CREATION 06/04/16. UNDESCENDED TESTES LT. REMOVED DURING CHILDHOOD - ANESTHESIA Hx Anesthesia: Yes Hx Anesthesia Reactions: No Hx Malignant Hyperthermia: No Has any member of the family had a problem w/ anesthesia?: No Meds Home Medications: Home Medication List Medication Instructions Recorded Confirmed Type Acetaminophen [Tylenol 325mg tab] 650 mg PO Q6 PRN tab 05/02/17 Rx Allergies/Adverse Reactions: Allergies Allergy/AdvReac Type Severity Reaction Status Date / Time No Known Allergies Allergy Verified 04/18/17 01:32 - Medications Medications: Current Medications Acetaminophen (Tylenol 325mg Tab) 650 mg PO Q6 PRN PRN Reason: Pain, Mild (1-3) Last Admin: 05/02/17 00:56 Dose: 650 mg Amlodipine Besylate (Norvasc) 10 mg PO DAILY [facility] Last Admin: 05/02/17 09:28 Dose: 10 mg Aspirin (Aspirin Chewable) 81 mg PO DAILY [facility] Last Admin: 05/02/17 09:28 Dose: 81 mg Clonidine HCl (Catapres) 0.2 mg PO TID [facility] Last Admin: 05/02/17 13:03 Dose: 0.2 mg Dicyclomine HCl (Bentyl) 10 mg PO QID PRN PRN Reason: GI distress Last Admin: 05/02/17 09:27 Dose: 10 mg Famotidine (Pepcid) 20 mg PO BID [facility] Last Admin: 05/02/17 09:28 Dose: 20 mg Fluconazole (Diflucan) 100 mg PO DAILY [facility] PRN Reason: Protocol Last Admin: 05/02/17 09:28 Dose: 100 mg Gabapentin (Neurontin) 300 mg PO DAILY [facility] Last Admin: 05/02/17 09:28 Dose: 300 mg Hydralazine HCl (Apresoline) 25 mg PO Q6 [facility] Last Admin: 05/02/17 09:28 Dose: 25 mg Insulin Detemir (Levemir) 20 units SC HS [facility] Last Admin: 05/02/17 00:47 Dose: 20 units Insulin Human Lispro (Humalog) 5 units SC ACTID [facility] Last Admin: 05/02/17 12:59 Dose: 5 units Lisinopril (Zestril) 10 mg PO DAILY [facility] Last Admin: 05/02/17 09:31 Dose: 10 mg Metoclopramide HCl (Reglan) 10 mg IVP Q6 PRN PRN Reason: Nausea/Vomiting Last Admin: 05/02/17 05:24 Dose: 10 mg Metoprolol Tartrate (Lopressor) 50 mg PO Q12 [facility] Last Admin: 05/02/17 09:29 Dose: 50 mg Ondansetron HCl (Zofran Odt) 4 mg PO Q6 PRN PRN Reason: Nausea/Vomiting Last Admin: 05/02/17 09:30 Dose: 4 mg Pantoprazole Sodium (Protonix Ec Tab) 40 mg PO DAILY [facility] Last Admin: 05/02/17 09:31 Dose: 40 mg Polyethylene Glycol (Miralax) 17 gm PO BID [facility] Last Admin: 05/02/17 09:36 Dose: Not Given Vitamin B Complex/Vit C/Folic Acid (Nephro-Víctor) 1 tab PO 0800 [facility] Last Admin: 05/02/17 09:29 Dose: 1 tab Physical Exam - Constitutional Appears: No Acute Distress - ENT Exam ENT Exam: Mucous Membranes Dry - Neck Exam Neck exam: Negative for: Lymphadenopathy - Respiratory Exam Respiratory Exam: NORMAL BREATHING PATTERN. absent: Wheezes - Cardiovascular Exam Cardiovascular Exam: REGULAR RHYTHM. absent: JVD, Rubs - GI/Abdominal Exam GI & Abdominal Exam: Normal Bowel Sounds. absent: Distended - Extremities Exam Extremities exam: Negative for: calf tenderness, pedal edema - Back Exam Back exam: absent: CVA tenderness (L), CVA tenderness (R) - Neurological Exam Neurological exam: Altered - Psychiatric Exam Psychiatric exam: Normal Affect - Skin Skin Exam: Normal Color Results - Vital Signs Recent Vital Signs: Last Vital Signs Temp 98.4 F 05/02/17 11:49 Pulse 79 05/02/17 13:03 Resp 18 05/02/17 11:49 BP 153/84 H 05/02/17 13:03 Pulse Ox 95 05/02/17 11:49 - Labs Result Diagrams: 05/02/17 10:39 05/02/17 10:39 Labs: Laboratory Results - last 24 hr 05/01/17 05/01/17 05/01/17 18:25 20:57 22:57 WBC 16.8 H RBC 3.92 L Hgb 10.5 L Hct 33.6 L MCV 85.7 MCH 26.8 L MCHC 31.3 L RDW 18.5 H Plt Count 282 MPV 8.9 Neut % (Auto) 86.8 H Lymph % (Auto) 7.2 L [place] % (Auto) 4.0 Eos % (Auto) 1.1 Baso % (Auto) 0.9 Neut # 14.6 H Lymph # 1.2 [place] # 0.7 Eos # 0.2 Baso # 0.1 Neutrophils % (Manual) 80 H Band Neutrophils % 4 H Lymphocytes % (Manual) 8 L Monocytes % (Manual) 5 Eosinophils % (Manual) 2 Basophils % (Manual) 1 Platelet Estimate Normal Hypochromasia (manual) Slight Poikilocytosis (manual Slight Anisocytosis (manual) Moderate Microcytosis (manual) Slight Ovalocytes Slight [place] Cells Slight Acanthocytes (Spur) Slight Sodium 141 Potassium 5.3 H Chloride 95 L Carbon Dioxide 27 Anion Gap 24 H BUN 42 H Creatinine 6.7 H Est GFR ( Amer) 11 Est GFR (Non-Af Amer) 9 POC Glucose (mg/dL) 319 H Random Glucose 306 H Calcium 8.7 Total Bilirubin 0.6 AST 26 ALT 32 Alkaline Phosphatase 150 H Total Protein 7.8 Albumin 4.1 Globulin 3.7 Albumin/Globulin Ratio 1.1 05/02/17 05/02/17 05/02/17 05:02 10:39 10:39 WBC 13.7 H RBC 3.47 L Hgb 9.2 L Hct 30.1 L MCV 86.6 MCH 26.4 L MCHC 30.5 L RDW 17.8 H Plt Count 243 MPV Neut % (Auto) Lymph % (Auto) [place] % (Auto) Eos % (Auto) Baso % (Auto) Neut # Lymph # [place] # Eos # Baso # Neutrophils % (Manual) Band Neutrophils % Lymphocytes % (Manual) Monocytes % (Manual) Eosinophils % (Manual) Basophils % (Manual) Platelet Estimate Hypochromasia (manual) Poikilocytosis (manual Anisocytosis (manual) Microcytosis (manual) Ovalocytes [place] Cells Acanthocytes (Spur) Sodium 137 Potassium 4.6 Chloride 95 L Carbon Dioxide 31 H Anion Gap 16 BUN 50 H Creatinine 7.0 H Est GFR ( Amer) 11 Est GFR (Non-Af Amer) 9 POC Glucose (mg/dL) 187 H Random Glucose 102 Calcium 8.0 L Total Bilirubin AST ALT Alkaline Phosphatase Total Protein Albumin Globulin Albumin/Globulin Ratio Assessment & Plan (1) Gastroparesis due to DM Status: Acute (2) ESRD (end stage renal disease) on dialysis Assessment and Plan: End stage renal disease on maintenance hemodialysis MWF. Consent was taken from the patient and order was given for hemodialysis to start shortly. No ultrafiltration today because he appeared to be somewhat dry. Hypertension continue the same medication and keep monitoring. Anemia t would add EPO Hypophosphatemia at phosphorus binder. Secondary hyperparathyroidism patient has been receiving Sensipar we will continue Status: Chronic (3) Abdominal discomfort Status: Acute (4) Anemia Status: Acute
[2017-05-02] MEDS ORDERED: Epoetin Alfa 4000 UNIT/ML Inj IV ONE (13:24)
--- NOTE | 2017-05-02 14:49 | RAD ---
HISTORY: leukocytosis COMPARISON: Chest radiograph dated 04/25/2017 FINDINGS: LUNGS: No active pulmonary disease. PLEURA: No significant pleural effusion identified, no pneumothorax apparent. CARDIOVASCULAR: Normal. OSSEOUS STRUCTURES: No significant abnormalities. VISUALIZED UPPER ABDOMEN: Normal. OTHER FINDINGS: None. IMPRESSION: No active disease.
[2017-05-03] MEDS: Insulin Lispro (humaLOG) 100 Units/ml Inj SC SCH ×3 (06:54→16:03)
[2017-05-03] MEDS: Pantoprazole 40 mg EC Tab PO SCH (08:55)
[2017-05-03] MEDS: Multivitamin Vitamin B Complex (Nephro-Vite) Tab PO SCH (08:56)
[2017-05-03] MEDS: POLYETHYLENE GLYCOL 3350 17 GM/Dose PACKET PO SCH ×2 (08:59→16:03)
[2017-05-03 11:27] LABS: HEMATOCRIT 29.4 % (35.0-51.0); MEAN CELL VOLUME 87.7 fl (80.0-94.0); MEAN CORPUSCULAR HEMOGLOBIN 26.7 pg (27.0-31.0); MEAN CORPUSCULAR HGB CONC 30.4 g/dL (33.0-37.0); WHITE BLOOD COUNT 18.9 K/uL (4.8-10.8)
--- NOTE | 2017-05-03 15:09 | CP.PCM.CON ---
History of Present Illness - History of Present Illness History of Present Illness: Infectious Disease Consult Note- HPI- asked to see this patient at he request of for leukocytosis. Patient is a 36 year old male with PMH of HTN, DM II, ESRD on HD for the past year who was admitted with nausea and vomiting and abdominal pain. as per patient and medical record pt. has had many recent hospitalizations for the same reason and he states has been told he has gastroparesis from his diabetes and also states his vomiting is also from his chronic daily marijuana usage. He denies any fever or chills. Pt. denies any cough, denies any sob and denies any h/o chest pain, denies any abd. pain, denies any dyaurea, states he has positive diarrhea always. Review of Systems - Review of Systems Review of Systems: ROS- denies any fever or chills, denies any cough, denies any sob, denies any chest pain, + nasuea and vomitng but he states it has subsided today, denies any dysurea, states has chronic diarrhea. Past Patient History - Infectious Disease Hx of Infectious Diseases: None - Past Medical History & Family History Past Medical History?: Yes - Past Social History Smoking Status: Former Smoker Alcohol: None Drugs: Cannabis Home Situation {Lives}: With Family - CARDIAC Hx Cardiac Disorders: Yes Hx Congestive Heart Failure: Yes Hx Hypertension: Yes - PULMONARY Hx Respiratory Disorders: No - NEUROLOGICAL Hx Neurological Disorder: No - HEENT Hx HEENT Problems: Yes Hx Cataracts: Yes - RENAL Hx Chronic Kidney Disease: Yes Hx Dialysis: Yes Type of Dialysis Access: AV shunt Date of Last Dialysis Treatment: 05/30/17 Hx Kidney Stones: No Hx Renal (Kidney) Cancer: No - ENDOCRINE/METABOLIC Hx Endocrine Disorders: Yes Hx Diabetes Mellitus Type 1: Yes - HEMATOLOGICAL/ONCOLOGICAL Hx Blood Disorders: No - INTEGUMENTARY Hx Dermatological Problems: No - MUSCULOSKELETAL/RHEUMATOLOGICAL Hx Musculoskeletal Disorders: Yes Hx Falls: No - GASTROINTESTINAL Hx Gastritis: Yes - GENITOURINARY/GYNECOLOGICAL Hx Genitourinary Disorders: No - PSYCHIATRIC Hx Psychophysiologic Disorder: Yes Hx Substance Use: Yes (MARIJUANA) - SURGICAL HISTORY Hx Surgeries: Yes Hx Cataract Extraction: Yes (bilateral) Hx Vascular Access Device: Yes Other/Comment: RT.PERMACATH INSERTION 04/17. LT.AV SHUNT CREATION 06/04/16. UNDESCENDED TESTES LT. REMOVED DURING CHILDHOOD - ANESTHESIA Hx Anesthesia: Yes Hx Anesthesia Reactions: No Hx Malignant Hyperthermia: No Has any member of the family had a problem w/ anesthesia?: No Meds Home Medications: Home Medication List Medication Instructions Recorded Confirmed Type Acetaminophen [Tylenol 325mg tab] 650 mg PO Q6 PRN tab 05/02/17 Rx Allergies/Adverse Reactions: Allergies Allergy/AdvReac Type Severity Reaction Status Date / Time No Known Allergies Allergy Verified 04/18/17 01:32 - Medications Medications: Current Medications Acetaminophen (Tylenol 325mg Tab) 650 mg PO Q6 PRN PRN Reason: Pain, Mild (1-3) Last Admin: 05/02/17 00:56 Dose: 650 mg Amlodipine Besylate (Norvasc) 10 mg PO DAILY [facility] Last Admin: 05/03/17 08:58 Dose: 10 mg Aspirin (Aspirin Chewable) 81 mg PO DAILY [facility] Last Admin: 05/03/17 08:58 Dose: 81 mg Cinacalcet (Sensipar) 30 mg PO DAILY [facility] Last Admin: 05/03/17 09:00 Dose: 30 mg Clonidine HCl (Catapres) 0.2 mg PO TID [facility] Last Admin: 05/03/17 13:26 Dose: 0.2 mg Dicyclomine HCl (Bentyl) 10 mg PO QID PRN PRN Reason: GI distress Last Admin: 05/03/17 08:56 Dose: 10 mg Famotidine (Pepcid) 20 mg PO BID [facility] Last Admin: 05/03/17 08:57 Dose: 20 mg Fluconazole (Diflucan) 100 mg PO DAILY [facility] PRN Reason: Protocol Last Admin: 05/03/17 08:57 Dose: 100 mg Gabapentin (Neurontin) 300 mg PO DAILY [facility] Last Admin: 05/03/17 08:58 Dose: 300 mg Hydralazine HCl (Apresoline) 25 mg PO Q6 [facility] Last Admin: 05/03/17 08:59 Dose: 25 mg Insulin Detemir (Levemir) 20 units SC HS [facility] Last Admin: 05/02/17 22:36 Dose: 20 units Insulin Human Lispro (Humalog) 5 units SC ACTID [facility] Last Admin: 05/03/17 13:27 Dose: Not Given Lisinopril (Zestril) 10 mg PO DAILY [facility] Last Admin: 05/03/17 08:55 Dose: 10 mg Metoclopramide HCl (Reglan) 10 mg IVP Q6 PRN PRN Reason: Nausea/Vomiting Last Admin: 05/02/17 05:24 Dose: 10 mg Metoprolol Tartrate (Lopressor) 50 mg PO Q12 [facility] Last Admin: 05/03/17 08:56 Dose: 50 mg Ondansetron HCl (Zofran Odt) 4 mg PO Q6 PRN PRN Reason: Nausea/Vomiting Last Admin: 05/03/17 08:56 Dose: 4 mg Pantoprazole Sodium (Protonix Ec Tab) 40 mg PO DAILY [facility] Last Admin: 05/03/17 08:55 Dose: 40 mg Polyethylene Glycol (Miralax) 17 gm PO BID [facility] Last Admin: 05/03/17 08:59 Dose: Not Given Sevelamer HCl (Renagel) 1,600 mg PO TID [facility] Last Admin: 05/03/17 13:27 Dose: 1,600 mg Vitamin B Complex/Vit C/Folic Acid (Nephro-Víctor) 1 tab PO 0800 [facility] Last Admin: 05/03/17 08:56 Dose: 1 tab Physical Exam - Constitutional Appears: No Acute Distress, Chronically Ill - Head Exam Head Exam: ATRAUMATIC - ENT Exam ENT Exam: Normal Oropharynx - Neck Exam Neck exam: Positive for: Full Rom - Respiratory Exam Respiratory Exam: Clear to Auscultation Bilateral, NORMAL BREATHING PATTERN - Cardiovascular Exam Cardiovascular Exam: RRR, +S1, +S2 - GI/Abdominal Exam GI & Abdominal Exam: Normal Bowel Sounds, Soft Additional comments: NT, ND - Extremities Exam Additional comments: no edema B/L LE left arm AV shunt , no erythema, no tenderness - Neurological Exam Neurological exam: Alert, Oriented x3 Results - Vital Signs Recent Vital Signs: Last Vital Signs Temp 99 F 05/03/17 12:22 Pulse 83 05/03/17 13:26 Resp 18 05/03/17 12:22 BP 133/72 05/03/17 13:26 Pulse Ox 98 05/03/17 12:22 - Labs Result Diagrams: 05/03/17 10:55 05/02/17 10:39 Labs: Laboratory Results - last 24 hr 05/02/17 05/02/17 05/02/17 10:54 15:46 16:04 WBC RBC Hgb Hct MCV MCH MCHC RDW Plt Count POC Glucose (mg/dL) 91 199 H Phosphorus 8.7 H 05/02/17 05/03/17 05/03/17 21:16 05:27 10:55 WBC 18.9 H RBC 3.35 L Hgb 8.9 L Hct 29.4 L MCV 87.7 MCH 26.7 L MCHC 30.4 L RDW 18.0 H Plt Count 235 POC Glucose (mg/dL) 230 H 271 H Phosphorus 05/03/17 05/03/17 11:13 12:54 WBC RBC Hgb Hct MCV MCH MCHC RDW Plt Count POC Glucose (mg/dL) 62 L 100 Phosphorus Laboratory Results - last 72 hr 05/01/17 05/01/17 05/01/17 18:25 20:57 22:57 WBC 16.8 H RBC 3.92 L Hgb 10.5 L Hct 33.6 L MCV 85.7 MCH 26.8 L MCHC 31.3 L RDW 18.5 H Plt Count 282 MPV 8.9 Neut % (Auto) 86.8 H Lymph % (Auto) 7.2 L [place] % (Auto) 4.0 Eos % (Auto) 1.1 Baso % (Auto) 0.9 Neut # 14.6 H Lymph # 1.2 [place] # 0.7 Eos # 0.2 Baso # 0.1 Neutrophils % (Manual) 80 H Band Neutrophils % 4 H Lymphocytes % (Manual) 8 L Monocytes % (Manual) 5 Eosinophils % (Manual) 2 Basophils % (Manual) 1 Platelet Estimate Normal Hypochromasia (manual) Slight Poikilocytosis (manual Slight Anisocytosis (manual) Moderate Microcytosis (manual) Slight Ovalocytes Slight Yevgeniy Cells Slight Acanthocytes (Spur) Slight Sodium 141 Potassium 5.3 H Chloride 95 L Carbon Dioxide 27 Anion Gap 24 H BUN 42 H Creatinine 6.7 H Est GFR ( Amer) 11 Est GFR (Non-Af Amer) 9 POC Glucose (mg/dL) 319 H Random Glucose 306 H Calcium 8.7 Phosphorus Total Bilirubin 0.6 AST 26 ALT 32 Alkaline Phosphatase 150 H Total Protein 7.8 Albumin 4.1 Globulin 3.7 Albumin/Globulin Ratio 1.1 05/02/17 05/02/17 05/02/17 05:02 10:39 10:39 WBC 13.7 H RBC 3.47 L Hgb 9.2 L Hct 30.1 L MCV 86.6 MCH 26.4 L MCHC 30.5 L RDW 17.8 H Plt Count 243 MPV Neut % (Auto) Lymph % (Auto) [place] % (Auto) Eos % (Auto) Baso % (Auto) Neut # Lymph # [place] # Eos # Baso # Neutrophils % (Manual) Band Neutrophils % Lymphocytes % (Manual) Monocytes % (Manual) Eosinophils % (Manual) Basophils % (Manual) Platelet Estimate Hypochromasia (manual) Poikilocytosis (manual Anisocytosis (manual) Microcytosis (manual) Ovalocytes Porter Cells Acanthocytes (Spur) Sodium 137 Potassium 4.6 Chloride 95 L Carbon Dioxide 31 H Anion Gap 16 BUN 50 H Creatinine 7.0 H Est GFR ( Amer) 11 Est GFR (Non-Af Amer) 9 POC Glucose (mg/dL) 187 H Random Glucose 102 Calcium 8.0 L Phosphorus Total Bilirubin AST ALT Alkaline Phosphatase Total Protein Albumin Globulin Albumin/Globulin Ratio 05/02/17 05/02/17 05/02/17 10:54 15:46 16:04 WBC RBC Hgb Hct MCV MCH MCHC RDW Plt Count MPV Neut % (Auto) Lymph % (Auto) [place] % (Auto) Eos % (Auto) Baso % (Auto) Neut # Lymph # [place] # Eos # Baso # Neutrophils % (Manual) Band Neutrophils % Lymphocytes % (Manual) Monocytes % (Manual) Eosinophils % (Manual) Basophils % (Manual) Platelet Estimate Hypochromasia (manual) Poikilocytosis (manual Anisocytosis (manual) Microcytosis (manual) Ovalocytes Yevgeniy Cells Acanthocytes (Spur) Sodium Potassium Chloride Carbon Dioxide Anion Gap BUN Creatinine Est GFR ( Amer) Est GFR (Non-Af Amer) POC Glucose (mg/dL) 91 199 H Random Glucose Calcium Phosphorus 8.7 H Total Bilirubin AST ALT Alkaline Phosphatase Total Protein Albumin Globulin Albumin/Globulin Ratio 05/02/17 05/03/17 05/03/17 21:16 05:27 10:55 WBC 18.9 H RBC 3.35 L Hgb 8.9 L Hct 29.4 L MCV 87.7 MCH 26.7 L MCHC 30.4 L RDW 18.0 H Plt Count 235 MPV Neut % (Auto) Lymph % (Auto) [place] % (Auto) Eos % (Auto) Baso % (Auto) Neut # Lymph # [place] # Eos # Baso # Neutrophils % (Manual) Band Neutrophils % Lymphocytes % (Manual) Monocytes % (Manual) Eosinophils % (Manual) Basophils % (Manual) Platelet Estimate Hypochromasia (manual) Poikilocytosis (manual Anisocytosis (manual) Microcytosis (manual) Ovalocytes Yevgeniy Cells Acanthocytes (Spur) Sodium Potassium Chloride Carbon Dioxide Anion Gap BUN Creatinine Est GFR ( Amer) Est GFR (Non-Af Amer) POC Glucose (mg/dL) 230 H 271 H Random Glucose Calcium Phosphorus Total Bilirubin AST ALT Alkaline Phosphatase Total Protein Albumin Globulin Albumin/Globulin Ratio 05/03/17 05/03/17 05/03/17 11:13 12:54 15:43 WBC RBC Hgb Hct MCV MCH MCHC RDW Plt Count MPV Neut % (Auto) Lymph % (Auto) [place] % (Auto) Eos % (Auto) Baso % (Auto) Neut # Lymph # [place] # Eos # Baso # Neutrophils % (Manual) Band Neutrophils % Lymphocytes % (Manual) Monocytes % (Manual) Eosinophils % (Manual) Basophils % (Manual) Platelet Estimate Hypochromasia (manual) Poikilocytosis (manual Anisocytosis (manual) Microcytosis (manual) Ovalocytes Porter Cells Acanthocytes (Spur) Sodium Potassium Chloride Carbon Dioxide Anion Gap BUN Creatinine Est GFR ( Amer) Est GFR (Non-Af Amer) POC Glucose (mg/dL) 62 L 100 278 H Random Glucose Calcium Phosphorus Total Bilirubin AST ALT Alkaline Phosphatase Total Protein Albumin Globulin Albumin/Globulin Ratio Microbiology 05/02/17 12:31 Blood Blood Culture - Preliminary NO GROWTH AFTER 24 HOURS Accession No. : [id number] Patient Name / ID : TRACIE CORONA / [id number] Exam Date : 05/01/2017 19:07:46 ( Approved ) Study Comment : Sex / Age : M / 36Y Creator : MANDI CHERY Dictator : Vibration Analyst : Solution Spec : MANDI CHERY Approver2 : Report Date : 05/01/2017 20:13:00 My Comment : [employer] [facility] Division of Radiology [address] [place] [address] Tel. no. Patient Name: CHLOE HODGES Pt. Address: [address] [place] [address]. Rec #: [id number] [place] [address]: Nam Carrillo MD Pt Order Location: [facility] : 1980 Male Age: 36 Order #: [id number] Reason for exam: r/o kidney stone CT Scan ABD PELVIS W/O PO OR IV CONT Exam Date: 05/01/17 This imaging exam was performed at [facility] EXAM: CT Abdomen and Pelvis Without Intravenous Contrast CLINICAL HISTORY: 36 years old, male; Pain; Abdominal pain; Generalized; Additional info: R/O kidney stone TECHNIQUE: Axial computed tomography images of the abdomen and pelvis without intravenous contrast. All CT scans at this facility use one or more dose reduction techniques, viz.: automated exposure control; ma/kV adjustment per patient size (including targeted exams where dose is matched to indication; i.e. head); or iterative reconstruction technique. Coronal and sagittal reformatted images were created and reviewed. COMPARISON: CT - ABD PELVIS W/O PO OR IV CONT 2017-03-27 12:08 FINDINGS: Lower thorax: The bilateral lung bases are clear. ABDOMEN: Liver: The liver is enlarged and demonstrates diffuse fatty infiltration. Gallbladder and bile ducts: The gallbladder is minimally distended, without calcified stones. No intra-extrahepatic biliary ductal dilation. Pancreas: Limited evaluation secondary to the lack of intravenous contrast. Spleen: No acute findings. Adrenals: No acute findings. Kidneys and ureters: No obstructing stones. No hydronephrosis. PELVIS: Bladder: The bladder demonstrates thickened michaels, possibly related to underdistention. Reproductive: No acute findings. Appendix: Air-filled appendix is of normal caliber (series 3, image 113). ABDOMEN and PELVIS: Stomach and bowel: Aerated stool within the colon, with trace mural thickening, similar to prior examination. Peritoneum: No acute findings. Lymph nodes: Limited evaluation without intravenous contrast. Vasculature: No aortic aneurysm. Calcified atherosclerotic disease. Bones: No acute fracture. Stable T11 compression fracture. IMPRESSION: No acute intra-abdominal pathology. Multiple nonacute findings, as detailed above. Dictated By: Mandi Chery MD Dictated Date/Time: 05/01/172012 Signed By: Mandi Chery MD Date Signed: 2012 Transcribed By: YURI Transcribe Date/Time : 05/01/172012 EM/ANDRES Accession No. : [id number] Patient Name / ID : TRACIE CORONA / [id number] Exam Date : 05/02/2017 13:53:01 ( Approved ) Study Comment : Sex / Age : M / 36Y Creator : Sharath Couch MD Dictator : Sharath Couch MD Vibration Analyst : Solution Spec : Sharath Couch MD Approver2 : Report Date : 05/02/2017 14:43:25 My Comment : HISTORY: leukocytosis COMPARISON: Chest radiograph dated 04/25/2017 FINDINGS: LUNGS: No active pulmonary disease. PLEURA: No significant pleural effusion identified, no pneumothorax apparent. CARDIOVASCULAR: Normal. OSSEOUS STRUCTURES: No significant abnormalities. VISUALIZED UPPER ABDOMEN: Normal. OTHER FINDINGS: None. IMPRESSION: No active disease. Assessment & Plan (1) Gastroparesis due to DM Status: Acute (2) ESRD (end stage renal disease) on dialysis Status: Chronic (3) Abdominal discomfort Status: Acute (4) Cannabis abuse Status: Acute - Assessment and Plan (Free Text) Assessment: A/P- 36 year old male with ESRD on HD, DM II, HTN admitted with nausea and vomiting . pt. with multiple hospitalizations for same complaint found to have gastroparesis . based on past admission med records pt. has had leukocytosis on and off from past admissions as well and has had negative cultures and negative imaging results. etiology of leukocytoiss unclear at this time could be reactive or inflammatory in nature and perhaps secondary to Marijuana daily use as well. abd/pelvic Ct- negative as per report CXR- negative blood cx- neg x 1 Plan- check UA and urine culture. check blood cx. check TTE r/o IE. hold off on any IV abx at this time since there is no sign of infection, only leukocytosis. However advise to check chest CT or nuclear scan for better evaluation of leukocytosis. check procalcitonin. All above d/w patient and he verbalizes full understanding of all above. Thank you for allowing me to take part in the care of this patient.
--- NOTE | 2017-05-03 16:57 | CP.PCM.PN ---
Subjective - Date & Time of Evaluation Date of Evaluation: 05/03/17 Time of Evaluation: 16:57 - Subjective Subjective: renal follow up note please call us at [phone] if any qs. no events overnight PE: vss ao times 3 nad blind s1s2 present bilateral lungs equal abd soft NTND no edema normal affect A&P: ESRD/HTN/DM/anemia/Sec hyperpth/marijuana use hd mwf, continue per schedule lytes reviewed anemia stable continue binders, cinacalcet continue home bp meds Objective - Vital Signs/Intake and Output Vital Signs (last 24 hours): Temp Pulse Resp BP Pulse Ox 97.9 F 78 20 131/70 99 05/03/17 16:56 05/03/17 16:56 05/03/17 16:56 05/03/17 16:56 05/03/17 16:56 - Medications Medications: Current Medications Acetaminophen (Tylenol 325mg Tab) 650 mg PO Q6 PRN PRN Reason: Pain, Mild (1-3) Last Admin: 05/02/17 00:56 Dose: 650 mg Amlodipine Besylate (Norvasc) 10 mg PO DAILY [facility] Last Admin: 05/03/17 08:58 Dose: 10 mg Aspirin (Aspirin Chewable) 81 mg PO DAILY [facility] Last Admin: 05/03/17 08:58 Dose: 81 mg Cinacalcet (Sensipar) 30 mg PO DAILY [facility] Last Admin: 05/03/17 09:00 Dose: 30 mg Clonidine HCl (Catapres) 0.2 mg PO TID [facility] Last Admin: 05/03/17 16:00 Dose: 0.2 mg Dicyclomine HCl (Bentyl) 10 mg PO QID PRN PRN Reason: GI distress Last Admin: 05/03/17 08:56 Dose: 10 mg Famotidine (Pepcid) 20 mg PO BID [facility] Last Admin: 05/03/17 16:02 Dose: 20 mg Fluconazole (Diflucan) 100 mg PO DAILY [facility] PRN Reason: Protocol Last Admin: 05/03/17 08:57 Dose: 100 mg Gabapentin (Neurontin) 300 mg PO DAILY [facility] Last Admin: 05/03/17 08:58 Dose: 300 mg Hydralazine HCl (Apresoline) 25 mg PO Q6 [facility] Last Admin: 05/03/17 16:02 Dose: 25 mg Insulin Detemir (Levemir) 20 units SC HS [facility] Last Admin: 05/02/17 22:36 Dose: 20 units Insulin Human Lispro (Humalog) 5 units SC ACTID [facility] Last Admin: 05/03/17 16:03 Dose: 5 units Lisinopril (Zestril) 10 mg PO DAILY [facility] Last Admin: 05/03/17 08:55 Dose: 10 mg Metoclopramide HCl (Reglan) 10 mg IVP Q6 PRN PRN Reason: Nausea/Vomiting Last Admin: 05/02/17 05:24 Dose: 10 mg Metoprolol Tartrate (Lopressor) 50 mg PO Q12 [facility] Last Admin: 05/03/17 08:56 Dose: 50 mg Ondansetron HCl (Zofran Odt) 4 mg PO Q6 PRN PRN Reason: Nausea/Vomiting Last Admin: 05/03/17 08:56 Dose: 4 mg Pantoprazole Sodium (Protonix Ec Tab) 40 mg PO DAILY [facility] Last Admin: 05/03/17 08:55 Dose: 40 mg Polyethylene Glycol (Miralax) 17 gm PO BID [facility] Last Admin: 05/03/17 16:03 Dose: Not Given Sevelamer HCl (Renagel) 1,600 mg PO TID [facility] Last Admin: 05/03/17 16:00 Dose: 1,600 mg Vitamin B Complex/Vit C/Folic Acid (Nephro-Víctor) 1 tab PO 0800 [facility] Last Admin: 05/03/17 08:56 Dose: 1 tab - Labs Labs: 05/03/17 10:55 05/02/17 10:39
[2017-05-03] MEDS: Insulin Detemir 100 Units/ml Inj SC SCH (22:14)
[2017-05-04] MEDS: Insulin Lispro (humaLOG) 100 Units/ml Inj SC SCH ×3 (09:06→16:54)
[2017-05-04] MEDS: Multivitamin Vitamin B Complex (Nephro-Vite) Tab PO SCH (09:08)
[2017-05-04] MEDS: POLYETHYLENE GLYCOL 3350 17 GM/Dose PACKET PO SCH ×3 (09:08→16:49)
[2017-05-04] MEDS: Pantoprazole 40 mg EC Tab PO SCH (09:09)
[2017-05-04] MEDS ORDERED: Dextrose 50% SYRINGE Inj (50 ml) ONE (11:36)
[2017-05-04] MEDS ORDERED: Dextrose 50% SYRINGE Inj (50 ml) IVP ONE (12:45)
[2017-05-04] MEDS: Insulin Detemir 100 Units/ml Inj SC SCH (22:38)
[2017-05-05 07:03] LABS: BASO # 0.1 K/uL (0.0-0.2); BASO % 0.6 % (0.0-2.0); EOS # 0.6 K/uL (0.0-0.7); EOS % 4.2 % (0.0-4.0); HEMATOCRIT 28.2 % (35.0-51.0); LYMPH # 1.9 K/uL (1.0-4.3); LYMPH % 12.4 % (20.0-40.0); MEAN CELL VOLUME 88.9 fl (80.0-94.0); MEAN CORPUSCULAR HGB CONC 30.4 g/dL (33.0-37.0); MONO % 6.7 % (0.0-10.0); NEUT # 11.3 K/uL (1.8-7.0); NEUT % 76.1 % (50.0-75.0); NRBC % 0.1 % (0.0-0.0); RED CELL DISTRIBUTION WIDTH 18.2 % (11.5-14.5); WHITE BLOOD COUNT 14.9 K/uL (4.8-10.8)
--- NOTE | 2017-05-05 07:17 | PN ---
DATE: 05/04/2017 SUBJECTIVE: The patient is seen today on 05/04/2017. He is not in any cardiopulmonary distress. PHYSICAL EXAMINATION: VITAL SIGNS: Blood pressure 145/80, temperature 97.8, respiratory rate 18, and pulse 79. HEENT: Pupils equal, reactive to light. Normal-appearing mucosa of the conjunctivae, oropharyngeal, and nasal membrane mucosa. NECK: Supple. No JVD. No carotid bruit. No lymph node. No thyromegaly. CHEST AND LUNGS: Bilateral symmetrical expansion. Good air exchange. No rales. No rhonchi. CARDIOVASCULAR SYSTEM: PMI not localized. S1 and S2. No additional sounds. ABDOMEN: Normoactive bowel sounds. No tenderness. No organomegaly. No masses. EXTREMITIES: No cyanosis. No clubbing. No edema. CENTRAL NERVOUS SYSTEM: Alert, awake, oriented x2. No neurological deficits could be appreciated. ASSESSMENT: 1. Persistent nausea and vomiting secondary to gastroparesis, uncontrolled type 2 diabetes mellitus with hypoglycemic episode as blood sugar went down to 35 today. 2. End-stage renal disease, on hemodialysis. PLAN: Continue current medications and lower the dose of the Levemir, and continue both Reglan and Zofran as needed. Tal Mcgrath MD
--- NOTE | 2017-05-05 09:37 | HP ---
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 Patient has longstanding type 2 diabetes mellitus with multiple admissions to hospital for persistent nausea and vomiting secondary to gastroparesis. Patient presented to emergency room on the day of admission with the same symptoms of persistent nausea. The patient was treated in the emergency room with no improvement, subsequently he was admitted for further management. Patient also had CAT scan of the abdomen and pelvis done in the emergency room that showed no acute intra-abdominal pathology. REVIEW OF SYSTEM: Other review of system is negative. ALLERGIES: NO KNOWN ALLERGY. HOME MEDICATIONS: As per MAR. SOCIAL HISTORY: No history of smoking, EtOH or substance abuse. PAST MEDICAL HISTORY: Hypertension, type 2 diabetes mellitus, end-stage renal disease on hemodialysis. FAMILY HISTORY: Noncontributory. PHYSICAL EXAMINATION: GENERAL: Patient is in bed, not in any cardiopulmonary distress at the time of his examination, but he was nauseous in spite of many doses of Zofran. VITAL SIGNS: Blood pressure 153/84, temperature 98.4, respiratory rate 18 and pulse 79. HEENT: Pupils equal, reactive to light. Normal-appearing mucosa of the conjunctivae, oropharynx and nasal membrane mucosa. NECK: Supple. No JVD. No carotid bruit. No lymph node. No thyromegaly. CHEST AND LUNGS: Bilateral symmetrical expansion. Good air exchange. No rales, no rhonchi. CARDIOVASCULAR SYSTEM: PMI not localized. S1, S2. No additional sounds. ABDOMEN: Normoactive bowel sounds. No tenderness. No organomegaly. No masses. EXTREMITIES: No cyanosis, no clubbing, no edema. SENIOR ADVISORY: Alert, awake, oriented x2. No neurological deficit could be appreciated. ASSESSMENT: 1. Gastroparesis with persistent nausea and vomiting. 2. End-stage renal disease on hemodialysis. 3. Hypertension. 4. Type 2 diabetes mellitus. PLAN: Continue current medications and hemodialysis. Discussed patient's condition with Dr. Carter. Started patient on metoclopramide 5 mg IV push three times a day in addition to Zofran and his current medications. Repeat blood work. Tal Mcgrath MD
[2017-05-05] MEDS: Insulin Lispro (humaLOG) 100 Units/ml Inj SC SCH ×3 (09:52→18:01)
[2017-05-05] MEDS: POLYETHYLENE GLYCOL 3350 17 GM/Dose PACKET PO SCH ×2 (09:54→17:45)
[2017-05-05] MEDS: Multivitamin Vitamin B Complex (Nephro-Vite) Tab PO SCH (09:54)
[2017-05-05] MEDS: Pantoprazole 40 mg EC Tab PO SCH (09:56)
--- NOTE | 2017-05-05 10:49 | CP.PCM.PN ---
Subjective - Date & Time of Evaluation Date of Evaluation: 05/05/17 Time of Evaluation: 10:47 - Subjective Subjective: Patient aware consciousness not in any distress no nausea no vomiting. Patient appears to be happy with no abdominal pain. Patient appears to be feeling better and the symptoms disappeared when his stop smoking marijuana. No chest pain no shortness of breath Objective - Vital Signs/Intake and Output Vital Signs (last 24 hours): Temp Pulse Resp BP Pulse Ox 97.8 F 74 20 133/73 98 05/05/17 07:57 05/05/17 10:01 05/05/17 07:57 05/05/17 10:01 05/05/17 07:57 - Medications Medications: Current Medications Acetaminophen (Tylenol 325mg Tab) 650 mg PO Q6 PRN PRN Reason: Pain, Mild (1-3) Last Admin: 05/02/17 00:56 Dose: 650 mg Amlodipine Besylate (Norvasc) 10 mg PO DAILY [facility] Last Admin: 05/05/17 10:01 Dose: 10 mg Aspirin (Aspirin Chewable) 81 mg PO DAILY [facility] Last Admin: 05/05/17 09:52 Dose: 81 mg Cinacalcet (Sensipar) 30 mg PO DAILY [facility] Last Admin: 05/05/17 09:56 Dose: 30 mg Clonidine HCl (Catapres) 0.2 mg PO TID [facility] Last Admin: 05/05/17 09:57 Dose: 0.2 mg Dicyclomine HCl (Bentyl) 10 mg PO QID PRN PRN Reason: GI distress Last Admin: 05/04/17 23:11 Dose: 10 mg Famotidine (Pepcid) 20 mg PO BID [facility] Last Admin: 05/05/17 09:55 Dose: 20 mg Fluconazole (Diflucan) 100 mg PO DAILY [facility] PRN Reason: Protocol Last Admin: 05/05/17 09:52 Dose: 100 mg Gabapentin (Neurontin) 300 mg PO DAILY [facility] Last Admin: 05/05/17 09:54 Dose: 300 mg Hydralazine HCl (Apresoline) 25 mg PO Q6 [facility] Last Admin: 05/05/17 09:51 Dose: 25 mg Insulin Detemir (Levemir) 10 units SC HS [facility] Last Admin: 05/04/17 22:38 Dose: 10 unit Insulin Human Lispro (Humalog) 5 units SC ACTID [facility] Last Admin: 05/05/17 09:52 Dose: 5 units Lisinopril (Zestril) 10 mg PO DAILY [facility] Last Admin: 05/05/17 10:00 Dose: 10 mg Metoclopramide HCl (Reglan) 10 mg IVP Q6 PRN PRN Reason: Nausea/Vomiting Last Admin: 05/02/17 05:24 Dose: 10 mg Metoprolol Tartrate (Lopressor) 50 mg PO Q12 [facility] Last Admin: 05/05/17 09:54 Dose: 50 mg Ondansetron HCl (Zofran Odt) 4 mg PO Q6 PRN PRN Reason: Nausea/Vomiting Last Admin: 05/03/17 08:56 Dose: 4 mg Pantoprazole Sodium (Protonix Ec Tab) 40 mg PO DAILY [facility] Last Admin: 05/05/17 09:56 Dose: 40 mg Polyethylene Glycol (Miralax) 17 gm PO BID [facility] Last Admin: 05/05/17 09:54 Dose: Not Given Sevelamer HCl (Renagel) 2,400 mg PO TID [facility] Vitamin B Complex/Vit C/Folic Acid (Nephro-Víctor) 1 tab PO 0800 [facility] Last Admin: 05/05/17 09:54 Dose: 1 tab - Labs Labs: 05/05/17 06:00 05/02/17 10:39 - Constitutional Appears: No Acute Distress - ENT Exam ENT Exam: Mucous Membranes Moist - Respiratory Exam Respiratory Exam: NORMAL BREATHING PATTERN. absent: Chest Wall Tenderness, Rhonchi - Cardiovascular Exam Cardiovascular Exam: REGULAR RHYTHM. absent: Rubs - GI/Abdominal Exam GI & Abdominal Exam: Soft, Normal Bowel Sounds - Extremities Exam Extremities Exam: absent: Calf Tenderness - Back Exam Back Exam: absent: CVA tenderness (L), CVA tenderness (R) - Neurological Exam Neurological Exam: Alert - Psychiatric Exam Psychiatric exam: Normal Affect - Skin Skin Exam: absent: Cyanosis Assessment and Plan (1) Gastroparesis due to DM Status: Acute (2) ESRD (end stage renal disease) on dialysis Assessment & Plan: End stage renal disease patient scheduled to have dialysis shortly. Order was given ultrafiltration to be done today about 2000 mL to 2500 as tolerated Serum phosphorus high hyperphosphatemia patient receiving Renagel 2 tablets 3 times a day to be increased 3 tablets 3 times a day. Patient has secondary hyperparathyroidism as outpatient although the report is not back yet. Patient is still have leukocytosis about 14+ WBC , negative blood culture etiology not clear seen by ID. Anemia patient started on EPO we will increase the dose. hypertension, controlled sodium bath 138 bbicarbonate bath 34 Status: Chronic (3) Abdominal discomfort Status: Acute (4) Anemia Status: Acute
[2017-05-05] MEDS ORDERED: Epoetin Alfa 4000 UNIT/ML Inj IV ONE (10:58)
--- NOTE | 2017-05-05 12:23 | CP.PCM.PN ---
Subjective - Date & Time of Evaluation Date of Evaluation: 05/05/17 Time of Evaluation: 17:08 - Subjective Subjective: ID Note- Pt. seen and examined today . pt. denies any complaints and satte wants to go home. as per nurse pt. will get HD later on tonight. Objective - Vital Signs/Intake and Output Vital Signs (last 24 hours): Temp Pulse Resp BP Pulse Ox 97.8 F 74 20 133/73 98 05/05/17 07:57 05/05/17 10:01 05/05/17 07:57 05/05/17 10:01 05/05/17 07:57 - Medications Medications: Current Medications Acetaminophen (Tylenol 325mg Tab) 650 mg PO Q6 PRN PRN Reason: Pain, Mild (1-3) Last Admin: 05/02/17 00:56 Dose: 650 mg Amlodipine Besylate (Norvasc) 10 mg PO DAILY [facility] Last Admin: 05/05/17 10:01 Dose: 10 mg Aspirin (Aspirin Chewable) 81 mg PO DAILY [facility] Last Admin: 05/05/17 09:52 Dose: 81 mg Cinacalcet (Sensipar) 30 mg PO DAILY [facility] Last Admin: 05/05/17 09:56 Dose: 30 mg Clonidine HCl (Catapres) 0.2 mg PO TID [facility] Last Admin: 05/05/17 09:57 Dose: 0.2 mg Dicyclomine HCl (Bentyl) 10 mg PO QID PRN PRN Reason: GI distress Last Admin: 05/04/17 23:11 Dose: 10 mg Famotidine (Pepcid) 20 mg PO BID [facility] Last Admin: 05/05/17 09:55 Dose: 20 mg Fluconazole (Diflucan) 100 mg PO DAILY [facility] PRN Reason: Protocol Last Admin: 05/05/17 09:52 Dose: 100 mg Gabapentin (Neurontin) 300 mg PO DAILY [facility] Last Admin: 05/05/17 09:54 Dose: 300 mg Hydralazine HCl (Apresoline) 25 mg PO Q6 [facility] Last Admin: 05/05/17 09:51 Dose: 25 mg Insulin Detemir (Levemir) 10 units SC HS [facility] Last Admin: 05/04/17 22:38 Dose: 10 unit Insulin Human Lispro (Humalog) 5 units SC ACTID [facility] Last Admin: 05/05/17 09:52 Dose: 5 units Lisinopril (Zestril) 10 mg PO DAILY [facility] Last Admin: 05/05/17 10:00 Dose: 10 mg Metoclopramide HCl (Reglan) 10 mg IVP Q6 PRN PRN Reason: Nausea/Vomiting Last Admin: 05/02/17 05:24 Dose: 10 mg Metoprolol Tartrate (Lopressor) 50 mg PO Q12 [facility] Last Admin: 05/05/17 09:54 Dose: 50 mg Ondansetron HCl (Zofran Odt) 4 mg PO Q6 PRN PRN Reason: Nausea/Vomiting Last Admin: 05/03/17 08:56 Dose: 4 mg Pantoprazole Sodium (Protonix Ec Tab) 40 mg PO DAILY [facility] Last Admin: 05/05/17 09:56 Dose: 40 mg Polyethylene Glycol (Miralax) 17 gm PO BID [facility] Last Admin: 05/05/17 09:54 Dose: Not Given Sevelamer HCl (Renagel) 2,400 mg PO TID [facility] Vitamin B Complex/Vit C/Folic Acid (Nephro-Víctor) 1 tab PO 0800 [facility] Last Admin: 05/05/17 09:54 Dose: 1 tab - Labs Labs: - Additional Findings Additional findings: - Constitutional Appears: No Acute Distress, Chronically Ill - Head Exam Head Exam: ATRAUMATIC - ENT Exam ENT Exam: Normal Oropharynx - Neck Exam Neck exam: Positive for: Full Rom - Respiratory Exam Respiratory Exam: Clear to Auscultation Bilateral, NORMAL BREATHING PATTERN - Cardiovascular Exam Cardiovascular Exam: RRR, +S1, +S2 - GI/Abdominal Exam GI & Abdominal Exam: Normal Bowel Sounds, Soft Additional comments: NT, ND - Extremities Exam Additional comments: no edema B/L LE left arm AV shunt , no erythema, no tenderness - Neurological Exam Neurological exam: Alert, Oriented x 3 Laboratory Results - last 72 hr 05/02/17 05/02/17 05/03/17 16:04 21:16 05:27 WBC RBC Hgb Hct MCV MCH MCHC RDW Plt Count MPV Neut % (Auto) Lymph % (Auto) [place] % (Auto) Eos % (Auto) Baso % (Auto) Neut # Lymph # [place] # Eos # Baso # POC Glucose (mg/dL) 230 H 271 H PTH Intact Whole Molec 375 H 05/03/17 05/03/1705/03/17 10:55 11:13 12:54 WBC 18.9 H RBC 3.35 L Hgb 8.9 L Hct 29.4 L MCV 87.7 MCH 26.7 L MCHC 30.4 L RDW 18.0 H Plt Count 235 MPV Neut % (Auto) Lymph % (Auto) [place] % (Auto) Eos % (Auto) Baso % (Auto) Neut # Lymph # [place] # Eos # Baso # POC Glucose (mg/dL) 62 L 100 PTH Intact Whole Molec 05/03/17 05/03/17 05/04/17 15:43 21:48 06:23 WBC RBC Hgb Hct MCV MCH MCHC RDW Plt Count MPV Neut % (Auto) Lymph % (Auto) [place] % (Auto) Eos % (Auto) Baso % (Auto) Neut # Lymph # [place] # Eos # Baso # POC Glucose (mg/dL) 278 H 186 H 235 H PTH Intact Whole Molec 05/04/17 05/04/17 05/04/17 11:30 12:05 16:31 WBC RBC Hgb Hct MCV MCH MCHC RDW Plt Count MPV Neut % (Auto) Lymph % (Auto) [place] % (Auto) Eos % (Auto) Baso % (Auto) Neut # Lymph # [place] # Eos # Baso # POC Glucose (mg/dL) 35 L* 177 H 255 H PTH Intact Whole Molec 05/04/17 05/05/17 05/05/17 21:47 06:00 06:24 WBC 14.9 H RBC 3.18 L Hgb 8.6 L Hct 28.2 L MCV 88.9 MCH 27.0 MCHC 30.4 L RDW 18.2 H Plt Count 295 MPV 9.0 Neut % (Auto) 76.1 H Lymph % (Auto) 12.4 L [place] % (Auto) 6.7 Eos % (Auto) 4.2 H Baso % (Auto) 0.6 Neut # 11.3 H Lymph # 1.9 [place] # 1.0 H Eos # 0.6 Baso # 0.1 POC Glucose (mg/dL) 126 H 259 H PTH Intact Whole Molec 05/05/17 05/05/17 05/05/17 11:13 14:32 15:41 WBC RBC Hgb Hct MCV MCH MCHC RDW Plt Count MPV Neut % (Auto) Lymph % (Auto) [place] % (Auto) Eos % (Auto) Baso % (Auto) Neut # Lymph # [place] # Eos # Baso # POC Glucose (mg/dL) 187 H 41 L 100 PTH Intact Whole Molec Microbiology 05/02/17 12:31 Blood Blood Culture - Preliminary NO GROWTH AFTER 3 DAYS 05/03/17 02:00 Urine,Clean Catch Urine Culture - Final No Growth (<1,000 CFU/ML) Accession No. : [id number] Patient Name / ID : TRACIE CORONA / [id number] Exam Date : 05/05/2017 13:52:55 ( Approved ) Study Comment : Sex / Age : M / 36Y Creator : Moe Schofield MD Dictator : Moe Schofield MD Documentation Supervisor : Lining Closer : Moe Schofield MD Approver2 : Report Date : 05/05/2017 15:45:15 My Comment : PROCEDURE: CT Chest without contrast HISTORY: leukocytosis COMPARISON: None. TECHNIQUE: Contiguous axial images were obtained through the chest without intravenous contrast enhancement. Sagittal and coronal reconstructions were performed. Radiation dose (DLP): 505.27 mGy-cm. This CT exam was performed using one or more of the following dose reduction techniques: Automated exposure control, adjustment of the mA and/or kV according to patient size, and/or use of iterative reconstruction technique. FINDINGS: LUNGS: Clear lungs. Visualized airway clear. MEDIASTINUM: Unremarkable thoracic aorta. No aneurysm. Normal sized heart. Main pulmonary artery unremarkable. No vascular congestion. No lymphadenopathy. PLEURA: No pleural fluid. No pneumothorax. BONES: No fracture. No destructive lesion. UPPER ABDOMEN: Markedly distended stomach filled with fluid and debris. OTHER FINDINGS: Maza distal esophageal thickening suggests esophagitis without focal abnormality. IMPRESSION: No active pulmonary disease. No suspicious pulmonary nodules, masses or infiltrates. Additional benign and/or incidental findings described above. Assessment and Plan (1) Gastroparesis due to DM Status: Acute (2) ESRD (end stage renal disease) on dialysis Status: Chronic (3) Abdominal discomfort Status: Acute (4) Cannabis abuse Status: Acute - Assessment and Plan (Free Text) Assessment: A/P- 36 year old male with ESRD on HD, DM II, HTN admitted with nausea and vomiting . pt. with multiple hospitalizations for same complaint found to have gastroparesis . based on past admission med records pt. has had leukocytosis on and off from past admissions as well and has had negative cultures and negative imaging results. clinically stable leukocytosis etiology still unclear , perhaps reactive in nature, trending down cx all remain negative chest and abd ct - neg TTE- no mention of any vegetations as per report. Plan- no need ofr any abx at this time, low grade leukocytosis most likely reactive in nature.
[2017-05-05] MEDS ORDERED: Dextrose 50% SYRINGE Inj (50 ml) ONE (14:38)
[2017-05-05] MEDS ORDERED: Dextrose 50% SYRINGE Inj (50 ml) IVP ONE (14:44)
--- NOTE | 2017-05-05 15:47 | CARD ---
APPROVED REPORT EXAM: Two-dimensional and M-mode echocardiogram with Doppler and color Doppler. Other Information Quality : ExcellentRhythm : NSR INDICATION LV Function:SystolicDiastolic 2D DIMENSIONS IVSd1.32 (0.7-1.1cm)LVDd4.78 (3.9-5.9cm) LVOT Diameter1.90 (1.8-2.4cm)PWd1.42 (0.7-1.1cm) IVSs1.70 (0.8-1.2cm)LVDs3.14 (2.5-4.0cm) FS (%) 34.2 %PWs2.04 (0.8-1.2cm) M-Mode DIMENSIONS Left Atrium (MM)3.68 (2.5-4.0cm)IVSd1.29 (0.7-1.1cm) Aortic Root3.06 (2.2-3.7cm)LVDd5.04 (4.0-5.6cm) Aortic Cusp Exc.1.98 (1.5-2.0cm)PWd1.44 (0.7-1.1cm) IVSs1.93 cmFS (%) 37 % LVDs3.17 (2.0-3.8cm)PWs1.90 cm Mitral Valve MV E Crpjhakn062.7cm/sMV DECEL [id number] A Mwexdpyb17.7cm/s MV ACN69mzN/A ratio2.8MVA (PHT)4.47cm2 TDI Lateral E' Peak V10.35cm/sMedial E' Peak V9.45cm/sE/Lateral E'12.1 E/Medial E'13.3 Pulmonary Valve PV Peak Wigezjrs974.0cm/s Tricuspid Valve TR Peak Wvsciohf068jo/sRAP GLESZIOZ50yxDnEH Peak Gr.28mmHg CAPP44hpOx LEFT VENTRICLE The left ventricle is normal size. There is mild concentric left ventricular hypertrophy. Left ventricle systolic function is normal. The Ejection Fraction is - 65%. There is normal LV segmental wall motion. The left ventricular diastolic function is normal. No left ventricle thrombus noted on this study. There is no ventricular septal defect visualized. There is no left ventricular aneurysm. There is no mass noted in the left ventricle. RIGHT VENTRICLE The right ventricle is normal size. There is normal right ventricular wall thickness. The right ventricular systolic function is normal. ATRIA The left atrium is mildly dilated on the 2D study. The right atrium size is normal. The interatrial septum is intact with no evidence for an atrial septal defect. AORTIC VALVE The aortic valve is normal in structure. No aortic regurgitation is present. There is no aortic valvular stenosis. MITRAL VALVE The mitral valve is normal in structure. There is no evidence of mitral valve prolapse. There is no mitral valve stenosis. Mitral regurgitation is trace. TRICUSPID VALVE The tricuspid valve is normal in structure. There is trace tricuspid regurgitation. Right ventricular systolic pressure is estimated at 36 mmHg. There is no tricuspid valve prolapse or vegetation. There is no tricuspid valve stenosis. PULMONIC VALVE The pulmonary valve is normal in structure. There is at least mild pulmonic valvular regurgitation. GREAT VESSELS The aortic root is normal in size. The IVC was not visualized. PERICARDIAL EFFUSION The pericardium appears normal. There is no pleural effusion. <Conclusion> The left ventricle is normal size. There is mild concentric left ventricular hypertrophy. Left ventricle systolic function is normal. The Ejection Fraction is - 65%. The left atrium is mildly dilated on the 2D study. The mitral, aortic and tricuspid valves are normal. There is trace mitral regurgitation, trace tricuspid regurgitation and at least mild pulmonary regurgitation.
--- NOTE | 2017-05-05 15:48 | CT ---
PROCEDURE: CT Chest without contrast HISTORY: leukocytosis COMPARISON: None. TECHNIQUE: Contiguous axial images were obtained through the chest without intravenous contrast enhancement. Sagittal and coronal reconstructions were performed. Radiation dose (DLP): 505.27 mGy-cm. This CT exam was performed using one or more of the following dose reduction techniques: Automated exposure control, adjustment of the mA and/or kV according to patient size, and/or use of iterative reconstruction technique. FINDINGS: LUNGS: Clear lungs. Visualized airway clear. MEDIASTINUM: Unremarkable thoracic aorta. No aneurysm. Normal sized heart. Main pulmonary artery unremarkable. No vascular congestion. No lymphadenopathy. PLEURA: No pleural fluid. No pneumothorax. BONES: No fracture. No destructive lesion. UPPER ABDOMEN: Markedly distended stomach filled with fluid and debris. OTHER FINDINGS: Maza distal esophageal thickening suggests esophagitis without focal abnormality. IMPRESSION: No active pulmonary disease. No suspicious pulmonary nodules, masses or infiltrates. Additional benign and/or incidental findings described above.
[2017-05-05] MEDS: Insulin Detemir 100 Units/ml Inj SC SCH (22:13)
--- NOTE | 2017-05-05 23:02 | PN ---
DATE: 05/05/2017 SUBJECTIVE: Patient is seen today, 05/05/2017. He has less nausea and vomiting. Patient still has persistent leukocytosis with white blood cell count 14.9, hemoglobin 8.6. PHYSICAL EXAMINATION: VITAL SIGNS: Blood pressure is 126/72, temperature 97.8, respiratory rate 19, and pulse is 76. HEENT: Pupils equal, reactive to light. Normal-appearing mucosa of the conjunctivae, oropharynx, and nasal membrane mucosa. NECK: Supple. No JVD. No carotid bruit. No lymph node. No thyromegaly. CHEST AND LUNGS: Bilaterally symmetrical expansion. Good air exchange. No rales, no rhonchi. CARDIOVASCULAR SYSTEM: PMI not localized, S1, S2. No additional sounds. ABDOMEN: Normoactive bowel sounds. No tenderness. No organomegaly. No masses. EXTREMITIES: No cyanosis, no clubbing, no edema. CENTRAL NERVOUS SYSTEM: Alert, awake, oriented x2. No neurological deficit could be appreciated. ASSESSMENT: Persistent nausea and vomiting secondary to gastroparesis, leukocytosis likely reactive to substance abuse versus reactive to persistent vomiting and nausea. PLAN: Follow ID recommendations regarding looking for source of leukocytosis. Continue current medications. Patient is for hemodialysis today. Tal Mcgrath MD
[2017-05-06 06:08] LABS: HEMATOCRIT 28.6 % (35.0-51.0); MEAN CELL VOLUME 86.4 fl (80.0-94.0); MEAN CORPUSCULAR HEMOGLOBIN 27.2 pg (27.0-31.0); MEAN CORPUSCULAR HGB CONC 31.5 g/dL (33.0-37.0); RED CELL DISTRIBUTION WIDTH 18.2 % (11.5-14.5); WHITE BLOOD COUNT 16.8 K/uL (4.8-10.8)
[2017-05-06] MEDS: Multivitamin Vitamin B Complex (Nephro-Vite) Tab PO SCH (08:40)
[2017-05-06] MEDS: Pantoprazole 40 mg EC Tab PO SCH (08:41)
[2017-05-06] MEDS: POLYETHYLENE GLYCOL 3350 17 GM/Dose PACKET PO SCH ×2 (08:42→18:02)
[2017-05-06] MEDS: Insulin Lispro (humaLOG) 100 Units/ml Inj SC SCH ×3 (08:44→17:54)
--- NOTE | 2017-05-06 13:00 | CP.PCM.PN ---
Subjective - Date & Time of Evaluation Date of Evaluation: 05/06/17 Time of Evaluation: 12:58 - Subjective Subjective: Patient is up and around No nausea or vomiting Feeling much better Vital signs stable/. No chest pain or shortness of breath Objective - Vital Signs/Intake and Output Vital Signs (last 24 hours): Temp Pulse Resp BP Pulse Ox 98.2 F 96 H 18 152/79 H 96 05/06/17 09:00 05/06/17 11:35 05/06/17 09:00 05/06/17 11:35 05/06/17 09:00 - Medications Medications: Current Medications Acetaminophen (Tylenol 325mg Tab) 650 mg PO Q6 PRN PRN Reason: Pain, Mild (1-3) Last Admin: 05/02/17 00:56 Dose: 650 mg Amlodipine Besylate (Norvasc) 10 mg PO DAILY [facility] Last Admin: 05/06/17 08:40 Dose: 10 mg Aspirin (Aspirin Chewable) 81 mg PO DAILY [facility] Last Admin: 05/06/17 08:36 Dose: 81 mg Cinacalcet (Sensipar) 30 mg PO DAILY [facility] Last Admin: 05/06/17 09:28 Dose: 30 mg Clonidine HCl (Catapres) 0.2 mg PO TID [facility] Last Admin: 05/06/17 08:35 Dose: 0.2 mg Dicyclomine HCl (Bentyl) 10 mg PO QID PRN PRN Reason: GI distress Last Admin: 05/05/17 22:12 Dose: 10 mg Famotidine (Pepcid) 20 mg PO BID [facility] Last Admin: 05/06/17 08:41 Dose: 20 mg Fluconazole (Diflucan) 100 mg PO DAILY [facility] PRN Reason: Protocol Last Admin: 05/06/17 08:38 Dose: 100 mg Gabapentin (Neurontin) 300 mg PO DAILY [facility] Last Admin: 05/06/17 08:40 Dose: 300 mg Hydralazine HCl (Apresoline) 25 mg PO Q6 [facility] Last Admin: 05/06/17 09:25 Dose: 25 mg Insulin Detemir (Levemir) 10 units SC HS [facility] Last Admin: 05/05/17 22:13 Dose: 10 unit Insulin Human Lispro (Humalog) 5 units SC ACTID [facility] Last Admin: 05/06/17 08:44 Dose: 5 units Lisinopril (Zestril) 10 mg PO DAILY [facility] Last Admin: 05/06/17 09:29 Dose: 10 mg Metoclopramide HCl (Reglan) 10 mg IVP Q6 PRN PRN Reason: Nausea/Vomiting Last Admin: 05/02/17 05:24 Dose: 10 mg Metoprolol Tartrate (Lopressor) 50 mg PO Q12 [facility] Last Admin: 05/06/17 08:39 Dose: 50 mg Ondansetron HCl (Zofran Odt) 4 mg PO Q6 PRN PRN Reason: Nausea/Vomiting Last Admin: 05/03/17 08:56 Dose: 4 mg Pantoprazole Sodium (Protonix Ec Tab) 40 mg PO DAILY [facility] Last Admin: 05/06/17 08:41 Dose: 40 mg Polyethylene Glycol (Miralax) 17 gm PO BID [facility] Last Admin: 05/06/17 08:42 Dose: Not Given Sevelamer HCl (Renagel) 2,400 mg PO TID [facility] Last Admin: 05/06/17 09:27 Dose: 2,400 mg Vitamin B Complex/Vit C/Folic Acid (Nephro-Víctor) 1 tab PO 0800 [facility] Last Admin: 05/06/17 08:40 Dose: 1 tab - Labs Labs: 05/06/17 05:50 05/02/17 10:39 - Constitutional Appears: No Acute Distress - ENT Exam ENT Exam: Mucous Membranes Moist - Respiratory Exam Respiratory Exam: absent: Chest Wall Tenderness - Cardiovascular Exam Cardiovascular Exam: REGULAR RHYTHM. absent: Rubs - GI/Abdominal Exam GI & Abdominal Exam: Soft, Normal Bowel Sounds. absent: Distended - Rectal Exam Rectal Exam: absent: Black Stool - Extremities Exam Extremities Exam: absent: Calf Tenderness - Back Exam Back Exam: absent: CVA tenderness (L), CVA tenderness (R) - Neurological Exam Neurological Exam: Alert - Psychiatric Exam Psychiatric exam: Normal Affect - Skin Skin Exam: Intact. absent: Cyanosis Assessment and Plan (1) Gastroparesis due to DM Status: Acute (2) ESRD (end stage renal disease) on dialysis Assessment & Plan: Patient with end stage renal disease on maintenance hemodialysis MWF He completed hemodialysis later afternoon yesterday. Tolerated very well. Patient was admitted with low-grade fever which has disappeared. Patient admitted with leukocytosis and still in the range of 16,000 today. Without any apparent etiology He was seen by ID for leukocytosis. Other problem hypertension controllel Anemia receiving EPO. Gastroparesis appear to be better Diabetes mellitus receiving treatment as per primary team. Status: Chronic (3) Abdominal discomfort Status: Acute (4) Anemia Status: Acute
[2017-05-06] MEDS: Insulin Detemir 100 Units/ml Inj SC SCH (22:02)
--- NOTE | 2017-05-07 03:29 | PN ---
DATE: 05/06/2017 SUBJECTIVE: Patient is seen today, 05/06/2017. He has less abdominal pain and less vomiting, but the patient has significant leukocytosis of 16,800. No apparent source of infection. PHYSICAL EXAMINATION: VITAL SIGNS: Blood pressure is 161/85, temperature 98.8, respiratory rate 18, and pulse 82. HEENT: Pupils equal, reactive to light. Normal-appearing mucosa of the conjunctivae, oropharynx and nasal membrane mucosa. NECK: Supple. No JVD. No carotid bruit. No lymph node. No thyromegaly. CHEST AND LUNGS: Bilateral symmetrical expansion. Good air exchange. No rales, no rhonchi. CARDIOVASCULAR SYSTEM: PMI not localized. S1, S2. No additional sounds. ABDOMEN: Normoactive bowel sounds. No tenderness. No organomegaly. No masses. EXTREMITIES: No cyanosis, no clubbing, no edema. QUALITY IMPROVEMENT ANALYST: Alert, awake, oriented x2. No neurological deficit could be appreciated. ASSESSMENT: 1. Frequent vomiting and nausea secondary to diabetic gastroparesis. 2. End-stage renal disease with hemodialysis. PLAN: Discussed with Dr. Denise and she will order further evaluation for leukocytosis with no apparent infection. Tal Mcgrath MD
[2017-05-07 07:43] LABS: HEMATOCRIT 25.9 % (35.0-51.0); MEAN CELL VOLUME 87.9 fl (80.0-94.0); MEAN CORPUSCULAR HEMOGLOBIN 27.5 pg (27.0-31.0); MEAN CORPUSCULAR HGB CONC 31.2 g/dL (33.0-37.0); RED CELL DISTRIBUTION WIDTH 18.6 % (11.5-14.5); WHITE BLOOD COUNT 14.3 K/uL (4.8-10.8)
[2017-05-07] MEDS: Insulin Lispro (humaLOG) 100 Units/ml Inj SC SCH ×3 (08:30→17:13)
[2017-05-07] MEDS: Pantoprazole 40 mg EC Tab PO SCH (08:31)
[2017-05-07] MEDS: Multivitamin Vitamin B Complex (Nephro-Vite) Tab PO SCH (08:31)
[2017-05-07] MEDS ORDERED: Epoetin Alfa 20000 UNIT/ML (RENAL DOSE) SC ONE (09:03)
--- NOTE | 2017-05-07 10:37 | CP.PCM.PN ---
Subjective - Date & Time of Evaluation Date of Evaluation: 05/07/17 Time of Evaluation: 10:32 - Subjective Subjective: Dialysis note He was seen on hemodialysis patient is doing much better tolerating very well. I discussed the order with the dialysis nurse at the bedside No nausea no vomiting appetite is okay Sodium bath 138 Potassium bath 2 mEq Bicarbonate 34 Ultrafiltration 2500 mL Objective - Vital Signs/Intake and Output Vital Signs (last 24 hours): Temp Pulse Resp BP Pulse Ox 98.1 F 80 14 126/88 97 05/07/17 09:00 05/07/17 09:00 05/07/17 09:00 05/07/17 09:00 05/07/17 09:00 - Medications Medications: Current Medications Acetaminophen (Tylenol 325mg Tab) 650 mg PO Q6 PRN PRN Reason: Pain, Mild (1-3) Last Admin: 05/02/17 00:56 Dose: 650 mg Amlodipine Besylate (Norvasc) 10 mg PO DAILY [facility] Last Admin: 05/06/17 08:40 Dose: 10 mg Aspirin (Aspirin Chewable) 81 mg PO DAILY [facility] Last Admin: 05/07/17 08:31 Dose: 81 mg Cinacalcet (Sensipar) 30 mg PO DAILY [facility] Last Admin: 05/07/17 08:31 Dose: 30 mg Clonidine HCl (Catapres) 0.2 mg PO TID [facility] Last Admin: 05/06/17 17:54 Dose: 0.2 mg Dicyclomine HCl (Bentyl) 10 mg PO QID PRN PRN Reason: GI distress Last Admin: 05/05/17 22:12 Dose: 10 mg Famotidine (Pepcid) 20 mg PO BID [facility] Last Admin: 05/07/17 08:31 Dose: 20 mg Fluconazole (Diflucan) 100 mg PO DAILY [facility] PRN Reason: Protocol Last Admin: 05/07/17 08:31 Dose: 100 mg Gabapentin (Neurontin) 300 mg PO DAILY [facility] Last Admin: 05/07/17 08:31 Dose: 300 mg Hydralazine HCl (Apresoline) 25 mg PO Q6 [facility] Last Admin: 05/07/17 04:56 Dose: 25 mg Insulin Detemir (Levemir) 10 units SC HS [facility] Last Admin: 05/06/17 22:02 Dose: 10 unit Insulin Human Lispro (Humalog) 5 units SC ACTID [facility] Last Admin: 05/07/17 08:30 Dose: 5 units Lisinopril (Zestril) 10 mg PO DAILY [facility] Last Admin: 05/06/17 09:29 Dose: 10 mg Metoclopramide HCl (Reglan) 10 mg IVP Q6 PRN PRN Reason: Nausea/Vomiting Last Admin: 05/02/17 05:24 Dose: 10 mg Metoprolol Tartrate (Lopressor) 50 mg PO Q12 [facility] Last Admin: 05/06/17 22:01 Dose: 50 mg Ondansetron HCl (Zofran Odt) 4 mg PO Q6 PRN PRN Reason: Nausea/Vomiting Last Admin: 05/03/17 08:56 Dose: 4 mg Pantoprazole Sodium (Protonix Ec Tab) 40 mg PO DAILY [facility] Last Admin: 05/07/17 08:31 Dose: 40 mg Polyethylene Glycol (Miralax) 17 gm PO BID [facility] Last Admin: 05/06/17 18:02 Dose: Not Given Sevelamer HCl (Renagel) 2,400 mg PO TID [facility] Last Admin: 05/07/17 08:30 Dose: 2,400 mg Vitamin B Complex/Vit C/Folic Acid (Nephro-Vítcor) 1 tab PO 0800 [facility] Last Admin: 05/07/17 08:31 Dose: 1 tab - Labs Labs: 05/07/17 06:40 05/02/17 10:39 - Constitutional Appears: No Acute Distress - ENT Exam ENT Exam: Mucous Membranes Moist - Respiratory Exam Respiratory Exam: absent: Chest Wall Tenderness - Cardiovascular Exam Cardiovascular Exam: REGULAR RHYTHM. absent: JVD, Rubs - GI/Abdominal Exam GI & Abdominal Exam: Normal Bowel Sounds - Extremities Exam Extremities Exam: absent: Calf Tenderness - Back Exam Back Exam: absent: CVA tenderness (L), CVA tenderness (R) - Neurological Exam Neurological Exam: Alert - Psychiatric Exam Psychiatric exam: Normal Affect - Skin Skin Exam: absent: Cyanosis Assessment and Plan (1) Gastroparesis due to DM Status: Acute (2) ESRD (end stage renal disease) on dialysis Assessment & Plan: End stage renal disease patient receiving dialysis now. Leukocytosis ranging between 14,000-6000 etiology not clear. His goal for gallium scan. Diabetes mellitus being controlled as per primary team. Hypertension controlled. Hyperphosphatemia patient receiving binders Anemia increase EPO to 8000 unit Status: Chronic (3) Abdominal discomfort Status: Acute (4) Anemia Status: Acute
[2017-05-07 10:56] LABS: IRON 36 ug/dL (49-181)
--- NOTE | 2017-05-07 12:54 | CP.PCM.PN ---
Subjective - Date & Time of Evaluation Date of Evaluation: 05/07/17 Time of Evaluation: 12:54 - Subjective Subjective: ID note- Pt. seen and examined today. He denies any fever or chills. pt. just finished his HD session. denies any further nausea or vomiting. pt. apparently had small right plantar ulcer which months ago but is now dry and healed. Objective - Vital Signs/Intake and Output Vital Signs (last 24 hours): Temp Pulse Resp BP Pulse Ox 98.1 F 80 14 126/88 97 05/07/17 09:00 05/07/17 09:00 05/07/17 09:00 05/07/17 09:00 05/07/17 09:00 - Medications Medications: Current Medications Acetaminophen (Tylenol 325mg Tab) 650 mg PO Q6 PRN PRN Reason: Pain, Mild (1-3) Last Admin: 05/02/17 00:56 Dose: 650 mg Amlodipine Besylate (Norvasc) 10 mg PO DAILY [facility] Last Admin: 05/06/17 08:40 Dose: 10 mg Aspirin (Aspirin Chewable) 81 mg PO DAILY [facility] Last Admin: 05/07/17 08:31 Dose: 81 mg Cinacalcet (Sensipar) 30 mg PO DAILY [facility] Last Admin: 05/07/17 08:31 Dose: 30 mg Clonidine HCl (Catapres) 0.2 mg PO TID [facility] Last Admin: 05/06/17 17:54 Dose: 0.2 mg Dicyclomine HCl (Bentyl) 10 mg PO QID PRN PRN Reason: GI distress Last Admin: 05/05/17 22:12 Dose: 10 mg Famotidine (Pepcid) 20 mg PO BID [facility] Last Admin: 05/07/17 08:31 Dose: 20 mg Fluconazole (Diflucan) 100 mg PO DAILY [facility] PRN Reason: Protocol Last Admin: 05/07/17 08:31 Dose: 100 mg Gabapentin (Neurontin) 300 mg PO DAILY [facility] Last Admin: 05/07/17 08:31 Dose: 300 mg Hydralazine HCl (Apresoline) 25 mg PO Q6 [facility] Last Admin: 05/07/17 04:56 Dose: 25 mg Insulin Detemir (Levemir) 10 units SC [facility] Last Admin: 05/06/17 22:02 Dose: 10 unit Insulin Human Lispro (Humalog) 5 units SC ACTID [facility] Last Admin: 05/07/17 08:30 Dose: 5 units Lisinopril (Zestril) 10 mg PO DAILY [facility] Last Admin: 05/06/17 09:29 Dose: 10 mg Metoclopramide HCl (Reglan) 10 mg IVP Q6 PRN PRN Reason: Nausea/Vomiting Last Admin: 05/02/17 05:24 Dose: 10 mg Metoprolol Tartrate (Lopressor) 50 mg PO Q12 [facility] Last Admin: 05/06/17 22:01 Dose: 50 mg Ondansetron HCl (Zofran Odt) 4 mg PO Q6 PRN PRN Reason: Nausea/Vomiting Last Admin: 05/03/17 08:56 Dose: 4 mg Pantoprazole Sodium (Protonix Ec Tab) 40 mg PO DAILY [facility] Last Admin: 05/07/17 08:31 Dose: 40 mg Polyethylene Glycol (Miralax) 17 gm PO BID [facility] Last Admin: 05/06/17 18:02 Dose: Not Given Sevelamer HCl (Renagel) 2,400 mg PO TID [facility] Last Admin: 05/07/17 08:30 Dose: 2,400 mg Vitamin B Complex/Vit C/Folic Acid (Nephro-Víctor) 1 tab PO 0800 [facility] Last Admin: 05/07/17 08:31 Dose: 1 tab - Labs Labs: - Additional Findings Additional findings: - Constitutional Appears: No Acute Distress, Chronically Ill - Head Exam Head Exam: ATRAUMATIC - ENT Exam ENT Exam: Normal Oropharynx - Neck Exam Neck exam: Positive for: Full Rom - Respiratory Exam Respiratory Exam: Clear to Auscultation Bilateral, NORMAL BREATHING PATTERN - Cardiovascular Exam Cardiovascular Exam: RRR, +S1, +S2 - GI/Abdominal Exam GI & Abdominal Exam: Normal Bowel Sounds, Soft Additional comments: NT, ND - Extremities Exam Additional comments: no edema B/L LE left arm AV shunt , no erythema, no tenderness right plantar foot dry completely healed very small past ulcer - Neurological Exam Neurological exam: Alert, Oriented x 3 Laboratory Results - last 72 hr 05/02/17 05/04/17 05/04/17 16:04 16:31 21:47 WBC RBC Hgb Hct MCV MCH MCHC RDW Plt Count MPV Neut % (Auto) Lymph % (Auto) [place] % (Auto) Eos % (Auto) Baso % (Auto) Neut # Lymph # [place] # Eos # Baso # POC Glucose (mg/dL) 255 H 126 H Iron TIBC % Saturation Ferritin Vitamin B12 PTH Intact Whole Molec 375 H 05/05/17 05/05/17 05/05/17 06:00 06:24 11:13 WBC 14.9 H RBC 3.18 L Hgb 8.6 L Hct 28.2 L MCV 88.9 MCH 27.0 MCHC 30.4 L RDW 18.2 H Plt Count 295 MPV 9.0 Neut % (Auto) 76.1 H Lymph % (Auto) 12.4 L [place] % (Auto) 6.7 Eos % (Auto) 4.2 H Baso % (Auto) 0.6 Neut # 11.3 H Lymph # 1.9 [place] # 1.0 H Eos # 0.6 Baso # 0.1 POC Glucose (mg/dL) 259 H 187 H Iron TIBC % Saturation Ferritin Vitamin B12 PTH Intact Whole Molec 05/05/17 05/05/17 05/05/17 14:32 15:41 21:25 WBC RBC Hgb Hct MCV MCH MCHC RDW Plt Count MPV Neut % (Auto) Lymph % (Auto) [place] % (Auto) Eos % (Auto) Baso % (Auto) Neut # Lymph # [place] # Eos # Baso # POC Glucose (mg/dL) 41 L 100 285 H Iron TIBC % Saturation Ferritin Vitamin B12 PTH Intact Whole Molec 05/06/17 05/06/17 05/06/17 05:49 05:50 11:24 WBC 16.8 H RBC 3.32 L Hgb 9.0 L Hct 28.6 L MCV 86.4 D MCH 27.2 MCHC 31.5 L RDW 18.2 H Plt Count 301 MPV Neut % (Auto) Lymph % (Auto) [place] % (Auto) Eos % (Auto) Baso % (Auto) Neut # Lymph # [place] # Eos # Baso # POC Glucose (mg/dL) 187 H 97 Iron TIBC % Saturation Ferritin Vitamin B12 PTH Intact Whole Molec 05/06/17 05/06/17 05/07/17 15:54 21:02 05:19 WBC RBC Hgb Hct MCV MCH MCHC RDW Plt Count MPV Neut % (Auto) Lymph % (Auto) [place] % (Auto) Eos % (Auto) Baso % (Auto) Neut # Lymph # [place] # Eos # Baso # POC Glucose (mg/dL) 275 H 180 H 257 H Iron TIBC % Saturation Ferritin Vitamin B12 PTH Intact Whole [place]olec 05/07/17 05/07/17 05/07/17 06:40 10:32 10:32 WBC 14.3 H RBC 2.95 L Hgb 8.1 L Hct 25.9 L MCV 87.9 MCH 27.5 MCHC 31.2 L RDW 18.6 H Plt Count 316 MPV Neut % (Auto) Lymph % (Auto) [place] % (Auto) Eos % (Auto) Baso % (Auto) Neut # Lymph # [place] # Eos # Baso # POC Glucose (mg/dL) Iron 36 L TIBC 235 L % Saturation 15 L Ferritin 290.0 Vitamin B12 616 PTH Intact Whole [place]olec 05/07/17 11:37 WBC RBC Hgb Hct MCV MCH MCHC RDW Plt Count MPV Neut % (Auto) Lymph % (Auto) [place] % (Auto) Eos % (Auto) Baso % (Auto) Neut # Lymph # [place] # Eos # Baso # POC Glucose (mg/dL) 99 Iron TIBC % Saturation Ferritin Vitamin B12 PTH Intact Whole Molec Microbiology 05/02/17 12:31 Blood Blood Culture - Final NO GROWTH AFTER 5 DAYS 05/02/17 12:31 Blood Gram Stain - Final TEST NOT PERFORMED 05/03/17 02:00 Urine,Clean Catch Urine Culture - Final No Growth (<1,000 CFU/ML) Accession No. : [id number] Patient Name / ID : TRACIE CORONA / [id number] Exam Date : 05/05/2017 13:52:55 ( Approved ) Study Comment : Sex / Age : M / 36Y Creator : Moe Schofield MD Dictator : Moe Schofield MD Pinion And Wheel Truer : Metal Building Assembler : Moe Schofield MD Approver2 : Report Date : 05/05/2017 15:45:15 My Comment : PROCEDURE: CT Chest without contrast HISTORY: leukocytosis COMPARISON: None. TECHNIQUE: Contiguous axial images were obtained through the chest without intravenous contrast enhancement. Sagittal and coronal reconstructions were performed. Radiation dose (DLP): 505.27 mGy-cm. This CT exam was performed using one or more of the following dose reduction techniques: Automated exposure control, adjustment of the mA and/or kV according to patient size, and/or use of iterative reconstruction technique. FINDINGS: LUNGS: Clear lungs. Visualized airway clear. MEDIASTINUM: Unremarkable thoracic aorta. No aneurysm. Normal sized heart. Main pulmonary artery unremarkable. No vascular congestion. No lymphadenopathy. PLEURA: No pleural fluid. No pneumothorax. BONES: No fracture. No destructive lesion. UPPER ABDOMEN: Markedly distended stomach filled with fluid and debris. OTHER FINDINGS: [place] distal esophageal thickening suggests esophagitis without focal abnormality. IMPRESSION: No active pulmonary disease. No suspicious pulmonary nodules, masses or infiltrates. Additional benign and/or incidental findings described above. Assessment and Plan (1) Gastroparesis due to DM Status: Acute (2) ESRD (end stage renal disease) on dialysis Status: Chronic (3) Abdominal discomfort Status: Acute (4) Cannabis abuse Status: Acute - Assessment and Plan (Free Text) Assessment: A/P- 36 year old male with ESRD on HD, DM II, HTN admitted with nausea and vomiting . pt. with multiple hospitalizations for same complaint found to have gastroparesis . based on past admission med records pt. has had leukocytosis on and off from past admissions as well and has had negative cultures and negative imaging results. clinically stable leukocytosis etiology still unclear , perhaps reactive in nature, trending down all w/u so far for leukocytsois negative including cxr, chest Ct, abd/pelvic ct and TTE cx all remain negative chest and abd ct - neg TTE- no mention of any vegetations as per report. Plan- no need ofr any abx at this time, low grade leukocytosis most likely reactive in nature. await gallium scan result as part of the leukocytosis work up. if gallium scan negative then patient can be d/c home from ID standpoint but advise to f/u closely with his PCP for f/u of his wbc. also would advise heme evaluation for chronic leukocytosis as well. all above d/w patient and he verbalizes full understanding of all above and agrees with above plan of acre. all above also d/w at length.
[2017-05-07] MEDS: POLYETHYLENE GLYCOL 3350 17 GM/Dose PACKET PO SCH ×2 (13:24→17:15)
[2017-05-07 17:48] LABS: FOLATE 11.1 ng/mL
--- NOTE | 2017-05-07 21:57 | PN ---
DATE: 05/07/2017 SUBJECTIVE: He is little nauseous and he is tolerating food. The patient still has leukocytosis with white blood cell count 14.3, hemoglobin 8.1. A gallium scan is ordered by the infectious disease consultant [employer]. vice president [employer] (ex ). PHYSICAL EXAMINATION VITAL SIGNS: Blood pressure is 152/80, temperature 99.1, respiratory rate 12, and pulse 85. HEENT: Pupil equal, reactive to light. Normal-appearing mucosa of the conjunctivae, oropharyngeal, and nasal membrane mucosa. NECK: Supple. No JVD. No carotid bruit. No lymph node. No thyromegaly. CHEST AND LUNGS: Bilateral symmetrical expansion. Good air exchange. No rales. No rhonchi. CARDIOVASCULAR SYSTEM: PMI not localized. S1 and S2. No additional sounds. ABDOMEN: Normoactive bowel sounds. No tenderness. No organomegaly. No masses. EXTREMITIES: No cyanosis. No clubbing. No edema. CENTRAL NERVOUS SYSTEM: Alert, awake, oriented x3. No neurological deficits could be appreciated. ASSESSMENT: 1. Nausea and vomiting secondary to diabetic gastroparesis. 2. End-stage renal disease on hemodialysis. 3. Type 2 diabetes mellitus poorly controlled. 4. Leukocytosis with undetermined etiology. PLAN: The patient is for gallium scan. We will follow ID recommendations. Tal Mcgrath MD
[2017-05-07] MEDS: Insulin Detemir 100 Units/ml Inj SC SCH (22:18)
[2017-05-08 06:32] LABS: HEMATOCRIT 28.3 % (35.0-51.0); MEAN CELL VOLUME 88.8 fl (80.0-94.0); MEAN CORPUSCULAR HEMOGLOBIN 27.6 pg (27.0-31.0); MEAN CORPUSCULAR HGB CONC 31.1 g/dL (33.0-37.0); RED CELL DISTRIBUTION WIDTH 18.8 % (11.5-14.5); WHITE BLOOD COUNT 13.3 K/uL (4.8-10.8)
[2017-05-08 07:07] LABS: CALCIUM 7.9 mg/dL (8.4-10.2); POTASSIUM 5.3 MMOL/L (3.6-5.0)
[2017-05-08 08:34] VITALS: O2SAT 98
[2017-05-08] MEDS: Insulin Lispro (humaLOG) 100 Units/ml Inj SC SCH ×3 (08:59→16:49)
[2017-05-08] MEDS: Multivitamin Vitamin B Complex (Nephro-Vite) Tab PO SCH (09:01)
[2017-05-08] MEDS: POLYETHYLENE GLYCOL 3350 17 GM/Dose PACKET PO SCH ×3 (09:02→16:50)
[2017-05-08] MEDS: Pantoprazole 40 mg EC Tab PO SCH (09:03)
--- NOTE | 2017-05-08 11:04 | CP.PCM.PN ---
Subjective - Date & Time of Evaluation Date of Evaluation: 05/08/17 Time of Evaluation: 11:06 - Subjective Subjective: Patient is up and around. Appetite is okay No nausea no vomiting Chest pain no shortness of breath. Objective - Vital Signs/Intake and Output Vital Signs (last 24 hours): Temp Pulse Resp BP Pulse Ox 97.8 F 79 20 154/73 H 98 05/08/17 08:30 05/08/17 09:03 05/08/17 08:30 05/08/17 09:03 05/08/17 08:30 - Medications Medications: Current Medications Acetaminophen (Tylenol 325mg Tab) 650 mg PO Q6 PRN PRN Reason: Pain, Mild (1-3) Last Admin: 05/02/17 00:56 Dose: 650 mg Amlodipine Besylate (Norvasc) 10 mg PO DAILY [facility] Last Admin: 05/08/17 09:03 Dose: 10 mg Aspirin (Aspirin Chewable) 81 mg PO DAILY [facility] Last Admin: 05/08/17 09:03 Dose: 81 mg Cinacalcet (Sensipar) 30 mg PO DAILY [facility] Last Admin: 05/08/17 09:00 Dose: 30 mg Clonidine HCl (Catapres) 0.2 mg PO TID [facility] Last Admin: 05/08/17 09:01 Dose: 0.2 mg Dicyclomine HCl (Bentyl) 10 mg PO QID PRN PRN Reason: GI distress Last Admin: 05/08/17 08:59 Dose: 10 mg Famotidine (Pepcid) 20 mg PO BID [facility] Last Admin: 05/08/17 08:59 Dose: 20 mg Ferrous Sulfate (Feosol) 325 mg PO BID [facility] Last Admin: 05/08/17 08:59 Dose: 325 mg Gabapentin (Neurontin) 300 mg PO DAILY [facility] Last Admin: 05/08/17 09:03 Dose: 300 mg Hydralazine HCl (Apresoline) 25 mg PO Q6 [facility] Last Admin: 05/08/17 09:00 Dose: 25 mg Insulin Detemir (Levemir) 10 units SC HS [facility] Last Admin: 05/07/17 22:18 Dose: 10 unit Insulin Human Lispro (Humalog) 5 units SC ACTID [facility] Last Admin: 05/08/17 08:59 Dose: 5 units Lisinopril (Zestril) 10 mg PO DAILY [facility] Last Admin: 05/08/17 09:02 Dose: 10 mg Metoclopramide HCl (Reglan) 10 mg IVP Q6 PRN PRN Reason: Nausea/Vomiting Last Admin: 05/08/17 09:01 Dose: 10 mg Metoprolol Tartrate (Lopressor) 50 mg PO Q12 [facility] Last Admin: 05/08/17 09:03 Dose: 50 mg Ondansetron HCl (Zofran Odt) 4 mg PO Q6 PRN PRN Reason: Nausea/Vomiting Last Admin: 05/03/17 08:56 Dose: 4 mg Pantoprazole Sodium (Protonix Ec Tab) 40 mg PO DAILY [facility] Last Admin: 05/08/17 09:03 Dose: 40 mg Polyethylene Glycol (Miralax) 17 gm PO BID [facility] Last Admin: 05/08/17 09:17 Dose: Not Given Sevelamer HCl (Renagel) 2,400 mg PO TID [facility] Last Admin: 05/08/17 09:01 Dose: 2,400 mg Vitamin B Complex/Vit C/Folic Acid (Nephro-Víctor) 1 tab PO 0800 [facility] Last Admin: 05/08/17 09:01 Dose: 1 tab - Labs Labs: 05/08/17 05:30 05/08/17 05:30 - Constitutional Appears: No Acute Distress - ENT Exam ENT Exam: Mucous Membranes Moist - Respiratory Exam Respiratory Exam: NORMAL BREATHING PATTERN. absent: Chest Wall Tenderness - Cardiovascular Exam Cardiovascular Exam: REGULAR RHYTHM. absent: JVD, Rubs - GI/Abdominal Exam GI & Abdominal Exam: Soft, Normal Bowel Sounds - Extremities Exam Extremities Exam: absent: Calf Tenderness - Back Exam Back Exam: absent: CVA tenderness (L), CVA tenderness (R) - Neurological Exam Neurological Exam: Alert - Psychiatric Exam Psychiatric exam: Normal Affect Assessment and Plan (1) Gastroparesis due to DM Status: Acute (2) ESRD (end stage renal disease) on dialysis Assessment & Plan: Patient with end stage renal disease who is receiving dialysis MW. Patient completed dialysis yesterday. Leukocytosis appear to be trending down Gallium scan pending. Diabetes mellitus on medication has been PCP. Hypertension controlled Hyperphosphatemia on binders. Secondary hyperparathyroidism on Sensipar Anemia on EPO Status: Chronic (3) Abdominal discomfort Status: Acute (4) Anemia Status: Acute
[2017-05-08 16:18] VITALS: PULSE 76; RESP 18; TEMP 97.7
[2017-05-08 16:50] VITALS: BP 112/61
--- NOTE | 2017-05-08 23:19 | DS ---
REASON FOR ADMISSION: This is a 36 years old male with history of end-stage renal disease, on hemodialysis; hypertension; was admitted for persistent nausea and vomiting secondary to previously diagnosed diabetic gastroparesis. COURSE OF HOSPITALIZATION: The patient was admitted to medical floor and he was started with hemodialysis as per his cut off [employer]. The patient's symptoms of nausea and vomiting gradually improved and due to the patient's persistent leukocytosis, the patient had an ID consult and gallium scan was ordered. The patient did not want to stay until he finished gallium scan and he signed himself against medical advice. FINAL DIAGNOSES: 1. End-stage renal disease, on hemodialysis. 2. Persistent nausea and vomiting secondary to gastroparesis, hypertension, type 2 diabetes mellitus. [facility] MD Alcides
== END 2017-05-08 18:00 | disposition left against medical advice (07) | DRG 73 ==
LOC: H.ER 17:05 → H.ERHOLD 20:53 → H.TEL 22:28 → OBSVTOIN 05-03 12:03 → H.MEDSURG1 05-03 16:38
PROVIDERS: ADMIT Internal Medicine; ATTEND Internal Medicine
PROC: 5A1D70Z Performance of Urinary Filtration, Intermittent, Less than 6 Hours Per Day (ICD-10-PCS; principal; 2017-05-03)
DX: E11.43 Type 2 diabetes mellitus with diabetic autonomic (poly)neuropathy (principal); N18.6 End stage renal disease; I13.2 Hypertensive heart and chronic kidney disease with heart failure and with stage 5 chronic kidney disease, or end stage renal disease; E11.22 Type 2 diabetes mellitus with diabetic chronic kidney disease; E11.649 Type 2 diabetes mellitus with hypoglycemia without coma; N25.81 Secondary hyperparathyroidism of renal origin; E11.65 Type 2 diabetes mellitus with hyperglycemia; K31.84 Gastroparesis; I50.9 Heart failure, unspecified; Z99.2 Dependence on renal dialysis; E83.39 Other disorders of phosphorus metabolism; E78.00 Pure hypercholesterolemia, unspecified; K29.70 Gastritis, unspecified, without bleeding; F12.10 Cannabis abuse, uncomplicated; D72.829 Elevated white blood cell count, unspecified; D64.9 Anemia, unspecified; H54.8 Legal blindness, as defined in USA; Z87.891 Personal history of nicotine dependence

== ENCOUNTER 2017-05-16 13:37 | Inpatient (IN) | payer MEDICARE ==
[2017-05-16 13:37] VITALS: BMI 19.5
[2017-05-16] MEDS ORDERED: Sodium Chloride 0.9% 500 ML IV STA (14:13)
--- NOTE | 2017-05-16 14:13 | ED PDOC ---
HPI: Abdomen Time Seen by Provider: 05/16/17 13:42 Chief Complaint (Nursing): Abdominal Pain Chief Complaint (Provider): Abd pain History Per: Patient ( ) History/Exam Limitations: no limitations Onset/Duration Of Symptoms: Days (today) Location Of Pain/Discomfort: Diffuse Additional Complaint(s): Abd pain all over. Same as previous multiple episodes of gastroparesis. Nausea , nonbloody vomit. No diarrhea. No chest pain, dyspnea, weakness, headaches. Was getting dialysis and did not finish as he started vomiting. Given clonidine as bp was high. Past Medical History Reviewed: Nursing Documentation, Vital Signs Vital Signs: Last Vital Signs Temp 98.7 F 05/16/17 13:39 Pulse 103 H 05/16/17 13:39 Resp 18 05/16/17 13:39 BP 170/87 H 05/16/17 13:39 Pulse Ox 94 L 05/16/17 14:17 - Medical History PMH: Anemia (Pt denies), CHF, Diabetes (type I), Gastritis, HTN, Hypercholesterolemia, Peripheral Edema, End Stage Renal Disease, Chronic Kidney Disease Denies: HIV, Kidney Stones - Family History Family History: States: Unknown Family Hx, Diabetes, Hypertension - Immunization History Hx Tetanus Toxoid Vaccination: Yes Hx Influenza Vaccination: Yes Hx Pneumococcal Vaccination: Yes - Home Medications Home Medications: Ambulatory Orders Medication Instructions Recorded Aspirin [Aspirin Chewable] 81 mg PO DAILY #60 chew 04/07/17 Famotidine [Pepcid] 20 mg PO BID #60 tab 04/07/17 Gabapentin [Neurontin] 300 mg PO DAILY #60 cap 04/07/17 Insulin Aspart, Recombinant 5 - 20 unit SC ACTID 90 Days #10 04/07/17 [Novolog] vial Lisinopril [Zestril] 10 mg PO DAILY #60 tablet 04/07/17 Metoprolol Tartrate [Lopressor] 50 mg PO Q12 #60 tab 04/07/17 Ondansetron ODT [Zofran ODT] 4 mg PO Q6 PRN #30 odt 04/07/17 Pantoprazole Sodium [Protonix] 40 mg PO DAILY #30 tablet. 04/07/17 amLODIPine [Norvasc] 10 mg PO DAILY #30 tab 04/07/17 cloNIDine [Catapres] 0.2 mg PO TID #90 tab 04/07/17 Vitamin B Complex/Vit C/Folic 1 tab PO 0800 tab 04/22/17 [Nephro-Víctor] Dicyclomine [Bentyl] 10 mg PO QID PRN #60 cap 04/28/17 Polyethylene Glycol 3350 [Miralax] 17 gm PO BID #14 packet 04/28/17 hydrALAZINE [Apresoline] 25 mg PO Q6 #21 tab 04/28/17 Acetaminophen [Tylenol 325mg tab] 650 mg PO Q6 PRN tab 05/02/17 Cinacalcet [Sensipar] 30 mg PO DAILY #30 tab 05/06/17 Insulin Glargine, Recombina 10 unit SC HS #0 unit 05/06/17 [Lantus] Metoclopramide [Reglan] 10 mg PO Q8 #42 tab 05/06/17 Sevelamer [Renagel] 2,400 mg PO TID #90 tab 05/06/17 - Allergies Allergies/Adverse Reactions: Allergies Allergy/AdvReac Type Severity Reaction Status Date / Time No Known Allergies Allergy Verified 05/11/17 21:44 Review of Systems ROS Statement: Except As Marked, All Systems Reviewed And Found Negative Gastrointestinal: Positive for: Nausea, Vomiting, Abdominal Pain Physical Exam - Reviewed Nursing Documentation Reviewed: Yes Vital Signs Reviewed: Yes - Physical Exam Appears: Positive for: Non-toxic, No Acute Distress Head Exam: Positive for: ATRAUMATIC, NORMAL INSPECTION, NORMOCEPHALIC Skin: Positive for: Normal Color, Warm, DRY Eye Exam: Positive for: EOMI, Normal appearance, PERRL ENT: Positive for: Normal ENT Inspection Neck: Positive for: Normal, Painless ROM Cardiovascular/Chest: Positive for: Regular Rate, Rhythm Respiratory: Positive for: CNT, Normal Breath Sounds Gastrointestinal/Abdominal: Positive for: Bowel Sounds, Soft, Tenderness (mild diffuse) Back: Positive for: Normal Inspection. Negative for: L CVA Tenderness, R CVA Tenderness Extremity: Positive for: Normal ROM. Negative for: Tenderness, Pedal Edema Neurologic/Psych: Positive for: Alert, Oriented - Laboratory Results Result Diagrams: 05/16/17 14:19 05/16/17 14:19 Interpretation Of Abn Labs: 13.8 wbc - ECG O2 Sat by Pulse Oximetry: 94 - Progress ED Course And Treament: 1456: Stable. Spoke with Dr. Gupta. Will admit obs and give further orders when pt. reaches floor. Disposition - Clinical Impression Clinical Impression: Gastroparesis, Abdominal pain - Patient ED Disposition Is Patient to be Admitted: Yes Counseled Patient/Family Regarding: Studies Performed, Diagnosis - Disposition Disposition Time: 14:57 Condition: FAIR - Pt Status Changed To: Hospital Disposition Of: Observation - POA Present On Arrival: None
[2017-05-16 14:22] LABS: BASO # 0.1 K/uL (0.0-0.2); BASO % 0.9 % (0.0-2.0); EOS # 0.2 K/uL (0.0-0.7); EOS % 1.8 % (0.0-4.0); LYMPH # 0.9 K/uL (1.0-4.3); LYMPH % 6.5 % (20.0-40.0); MEAN CORPUSCULAR HEMOGLOBIN 26.8 pg (27.0-31.0); MEAN CORPUSCULAR HGB CONC 31.2 g/dL (33.0-37.0); MEAN PLATELET VOLUME 8.9 fl (7.2-11.7); MONO % 7.2 % (0.0-10.0); NEUT # 11.6 K/uL (1.8-7.0); NEUT % 83.6 % (50.0-75.0); PLATELET COUNT 320 K/uL (130-400); RED CELL DISTRIBUTION WIDTH 18.6 % (11.5-14.5); WHITE BLOOD COUNT 13.8 K/uL (4.8-10.8)
[2017-05-16 14:41] LABS: ALB/GLOB RATIO 1.1 (1.0-2.1); BILIRUBIN,TOTAL 0.7 mg/dl (0.2-1.3); CALCIUM 8.7 mg/dL (8.4-10.2); POTASSIUM 3.7 MMOL/L (3.6-5.0)
[2017-05-16 15:16] LABS: NEUTROPHIL 83 % (42-75); TOTAL CELLS COUNTED 100
[2017-05-16 15:19] LABS: LARGE PLATELETS PRESENT
--- NOTE | 2017-05-16 19:06 | CP.PCM.HP ---
History of Present Illness - History of Present Illness History of Present Illness: A 36 year old male with history of DM type 1, HTN, ESRD with hemodialysis came for diffuse abdominal pain and nausea and non-bloody, non-bilous vomiting again. It happened during a dialysis today and he could not finish a whole dialysis of 3 hours and 45 minutes due to vomiting. He has a history of diabetic gastoparesis and has a history of multiple admission here. His bowel movement is always loose. Denies chest pain or shortness of breath Present on Admission - Present on Admission Any Indicators Present on Admission: No History of DVT/PE: No History of Uncontrolled Diabetes: No Urinary Catheter: No Decubitus Ulcer Present: No Review of Systems - EENT Eyes: absent: Blurred Vision - Cardiovascular Cardiovascular: absent: Chest Pain, Orthopnea - Respiratory Respiratory: absent: Cough - Gastrointestinal Gastrointestinal: Abdominal Pain, Diarrhea, Nausea, Vomiting. absent: Constipation Past Patient History - Infectious Disease Hx of Infectious Diseases: None - Past Medical History & Family History Past Medical History?: Yes - Past Social History Smoking Status: Never Smoked - CARDIAC Hx Cardiac Disorders: Yes (htn,hld,chf) - PULMONARY Hx Respiratory Disorders: No - NEUROLOGICAL Hx Neurological Disorder: No - HEENT Hx HEENT Problems: Yes Hx Cataracts: Yes Other/Comment: cataract surgery asad eye 10 years ago - RENAL Hx Chronic Kidney Disease: Yes (dialysis MWF) - ENDOCRINE/METABOLIC Hx Endocrine Disorders: Yes (DM1) - HEMATOLOGICAL/ONCOLOGICAL Hx Blood Disorders: No - INTEGUMENTARY Hx Dermatological Problems: No - MUSCULOSKELETAL/RHEUMATOLOGICAL Hx Musculoskeletal Disorders: No Hx Falls: Yes - GASTROINTESTINAL Hx Gastritis: Yes - GENITOURINARY/GYNECOLOGICAL Hx Genitourinary Disorders: No - PSYCHIATRIC Hx Psychophysiologic Disorder: No Hx Substance Use: No - SURGICAL HISTORY Hx Surgeries: Yes Hx Cataract Extraction: Yes (bilateral) Hx Vascular Access Device: Yes Other/Comment: RT.PERMACATH INSERTION 04/17. LT.AV SHUNT CREATION 06/04/16. UNDESCENDED TESTES LT. REMOVED DURING CHILDHOOD - ANESTHESIA Hx Anesthesia: Yes Hx Anesthesia Reactions: No Hx Malignant Hyperthermia: No Meds Allergies/Adverse Reactions: Allergies Allergy/AdvReac Type Severity Reaction Status Date / Time No Known Allergies Allergy Verified 05/16/17 15:32 Physical Exam - Constitutional Appears: No Acute Distress - Neck Exam Neck exam: Positive for: Full Rom - Respiratory Exam Respiratory Exam: Clear to Auscultation Bilateral. absent: Rales, Wheezes - Cardiovascular Exam Cardiovascular Exam: REGULAR RHYTHM. absent: Systolic Murmur - GI/Abdominal Exam GI & Abdominal Exam: Normal Bowel Sounds, Soft, Tenderness (diffuse lower abdomen) Results - Vital Signs Recent Vital Signs: Last Vital Signs Temp 98.3 F 05/16/17 17:06 Pulse 89 05/16/17 17:20 Resp 18 05/16/17 17:20 BP 175/90 H 05/16/17 16:24 Pulse Ox 96 05/16/17 17:20 - Labs Result Diagrams: 05/16/17 14:19 05/16/17 14:19 Labs: Laboratory Results - last 24 hr 05/16/17 05/16/17 14:19 14:19 WBC 13.8 H RBC 4.07 L Hgb 10.9 L D Hct 35.0 MCV 86.0 D MCH 26.8 L MCHC 31.2 L RDW 18.6 H Plt Count 320 MPV 8.9 Neut % (Auto) 83.6 H Lymph % (Auto) 6.5 L Donley % (Auto) 7.2 Eos % (Auto) 1.8 Baso % (Auto) 0.9 Neut # 11.6 H Lymph # 0.9 L Donley # 1.0 H Eos # 0.2 Baso # 0.1 Neutrophils % (Manual) 83 H Band Neutrophils % 1 Lymphocytes % (Manual) 9 L Monocytes % (Manual) 7 Platelet Estimate Normal Large Platelets Present Poikilocytosis (manual Slight Anisocytosis (manual) Slight Microcytosis (manual) Slight Macrocytosis (manual) Slight Tear Drop Cells Slight Ovalocytes Slight Sodium 137 Potassium 3.7 Chloride 95 L Carbon Dioxide 28 Anion Gap 18 BUN 23 H Creatinine 5.2 H Est GFR ( Amer) 15 Est GFR (Non-Af Amer) 13 Random Glucose 189 H Calcium 8.7 Total Bilirubin 0.7 AST 22 ALT 33 Alkaline Phosphatase 168 H D Total Protein 8.0 Albumin 4.2 Globulin 3.8 Albumin/Globulin Ratio 1.1 Lipase 65 Assessment & Plan - Assessment and Plan (Free Text) Assessment: Diabetic gastroparesis abdominal pain R/O gastroenteriitis Plan: pain control GI consult reglan - Date & Time Date: 05/16/17 Time: 19:09
[2017-05-16] MEDS: Insulin Detemir 100 Units/ml Inj SC SCH (22:53)
[2017-05-16] MEDS: Insulin Lispro (humaLOG) 100 Units/ml Inj SC SCH (22:55)
[2017-05-17] MEDS: Insulin Lispro (humaLOG) 100 Units/ml Inj SC SCH ×4 (08:21→22:17)
[2017-05-17] MEDS: POLYETHYLENE GLYCOL 3350 17 GM/Dose PACKET PO SCH (09:13)
[2017-05-17] MEDS: Multivitamin Vitamin B Complex (Nephro-Vite) Tab PO SCH (09:19)
--- NOTE | 2017-05-17 11:38 | CP.PCM.CON ---
<Janel Browning - Last Filed: 05/17/17 11:32> History of Present Illness - History of Present Illness History of Present Illness: Gastroenterology Fellow/PGY5 Consult Note 36 year old male with history of Polysubstance abuse, Hypertension, Diabetes, and ESRD on HD MWF presenting with abdominal pain and vomiting. He notes feeling well for four days of every week with recurrent vomiting despite compliance to small, frequent meals and compliance to insulin therapy. Notes insurance does not cover medications and symptoms improve with Reglan received inpatient. Notes bowel movement of soft and/or watery stools every two days. Denies melena, hematochezia, or unintentional weight loss. Prior EGD 04/2017 showed LAGC esophagitis, H pylori negative gastritis, and medium sized hiatal hernia. Prior colonoscopy 01/2017 showed normal descending colon mucosa biopsy and moderate external/internal hemorrhoids. Family-denies colon cancer Social- cigarettes, marijuana, denies alcohol Surgery- Permcath 04/2016, L AV fistula 06/2016, L AV fistula revision 08/2016, L AV fistula balloon angioplasty 01/2017 Review of Systems - Review of Systems Review of Systems: 12-point review of systems negative except for as above Past Patient History - Infectious Disease Hx of Infectious Diseases: None - Past Medical History & Family History Past Medical History?: Yes - Past Social History Smoking Status: Never Smoked - CARDIAC Hx Cardiac Disorders: Yes (htn,hld,chf) - PULMONARY Hx Respiratory Disorders: No - NEUROLOGICAL Hx Neurological Disorder: No - HEENT Hx HEENT Problems: Yes Hx Cataracts: Yes Other/Comment: cataract surgery aasd eye 10 years ago - RENAL Hx Chronic Kidney Disease: Yes (dialysis MWF) - ENDOCRINE/METABOLIC Hx Endocrine Disorders: Yes (DM1) - HEMATOLOGICAL/ONCOLOGICAL Hx Blood Disorders: No - INTEGUMENTARY Hx Dermatological Problems: No - MUSCULOSKELETAL/RHEUMATOLOGICAL Hx Musculoskeletal Disorders: No Hx Falls: Yes - GASTROINTESTINAL Hx Gastritis: Yes - GENITOURINARY/GYNECOLOGICAL Hx Genitourinary Disorders: No - PSYCHIATRIC Hx Psychophysiologic Disorder: No Hx Substance Use: No - SURGICAL HISTORY Hx Surgeries: Yes Hx Cataract Extraction: Yes (bilateral) Hx Vascular Access Device: Yes Other/Comment: RT.PERMACATH INSERTION 04/17. LT.AV SHUNT CREATION 06/04/16. UNDESCENDED TESTES LT. REMOVED DURING CHILDHOOD - ANESTHESIA Hx Anesthesia: Yes Hx Anesthesia Reactions: No Hx Malignant Hyperthermia: No Meds Allergies/Adverse Reactions: Allergies Allergy/AdvReac Type Severity Reaction Status Date / Time No Known Allergies Allergy Verified 05/16/17 15:32 - Medications Medications: Current Medications Acetaminophen (Tylenol 325mg Tab) 650 mg PO Q6 PRN PRN Reason: Pain, Mild (1-3) Amlodipine Besylate (Norvasc) 10 mg PO DAILY [facility] Last Admin: 05/17/17 09:18 Dose: 10 mg Aspirin (Aspirin Chewable) 81 mg PO DAILY [facility] Last Admin: 05/17/17 09:19 Dose: 81 mg Cinacalcet (Sensipar) 30 mg PO DAILY [facility] Last Admin: 05/17/17 09:16 Dose: 30 mg Clonidine HCl (Catapres) 0.2 mg PO TID [facility] Last Admin: 05/17/17 09:17 Dose: 0.2 mg Dicyclomine HCl (Bentyl) 10 mg PO QID PRN PRN Reason: GI distress Gabapentin (Neurontin) 300 mg PO DAILY [facility] Last Admin: 05/17/17 09:20 Dose: 300 mg Hydralazine HCl (Apresoline) 25 mg PO Q6 [facility] Last Admin: 05/17/17 09:17 Dose: 25 mg Hydromorphone HCl (Dilaudid) 1 mg IVP Q6 PRN PRN Reason: Pain, severe (8-10) Last Admin: 05/17/17 09:34 Dose: 1 mg Insulin Detemir (Levemir) 10 units SC [facility] Last Admin: 05/16/17 22:53 Dose: 10 units Insulin Human Lispro (Humalog) 0 units SC [facility] PRN Reason: Protocol Last Admin: 05/17/17 08:21 Dose: Not Given Lisinopril (Zestril) 10 mg PO DAILY [facility] Last Admin: 05/17/17 09:19 Dose: 10 mg Metoclopramide HCl (Reglan) 10 mg PO Q8 [facility] Last Admin: 05/17/17 09:18 Dose: 10 mg Metoprolol Tartrate (Lopressor) 50 mg PO Q12 [facility] Last Admin: 05/17/17 09:16 Dose: 50 mg Ondansetron HCl (Zofran Inj) 4 mg IVP Q6 PRN PRN Reason: Nausea/Vomiting Last Admin: 05/17/17 09:35 Dose: 4 mg Polyethylene Glycol (Miralax) 17 gm PO DAILY [facility] Last Admin: 05/17/17 09:13 Dose: 17 gm Sevelamer HCl (Renagel) 2,400 mg PO TID [facility] Last Admin: 05/17/17 09:14 Dose: 2,400 mg Vitamin B Complex/Vit C/Folic Acid (Nephro-Víctor) 1 tab PO 0800 [facility] Last Admin: 05/17/17 09:19 Dose: 1 tab Physical Exam - Constitutional Appears: Non-toxic, No Acute Distress - Head Exam Head Exam: ATRAUMATIC, NORMOCEPHALIC - Eye Exam Eye Exam: EOMI, PERRL. absent: Scleral icterus Pupil Exam: PERRL. absent: Miosis, Mydriatic - ENT Exam ENT Exam: Mucous Membranes Moist, Normal Oropharynx - Neck Exam Neck exam: Positive for: Full Rom, Normal Inspection - Respiratory Exam Respiratory Exam: Clear to Auscultation Bilateral. absent: Rales, Rhonchi, Wheezes - Cardiovascular Exam Cardiovascular Exam: RRR, +S1, +S2. absent: Gallop, Rubs - GI/Abdominal Exam GI & Abdominal Exam: Normal Bowel Sounds, Soft, Tenderness. absent: Distended, Firm, Guarding, Organomegaly, Rebound, Rigid Additional comments: diffuse tenderness to palpation - Extremities Exam Extremities exam: Positive for: normal inspection. Negative for: pedal edema - Neurological Exam Neurological exam: Alert - Psychiatric Exam Psychiatric exam: Normal Affect, Normal Mood - Skin Skin Exam: Dry, Intact, Normal Color Results - Vital Signs Recent Vital Signs: Last Vital Signs Temp 97.9 F 05/17/17 07:58 Pulse 81 05/17/17 09:19 Resp 20 05/17/17 07:58 BP 169/84 H 05/17/17 09:19 Pulse Ox 97 05/17/17 07:58 - Labs Result Diagrams: 05/16/17 14:19 05/16/17 14:19 Labs: Laboratory Results - last 24 hr 05/16/17 05/16/17 05/16/17 14:19 14:19 22:15 WBC 13.8 H RBC 4.07 L Hgb 10.9 L D Hct 35.0 MCV 86.0 D MCH 26.8 L MCHC 31.2 L RDW 18.6 H Plt Count 320 MPV 8.9 Neut % (Auto) 83.6 H Lymph % (Auto) 6.5 L Lyman % (Auto) 7.2 Eos % (Auto) 1.8 Baso % (Auto) 0.9 Neut # 11.6 H Lymph # 0.9 L Lyman # 1.0 H Eos # 0.2 Baso # 0.1 Neutrophils % (Manual) 83 H Band Neutrophils % 1 Lymphocytes % (Manual) 9 L Monocytes % (Manual) 7 Platelet Estimate Normal Large Platelets Present Poikilocytosis (manual Slight Anisocytosis (manual) Slight Microcytosis (manual) Slight Macrocytosis (manual) Slight Tear Drop Cells Slight Ovalocytes Slight Sodium 137 Potassium 3.7 Chloride 95 L Carbon Dioxide 28 Anion Gap 18 BUN 23 H Creatinine 5.2 H Est GFR ( Amer) 15 Est GFR (Non-Af Amer) 13 POC Glucose (mg/dL) 272 H Random Glucose 189 H Calcium 8.7 Total Bilirubin 0.7 AST 22 ALT 33 Alkaline Phosphatase 168 H D Total Protein 8.0 Albumin 4.2 Globulin 3.8 Albumin/Globulin Ratio 1.1 Lipase 65 05/17/17 05/17/17 05:13 10:53 WBC RBC Hgb Hct MCV MCH MCHC RDW Plt Count MPV Neut % (Auto) Lymph % (Auto) Lyman % (Auto) Eos % (Auto) Baso % (Auto) Neut # Lymph # Lyman # Eos # Baso # Neutrophils % (Manual) Band Neutrophils % Lymphocytes % (Manual) Monocytes % (Manual) Platelet Estimate Large Platelets Poikilocytosis (manual Anisocytosis (manual) Microcytosis (manual) Macrocytosis (manual) Tear Drop Cells Ovalocytes Sodium Potassium Chloride Carbon Dioxide Anion Gap BUN Creatinine Est GFR ( Amer) Est GFR (Non-Af Amer) POC Glucose (mg/dL) 140 H 157 H Random Glucose Calcium Total Bilirubin AST ALT Alkaline Phosphatase Total Protein Albumin Globulin Albumin/Globulin Ratio Lipase Assessment & Plan - Assessment and Plan (Free Text) Assessment: 36 year old male with history of Polysubstance abuse, Hypertension, Diabetes, and ESRD on HD MWF presenting with abdominal pain and vomiting. Active treatment of diabetic gastroparesis and constipation. Prior EGD 04/2017 showed LAGC esophagitis, H pylori negative gastritis, and medium sized hiatal hernia. Prior colonoscopy 01/2017 showed normal descending colon mucosa biopsy and moderate external/internal hemorrhoids. Plan: >gastroparesis, possible cyclic vomiting, constipation >Prokinetic agent >04/26 A1c 8.9 >improve glycemic control >clear liquid diet, advance as tolerated small, frequent diabetic/low fat meals >abdominal U/S 05/12/17- no acute pathology >CT 04/2017- fecal retention >bowel regimen-Miralax daily >supportive care: antiemetics >counselled on marijuana daily use cessation >will follow clinical course <Panda Sumner - Last Filed: 05/17/17 15:21> Meds - Medications Medications: Current Medications Acetaminophen (Tylenol 325mg Tab) 650 mg PO Q6 PRN PRN Reason: Pain, Mild (1-3) Amlodipine Besylate (Norvasc) 10 mg PO DAILY [facility] Last Admin: 05/17/17 09:18 Dose: 10 mg Aspirin (Aspirin Chewable) 81 mg PO DAILY [facility] Last Admin: 05/17/17 09:19 Dose: 81 mg Cinacalcet (Sensipar) 30 mg PO DAILY [facility] Last Admin: 05/17/17 09:16 Dose: 30 mg Clonidine HCl (Catapres) 0.2 mg PO TID [facility] Last Admin: 05/17/17 12:37 Dose: 0.2 mg Dicyclomine HCl (Bentyl) 10 mg PO QID PRN PRN Reason: GI distress Gabapentin (Neurontin) 300 mg PO DAILY [facility] Last Admin: 05/17/17 09:20 Dose: 300 mg Hydralazine HCl (Apresoline) 25 mg PO Q6 [facility] Last Admin: 05/17/17 09:17 Dose: 25 mg Hydromorphone HCl (Dilaudid) 1 mg IVP Q6 PRN PRN Reason: Pain, severe (8-10) Last Admin: 05/17/17 09:34 Dose: 1 mg Insulin Detemir (Levemir) 10 units SC HS [facility] Last Admin: 05/16/17 22:53 Dose: 10 units Insulin Human Lispro (Humalog) 0 units SC [facility] PRN Reason: Protocol Last Admin: 05/17/17 12:36 Dose: 1 unit Lisinopril (Zestril) 10 mg PO DAILY [facility] Last Admin: 05/17/17 09:19 Dose: 10 mg Metoclopramide HCl (Reglan) 10 mg PO Q8 [facility] Last Admin: 05/17/17 09:18 Dose: 10 mg Metoprolol Tartrate (Lopressor) 50 mg PO Q12 [facility] Last Admin: 05/17/17 09:16 Dose: 50 mg Ondansetron HCl (Zofran Inj) 4 mg IVP Q6 PRN PRN Reason: Nausea/Vomiting Last Admin: 05/17/17 09:35 Dose: 4 mg Polyethylene Glycol (Miralax) 17 gm PO DAILY [facility] Last Admin: 05/17/17 09:13 Dose: 17 gm Sevelamer HCl (Renagel) 2,400 mg PO TID [facility] Last Admin: 05/17/17 12:37 Dose: 2,400 mg Vitamin B Complex/Vit C/Folic Acid (Nephro-Víctor) 1 tab PO 0800 [facility] Last Admin: 05/17/17 09:19 Dose: 1 tab Results - Vital Signs Recent Vital Signs: Last Vital Signs Temp 97.9 F 05/17/17 07:58 Pulse 78 05/17/17 12:37 Resp 20 05/17/17 07:58 BP 137/73 05/17/17 12:37 Pulse Ox 97 05/17/17 07:58 - Labs Result Diagrams: 05/16/17 14:19 05/16/17 14:19 Labs: Laboratory Results - last 24 hr 05/16/17 05/16/17 05/17/17 14:19 22:15 05:13 Neutrophils % (Manual) 83 H Band Neutrophils % 1 Lymphocytes % (Manual) 9 L Monocytes % (Manual) 7 Platelet Estimate Normal Large Platelets Present Poikilocytosis (manual Slight Anisocytosis (manual) Slight Microcytosis (manual) Slight Macrocytosis (manual) Slight Tear Drop Cells Slight Ovalocytes Slight POC Glucose (mg/dL) 272 H 140 H 05/17/17 10:53 Neutrophils % (Manual) Band Neutrophils % Lymphocytes % (Manual) Monocytes % (Manual) Platelet Estimate Large Platelets Poikilocytosis (manual Anisocytosis (manual) Microcytosis (manual) Macrocytosis (manual) Tear Drop Cells Ovalocytes POC Glucose (mg/dL) 157 H Attending/Attestation - Attestation I have personally seen and examined this patient.: Yes I have fully participated in the care of the patient.: Yes I have reviewed all pertinent clinical information: Yes Notes (Text): 05/17/17 15:19 36 year old male with h/o substance abuse, HTN, DMI, ESRD on HD, Gastroparesis a /w exacerbation. 1. Diabetic gastroparesis 2. Chronic constipation 3. Erosive esophagitis Plan: -supportive care -may give reglan 10 mg IV q6 -liquid diet and advance as tolerated to low fat small freq meals -recomend pPI BID -recommend miralax bid -avoid narcotics -optimize glycemic control
--- NOTE | 2017-05-17 13:27 | CP.PCM.CON ---
History of Present Illness - History of Present Illness History of Present Illness: Initial Nephrology Consultation Note Assessment: Stable recurrent nausea/vomitting, cyclic emesis syndrome, marijuana abuse, gastroparesis Diabetic chronic Kidney Disease (E11.22) Hypertensive Chronic Kidney Disease (I12.0) End stage renal disease (N18.6) dependence on hemodialysis (Z99.2) (MWF) via AVF Anemia (D64.9), Hyperphosphatemia (E83.39), Secondary Hyperparathyroidism (E21.1 ), HTN (I12.0) Plan: received most of his dialysis yesterday, labs ok today can plan on HD again on Friday per ususal schedule. Continue with Nephrocap 1 tab/day. Hb at goal Continue with phos binders BP reasonably controlled continue sensipar per primary re: recurrent n/v. dm: per primary Chief Complaint; nausea/vomiting Reason for consult; ESRD, HTN HPI: Pt is a 36 y/o M with hx of ESRD on hemodialysis (MWF) via AVF, chronic anemia, hyperphosphatemia, secondary hyperparathyroidism, Diabetes Mellitus, hypertension, recurrent nausea/vomiting and multiple hospitalization for same, came back with nausea/vomitting after recent discharge from [facility]. Having diffiulty w/ medications due to insurance related issues. Went to HD yesterday, finished most o the ftreatment. Trying lunch today, so far tolerating. ROS: a full detailed ros is negative except as above Physical Examination: General Appearance: Comfortable, in no acute respiratory distress, co-operative . Vitals reviewed and noted as below Head; Atraumatic, normocephalic ENT: no ulcers no thrush. Tongue is midline. Oropharynx: no rash or ulcers. EYES: Pupils are equal, round and reactive to light accommodation. Eye muscles and extraocular movement intact. Sclera is anicteric. Neck; supple no lymphadenopathy, no thyromegaly or bruit Lungs: Normal respiratory rate/effort. Breath sounds bilateral equal and clear Heart: Normal rate. s1s2 normal. No rub or gallop. Extremities: no edema. No varicose veins Neurological: Patient is alert, awake and oriented to person, place and time. No focal deficit. Strength bilateral appropriate and equal Skin: Warm and dry. Normal turgor. No rash. Palpitation: Normal elasticity for age Abdomen: Abdomen is soft. Bowel sounds +. There is mild epigastric abdominal tenderness, no guarding/rigidity or organomegaly Psych: normal insight and normal affect/mood MSK: no joint tenderness or swelling. Digits and nails normal, no deformity. : kidney or bladder not palpable. Access: AVF Labs/imaging reviewed. Past medical history, past surgical history, family history, social history, allergy reviewed and noted as below Family Hx: no hx of CKD. Non contributory Past Patient History - Infectious Disease Hx of Infectious Diseases: None - Past Medical History & Family History Past Medical History?: Yes - Past Social History Smoking Status: Never Smoked - CARDIAC Hx Cardiac Disorders: Yes (htn,hld,chf) - PULMONARY Hx Respiratory Disorders: No - NEUROLOGICAL Hx Neurological Disorder: No - HEENT Hx HEENT Problems: Yes Hx Cataracts: Yes Other/Comment: cataract surgery [facility] 10 years ago - RENAL Hx Chronic Kidney Disease: Yes (dialysis MWF) - ENDOCRINE/METABOLIC Hx Endocrine Disorders: Yes (DM1) - HEMATOLOGICAL/ONCOLOGICAL Hx Blood Disorders: No - INTEGUMENTARY Hx Dermatological Problems: No - MUSCULOSKELETAL/RHEUMATOLOGICAL Hx Musculoskeletal Disorders: No Hx Falls: Yes - GASTROINTESTINAL Hx Gastritis: Yes - GENITOURINARY/GYNECOLOGICAL Hx Genitourinary Disorders: No - PSYCHIATRIC Hx Psychophysiologic Disorder: No Hx Substance Use: No - SURGICAL HISTORY Hx Surgeries: Yes Hx Cataract Extraction: Yes (bilateral) Hx Vascular Access Device: Yes Other/Comment: RT.PERMACATH INSERTION 04/17. LT.AV SHUNT CREATION 06/04/16. UNDESCENDED TESTES LT. REMOVED DURING CHILDHOOD - ANESTHESIA Hx Anesthesia: Yes Hx Anesthesia Reactions: No Hx Malignant Hyperthermia: No Meds Allergies/Adverse Reactions: Allergies Allergy/AdvReac Type Severity Reaction Status Date / Time No Known Allergies Allergy Verified 05/16/17 15:32 - Medications Medications: Current Medications Acetaminophen (Tylenol 325mg Tab) 650 mg PO Q6 PRN PRN Reason: Pain, Mild (1-3) Amlodipine Besylate (Norvasc) 10 mg PO DAILY [facility] Last Admin: 05/17/17 09:18 Dose: 10 mg Aspirin (Aspirin Chewable) 81 mg PO DAILY [facility] Last Admin: 05/17/17 09:19 Dose: 81 mg Cinacalcet (Sensipar) 30 mg PO DAILY [facility] Last Admin: 05/17/17 09:16 Dose: 30 mg Clonidine HCl (Catapres) 0.2 mg PO TID [facility] Last Admin: 05/17/17 12:37 Dose: 0.2 mg Dicyclomine HCl (Bentyl) 10 mg PO QID PRN PRN Reason: GI distress Gabapentin (Neurontin) 300 mg PO DAILY [facility] Last Admin: 05/17/17 09:20 Dose: 300 mg Hydralazine HCl (Apresoline) 25 mg PO Q6 [facility] Last Admin: 05/17/17 09:17 Dose: 25 mg Hydromorphone HCl (Dilaudid) 1 mg IVP Q6 PRN PRN Reason: Pain, severe (8-10) Last Admin: 05/17/17 09:34 Dose: 1 mg Insulin Detemir (Levemir) 10 units SC HS [facility] Last Admin: 05/16/17 22:53 Dose: 10 units Insulin Human Lispro (Humalog) 0 units SC ACHS [facility] PRN Reason: Protocol Last Admin: 05/17/17 12:36 Dose: 1 unit Lisinopril (Zestril) 10 mg PO DAILY [facility] Last Admin: 05/17/17 09:19 Dose: 10 mg Metoclopramide HCl (Reglan) 10 mg PO Q8 [facility] Last Admin: 05/17/17 09:18 Dose: 10 mg Metoprolol Tartrate (Lopressor) 50 mg PO Q12 [facility] Last Admin: 05/17/17 09:16 Dose: 50 mg Ondansetron HCl (Zofran Inj) 4 mg IVP Q6 PRN PRN Reason: Nausea/Vomiting Last Admin: 05/17/17 09:35 Dose: 4 mg Polyethylene Glycol (Miralax) 17 gm PO DAILY [facility] Last Admin: 05/17/17 09:13 Dose: 17 gm Sevelamer HCl (Renagel) 2,400 mg PO TID [facility] Last Admin: 05/17/17 12:37 Dose: 2,400 mg Vitamin B Complex/Vit C/Folic Acid (Nephro-Víctor) 1 tab PO 0800 [facility] Last Admin: 05/17/17 09:19 Dose: 1 tab Results - Vital Signs Recent Vital Signs: Last Vital Signs Temp 97.9 F 05/17/17 07:58 Pulse 78 05/17/17 12:37 Resp 20 05/17/17 07:58 BP 137/73 05/17/17 12:37 Pulse Ox 97 05/17/17 07:58 - Labs Result Diagrams: 05/16/17 14:19 05/16/17 14:19 Labs: Laboratory Results - last 24 hr 05/16/17 05/16/17 05/16/17 14:19 14:19 22:15 WBC 13.8 H RBC 4.07 L Hgb 10.9 L D Hct 35.0 MCV 86.0 D MCH 26.8 L MCHC 31.2 L RDW 18.6 H Plt Count 320 MPV 8.9 Neut % (Auto) 83.6 H Lymph % (Auto) 6.5 L [place] % (Auto) 7.2 Eos % (Auto) 1.8 Baso % (Auto) 0.9 Neut # 11.6 H Lymph # 0.9 L [place] # 1.0 H Eos # 0.2 Baso # 0.1 Neutrophils % (Manual) 83 H Band Neutrophils % 1 Lymphocytes % (Manual) 9 L Monocytes % (Manual) 7 Platelet Estimate Normal Large Platelets Present Poikilocytosis (manual Slight Anisocytosis (manual) Slight Microcytosis (manual) Slight Macrocytosis (manual) Slight Tear Drop Cells Slight Ovalocytes Slight Sodium 137 Potassium 3.7 Chloride 95 L Carbon Dioxide 28 Anion Gap 18 BUN 23 H Creatinine 5.2 H Est GFR ( Amer) 15 Est GFR (Non-Af Amer) 13 POC Glucose (mg/dL) 272 H Random Glucose 189 H Calcium 8.7 Total Bilirubin 0.7 AST 22 ALT 33 Alkaline Phosphatase 168 H D Total Protein 8.0 Albumin 4.2 Globulin 3.8 Albumin/Globulin Ratio 1.1 Lipase 65 05/17/17 05/17/17 05:13 10:53 WBC RBC Hgb Hct MCV MCH MCHC RDW Plt Count MPV Neut % (Auto) Lymph % (Auto) [place] % (Auto) Eos % (Auto) Baso % (Auto) Neut # Lymph # [place] # Eos # Baso # Neutrophils % (Manual) Band Neutrophils % Lymphocytes % (Manual) Monocytes % (Manual) Platelet Estimate Large Platelets Poikilocytosis (manual Anisocytosis (manual) Microcytosis (manual) Macrocytosis (manual) Tear Drop Cells Ovalocytes Sodium Potassium Chloride Carbon Dioxide Anion Gap BUN Creatinine Est GFR ( Amer) Est GFR (Non-Af Amer) POC Glucose (mg/dL) 140 H 157 H Random Glucose Calcium Total Bilirubin AST ALT Alkaline Phosphatase Total Protein Albumin Globulin Albumin/Globulin Ratio Lipase
--- NOTE | 2017-05-17 17:06 | CP.PCM.PN ---
Subjective - Date & Time of Evaluation Date of Evaluation: 05/17/17 Time of Evaluation: 17:04 - Subjective Subjective: less abdominal pain less nausea and vomiting Objective - Vital Signs/Intake and Output Vital Signs (last 24 hours): Temp Pulse Resp BP Pulse Ox 97.9 F 78 20 137/73 97 05/17/17 07:58 05/17/17 12:37 05/17/17 07:58 05/17/17 12:37 05/17/17 07:58 - Medications Medications: Current Medications Acetaminophen (Tylenol 325mg Tab) 650 mg PO Q6 PRN PRN Reason: Pain, Mild (1-3) Amlodipine Besylate (Norvasc) 10 mg PO DAILY [facility] Last Admin: 05/17/17 09:18 Dose: 10 mg Aspirin (Aspirin Chewable) 81 mg PO DAILY [facility] Last Admin: 05/17/17 09:19 Dose: 81 mg Cinacalcet (Sensipar) 30 mg PO DAILY [facility] Last Admin: 05/17/17 09:16 Dose: 30 mg Clonidine HCl (Catapres) 0.2 mg PO TID [facility] Last Admin: 05/17/17 12:37 Dose: 0.2 mg Dicyclomine HCl (Bentyl) 10 mg PO QID PRN PRN Reason: GI distress Gabapentin (Neurontin) 300 mg PO DAILY [facility] Last Admin: 05/17/17 09:20 Dose: 300 mg Hydralazine HCl (Apresoline) 25 mg PO Q6 [facility] Last Admin: 05/17/17 09:17 Dose: 25 mg Hydromorphone HCl (Dilaudid) 1 mg IVP Q6 PRN PRN Reason: Pain, severe (8-10) Last Admin: 05/17/17 09:34 Dose: 1 mg Insulin Detemir (Levemir) 10 units SC HS [facility] Last Admin: 05/16/17 22:53 Dose: 10 units Insulin Human Lispro (Humalog) 0 units SC [facility] PRN Reason: Protocol Last Admin: 05/17/17 12:36 Dose: 1 unit Lisinopril (Zestril) 10 mg PO DAILY [facility] Last Admin: 05/17/17 09:19 Dose: 10 mg Metoclopramide HCl (Reglan) 10 mg PO Q8 [facility] Last Admin: 05/17/17 09:18 Dose: 10 mg Metoprolol Tartrate (Lopressor) 50 mg PO Q12 [facility] Last Admin: 05/17/17 09:16 Dose: 50 mg Ondansetron HCl (Zofran Inj) 4 mg IVP Q6 PRN PRN Reason: Nausea/Vomiting Last Admin: 05/17/17 09:35 Dose: 4 mg Polyethylene Glycol (Miralax) 17 gm PO DAILY [facility] Last Admin: 05/17/17 09:13 Dose: 17 gm Sevelamer HCl (Renagel) 2,400 mg PO TID [facility] Last Admin: 05/17/17 12:37 Dose: 2,400 mg Vitamin B Complex/Vit C/Folic Acid (Nephro-Víctor) 1 tab PO 0800 [facility] Last Admin: 05/17/17 09:19 Dose: 1 tab - Labs Labs: 05/16/17 14:19 05/16/17 14:19 - Constitutional Appears: No Acute Distress - Respiratory Exam Respiratory Exam: Clear to Ausculation Bilateral. absent: Rales, Wheezes - Cardiovascular Exam Cardiovascular Exam: REGULAR RHYTHM. absent: Murmur - GI/Abdominal Exam GI & Abdominal Exam: Soft, Tenderness (diffuse lower) Assessment and Plan - Assessment and Plan (Free Text) Assessment: diabetic gastroparesis ESRD on hemodialysis Plan: as per GI, as per Nephro iv reglan pain control diabetic care
[2017-05-17] MEDS: Insulin Detemir 100 Units/ml Inj SC SCH (22:18)
[2017-05-18] MEDS: Insulin Lispro (humaLOG) 100 Units/ml Inj SC SCH ×5 (06:43→23:09)
--- NOTE | 2017-05-18 08:09 | CP.PCM.PN ---
<Janel Browning - Last Filed: 05/18/17 08:06> Subjective - Date & Time of Evaluation Date of Evaluation: 05/18/17 Time of Evaluation: 08:06 - Subjective Subjective: Gastroenterology Fellow/PGY5 Progress Note Patient notes continued abdominal pain. Tolerated diet without vomiting yesterday. Notes one formed stool yesterday. A 12-point review of systems negative except for as above. Objective - Vital Signs/Intake and Output Vital Signs (last 24 hours): Temp Pulse Resp BP Pulse Ox 98.1 F 84 19 139/70 96 05/18/17 00:00 05/18/17 03:05 05/18/17 00:00 05/18/17 03:05 05/18/17 00:00 - Medications Medications: Current Medications Acetaminophen (Tylenol 325mg Tab) 650 mg PO Q6 PRN PRN Reason: Pain, Mild (1-3) Amlodipine Besylate (Norvasc) 10 mg PO DAILY [facility] Last Admin: 05/17/17 09:18 Dose: 10 mg Aspirin (Aspirin Chewable) 81 mg PO DAILY [facility] Last Admin: 05/17/17 09:19 Dose: 81 mg Cinacalcet (Sensipar) 30 mg PO DAILY [facility] Last Admin: 05/17/17 09:16 Dose: 30 mg Clonidine HCl (Catapres) 0.2 mg PO TID [facility] Last Admin: 05/17/17 17:10 Dose: 0.2 mg Dicyclomine HCl (Bentyl) 10 mg PO QID PRN PRN Reason: GI distress Gabapentin (Neurontin) 300 mg PO DAILY [facility] Last Admin: 05/17/17 09:20 Dose: 300 mg Hydralazine HCl (Apresoline) 25 mg PO Q6 [facility] Last Admin: 05/18/17 03:05 Dose: 25 mg Hydromorphone HCl (Dilaudid) 1 mg IVP Q6 PRN PRN Reason: Pain, severe (8-10) Last Admin: 05/18/17 05:42 Dose: 1 mg Insulin Detemir (Levemir) 10 units SC HS [facility] Last Admin: 05/17/17 22:18 Dose: 10 units Insulin Human Lispro (Humalog) [address] [facility] PRN Reason: Protocol Last Admin: 05/18/17 07:25 Dose: 1 unit Lisinopril (Zestril) 10 mg PO DAILY [facility] Last Admin: 05/17/17 09:19 Dose: 10 mg Metoclopramide HCl (Reglan) 10 mg PO Q8 [facility] Last Admin: 05/18/17 01:00 Dose: 10 mg Metoprolol Tartrate (Lopressor) 50 mg PO Q12 [facility] Last Admin: 05/17/17 22:16 Dose: 50 mg Ondansetron HCl (Zofran Inj) 4 mg IVP Q6 PRN PRN Reason: Nausea/Vomiting Last Admin: 05/18/17 05:43 Dose: 4 mg Polyethylene Glycol (Miralax) 17 gm PO DAILY [facility] Last Admin: 05/17/17 09:13 Dose: 17 gm Sevelamer HCl (Renagel) 2,400 mg PO TID [facility] Last Admin: 05/17/17 17:09 Dose: 2,400 mg Vitamin B Complex/Vit C/Folic Acid (Nephro-Víctor) 1 tab PO 0800 [facility] Last Admin: 05/17/17 09:19 Dose: 1 tab - Labs Labs: 05/16/17 14:19 05/16/17 14:19 - Constitutional Appears: Non-toxic, No Acute Distress - Head Exam Head Exam: ATRAUMATIC, NORMOCEPHALIC - Eye Exam Eye Exam: EOMI, PERRL Pupil Exam: PERRL. absent: Miosis, Mydriatic - ENT Exam ENT Exam: Mucous Membranes Moist, Normal Oropharynx - Neck Exam Neck Exam: Full ROM, Normal Inspection - Respiratory Exam Respiratory Exam: Clear to Ausculation Bilateral. absent: Rales, Rhonchi, Wheezes - Cardiovascular Exam Cardiovascular Exam: RRR, +S1, +S2. absent: Gallop, Rubs - GI/Abdominal Exam GI & Abdominal Exam: Soft, Tenderness, Normal Bowel Sounds. absent: Distended, Firm, Guarding, Rigid, Organomegaly, Rebound Additional comments: diffuse tenderness to palpation - Extremities Exam Extremities Exam: Normal Inspection. absent: Pedal Edema - Neurological Exam Neurological Exam: Alert, Awake - Psychiatric Exam Psychiatric exam: Normal Affect, Normal Mood - Skin Skin Exam: Dry, Intact, Normal Color, Warm Assessment and Plan - Assessment and Plan (Free Text) Assessment: 36 year old male with history of Polysubstance abuse, Hypertension, Diabetes, and ESRD on HD MWF presenting with abdominal pain and vomiting. Active treatment of diabetic gastroparesis and constipation. Prior EGD 04/2017 showed LAGC esophagitis, H pylori negative gastritis, and medium sized hiatal hernia. Prior colonoscopy 01/2017 showed normal descending colon mucosa biopsy and moderate external/internal hemorrhoids. Plan: >tolerating small, frequent diabetic/low fat meals >continue Reglan >improve glycemic control >continue Miralax daily >PPI BID >counselled on marijuana cessation <Panda Sumner - Last Filed: 05/18/17 11:08> Objective - Vital Signs/Intake and Output Vital Signs (last 24 hours): Temp Pulse Resp BP Pulse Ox 97.6 F 62 20 118/67 100 05/18/17 09:00 05/18/17 09:52 05/18/17 09:00 05/18/17 09:52 05/18/17 09:00 - Medications Medications: Current Medications Acetaminophen (Tylenol 325mg Tab) 650 mg PO Q6 PRN PRN Reason: Pain, Mild (1-3) Amlodipine Besylate (Norvasc) 10 mg PO DAILY [facility] Last Admin: 05/18/17 09:47 Dose: 10 mg Aspirin (Aspirin Chewable) 81 mg PO DAILY [facility] Last Admin: 05/18/17 09:44 Dose: 81 mg Cinacalcet (Sensipar) 30 mg PO DAILY [facility] Last Admin: 05/18/17 09:44 Dose: 30 mg Clonidine HCl (Catapres) 0.2 mg PO TID [facility] Last Admin: 05/18/17 09:46 Dose: 0.2 mg Dicyclomine HCl (Bentyl) 10 mg PO QID PRN PRN Reason: GI distress Last Admin: 05/18/17 10:01 Dose: 10 mg Gabapentin (Neurontin) 300 mg PO DAILY [facility] Last Admin: 05/18/17 09:46 Dose: 300 mg Hydralazine HCl (Apresoline) 25 mg PO Q6 [facility] Last Admin: 05/18/17 09:43 Dose: 25 mg Hydromorphone HCl (Dilaudid) 1 mg IVP Q6 PRN PRN Reason: Pain, severe (8-10) Last Admin: 05/18/17 05:42 Dose: 1 mg Insulin Detemir (Levemir) 10 units SC [facility] Last Admin: 05/17/17 22:18 Dose: 10 units Insulin Human Lispro (Humalog) 0 units SC ACHS [facility] PRN Reason: Protocol Last Admin: 05/18/17 07:25 Dose: 1 unit Lisinopril (Zestril) 10 mg PO DAILY [facility] Last Admin: 05/18/17 09:46 Dose: 10 mg Metoclopramide HCl (Reglan) 10 mg PO Q8 [facility] Last Admin: 05/18/17 09:49 Dose: 10 mg Metoprolol Tartrate (Lopressor) 50 mg PO Q12 [facility] Last Admin: 05/18/17 09:52 Dose: 50 mg Ondansetron HCl (Zofran Inj) 4 mg IVP Q6 PRN PRN Reason: Nausea/Vomiting Last Admin: 05/18/17 05:43 Dose: 4 mg Pantoprazole Sodium (Protonix Ec Tab) 40 mg PO BID [facility] Last Admin: 05/18/17 09:45 Dose: 40 mg Polyethylene Glycol (Miralax) 17 gm PO DAILY [facility] Last Admin: 05/18/17 09:48 Dose: 17 gm Sevelamer HCl (Renagel) 2,400 mg PO TID [facility] Last Admin: 05/18/17 09:44 Dose: 2,400 mg Vitamin B Complex/Vit C/Folic Acid (Nephro-Víctor) 1 tab PO 0800 [facility] Last Admin: 05/18/17 09:48 Dose: 1 tab - Labs Labs: 05/16/17 14:19 05/16/17 14:19 Attending/Attestation - Attestation I have personally seen and examined this patient.: Yes I have fully participated in the care of the patient.: Yes I have reviewed all pertinent clinical information, including history, physical exam and plan: Yes Notes (Text): 05/18/17 11:08 36 year old male with h/o substance abuse, HTN, DMI, ESRD on HD, Gastroparesis a /w exacerbation. 1. Diabetic gastroparesis 2. Chronic constipation 3. Erosive esophagitis Plan: -supportive care -continue reglan -llow fat small freq meals -recomend pPI BID -recommend miralax bid -avoid narcotics -optimize glycemic control
--- NOTE | 2017-05-18 09:32 | CP.PCM.PN ---
Subjective - Date & Time of Evaluation Date of Evaluation: 05/18/17 Time of Evaluation: 09:30 - Subjective Subjective: abdominal pain still vomiting once this morning Objective - Vital Signs/Intake and Output Vital Signs (last 24 hours): Temp Pulse Resp BP Pulse Ox 97.6 F 62 20 118/67 100 05/18/17 08:18 05/18/17 08:18 05/18/17 08:18 05/18/17 08:18 05/18/17 08:18 - Medications Medications: Current Medications Acetaminophen (Tylenol 325mg Tab) 650 mg PO Q6 PRN PRN Reason: Pain, Mild (1-3) Amlodipine Besylate (Norvasc) 10 mg PO DAILY [facility] Last Admin: 05/17/17 09:18 Dose: 10 mg Aspirin (Aspirin Chewable) 81 mg PO DAILY [facility] Last Admin: 05/17/17 09:19 Dose: 81 mg Cinacalcet (Sensipar) 30 mg PO DAILY [facility] Last Admin: 05/17/17 09:16 Dose: 30 mg Clonidine HCl (Catapres) 0.2 mg PO TID [facility] Last Admin: 05/17/17 17:10 Dose: 0.2 mg Dicyclomine HCl (Bentyl) 10 mg PO QID PRN PRN Reason: GI distress Gabapentin (Neurontin) 300 mg PO DAILY [facility] Last Admin: 05/17/17 09:20 Dose: 300 mg Hydralazine HCl (Apresoline) 25 mg PO Q6 [facility] Last Admin: 05/18/17 03:05 Dose: 25 mg Hydromorphone HCl (Dilaudid) 1 mg IVP Q6 PRN PRN Reason: Pain, severe (8-10) Last Admin: 05/18/17 05:42 Dose: 1 mg Insulin Detemir (Levemir) 10 units SC HS [facility] Last Admin: 05/17/17 22:18 Dose: 10 units Insulin Human Lispro (Humalog) 0 units SC [facility] PRN Reason: Protocol Last Admin: 05/18/17 07:25 Dose: 1 unit Lisinopril (Zestril) 10 mg PO DAILY [facility] Last Admin: 05/17/17 09:19 Dose: 10 mg Metoclopramide HCl (Reglan) 10 mg PO Q8 [facility] Last Admin: 05/18/17 01:00 Dose: 10 mg Metoprolol Tartrate (Lopressor) 50 mg PO Q12 [facility] Last Admin: 05/17/17 22:16 Dose: 50 mg Ondansetron HCl (Zofran Inj) 4 mg IVP Q6 PRN PRN Reason: Nausea/Vomiting Last Admin: 05/18/17 05:43 Dose: 4 mg Pantoprazole Sodium (Protonix Ec Tab) 40 mg PO BID [facility] Polyethylene Glycol (Miralax) 17 gm PO DAILY [facility] Last Admin: 05/17/17 09:13 Dose: 17 gm Sevelamer HCl (Renagel) 2,400 mg PO TID [facility] Last Admin: 05/17/17 17:09 Dose: 2,400 mg Vitamin B Complex/Vit C/Folic Acid (Nephro-Víctor) 1 tab PO 0800 [facility] Last Admin: 05/17/17 09:19 Dose: 1 tab - Labs Labs: 05/16/17 14:19 05/16/17 14:19 - Constitutional Appears: No Acute Distress - Respiratory Exam Respiratory Exam: Clear to Ausculation Bilateral. absent: Rales - Cardiovascular Exam Cardiovascular Exam: REGULAR RHYTHM. absent: Murmur - GI/Abdominal Exam GI & Abdominal Exam: Soft (and flat), Tenderness (diffuse lower) Assessment and Plan - Assessment and Plan (Free Text) Assessment: diabetic gastroparesis, DM type 1 ESRD on hemodialysis Plan: as per GI, continue iv Reglan no narcotics continue iv Reglan, diabetic care check A1c level tomorrow hemodialysis
[2017-05-18] MEDS: Pantoprazole 40 mg EC Tab PO SCH ×2 (09:45→17:15)
[2017-05-18] MEDS: POLYETHYLENE GLYCOL 3350 17 GM/Dose PACKET PO SCH (09:48)
[2017-05-18] MEDS: Multivitamin Vitamin B Complex (Nephro-Vite) Tab PO SCH (09:48)
[2017-05-18] MEDS: Insulin Detemir 100 Units/ml Inj SC SCH (23:09)
--- NOTE | 2017-05-19 07:14 | CP.PCM.PN ---
<Janel Browning - Last Filed: 05/19/17 15:57> Subjective - Date & Time of Evaluation Date of Evaluation: 05/19/17 Time of Evaluation: 07:12 - Subjective Subjective: Gastroenterology Fellow/PGY5 Progress Note Patient notes unchanged abdominal pain stating "the pills don't work as well as the IV pain meds." Tolerated diet without vomiting. Notes one episode of diarrhea yesterday. A 12-point review of systems negative except for as above. Objective - Vital Signs/Intake and Output Vital Signs (last 24 hours): Temp Pulse Resp BP Pulse Ox 98.4 F 82 18 160/80 H 99 05/19/17 01:00 05/19/17 04:20 05/19/17 01:00 05/19/17 04:20 05/19/17 01:00 - Medications Medications: Current Medications Acetaminophen (Tylenol 325mg Tab) 650 mg PO Q6 PRN PRN Reason: Pain, Mild (1-3) Amlodipine Besylate (Norvasc) 10 mg PO DAILY [facility] Last Admin: 05/18/17 09:47 Dose: 10 mg Aspirin (Aspirin Chewable) 81 mg PO DAILY [facility] Last Admin: 05/18/17 09:44 Dose: 81 mg Cinacalcet (Sensipar) 30 mg PO DAILY [facility] Last Admin: 05/18/17 09:44 Dose: 30 mg Clonidine HCl (Catapres) 0.2 mg PO TID [facility] Last Admin: 05/18/17 17:15 Dose: 0.2 mg Dicyclomine HCl (Bentyl) 10 mg PO QID PRN PRN Reason: GI distress Last Admin: 05/18/17 10:01 Dose: 10 mg Gabapentin (Neurontin) 300 mg PO DAILY [facility] Last Admin: 05/18/17 09:46 Dose: 300 mg Hydralazine HCl (Apresoline) 25 mg PO Q6 [facility] Last Admin: 05/19/17 04:20 Dose: 25 mg Hydromorphone HCl (Dilaudid) 1 mg IVP Q6 PRN PRN Reason: Pain, severe (8-10) Last Admin: 05/18/17 05:42 Dose: 1 mg Ibuprofen (Motrin Tab) 800 mg PO Q8 PRN PRN Reason: Pain, severe (8-10) Last Admin: 05/18/17 23:26 Dose: 800 mg Insulin Detemir (Levemir) 10 units SC HS [facility] Last Admin: 05/18/17 23:09 Dose: 10 units Insulin Human Lispro (Humalog) 0 units SC ACHS [facility] PRN Reason: Protocol Last Admin: 05/18/17 23:09 Dose: Not Given Lisinopril (Zestril) 10 mg PO DAILY [facility] Last Admin: 05/18/17 09:46 Dose: 10 mg Metoclopramide HCl (Reglan) 10 mg PO Q8 [facility] Last Admin: 05/19/17 01:29 Dose: 10 mg Metoprolol Tartrate (Lopressor) 50 mg PO Q12 [facility] Last Admin: 05/18/17 22:50 Dose: 50 mg Ondansetron HCl (Zofran Inj) 4 mg IVP Q6 PRN PRN Reason: Nausea/Vomiting Last Admin: 05/18/17 05:43 Dose: 4 mg Pantoprazole Sodium (Protonix Ec Tab) 40 mg PO BID [facility] Last Admin: 05/18/17 17:15 Dose: 40 mg Polyethylene Glycol (Miralax) 17 gm PO DAILY [facility] Last Admin: 05/18/17 09:48 Dose: 17 gm Sevelamer HCl (Renagel) 2,400 mg PO TID [facility] Last Admin: 05/18/17 17:13 Dose: 2,400 mg Vitamin B Complex/Vit C/Folic Acid (Nephro-Víctor) 1 tab PO 0800 [facility] Last Admin: 05/18/17 09:48 Dose: 1 tab - Labs Labs: 05/16/17 14:19 05/16/17 14:19 - Constitutional Appears: Non-toxic, No Acute Distress - Head Exam Head Exam: ATRAUMATIC, NORMOCEPHALIC - Eye Exam Eye Exam: EOMI, PERRL Pupil Exam: PERRL. absent: Miosis, Mydriatic - ENT Exam ENT Exam: Mucous Membranes Moist, Normal Oropharynx - Neck Exam Neck Exam: Full ROM, Normal Inspection - Respiratory Exam Respiratory Exam: Clear to Ausculation Bilateral. absent: Rales, Rhonchi, Wheezes - Cardiovascular Exam Cardiovascular Exam: RRR, +S1, +S2. absent: Gallop, Rubs - GI/Abdominal Exam GI & Abdominal Exam: Soft, Tenderness, Normal Bowel Sounds. absent: Distended, Firm, Guarding, Rigid, Organomegaly, Rebound Additional comments: diffuse tenderness to palpation - Extremities Exam Extremities Exam: Normal Inspection. absent: Pedal Edema - Neurological Exam Neurological Exam: Alert, Awake - Psychiatric Exam Psychiatric exam: Normal Affect, Normal Mood - Skin Skin Exam: Dry, Intact, Normal Color, Warm Assessment and Plan - Assessment and Plan (Free Text) Assessment: 36 year old male with history of Polysubstance abuse, Hypertension, Diabetes, and ESRD on HD MWF presenting with abdominal pain and vomiting. Active treatment of diabetic gastroparesis and constipation. Prior EGD 04/2017 showed LAGC esophagitis, H pylori negative gastritis, and medium sized hiatal hernia. Prior colonoscopy 01/2017 showed normal descending colon mucosa biopsy and moderate external/internal hemorrhoids. Plan: >tolerating diet >continue small, frequent diabetic/low fat meals >continue Reglan >improving bowel habit-continue Miralax daily >PPI BID >avoid narcotics >recommend social work evaluation for medication assistance with obtaining Reglan on discharge <Celeste Bermeo MD - Last Filed: 05/19/17 17:30> Objective - Vital Signs/Intake and Output Vital Signs (last 24 hours): Temp Pulse Resp BP Pulse Ox 98.4 F 77 20 168/86 H 97 05/19/17 17:04 05/19/17 17:16 05/19/17 17:04 05/19/17 17:16 05/19/17 17:04 - Medications Medications: Current Medications Acetaminophen (Tylenol 325mg Tab) 650 mg PO Q6 PRN PRN Reason: Pain, Mild (1-3) Amlodipine Besylate (Norvasc) 10 mg PO DAILY [facility] Last Admin: 05/19/17 09:14 Dose: 10 mg Aspirin (Aspirin Chewable) 81 mg PO DAILY [facility] Last Admin: 05/19/17 09:08 Dose: 81 mg Cinacalcet (Sensipar) 30 mg PO DAILY [facility] Last Admin: 05/19/17 09:15 Dose: 30 mg Clonidine HCl (Catapres) 0.2 mg PO TID [facility] Last Admin: 05/19/17 17:15 Dose: 0.2 mg Dicyclomine HCl (Bentyl) 10 mg PO QID PRN PRN Reason: GI distress Last Admin: 05/19/17 09:19 Dose: 10 mg Gabapentin (Neurontin) 300 mg PO DAILY [facility] Last Admin: 05/19/17 09:13 Dose: 300 mg Hydralazine HCl (Apresoline) 25 mg PO Q6 [facility] Last Admin: 05/19/17 17:16 Dose: 25 mg Hydromorphone HCl (Dilaudid) 1 mg IVP Q6 PRN PRN Reason: Pain, severe (8-10) Last Admin: 05/18/17 05:42 Dose: 1 mg Ibuprofen (Motrin Tab) 800 mg PO Q8 PRN PRN Reason: Pain, severe (8-10) Last Admin: 05/18/17 23:26 Dose: 800 mg Insulin Detemir (Levemir) 10 units SC HS [facility] Last Admin: 05/18/17 23:09 Dose: 10 units Insulin Human Lispro (Humalog) 0 units SC ACHS [facility] PRN Reason: Protocol Last Admin: 05/19/17 17:17 Dose: 2 unit Lisinopril (Zestril) 10 mg PO DAILY [facility] Last Admin: 05/19/17 09:23 Dose: 10 mg Metoclopramide HCl (Reglan) 10 mg PO Q8 [facility] Last Admin: 05/19/17 17:15 Dose: 10 mg Metoprolol Tartrate (Lopressor) 50 mg PO Q12 [facility] Last Admin: 05/19/17 09:12 Dose: 50 mg Ondansetron HCl (Zofran Inj) 4 mg IVP Q6 PRN PRN Reason: Nausea/Vomiting Last Admin: 05/18/17 05:43 Dose: 4 mg Pantoprazole Sodium (Protonix Ec Tab) 40 mg PO BID [facility] Last Admin: 05/19/17 17:16 Dose: 40 mg Polyethylene Glycol (Miralax) 17 gm PO DAILY [facility] Last Admin: 05/19/17 09:20 Dose: 17 gm Sevelamer HCl (Renagel) 2,400 mg PO TID [facility] Last Admin: 05/19/17 17:16 Dose: 2,400 mg Vitamin B Complex/Vit C/Folic Acid (Nephro-Víctor) 1 tab PO 0800 [facility] Last Admin: 05/19/17 09:13 Dose: 1 tab - Labs Labs: 05/19/17 14:25 05/19/17 14:25 Attending/Attestation - Attestation I have personally seen and examined this patient.: Yes I have fully participated in the care of the patient.: Yes I have reviewed all pertinent clinical information, including history, physical exam and plan: Yes Notes (Text): 05/19/17 17:20 36 year old male with h/o substance abuse, HTN, DMI, ESRD on HD, Gastroparesis a /w exacerbation. On reglan eating solid food today and symptoms have resolved. Small frequent meals with low fat and low fiber. Recommend avoiding pain medications and continue laxatives for chronic constipation
[2017-05-19] MEDS: Pantoprazole 40 mg EC Tab PO SCH ×2 (09:08→17:16)
[2017-05-19] MEDS: Insulin Lispro (humaLOG) 100 Units/ml Inj SC SCH ×3 (09:09→17:17)
[2017-05-19] MEDS: Multivitamin Vitamin B Complex (Nephro-Vite) Tab PO SCH (09:13)
[2017-05-19] MEDS: POLYETHYLENE GLYCOL 3350 17 GM/Dose PACKET PO SCH (09:20)
--- NOTE | 2017-05-19 09:54 | CP.PCM.PN ---
Subjective - Date & Time of Evaluation Date of Evaluation: 05/19/17 Time of Evaluation: 09:52 - Subjective Subjective: Position in bed appeared to be more comfortable Intermittent nausea Vital sign noted No chest pain shortness of breath Objective - Vital Signs/Intake and Output Vital Signs (last 24 hours): Temp Pulse Resp BP Pulse Ox 97.1 F L 74 20 163/82 H 98 05/19/17 07:37 05/19/17 09:23 05/19/17 07:37 05/19/17 09:23 05/19/17 07:37 - Medications Medications: Current Medications Acetaminophen (Tylenol 325mg Tab) 650 mg PO Q6 PRN PRN Reason: Pain, Mild (1-3) Amlodipine Besylate (Norvasc) 10 mg PO DAILY [facility] Last Admin: 05/19/17 09:14 Dose: 10 mg Aspirin (Aspirin Chewable) 81 mg PO DAILY [facility] Last Admin: 05/19/17 09:08 Dose: 81 mg Cinacalcet (Sensipar) 30 mg PO DAILY [facility] Last Admin: 05/19/17 09:15 Dose: 30 mg Clonidine HCl (Catapres) 0.2 mg PO TID [facility] Last Admin: 05/19/17 09:08 Dose: 0.2 mg Dicyclomine HCl (Bentyl) 10 mg PO QID PRN PRN Reason: GI distress Last Admin: 05/19/17 09:19 Dose: 10 mg Gabapentin (Neurontin) 300 mg PO DAILY [facility] Last Admin: 05/19/17 09:13 Dose: 300 mg Hydralazine HCl (Apresoline) 25 mg PO Q6 [facility] Last Admin: 05/19/17 09:08 Dose: 25 mg Hydromorphone HCl (Dilaudid) 1 mg IVP Q6 PRN PRN Reason: Pain, severe (8-10) Last Admin: 05/18/17 05:42 Dose: 1 mg Ibuprofen (Motrin Tab) 800 mg PO Q8 PRN PRN Reason: Pain, severe (8-10) Last Admin: 05/18/17 23:26 Dose: 800 mg Insulin Detemir (Levemir) 10 units SC [facility] Last Admin: 05/18/17 23:09 Dose: 10 units Insulin Human Lispro (Humalog) 0 units SC [facility] PRN Reason: Protocol Last Admin: 05/19/17 09:09 Dose: 2 unit Lisinopril (Zestril) 10 mg PO DAILY [facility] Last Admin: 05/19/17 09:23 Dose: 10 mg Metoclopramide HCl (Reglan) 10 mg PO Q8 [facility] Last Admin: 05/19/17 09:14 Dose: 10 mg Metoprolol Tartrate (Lopressor) 50 mg PO Q12 [facility] Last Admin: 05/19/17 09:12 Dose: 50 mg Ondansetron HCl (Zofran Inj) 4 mg IVP Q6 PRN PRN Reason: Nausea/Vomiting Last Admin: 05/18/17 05:43 Dose: 4 mg Pantoprazole Sodium (Protonix Ec Tab) 40 mg PO BID [facility] Last Admin: 05/19/17 09:08 Dose: 40 mg Polyethylene Glycol (Miralax) 17 gm PO DAILY [facility] Last Admin: 05/19/17 09:20 Dose: 17 gm Sevelamer HCl (Renagel) 2,400 mg PO TID [facility] Last Admin: 05/19/17 09:14 Dose: 2,400 mg Vitamin B Complex/Vit C/Folic Acid (Nephro-Víctor) 1 tab PO 0800 [facility] Last Admin: 05/19/17 09:13 Dose: 1 tab - Labs Labs: 05/16/17 14:19 05/16/17 14:19 - Constitutional Appears: No Acute Distress - ENT Exam ENT Exam: Mucous Membranes Moist - Respiratory Exam Respiratory Exam: NORMAL BREATHING PATTERN. absent: Chest Wall Tenderness, Rales - Cardiovascular Exam Cardiovascular Exam: REGULAR RHYTHM. absent: JVD, Rubs - GI/Abdominal Exam GI & Abdominal Exam: Soft, Normal Bowel Sounds - Extremities Exam Extremities Exam: absent: Calf Tenderness - Back Exam Back Exam: absent: CVA tenderness (L), CVA tenderness (R) - Neurological Exam Neurological Exam: Alert - Psychiatric Exam Psychiatric exam: Normal Affect - Skin Skin Exam: absent: Cyanosis Assessment and Plan (1) Abdominal pain Status: Acute (2) Gastroparesis Status: Acute (3) ESRD needing dialysis Assessment & Plan: Assessment: Stable recurrent nausea/vomitting, cyclic emesis syndrome, marijuana abuse, gastroparesis Diabetic chronic Kidney Disease (E11.22) Hypertensive Chronic Kidney Disease (I12.0) End stage renal disease (N18.6) dependence on hemodialysis (Z99.2) (MWF) via AVF Anemia (D64.9), Hyperphosphatemia (E83.39), Secondary Hyperparathyroidism (E21.1 ), HTN (I12.0) Patient about to start dialysis shortly ordered was given. Patient is seeking pain medications Mild leukocytosis. Status: Acute
--- NOTE | 2017-05-19 11:11 | PQF GENQUE ---
This form is a permanent part of the medical record 05/19/17 Dr. Gupta, Would you please clarify in your progress notes if the DM I is controlled or uncontrolled with Hyperglycemia. Documentation of a history of DM I. Accuchecks running 126-272. Medication includes Levemir Insulin and sliding scale coverage Humalog Insulin. Clarification of your documentation is requested to better reflect the severity of illness and intensity of treatment of your patient. Indicators present [] Specify: [] [] Specify: [] [] Specify: [] [] Specify: [] Location in the medical record that reflects the above clinical findings: [] Treatment Provided: [] PHYSICIAN'S RESPONSE Based on your medical judgment of the clinical indicators outlined above please clarify the following: [] Practitioner response [] If unable to determine, please check the box, sign and date. Present On Admission (POA) Indicator: [] Present at the time of admission [] Not present at the time of admission [] Clinically Undetermined In responding to this query, please exercise your independent professional judgment. The fact that a question is asked does not imply that any particular answer is desired or expected. Thank you for your clarification on this documentation. If you have any questions please call:extension [phone] * Thank you, Nanette Baron RN [facility]
[2017-05-19 14:39] LABS: HEMATOCRIT 31.4 % (35.0-51.0); MEAN CELL VOLUME 86.4 fl (80.0-94.0); MEAN CORPUSCULAR HEMOGLOBIN 27.4 pg (27.0-31.0); MEAN CORPUSCULAR HGB CONC 31.7 g/dL (33.0-37.0); RED CELL DISTRIBUTION WIDTH 18.9 % (11.5-14.5); WHITE BLOOD COUNT 9.2 K/uL (4.8-10.8)
--- NOTE | 2017-05-19 14:52 | CP.PCM.PCO ---
Assessment/Plan - Assessment/Plan Assessment (Free Text): Pt stable, tolerated HD, wants to go home. Pt tolerating diet. Seen and cleared for d/c home by Dr. Bermeo. Labs reviewed. Pt cleared for d/c home by Dr. Gupta. Pt states he has all meds at home. Pt to resume home meds.
[2017-05-19 16:30] LABS: POTASSIUM 3.9 MMOL/L (3.6-5.0)
[2017-05-19 17:04] VITALS: BP 168/86; PULSE 77; RESP 20; TEMP 98.4; O2SAT 97
--- NOTE | 2017-05-19 19:11 | CP.PCM.PN ---
Subjective - Date & Time of Evaluation Date of Evaluation: 05/19/17 Time of Evaluation: 16:10 - Subjective Subjective: less abdominal pain Objective - Vital Signs/Intake and Output Vital Signs (last 24 hours): Temp Pulse Resp BP Pulse Ox 98.4 F 77 20 168/86 H 97 05/19/17 17:04 05/19/17 17:16 05/19/17 17:04 05/19/17 17:16 05/19/17 17:04 - Labs Labs: 05/19/17 14:25 05/19/17 14:25 - Constitutional Appears: No Acute Distress - Neck Exam Neck Exam: Full ROM - Respiratory Exam Respiratory Exam: Clear to Ausculation Bilateral - Cardiovascular Exam Cardiovascular Exam: REGULAR RHYTHM. absent: Murmur - GI/Abdominal Exam GI & Abdominal Exam: Soft, Tenderness (diffuse lower) Assessment and Plan - Assessment and Plan (Free Text) Assessment: diabetes type 1 , poorly controlled diabetic gastroparesis nausea vomiting Plan: continue current reglan as per nephro and GI discharge patient home
== END 2017-05-19 17:25 | disposition home or self-care (01) | DRG 73 ==
LOC: H.ER 13:37 → H.ERHOLD 14:55 → H.MEDSURG1 17:04 → OBSVTOIN 05-17 19:05 → H.MEDSURG1 05-19 02:25
PROVIDERS: ADMIT Internal Medicine; ATTEND Internal Medicine
PROC: 5A1D70Z Performance of Urinary Filtration, Intermittent, Less than 6 Hours Per Day (ICD-10-PCS; principal; 2017-05-19)
DX: E10.43 Type 1 diabetes mellitus with diabetic autonomic (poly)neuropathy (principal); N18.6 End stage renal disease; I13.2 Hypertensive heart and chronic kidney disease with heart failure and with stage 5 chronic kidney disease, or end stage renal disease; E10.22 Type 1 diabetes mellitus with diabetic chronic kidney disease; E83.39 Other disorders of phosphorus metabolism; K22.10 Ulcer of esophagus without bleeding; E10.65 Type 1 diabetes mellitus with hyperglycemia; N25.81 Secondary hyperparathyroidism of renal origin; D64.9 Anemia, unspecified; E78.5 Hyperlipidemia, unspecified; F12.10 Cannabis abuse, uncomplicated; I50.9 Heart failure, unspecified; K31.84 Gastroparesis; K59.09 Other constipation; Z79.4 Long term (current) use of insulin; Z99.2 Dependence on renal dialysis; H26.9 Unspecified cataract; K29.70 Gastritis, unspecified, without bleeding; K44.9 Diaphragmatic hernia without obstruction or gangrene; K64.8 Other hemorrhoids; K64.4 Residual hemorrhoidal skin tags; D72.829 Elevated white blood cell count, unspecified

== ENCOUNTER 2017-05-31 14:37 | Observation (INO) | payer MEDICARE ==
[2017-05-31 14:38] VITALS: BMI 19.5
[2017-05-31] MEDS ORDERED: Dextrose 50% SYRINGE Inj (50 ml) IVP ONE (15:00)
--- NOTE | 2017-05-31 15:05 | ED PDOC ---
Syncope/Near Syncope/Dizziness Time Seen by Provider: 05/31/17 15:03 Chief Complaint (Nursing): Syncope Chief Complaint (Provider): syncope History Per: Patient (36 y/o male ESRD MWF dialysis DM/gastroparesis here for evaluation of syncope/weakness noted by mother. Patient unsure of history of events today. notes moderate lower abdominal pain ongoing. Denies any vomiting/ fevers/uri/cough today. Was d/c from [facility] yesterday after 1 week inpatient stay for evaluation/management of gastroparesis.) Past Medical History Reviewed: Historical Data, Nursing Documentation, Vital Signs Vital Signs: Last Vital Signs Temp 97 F L 05/31/17 14:43 Pulse 83 05/31/17 14:43 Resp 16 05/31/17 14:43 BP 112/58 L 05/31/17 14:43 Pulse Ox 100 05/31/17 14:43 - Medical History PMH: Anemia (Pt denies), CHF, Diabetes (type I), Gastritis, HTN, Hypercholesterolemia, Peripheral Edema, End Stage Renal Disease, Chronic Kidney Disease (dialysis MWF) Denies: HIV, Kidney Stones - Family History Family History: States: Unknown Family Hx, Diabetes, Hypertension - Immunization History Hx Tetanus Toxoid Vaccination: Yes Hx Influenza Vaccination: Yes Hx Pneumococcal Vaccination: Yes - Home Medications Home Medications: Ambulatory Orders Medication Instructions Recorded Aspirin [Aspirin Chewable] 81 mg PO DAILY #60 chew 05/30/17 Lisinopril [Zestril] 10 mg PO DAILY #60 tablet 05/30/17 amLODIPine [Norvasc] 10 mg PO DAILY #30 tab 05/30/17 Insulin Aspart, Recombinant 05/31/17 [Novolog] Omeprazole 40 mg PO DAILY 05/31/17 Ondansetron [Zofran] 4 mg PO Q8H 05/31/17 Sevelamer [Renagel] 3 tab PO TID 05/31/17 Sucralfate [Carafate] 1 gm PO Q12 05/31/17 hydrALAZINE [hydralazine 50 mg PO TID 05/31/17 Hydrochloride] - Allergies Allergies/Adverse Reactions: Allergies Allergy/AdvReac Type Severity Reaction Status Date / Time No Known Allergies Allergy Verified 05/31/17 14:42 Review of Systems ROS Statement: Except As Marked, All Systems Reviewed And Found Negative Gastrointestinal: Positive for: Abdominal Pain Physical Exam - Reviewed Nursing Documentation Reviewed: Yes Vital Signs Reviewed: Yes - Physical Exam Appears: Positive for: Well, Non-toxic, No Acute Distress Head Exam: Positive for: ATRAUMATIC, NORMAL INSPECTION, NORMOCEPHALIC Skin: Positive for: Normal Color, Warm, DRY Eye Exam: Positive for: EOMI, Normal appearance, PERRL ENT: Positive for: Normal ENT Inspection Neck: Positive for: Normal, Painless ROM Cardiovascular/Chest: Positive for: Regular Rate, Rhythm Respiratory: Positive for: CNT, Normal Breath Sounds Gastrointestinal/Abdominal: Positive for: Normal Exam, Bowel Sounds, Soft Back: Positive for: Normal Inspection Extremity: Positive for: Normal ROM Neurologic/Psych: Positive for: Alert, Oriented - Laboratory Results Result Diagrams: 05/31/17 15:14 05/31/17 15:06 - ECG O2 Sat by Pulse Oximetry: 100 - Progress ED Course And Treament: BS 77 1 AMP D50 GIVEN WITH IMPROVEMENT OF SYMPTOMS. HEAD CT: NAD CXR: GREGORIO D/W DR. DE ANDA BP LAYING 115/51 P 83 SITTING BP 98/56 P87 STANDING BP 77/46; P90 NS 250 ML IV BOLUS Disposition - Clinical Impression Clinical Impression: Syncope - Patient ED Disposition Is Patient to be Admitted: Yes - Disposition Disposition Time: 18:12 Condition: FAIR Forms: [facility] ([place]) - Pt Status Changed To: Hospital Disposition Of: Observation
[2017-05-31] MEDS ORDERED: Dextrose 50% SYRINGE Inj (50 ml) ONE (15:13)
[2017-05-31 15:34] LABS: VENOUS BLOOD GAS BASE EXCESS -5.7 mmol/L (0.0-2.0); VENOUS BLOOD GAS PCO2 54 mmHg (40-60); VENOUS BLOOD GAS PO2 23 mm/Hg (30-55); VENOUS BLOOD PH 7.22 (7.32-7.43)
--- NOTE | 2017-05-31 16:15 | CT ---
PROCEDURE: CT HEAD WITHOUT CONTRAST. HISTORY: AMS COMPARISON: 11/27/2015 TECHNIQUE: Axial computed tomography images were obtained through the head/brain without intravenous contrast. Radiation dose: Total exam DLP = 872.98 mGy-cm. This CT exam was performed using one or more of the following dose reduction techniques: Automated exposure control, adjustment of the mA and/or kV according to patient size, and/or use of iterative reconstruction technique. FINDINGS: HEMORRHAGE: No intracranial hemorrhage. BRAIN: No mass effect or edema. No atrophy or chronic microvascular ischemic changes. VENTRICLES: Unremarkable. No hydrocephalus. CALVARIUM: Unremarkable. PARANASAL SINUSES: Unremarkable as visualized. No significant inflammatory changes. MASTOID AIR CELLS: Unremarkable as visualized. No inflammatory changes. OTHER FINDINGS: None. IMPRESSION: No intracranial mass, hemorrhage or evidence of acute infarct.
[2017-05-31 16:21] LABS: TROPONIN I 0.027 ng/mL (0.00-0.120)
[2017-05-31 16:29] LABS: ALB/GLOB RATIO 1.1 (1.0-2.1); ALBUMIN 2.8 g/dL (3.5-5.0); CALCIUM 6.4 mg/dL (8.4-10.2); MAGNESIUM 1.8 MG/DL (1.6-2.3)
[2017-05-31 16:49] LABS: BASO # 0.1 K/uL (0.0-0.2); BASO % 0.5 % (0.0-2.0); EOS # 0.3 K/uL (0.0-0.7); EOS % 2.2 % (0.0-4.0); LYMPH # 2.5 K/uL (1.0-4.3); MEAN CELL VOLUME 92.9 fl (80.0-94.0); MEAN CORPUSCULAR HEMOGLOBIN 28.1 pg (27.0-31.0); MEAN CORPUSCULAR HGB CONC 30.3 g/dL (33.0-37.0); MEAN PLATELET VOLUME 8.9 fl (7.2-11.7); MONO # 1.5 K/uL (0.0-0.8); MONO % 12.1 % (0.0-10.0); NEUT # 8.2 K/uL (1.8-7.0); NEUT % 65.2 % (50.0-75.0); NRBC % 0.1 % (0.0-0.0); RBC 4.51 Mil/uL (4.40-5.90); RED CELL DISTRIBUTION WIDTH 22.3 % (11.5-14.5); WHITE BLOOD COUNT 12.5 K/uL (4.8-10.8)
[2017-05-31 16:53] LABS: HEMOGLOBIN 12.7 g/dL (12.0-18.0)
--- NOTE | 2017-05-31 17:52 | RAD ---
PROCEDURE: CHEST RADIOGRAPH, 1 VIEW HISTORY: routine COMPARISON: 05/02/2017 FINDINGS: LUNGS: Clear. PLEURA: No pneumothorax or pleural fluid seen. CARDIOVASCULAR: Normal. OSSEOUS STRUCTURES: No significant abnormalities. VISUALIZED UPPER ABDOMEN: Normal. OTHER FINDINGS: None. IMPRESSION: No active disease.
[2017-05-31] MEDS ORDERED: Sodium Chloride 0.9% 250 ML IV SCH (18:15)
[2017-05-31] MEDS ORDERED: Sodium Chloride 0.9% 1,000 ML IV STA (18:50)
[2017-05-31] MEDS ORDERED: Sterile Water 10 ML IV ONE (20:24)
[2017-05-31] MEDS ORDERED: Sucralfate 1 gm/10 ml Oral Susp UD ONE (20:24)
[2017-05-31] MEDS ORDERED: Sucralfate 1 gm/10 ml Oral Susp UD PO SCH ×2 (20:30)
[2017-05-31] MEDS ORDERED: Oxycodone/Acetaminophen 5/325 mg Tab PO ONE (23:26)
[2017-06-01] MEDS ORDERED: Oxycodone/Acetaminophen 5/325 mg Tab PO ONE (02:49)
[2017-06-01 08:07] LABS: HEMOGLOBIN 11.2 g/dL (12.0-18.0); MEAN CELL VOLUME 90.7 fl (80.0-94.0); MEAN CORPUSCULAR HEMOGLOBIN 28.4 pg (27.0-31.0); MEAN CORPUSCULAR HGB CONC 31.4 g/dL (33.0-37.0); RBC 3.93 Mil/uL (4.40-5.90); RED CELL DISTRIBUTION WIDTH 21.4 % (11.5-14.5); WHITE BLOOD COUNT 11.7 K/uL (4.8-10.8)
[2017-06-01] MEDS: Oxycodone/Acetaminophen 5/325 mg Tab PO PRN ×2 (08:26→14:33)
[2017-06-01] MEDS: Insulin Regular 100 units/ml SC SCH ×3 (08:29→17:49)
[2017-06-01 08:33] LABS: ALB/GLOB RATIO 1.1 (1.0-2.1); ALBUMIN 3.8 g/dL (3.5-5.0); CALCIUM 8.1 mg/dL (8.4-10.2)
[2017-06-01] MEDS ORDERED: Pantoprazole 40 mg EC Tab PO SCH (09:00)
--- NOTE | 2017-06-01 11:11 | CARD ---
APPROVED REPORT EKG Measurement Heart [id number] <Conclusion> Accelerated Junctional rhythm Left ventricular hypertrophy with repolarization abnormality Prolonged QT Abnormal ECG
--- NOTE | 2017-06-01 14:07 | CP.PCM.HP ---
History of Present Illness - History of Present Illness History of Present Illness: CC: Passed out History of Present Illness: A 36 y/o male ESRD MWF dialysis DM/Gastroparesis here for evaluation of syncope/ weakness noted by mother. Patient unsure of history of events today. notes moderate lower abdominal pain ongoing. Denies any vomiting/fevers/uri/cough today. Was d/c from [facility] yesterday after 1 week inpatient stay for evaluation /management of Gastroparesis. In the ER, he was Orthostatic in the ER to SBP drop >20, and IVF bolus 1Lit given. Today he is feeling better. Denies incontinence or tongue bite. Present on Admission - Present on Admission Any Indicators Present on Admission: No History of DVT/PE: No History of Uncontrolled Diabetes: No Urinary Catheter: No Decubitus Ulcer Present: No Review of Systems - Review of Systems All systems: reviewed and no additional remarkable complaints except Past Patient History - Infectious Disease Hx of Infectious Diseases: None - Past Medical History & Family History Past Medical History?: Yes - Past Social History Smoking Status: Current Some Days Smoker Alcohol: Social Drugs: Denies - CARDIAC Hx Congestive Heart Failure: Yes Hx Hypercholesterolemia: Yes Hx Hypertension: Yes Hx Peripheral Edema: Yes - PULMONARY Hx Respiratory Disorders: No - NEUROLOGICAL Hx Neurological Disorder: No - HEENT Hx HEENT Problems: Yes (Cataract extraction) - RENAL Hx Chronic Kidney Disease: Yes (dialysis MWF) - ENDOCRINE/METABOLIC Hx Endocrine Disorders: Yes (DM) - HEMATOLOGICAL/ONCOLOGICAL Hx AIDS: No Hx Anemia: Yes (Pt denies) Hx Blood Transfusions: No Hx Human Immunodeficiency Virus (HIV): No - INTEGUMENTARY Hx Dermatological Problems: No - MUSCULOSKELETAL/RHEUMATOLOGICAL Hx Musculoskeletal Disorders: No - GASTROINTESTINAL Hx Gastritis: Yes - GENITOURINARY/GYNECOLOGICAL Hx Genitourinary Disorders: No - PSYCHIATRIC Hx Psychophysiologic Disorder: No - SURGICAL HISTORY Hx Surgeries: Yes Hx Cataract Extraction: Yes (bilateral) Hx Vascular Access Device: Yes Other/Comment: RT.PERMACATH INSERTION 04/17. LT.AV SHUNT CREATION 06/04/16. UNDESCENDED TESTES LT. REMOVED DURING CHILDHOOD - ANESTHESIA Hx Anesthesia: Yes Hx Anesthesia Reactions: No Hx Malignant Hyperthermia: No Meds Home Medications: Home Medication List Medication Instructions Recorded Confirmed Type oxyCODONE/Acetaminophen [Percocet 1 ea PO Q6 #20 tab 06/01/17 Rx 5/325 mg Tab] Allergies/Adverse Reactions: Allergies Allergy/AdvReac Type Severity Reaction Status Date / Time No Known Allergies Allergy Verified 05/31/17 14:42 Physical Exam - Constitutional Appears: Well, In Acute Distress - Head Exam Head Exam: ATRAUMATIC, NORMAL INSPECTION, NORMOCEPHALIC - Eye Exam Eye Exam: EOMI, Normal appearance, PERRL Pupil Exam: NORMAL ACCOMODATION, PERRL - ENT Exam ENT Exam: Mucous Membranes Moist, Normal Exam - Neck Exam Neck exam: Positive for: Normal Inspection - Respiratory Exam Respiratory Exam: Clear to Auscultation Bilateral, NORMAL BREATHING PATTERN - Cardiovascular Exam Cardiovascular Exam: REGULAR RHYTHM, +S1, +S2 - GI/Abdominal Exam GI & Abdominal Exam: Normal Bowel Sounds, Soft. absent: Firm, Guarding, Tenderness - Extremities Exam Extremities exam: Positive for: full ROM, normal capillary refill, normal inspection Additional comments: Left arm- Functional AV fistula - Back Exam Back exam: NORMAL INSPECTION - Neurological Exam Neurological exam: Alert, CN II-XII Intact, Normal Gait, Oriented x3, Reflexes Normal - Psychiatric Exam Psychiatric exam: Normal Affect, Normal Mood - Skin Skin Exam: Dry, Intact, Normal Color, Warm Results - Vital Signs Recent Vital Signs: Last Vital Signs Temp 98.1 F 06/01/17 12:00 Pulse 95 H 06/01/17 13:58 Resp 18 06/01/17 12:00 BP 190/83 H 06/01/17 13:58 Pulse Ox 99 06/01/17 12:00 - Labs Result Diagrams: 06/01/17 06:30 06/01/17 06:30 Labs: Laboratory Results - last 24 hr 05/31/17 05/31/17 05/31/17 14:51 15:06 15:14 WBC 12.5 H RBC 4.51 Hgb 12.7 D Hct 41.9 MCV 92.9 D MCH 28.1 MCHC 30.3 L RDW 22.3 H Plt Count 181 D MPV 8.9 Neut % (Auto) 65.2 Lymph % (Auto) 20.0 [place] % (Auto) 12.1 H Eos % (Auto) 2.2 Baso % (Auto) 0.5 Neut # 8.2 H Lymph # 2.5 [place] # 1.5 H Eos # 0.3 Baso # 0.1 pO2 VBG pH VBG pCO2 VBG HCO3 VBG Total CO2 VBG O2 Sat (Calc) VBG Base Excess VBG Potassium Glucose Lactate FiO2 Crit Value Called To Crit Value Called By Crit Value Read Back Blood Gas Notified Time Sodium 132 Potassium 3.8 Chloride 102 Carbon Dioxide 20 L Anion Gap 14 BUN 27 H Creatinine 6.5 H Est GFR ( Amer) 12 Est GFR (Non-Af Amer) 10 POC Glucose (mg/dL) 77 Random Glucose 2535 H* Calcium 6.4 L Magnesium 1.8 Total Bilirubin 0.4 AST 15 L ALT 27 Alkaline Phosphatase 74 Troponin I 0.0270 Total Protein 5.2 L Albumin 2.8 L D Globulin 2.4 Albumin/Globulin Ratio 1.1 Venous Blood Potassium 05/31/17 05/31/17 05/31/17 15:18 15:43 18:09 WBC RBC Hgb Hct MCV MCH MCHC RDW Plt Count MPV Neut % (Auto) Lymph % (Auto) [place] % (Auto) Eos % (Auto) Baso % (Auto) Neut # Lymph # [place] # Eos # Baso # pO2 23 L VBG pH 7.22 L VBG pCO2 54 VBG HCO3 19.2 VBG Total CO2 23.8 VBG O2 Sat (Calc) 35.1 L VBG Base Excess -5.7 L VBG Potassium 3.8 Glucose > 750 H* D Lactate 1.8 FiO2 21.0 Crit Value Called To Tamica muse Crit Value Called By Crit Value Read Back Y Blood Gas Notified Time 1533 Sodium 133.0 Potassium Chloride 99.0 Carbon Dioxide Anion Gap BUN Creatinine Est GFR ( Amer) Est GFR (Non-Af Amer) POC Glucose (mg/dL) 99 91 Random Glucose Calcium Magnesium Total Bilirubin AST ALT Alkaline Phosphatase Troponin I Total Protein Albumin Globulin Albumin/Globulin Ratio Venous Blood Potassium 3.8 05/31/17 06/01/17 06/01/17 22:07 00:59 06:30 WBC 11.7 H RBC 3.93 L Hgb 11.2 L Hct 35.6 MCV 90.7 D MCH 28.4 MCHC 31.4 L RDW 21.4 H Plt Count 202 MPV Neut % (Auto) Lymph % (Auto) [place] % (Auto) Eos % (Auto) Baso % (Auto) Neut # Lymph # [place] # Eos # Baso # pO2 VBG pH VBG pCO2 VBG HCO3 VBG Total CO2 VBG O2 Sat (Calc) VBG Base Excess VBG Potassium Glucose Lactate FiO2 Crit Value Called To Crit Value Called By Crit Value Read Back Blood Gas Notified Time Sodium Potassium Chloride Carbon Dioxide Anion Gap BUN Creatinine Est GFR ( Amer) Est GFR (Non-Af Amer) POC Glucose (mg/dL) 293 H 404 H* Random Glucose Calcium Magnesium Total Bilirubin AST ALT Alkaline Phosphatase Troponin I Total Protein Albumin Globulin Albumin/Globulin Ratio Venous Blood Potassium 06/01/17 06/01/17 06/01/17 06:30 07:13 11:08 WBC RBC Hgb Hct MCV MCH MCHC RDW Plt Count MPV Neut % (Auto) Lymph % (Auto) [place] % (Auto) Eos % (Auto) Baso % (Auto) Neut # Lymph # [place] # Eos # Baso # pO2 VBG pH VBG pCO2 VBG HCO3 VBG Total CO2 VBG O2 Sat (Calc) VBG Base Excess VBG Potassium Glucose Lactate FiO2 Crit Value Called To Crit Value Called By Crit Value Read Back Blood Gas Notified Time Sodium 136 Potassium 4.7 Chloride 102 Carbon Dioxide 19 L Anion Gap 20 BUN 46 H Creatinine 9.2 H* D Est GFR ( Amer) 8 Est GFR (Non-Af Amer) 7 POC Glucose (mg/dL) 293 H 257 H Random Glucose 367 H Calcium 8.1 L Magnesium Total Bilirubin 0.4 AST 34 ALT 24 Alkaline Phosphatase 110 Troponin I Total Protein 7.3 Albumin 3.8 Globulin 3.5 Albumin/Globulin Ratio 1.1 Venous Blood Potassium - EKG Data EKG Interpreted by: Myself EKG shows normal: Sinus rhythm Rate: Tachycardia - EKG Data EKG comments: LVH. Prolonged QTc - Imaging and Cardiology Chest x-ray Status: Report reviewed by me Additional comment: No Active Disease CT scan - head Status: Report reviewed by me Additional comment: NO ICH or other acute finding Assessment & Plan (1) Syncope Assessment and Plan: due to Orthostasis ACS Ruled out IVF 0.9NS given, and High Blood pressure Resumed Home BP meds D/W the Virtualization Engineer about Dec. Ultrafiltration Normal Electrolyte Status: Acute Priority: Medium (2) ESRD on dialysis Status: Acute Priority: Low
[2017-06-01 15:40] VITALS: BP 145/75; PULSE 91; RESP 20; TEMP 97.9; O2SAT 98
--- NOTE | 2017-06-02 03:41 | CP.PCM.DIS ---
Provider - Provider Date of Admission: 05/31/17 19:23 Attending physician: Jay Zhang MD Time Spent in preparation of Discharge (in minutes): 20 Diagnosis - Discharge Diagnosis (1) ESRD (end stage renal disease) Status: Acute (2) Syncope Status: Acute Priority: Medium (3) ESRD (end stage renal disease) on dialysis Status: Chronic (4) Gastroparesis due to secondary diabetes Status: Resolved Hospital Course - Lab Results Lab Results: Micro Results 05/31/17 15:10 Blood-Venous Blood Culture - Preliminary NO GROWTH AFTER 24 HOURS Most Recent Lab Values WBC 11.7 K/uL (4.8-10.8) H 06/01/17 06:30 RBC 3.93 Mil/uL (4.40-5.90) L 06/01/17 06:30 Hgb 11.2 g/dL (12.0-18.0) L 06/01/17 06:30 Hct 35.6 % (35.0-51.0) 06/01/17 06:30 MCV 90.7 fl (80.0-94.0) D 06/01/17 06:30 MCH 28.4 pg (27.0-31.0) 06/01/17 06:30 MCHC 31.4 g/dL (33.0-37.0) L 06/01/17 06:30 RDW 21.4 % (11.5-14.5) H 06/01/17 06:30 Plt Count 202 K/uL (130-400) 06/01/17 06:30 MPV 8.9 fl (7.2-11.7) 05/31/17 15:14 Neut % (Auto) 65.2 % (50.0-75.0) 05/31/17 15:14 Lymph % (Auto) 20.0 % (20.0-40.0) 05/31/17 15:14 [place] % (Auto) 12.1 % (0.0-10.0) H 05/31/17 15:14 Eos % (Auto) 2.2 % (0.0-4.0) 05/31/17 15:14 Baso % (Auto) 0.5 % (0.0-2.0) 05/31/17 15:14 Neut # 8.2 K/uL (1.8-7.0) H 05/31/17 15:14 Lymph # 2.5 K/uL (1.0-4.3) 05/31/17 15:14 [place] # 1.5 K/uL (0.0-0.8) H 05/31/17 15:14 Eos # 0.3 K/uL (0.0-0.7) 05/31/17 15:14 Baso # 0.1 K/uL (0.0-0.2) 05/31/17 15:14 pO2 23 mm/Hg (30-55) L 05/31/17 15:18 VBG pH 7.22 (7.32-7.43) L 05/31/17 15:18 VBG pCO2 54 mmHg (40-60) 05/31/17 15:18 VBG HCO3 19.2 mmol/L 05/31/17 15:18 VBG Total CO2 23.8 mmol/L (22-28) 05/31/17 15:18 VBG O2 Sat (Calc) 35.1 % (40-65) L 05/31/17 15:18 VBG Base Excess -5.7 mmol/L (0.0-2.0) L 05/31/17 15:18 VBG Potassium 3.8 mmol/L (3.6-5.2) 05/31/17 15:18 Sodium 133.0 mmol/L (132-148) 05/31/17 15:18 Chloride 99.0 mmol/L (98-107) 05/31/17 15:18 Glucose > 750 mg/dL (75-110) H* D 05/31/17 15:18 Lactate 1.8 mmol/L (0.7-2.1) 05/31/17 15:18 FiO2 21.0 % 05/31/17 15:18 Crit Value Called To Tamica muse 05/31/17 15:18 Crit Value Called By Chau 05/31/17 15:18 Crit Value Read Back Y 05/31/17 15:18 Blood Gas Notified Time 2574 05/31/17 15:18 Sodium 136 mmol/l (132-148) 06/01/17 06:30 Potassium 4.7 MMOL/L (3.6-5.0) 06/01/17 06:30 Chloride 102 mmol/L (98-107) 06/01/17 06:30 Carbon Dioxide 19 mmol/L (22-30) L 06/01/17 06:30 Anion Gap 20 (10-20) 06/01/17 06:30 BUN 46 mg/dl (9-20) H 06/01/17 06:30 Creatinine 9.2 mg/dl (0.8-1.5) H* D 06/01/17 06:30 Est GFR ( Amer) 8 06/01/17 06:30 Est GFR (Non-Af Amer) 7 06/01/17 06:30 POC Glucose (mg/dL) 235 mg/dL (65-110) H 06/01/17 16:01 Random Glucose 367 mg/dL (75-110) H 06/01/17 06:30 Calcium 8.1 mg/dL (8.4-10.2) L 06/01/17 06:30 Magnesium 1.8 MG/DL (1.6-2.3) 05/31/17 15:06 Total Bilirubin 0.4 mg/dl (0.2-1.3) 06/01/17 06:30 AST 34 U/L (17-59) 06/01/17 06:30 ALT 24 U/L (21-72) 06/01/17 06:30 Alkaline Phosphatase 110 U/L (38-126) 06/01/17 06:30 Troponin I 0.0270 ng/mL (0.00-0.120) 05/31/17 15:06 Total Protein 7.3 G/DL (6.3-8.2) 06/01/17 06:30 Albumin 3.8 g/dL (3.5-5.0) 06/01/17 06:30 Globulin 3.5 gm/dL (2.2-3.9) 06/01/17 06:30 Albumin/Globulin Ratio 1.1 (1.0-2.1) 06/01/17 06:30 Venous Blood Potassium 3.8 mmol/L (3.6-5.2) 05/31/17 15:18 Discharge Exam - Head Exam Head Exam: ATRAUMATIC, NORMAL INSPECTION, NORMOCEPHALIC Discharge Plan - Discharge Medications Prescriptions: oxyCODONE/Acetaminophen [Percocet 5/325 mg Tab] 1 ea PO Q6 #20 tab - Follow Up Plan Condition: FAIR Disposition: HOME/ ROUTINE Instructions: Syncope (DC)
[2017-06-02] MEDS ORDERED: Pantoprazole 40 mg EC Tab PO SCH (09:00)
== END 2017-06-01 17:30 | disposition home or self-care (01) ==
LOC: H.ER 14:37 → H.ERHOLD 19:23 → H.TEL 21:29
PROVIDERS: ADMIT Internal Medicine; ATTEND Internal Medicine
DX: R55 Syncope and collapse (principal); N18.6 End stage renal disease; E10.22 Type 1 diabetes mellitus with diabetic chronic kidney disease; E10.43 Type 1 diabetes mellitus with diabetic autonomic (poly)neuropathy; E13.43 Other specified diabetes mellitus with diabetic autonomic (poly)neuropathy; E78.00 Pure hypercholesterolemia, unspecified; F17.200 Nicotine dependence, unspecified, uncomplicated; I50.9 Heart failure, unspecified; I13.2 Hypertensive heart and chronic kidney disease with heart failure and with stage 5 chronic kidney disease, or end stage renal disease; K31.84 Gastroparesis; Z79.4 Long term (current) use of insulin; Z79.899 Other long term (current) drug therapy; Z99.2 Dependence on renal dialysis; K29.70 Gastritis, unspecified, without bleeding
CPT/HCPCS: 36415; 70450; 71010; 80053; 82803; 82948; 83735; 84484; 85025; 85027; 87040; 93005; 96361; 96374; 96375; 99285; C9113; G0378; J7040

== ENCOUNTER 2017-06-05 23:44 | Inpatient (IN) | payer MEDICARE ==
[2017-06-05 23:44] VITALS: BMI 19.5
[2017-06-06] MEDS ORDERED: Sodium Chloride 0.9% 1,000 ML IV STA (00:15)
--- NOTE | 2017-06-06 01:00 | ED PDOC ---
HPI: Abdomen Time Seen by Provider: 06/06/17 00:02 Chief Complaint (Nursing): Abdominal Pain Chief Complaint (Provider): Nausea, Vomiting, and Abdomnal Pain History Per: Patient History/Exam Limitations: no limitations Onset/Duration Of Symptoms: Days (1 day) Current Symptoms Are (Timing): Still Present Location Of Pain/Discomfort: Epigastric Additional Complaint(s): 36 y/o male with a history of Diabetes and Gastroparesis, brought in by EMS, presents to the ED complaining of nausea, recurrent vomiting and epigastric abdominal pain, onset of 1 day ago. Patient reports more than 9 episodes of vomiting productive of coffee brown material. Of note, patient has a history of multiple admissions to the ED with intractable vomiting. PCP: David Gtz Past Medical History Reviewed: Historical Data, Nursing Documentation, Vital Signs Vital Signs: Last Vital Signs Temp 97.8 F 06/06/17 04:18 Pulse 98 H 06/06/17 04:18 Resp 18 06/06/17 04:18 BP 134/73 06/06/17 04:18 Pulse Ox 98 06/06/17 04:18 - Medical History PMH: Anemia, CHF, Diabetes (type I; ), Gastritis (gastroparesis), HTN, Hypercholesterolemia, Peripheral Edema, End Stage Renal Disease, Chronic Kidney Disease Denies: HIV, Kidney Stones - Surgical History Surgical History: No Surg Hx - Family History Family History: States: Unknown Family Hx, Diabetes, Hypertension - Social History Current smoker - smoking cessation education provided: No Ex-Smoker (has not smoked in the last 12 months): No Alcohol: None Drugs: Denies - Immunization History Hx Tetanus Toxoid Vaccination: Yes Hx Influenza Vaccination: Yes Hx Pneumococcal Vaccination: Yes - Home Medications Home Medications: Ambulatory Orders Medication Instructions Recorded Aspirin [Aspirin Chewable] 81 mg PO DAILY #60 chew 05/30/17 Lisinopril [Zestril] 10 mg PO DAILY #60 tablet 05/30/17 amLODIPine [Norvasc] 10 mg PO DAILY #30 tab 05/30/17 Insulin Aspart, Recombinant 20 units SC BID 05/31/17 [Novolog] Omeprazole 40 mg PO DAILY 05/31/17 Ondansetron [Zofran Tab] 4 mg PO Q8H 05/31/17 Sevelamer [Renagel] 3 tab PO TID 05/31/17 Sucralfate [Carafate Tab] 1 gm PO Q12 05/31/17 hydrALAZINE [Apresoline] 50 mg PO TID 05/31/17 oxyCODONE/Acetaminophen [Percocet 1 ea PO Q6 #20 tab 06/01/17 5/325 mg Tab] - Allergies Allergies/Adverse Reactions: Allergies Allergy/AdvReac Type Severity Reaction Status Date / Time No Known Allergies Allergy Verified 05/31/17 14:42 Review of Systems ROS Statement: Except As Marked, All Systems Reviewed And Found Negative Constitutional: Negative for: Fever Gastrointestinal: Positive for: Nausea, Vomiting (9-10 episodes of vomiting of coffee brown material), Abdominal Pain (epigastric). Negative for: Diarrhea Physical Exam - Reviewed Nursing Documentation Reviewed: Yes (epigastric) Vital Signs Reviewed: Yes - Physical Exam Appears: Positive for: Uncomfortable Head Exam: Positive for: ATRAUMATIC Skin: Positive for: Normal Color, Warm Eye Exam: Positive for: Normal appearance, EOMI, PERRL ENT: Positive for: Normal ENT Inspection, Other (mucous membranes are dry) Neck: Positive for: Normal, Painless ROM, Supple Cardiovascular/Chest: Positive for: Regular Rate, Rhythm. Negative for: Murmur Respiratory: Positive for: Normal Breath Sounds. Negative for: Respiratory Distress Gastrointestinal/Abdominal: Positive for: Tenderness Back: Positive for: Normal Inspection Extremity: Positive for: Normal ROM. Negative for: Pedal Edema, Deformity Neurologic/Psych: Positive for: Alert, Oriented. Negative for: Motor/Sensory Deficits - Laboratory Results Result Diagrams: 06/06/17 00:05 06/06/17 00:05 - ECG O2 Sat by Pulse Oximetry: 98 (RA) Pulse Ox Interpretation: Normal - Critical Care Total Time (In Min): 30 (hypertensive urgency) Medical Decision Making Medical Decision Making: Time: --00:05 Impression: --36 y/o male with coffee ground emesis om setting of known Diabetes and Gastroparesis with recurrent episodes of vomiting Plan: --Blood Type and Screen --ECG --Labs --Lipase --ED Urine Dip --Partial Thromboplastin Time --Prothrombin Time --Pepcid 20mg IV --IV Fluids --Zofran 4mg IV --Pantoprazole 80 mg IV --Heplock Insertion --Accucheck --Urinalysis - Reassess --2:02 Blood Pressure elevated for the patient at 211/204 given Labetalol 20mg IVP --2:36 Blood pressure improved --6:40 Labs significant for elevated blood sugar, consistent with Diabetes, and elevated creatinine Patient discussed with Dr. Mcgrath Patient to be admitted. Diagnosis: Gastroparesis in setting of Diabetes, along with hypertension and elevated creatinine Scribe Attestation: Documented by Hunter Linder acting as a scribe for Domingo Luther MD. Disposition - Clinical Impression Clinical Impression: Gastroparesis due to DM, Hypertensive urgency - Patient ED Disposition Is Patient to be Admitted: Yes Discussed With DrSoraida: Tal Mcgrath Doctor Will See Patient In The: Hospital - Disposition Disposition Time: 06:40 Condition: FAIR
[2017-06-06 01:08] LABS: BASO # 0.1 K/uL (0.0-0.2); BASO % 0.6 % (0.0-2.0); EOS # 0.1 K/uL (0.0-0.7); EOS % 0.5 % (0.0-4.0); LYMPH # 0.8 K/uL (1.0-4.3); LYMPH % 7.9 % (20.0-40.0); MEAN CELL VOLUME 88.8 fl (80.0-94.0); MEAN CORPUSCULAR HEMOGLOBIN 28.2 pg (27.0-31.0); MEAN CORPUSCULAR HGB CONC 31.7 g/dL (33.0-37.0); MEAN PLATELET VOLUME 9.8 fl (7.2-11.7); MONO # 0.7 K/uL (0.0-0.8); MONO % 6.9 % (0.0-10.0); NEUT # 8.1 K/uL (1.8-7.0); NEUT % 84.1 % (50.0-75.0); PLATELET COUNT 273 K/uL (130-400); RED CELL DISTRIBUTION WIDTH 21.1 % (11.5-14.5); WHITE BLOOD COUNT 9.7 K/uL (4.8-10.8)
[2017-06-06 01:10] LABS: PARTIAL THROMBOPLASTIN TIME 27.8 Seconds (25.6-37.1); PROTHROMBIN TIME 11.2 Seconds (9.8-13.1)
[2017-06-06] MEDS ORDERED: HYDROmorphone 0.5 mg/0.5 ml ISec IVP STA (01:33)
[2017-06-06 01:43] LABS: ALB/GLOB RATIO 1.2 (1.0-2.1); ALBUMIN 4.7 g/dL (3.5-5.0); CALCIUM 8.9 mg/dL (8.4-10.2)
[2017-06-06] MEDS ORDERED: HYDROmorphone 0.5 mg/0.5 ml ISec ONE (01:50)
[2017-06-06] MEDS ORDERED: Labetalol 5mg/ml (4ml) IVP STA (02:04)
[2017-06-06] MEDS ORDERED: Labetalol 5mg/ml (4ml) ONE (02:05)
[2017-06-06 03:13] LABS: NEUTROPHIL 83 % (42-75)
[2017-06-06 03:14] LABS: EOSINOPHIL 6 % (0-7); LYMPHOCYTE 11 % (20-50); PLATELET ESTIMATE NORMAL (NORMAL); TOTAL CELLS COUNTED 100
--- NOTE | 2017-06-06 08:24 | CP.PCM.CON ---
<Vlad Sawyer - Last Filed: 06/06/17 08:38> History of Present Illness - History of Present Illness History of Present Illness: Initial PGY4 GI Consult GI Fellow PGY4 Consult Note This is a 36 year old male with history of IDDM, HTN, ESRD on HD MWF who presents to the hospital with complaints of abdominal pain, nausea, and vomiting and constipation. Patient was recently discharged from [facility] on 06/01 with similar complaints, coffee-ground emesis and has had multiple hospitalizations. He subsequently had an EGD on 05/29/17 which revealed Grade C esophagitis, gastritis. He was discharged on PPI , and reglan. Pt states that he was initially doing fine after discharge for 2 days. He notes that he stated having nausea and vomiting starting yesterday. He reports 5-6 episodes of vomiting at home and in the ER. He denied any hematemesis, but notes an episode of coffee-ground emesis. He states that he continued to follow a gastroparesis diet and was complaint on his meds, but does not recall his current regiment. He states that his last marijuana use was 2 weeks ago. His last BM was 2 days ago and he states that it was liquid without any formed stools. He denies melena , hematochezia, dizziness, SOB, chest pain, confusion, or palpitations. EGD/ colonoscopy performed on 02/11/17/by Dr. Fox, showed reflux esophagitis with erythematous duodenopathy and external/internal hemorrhoids, respectively. Pathology was negative for H. pylori from EGD and colonoscopy pathology specimen was negative for colitis. ROS: A 12pt ROS negative except as above. PmHx: As stated in HPI PsHx: Denies FHx: Denies colon cancer SHx: Marijuana, denies alcohol Endoscopy hx: > 10; EGD 05/29/17, 04/2017; EGD and colonoscopy 01/2017 Past Patient History - Infectious Disease Hx of Infectious Diseases: None - Past Medical History & Family History Past Medical History?: Yes - Past Social History Alcohol: None Drugs: Denies - CARDIAC Hx Congestive Heart Failure: Yes Hx Hypercholesterolemia: Yes Hx Hypertension: Yes Hx Peripheral Edema: Yes - PULMONARY Hx Respiratory Disorders: No - NEUROLOGICAL Hx Neurological Disorder: No - HEENT Hx HEENT Problems: Yes Hx Cataracts: Yes (rt cat sx) - RENAL Hx Chronic Kidney Disease: Yes Hx Kidney Stones: No - ENDOCRINE/METABOLIC Hx Endocrine Disorders: Yes Hx Diabetes Mellitus Type 1: Yes - HEMATOLOGICAL/ONCOLOGICAL Hx Anemia: Yes Hx Human Immunodeficiency Virus (HIV): No - INTEGUMENTARY Hx Dermatological Problems: No - MUSCULOSKELETAL/RHEUMATOLOGICAL Hx Falls: Yes - GASTROINTESTINAL Hx Gastritis: Yes (gastroparesis) - GENITOURINARY/GYNECOLOGICAL Hx Genitourinary Disorders: No - PSYCHIATRIC Hx Psychophysiologic Disorder: No Hx Substance Use: No - SURGICAL HISTORY Hx Surgeries: Yes Hx Cataract Extraction: Yes (bilateral) Hx Vascular Access Device: Yes Other/Comment: Hx RT.PERMACATH INSERTION 04/17. Hx LT.AV SHUNT CREATION . Hx UNDESCENDED TESTES LT. REMOVED DURING CHILDHOOD - ANESTHESIA Hx Anesthesia: Yes Hx Anesthesia Reactions: No Hx Malignant Hyperthermia: No Meds Allergies/Adverse Reactions: Allergies Allergy/AdvReac Type Severity Reaction Status Date / Time No Known Allergies Allergy Verified 05/31/17 14:42 - Medications Medications: Current Medications Ondansetron HCl (Zofran Inj) 4 mg IV Q6 PRN PRN Reason: Nausea/Vomiting Physical Exam - Constitutional Appears: Non-toxic, In Acute Distress - Head Exam Head Exam: ATRAUMATIC, NORMOCEPHALIC - Eye Exam Eye Exam: Normal appearance - ENT Exam ENT Exam: Mucous Membranes Moist - Neck Exam Neck exam: Positive for: Normal Inspection - Respiratory Exam Respiratory Exam: Clear to Auscultation Bilateral, NORMAL BREATHING PATTERN. absent: Rales, Rhonchi, Wheezes, Respiratory Distress - Cardiovascular Exam Cardiovascular Exam: REGULAR RHYTHM, +S1, +S2 - GI/Abdominal Exam GI & Abdominal Exam: Normal Bowel Sounds, Soft, Tenderness (periumbilical). absent: Distended, Guarding, Hernia, Hypoactive Bowel Sounds - Rectal Exam Rectal Exam: absent: Black Stool, Bloody Stool, Hemorrhoids, Fecal Impaction - Extremities Exam Extremities exam: Negative for: joint swelling, pedal edema - Neurological Exam Neurological exam: Alert, Oriented x3 - Psychiatric Exam Psychiatric exam: Normal Affect, Normal Mood - Skin Skin Exam: Dry, Intact, Normal Color, Warm Results - Vital Signs Recent Vital Signs: Last Vital Signs Temp 97.8 F 06/06/17 04:18 Pulse 98 H 06/06/17 04:18 Resp 18 01/05/18 04:18 BP 134/73 06/06/17 04:18 Pulse Ox 98 06/06/17 06:49 - Labs Result Diagrams: 06/06/17 00:05 06/06/17 00:05 Labs: Laboratory Results - last 24 hr 06/05/17 06/06/17 06/06/17 23:51 00:05 00:05 WBC 9.7 RBC 3.90 L Hgb 11.0 L Hct 34.6 L MCV 88.8 MCH 28.2 MCHC 31.7 L RDW 21.1 H Plt Count 273 MPV 9.8 Neut % (Auto) 84.1 H Lymph % (Auto) 7.9 L Bent % (Auto) 6.9 Eos % (Auto) 0.5 Baso % (Auto) 0.6 Neut # 8.1 H Lymph # 0.8 L Bent # 0.7 Eos # 0.1 Baso # 0.1 Neutrophils % (Manual) 83 H Lymphocytes % (Manual) 11 L Monocytes % (Manual) Eosinophils % (Manual) 6 Platelet Estimate Normal PT INR APTT Sodium 136 Potassium 5.7 H Chloride 91 L Carbon Dioxide 25 Anion Gap 26 H BUN 61 H Creatinine 10.1 H* Est GFR ( Amer) 7 Est GFR (Non-Af Amer) 6 POC Glucose (mg/dL) 218 H Random Glucose 254 H Calcium 8.9 Total Bilirubin 0.9 AST 39 ALT 35 Alkaline Phosphatase 118 Total Protein 8.7 H Albumin 4.7 Globulin 4.0 H Albumin/Globulin Ratio 1.2 Lipase 88 Blood Type Antibody Screen BBK History Checked 06/06/17 06/06/17 06/06/17 00:05 00:05 00:25 WBC RBC Hgb Hct MCV MCH MCHC RDW Plt Count MPV Neut % (Auto) Lymph % (Auto) Bent % (Auto) Eos % (Auto) Baso % (Auto) Neut # Lymph # Bent # Eos # Baso # Neutrophils % (Manual) Lymphocytes % (Manual) Monocytes % (Manual) Eosinophils % (Manual) Platelet Estimate PT 11.2 INR 1.0 APTT 27.8 Sodium Potassium Chloride Carbon Dioxide Anion Gap BUN Creatinine Est GFR ( Amer) Est GFR (Non-Af Amer) POC Glucose (mg/dL) 228 H Random Glucose Calcium Total Bilirubin AST ALT Alkaline Phosphatase Total Protein Albumin Globulin Albumin/Globulin Ratio Lipase Blood Type O POSITIVE Antibody Screen Negative BBK History Checked Patient has bt 06/06/17 05:10 WBC RBC Hgb Hct MCV MCH MCHC RDW Plt Count MPV Neut % (Auto) Lymph % (Auto) Bent % (Auto) Eos % (Auto) Baso % (Auto) Neut # Lymph # Bent # Eos # Baso # Neutrophils % (Manual) Lymphocytes % (Manual) Monocytes % (Manual) Eosinophils % (Manual) Platelet Estimate PT INR APTT Sodium Potassium Chloride Carbon Dioxide Anion Gap BUN Creatinine Est GFR ( Amer) Est GFR (Non-Af Amer) POC Glucose (mg/dL) 274 H Random Glucose Calcium Total Bilirubin AST ALT Alkaline Phosphatase Total Protein Albumin Globulin Albumin/Globulin Ratio Lipase Blood Type Antibody Screen BBK History Checked Assessment & Plan - Assessment and Plan (Free Text) Assessment: This is a 36 yr old M with DM, HTN, ESRD on HD with multiple admissions for nausea and vomiting. 1. Nausea and Vomiting 2. Gastroparesis 3. Diarrhea, r/o infectous etiology; DDx: overflow 4. LA Grade C esophagitis 5. Gastritis 6. hx of Cannabis induced Cyclical Vomiting Syndrome 7. Questionable coffee-ground, unlikley as hgbn is stable and rectal exam is normal Plan: -Continue supportive care with anti emetic as needed -Better control of BG -Marijuana cessation stressed may be contributing cyclical vomiting syndrome -No plan for emergent endoscopic evaluation at this time -Continue PPI daily, protonix 40mg daily -Diet as tolerated, currently on clears, can advance as tolerated -started on reglan before meals and bedtime -will start carafate -will also send diarrhea infetous work-up -will also get an abd flat flat to eval stool burden, as diarrhea maybe overflow D/W Dr. Bermeo <Jean-Claude TONG,[facility] - Last Filed: 06/06/17 11:02> Meds - Medications Medications: Current Medications Acetaminophen (Tylenol 325mg Tab) 650 mg PO Q6 PRN PRN Reason: Pain, moderate (4-7) Dicyclomine HCl (Bentyl) 20 mg PO QID [facility] Last Admin: 06/06/17 10:48 Dose: 20 mg Metoclopramide HCl (Reglan) 10 mg IVP Q6 PRN PRN Reason: Nausea/Vomiting Last Admin: 06/06/17 09:41 Dose: 10 mg Ondansetron HCl (Zofran Inj) 4 mg IV Q6 PRN PRN Reason: Nausea/Vomiting Sucralfate (Carafate Oral Susp) 1 gm PO ACHS [facility] Last Admin: 06/06/17 10:48 Dose: 1 gm Results - Vital Signs Recent Vital Signs: Last Vital Signs Temp 97.9 F 06/06/17 08:26 Pulse 100 H 06/06/17 08:26 Resp 20 06/06/17 08:26 BP 134/73 06/06/17 04:18 Pulse Ox 98 06/06/17 08:26 - Labs Result Diagrams: 06/06/17 00:05 06/06/17 00:05 Labs: Laboratory Results - last 24 hr 06/05/17 06/06/17 06/06/17 23:51 00:05 00:05 WBC 9.7 RBC 3.90 L Hgb 11.0 L Hct 34.6 L MCV 88.8 MCH 28.2 MCHC 31.7 L RDW 21.1 H Plt Count 273 MPV 9.8 Neut % (Auto) 84.1 H Lymph % (Auto) 7.9 L Bent % (Auto) 6.9 Eos % (Auto) 0.5 Baso % (Auto) 0.6 Neut # 8.1 H Lymph # 0.8 L Bent # 0.7 Eos # 0.1 Baso # 0.1 Neutrophils % (Manual) 83 H Lymphocytes % (Manual) 11 L Monocytes % (Manual) Eosinophils % (Manual) 6 Platelet Estimate Normal PT INR APTT Sodium 136 Potassium 5.7 H Chloride 91 L Carbon Dioxide 25 Anion Gap 26 H BUN 61 H Creatinine 10.1 H* Est GFR ( Amer) 7 Est GFR (Non-Af Amer) 6 POC Glucose (mg/dL) 218 H Random Glucose 254 H Calcium 8.9 Total Bilirubin 0.9 AST 39 ALT 35 Alkaline Phosphatase 118 Total Protein 8.7 H Albumin 4.7 Globulin 4.0 H Albumin/Globulin Ratio 1.2 Lipase 88 Blood Type Antibody Screen BBK History Checked 06/06/17 06/06/17 06/06/17 00:05 00:05 00:25 WBC RBC Hgb Hct MCV MCH MCHC RDW Plt Count MPV Neut % (Auto) Lymph % (Auto) Bent % (Auto) Eos % (Auto) Baso % (Auto) Neut # Lymph # Bent # Eos # Baso # Neutrophils % (Manual) Lymphocytes % (Manual) Monocytes % (Manual) Eosinophils % (Manual) Platelet Estimate PT 11.2 INR 1.0 APTT 27.8 Sodium Potassium Chloride Carbon Dioxide Anion Gap BUN Creatinine Est GFR ( Amer) Est GFR (Non-Af Amer) POC Glucose (mg/dL) 228 H Random Glucose Calcium Total Bilirubin AST ALT Alkaline Phosphatase Total Protein Albumin Globulin Albumin/Globulin Ratio Lipase Blood Type O POSITIVE Antibody Screen Negative BBK History Checked Patient has bt 06/06/17 05:10 WBC RBC Hgb Hct MCV MCH MCHC RDW Plt Count MPV Neut % (Auto) Lymph % (Auto) Bent % (Auto) Eos % (Auto) Baso % (Auto) Neut # Lymph # Bent # Eos # Baso # Neutrophils % (Manual) Lymphocytes % (Manual) Monocytes % (Manual) Eosinophils % (Manual) Platelet Estimate PT INR APTT Sodium Potassium Chloride Carbon Dioxide Anion Gap BUN Creatinine Est GFR ( Amer) Est GFR (Non-Af Amer) POC Glucose (mg/dL) 274 H Random Glucose Calcium Total Bilirubin AST ALT Alkaline Phosphatase Total Protein Albumin Globulin Albumin/Globulin Ratio Lipase Blood Type Antibody Screen BBK History Checked Attending/Attestation - Attestation I have personally seen and examined this patient.: Yes I have fully participated in the care of the patient.: Yes I have reviewed all pertinent clinical information: Yes Notes (Text): 06/06/17 10:56 This is a 36 yr old M with uncontrolled DM, ESRD on HD with frequent hospitalizations at all 3 hospitals every week for same complains. He is admitted again after being discharged from [facility] last week where he was treated for gastroparesis which is chronic. He had EGD that showed Grade C esophagitis, H pylori biopsies negative. He is hemodynamically stable. He has clear liquid diet at bedside but states he still has vomiting, bilious, non bloody and his mom who he lives with cannot take care of him. Will get social science manager consult. Advance diet as tolerated. Will go for HD today as scheduled Small frequent meals Tight glycemic control Needs endocrinology follow up for FS of 300-350 IVF Reglan tid Anti emetics as needed HbA 1C and TSH levels HD as scheduled Social work consult for NH placement
--- NOTE | 2017-06-06 09:36 | RAD ---
HISTORY: abd pain, eval stool burden COMPARISON: Abdomen obstructive series 87169. FINDINGS: BOWEL: A nonobstructive bowel gas pattern is again appreciated there is no gross free intraperitoneal gas. An obstructive series would be more sensitive at identified potential intraperitoneal gas however. Moderate retained fecal material scattered throughout the left greater the right hemicolon as well as the rectosigmoid. BONES: Normal. OTHER FINDINGS: Vascular calcification again seen the pelvis soft tissues. IMPRESSION: Nonobstructive bowel gas pattern. No prominent free intraperitoneal gas.
--- NOTE | 2017-06-06 10:47 | CARD ---
APPROVED REPORT EKG Measurement Heart [id number] <Conclusion> Sinus tachycardia Biatrial enlargement Left ventricular hypertrophy Abnormal ECG
[2017-06-06] MEDS: Sucralfate 1 gm/10 ml Oral Susp UD PO SCH ×3 (10:48→22:02)
--- NOTE | 2017-06-06 13:09 | CP.PCM.CON ---
History of Present Illness - History of Present Illness History of Present Illness: Patient is a 36 years of age known to me with end-stage renal disease on maintenance hemodialysis Friday. He came in because of abdominal pain nausea. Patient still using marijuana. Patient was just discharged from [facility] just couple days ago and also he was discharged from this hospital about 10 days ago and patient Xiao Nakita recommended to hospital and going to the emergency room seeking pain medication . Patient has history of diabetes mellitus hypertension gastroparesis and no murmurs and no medicine of admission and reality patient has been in the hospital more than he has been outpatient Social history as noted patient continue to use marijuana every day and seeking drugs and pain medication. Review of Systems - Constitutional Constitutional: Malaise, Weakness. absent: Chills - Cardiovascular Cardiovascular: absent: Acrocyanosis, Chest Pain, Dyspnea, Leg Edema, Leg Ulcers - Respiratory Respiratory: absent: Cough - Gastrointestinal Gastrointestinal: Abdominal Pain, Nausea. absent: Coffee Ground Emesis - Genitourinary Genitourinary: As Per HPI, Nocturia - Reproductive: Male Reproductive:Male: As Per HPI - Musculoskeletal Musculoskeletal: As Per HPI, Muscle Weakness - Integumentary Integumentary: absent: Acne, Swelling - Neurological Neurological: absent: Abnormal Gait, Confusion, Numbness, Syncope - Psychiatric Psychiatric: As Per HPI - Endocrine Endocrine: Fatigue - Hematologic/Lymphatic Hematologic: absent: Easy Bleeding Past Patient History - Infectious Disease Hx of Infectious Diseases: None - Past Medical History & Family History Past Medical History?: Yes - Past Social History Alcohol: None Drugs: Denies - CARDIAC Hx Congestive Heart Failure: Yes Hx Hypercholesterolemia: Yes Hx Hypertension: Yes Hx Peripheral Edema: Yes - PULMONARY Hx Respiratory Disorders: No - NEUROLOGICAL Hx Neurological Disorder: No - HEENT Hx HEENT Problems: Yes Hx Cataracts: Yes (rt cat sx) - RENAL Hx Chronic Kidney Disease: Yes Hx Kidney Stones: No - ENDOCRINE/METABOLIC Hx Endocrine Disorders: Yes Hx Diabetes Mellitus Type 1: Yes - HEMATOLOGICAL/ONCOLOGICAL Hx Anemia: Yes Hx Human Immunodeficiency Virus (HIV): No - INTEGUMENTARY Hx Dermatological Problems: No - MUSCULOSKELETAL/RHEUMATOLOGICAL Hx Falls: Yes - GASTROINTESTINAL Hx Gastritis: Yes (gastroparesis) - GENITOURINARY/GYNECOLOGICAL Hx Genitourinary Disorders: No - PSYCHIATRIC Hx Psychophysiologic Disorder: No Hx Substance Use: No - SURGICAL HISTORY Hx Surgeries: Yes Hx Cataract Extraction: Yes (bilateral) Hx Vascular Access Device: Yes Other/Comment: Hx RT.PERMACATH INSERTION 04/17. Hx LT.AV SHUNT CREATION . Hx UNDESCENDED TESTES LT. REMOVED DURING CHILDHOOD - ANESTHESIA Hx Anesthesia: Yes Hx Anesthesia Reactions: No Hx Malignant Hyperthermia: No Meds Allergies/Adverse Reactions: Allergies Allergy/AdvReac Type Severity Reaction Status Date / Time No Known Allergies Allergy Verified 05/31/17 14:42 - Medications Medications: Current Medications Acetaminophen (Tylenol 325mg Tab) 650 mg PO Q6 PRN PRN Reason: Pain, moderate (4-7) Dicyclomine HCl (Bentyl) 20 mg PO QID [facility] Last Admin: 06/06/17 10:48 Dose: 20 mg Metoclopramide HCl (Reglan) 10 mg IVP Q6 PRN PRN Reason: Nausea/Vomiting Last Admin: 06/06/17 09:41 Dose: 10 mg Ondansetron HCl (Zofran Inj) 4 mg IV Q6 PRN PRN Reason: Nausea/Vomiting Sucralfate (Carafate Oral Susp) 1 gm PO ACHS [facility] Last Admin: 06/06/17 10:48 Dose: 1 gm Physical Exam - Constitutional Appears: No Acute Distress - ENT Exam ENT Exam: Mucous Membranes Moist - Neck Exam Neck exam: Negative for: Lymphadenopathy - Respiratory Exam Respiratory Exam: NORMAL BREATHING PATTERN. absent: Chest Wall Tenderness - Cardiovascular Exam Cardiovascular Exam: absent: JVD, Rubs - GI/Abdominal Exam GI & Abdominal Exam: Normal Bowel Sounds. absent: Guarding - Extremities Exam Extremities exam: Negative for: calf tenderness - Back Exam Back exam: absent: CVA tenderness (L), CVA tenderness (R) - Neurological Exam Neurological exam: Alert - Psychiatric Exam Psychiatric exam: Normal Affect Results - Vital Signs Recent Vital Signs: Last Vital Signs Temp 97.9 F 06/06/17 08:26 Pulse 100 H 06/06/17 08:26 Resp 20 06/06/17 08:26 BP 134/73 06/06/17 04:18 Pulse Ox 98 06/06/17 08:26 - Labs Result Diagrams: 06/06/17 00:05 06/06/17 00:05 Labs: Laboratory Results - last 24 hr 06/05/17 06/06/17 06/06/17 23:51 00:05 00:05 WBC 9.7 RBC 3.90 L Hgb 11.0 L Hct 34.6 L MCV 88.8 MCH 28.2 MCHC 31.7 L RDW 21.1 H Plt Count 273 MPV 9.8 Neut % (Auto) 84.1 H Lymph % (Auto) 7.9 L Buchanan % (Auto) 6.9 Eos % (Auto) 0.5 Baso % (Auto) 0.6 Neut # 8.1 H Lymph # 0.8 L [place]anan # 0.7 Eos # 0.1 Baso # 0.1 Neutrophils % (Manual) 83 H Lymphocytes % (Manual) 11 L Monocytes % (Manual) Eosinophils % (Manual) 6 Platelet Estimate Normal PT INR APTT Sodium 136 Potassium 5.7 H Chloride 91 L Carbon Dioxide 25 Anion Gap 26 H BUN 61 H Creatinine 10.1 H* Est GFR ( Amer) 7 Est GFR (Non-Af Amer) 6 POC Glucose (mg/dL) 218 H Random Glucose 254 H Calcium 8.9 Total Bilirubin 0.9 AST 39 ALT 35 Alkaline Phosphatase 118 Total Protein 8.7 H Albumin 4.7 Globulin 4.0 H Albumin/Globulin Ratio 1.2 Lipase 88 Blood Type Antibody Screen BBK History Checked 06/06/17 06/06/17 06/06/17 00:05 00:05 00:25 WBC RBC Hgb Hct MCV MCH MCHC RDW Plt Count MPV Neut % (Auto) Lymph % (Auto) [place]anan % (Auto) Eos % (Auto) Baso % (Auto) Neut # Lymph # [place] # Eos # Baso # Neutrophils % (Manual) Lymphocytes % (Manual) Monocytes % (Manual) Eosinophils % (Manual) Platelet Estimate PT 11.2 INR 1.0 APTT 27.8 Sodium Potassium Chloride Carbon Dioxide Anion Gap BUN Creatinine Est GFR ( Amer) Est GFR (Non-Af Amer) POC Glucose (mg/dL) 228 H Random Glucose Calcium Total Bilirubin AST ALT Alkaline Phosphatase Total Protein Albumin Globulin Albumin/Globulin Ratio Lipase Blood Type O POSITIVE Antibody Screen Negative BBK History Checked Patient has bt 06/06/17 06/06/17 05:10 11:31 WBC RBC Hgb Hct MCV MCH MCHC RDW Plt Count MPV Neut % (Auto) Lymph % (Auto) [place]anan % (Auto) Eos % (Auto) Baso % (Auto) Neut # Lymph # [place] # Eos # Baso # Neutrophils % (Manual) Lymphocytes % (Manual) Monocytes % (Manual) Eosinophils % (Manual) Platelet Estimate PT INR APTT Sodium Potassium Chloride Carbon Dioxide Anion Gap BUN Creatinine Est GFR ( Amer) Est GFR (Non-Af Amer) POC Glucose (mg/dL) 274 H 312 H Random Glucose Calcium Total Bilirubin AST ALT Alkaline Phosphatase Total Protein Albumin Globulin Albumin/Globulin Ratio Lipase Blood Type Antibody Screen BBK History Checked Assessment & Plan (1) CKD (chronic kidney disease) requiring chronic dialysis Assessment and Plan: Patient with end stage renal disease on maintenance hemodialysis Friday. Admitted with nausea vomiting abdominal discomfort. Because he has been using marijuana every day despite a very counseling many time. Patient is scheduled to have dialysis shortly ordered was given. Consent was taken Patient hyperkalemic potassium 5.7 potassium bath 2 mEq expect to be corrected post hemodialysis Anemia patient to receive EPO Hyperphosphatemia patient to receive behind Secondary hyperparathyroidism continue Sensipar Status: Acute (2) Gastroparesis due to DM Status: Acute (3) Abdominal discomfort Status: Acute
[2017-06-06] MEDS: Cinacalcet 60 MG TAB PO SCH (13:57)
[2017-06-06] MEDS ORDERED: INSULIN ASPART RECOMBINANT SC SCH (17:00)
[2017-06-06] MEDS ORDERED: Sevelamer Carb 0.8 gm/Packet PO SCH (17:00)
[2017-06-06] MEDS: Insulin Regular 100 units/ml SC SCH ×2 (17:16→21:57)
[2017-06-06] MEDS: Insulin Detemir 100 Units/ml Inj SC SCH (22:02)
--- NOTE | 2017-06-07 00:21 | HP ---
HISTORY OF PRESENT ILLNESS: The patient is seen today on 06/06/2017. He is a 36-year-old male with history of multiple medical problems including end-stage renal disease, on hemodialysis; presented to emergency room with symptoms of persistent nausea and vomiting. The patient was having multiple admissions both to [facility] as well as [facility] for the same secondary to diabetic gastroparesis. The patient is not compliant to his antihypertensive medications and he was found to have blood pressure in the emergency room of 200/90. The patient was started on his antihypertensive medications and admitted for further management. REVIEW OF SYSTEMS: Other review of system is negative. ALLERGY: NO KNOWN ALLERGY. HOME MEDICATION: As per MAR. SOCIAL HISTORY: Positive marijuana abuse. Denied smoking, EtOH or other substance abuse. FAMILY HISTORY: Noncontributory. PAST MEDICAL HISTORY: End-stage renal disease, on hemodialysis; hypertension; type 2 diabetes mellitus with diabetic gastroparesis. PHYSICAL EXAMINATION: GENERAL: The patient is not in any cardiopulmonary distress. VITAL SIGNS: Blood pressure after starting the antihypertensive medications are 174/85, temperature 98.9, respiratory rate 20 and pulse 90. HEENT: Pupils equal, reactive to light. Normal-appearing mucosa of the conjunctivae, oropharyngeal and nasal membrane mucosa. NECK: Supple. No JVD. No carotid bruit. No lymph node. No thyromegaly. CHEST AND LUNGS: Bilateral symmetrical expansion. Good air exchange. No rales. No rhonchi. CARDIOVASCULAR SYSTEM: PMI not localized. S1, S2. No additional sounds. ABDOMEN: Normoactive bowel sounds. No tenderness. No organomegaly. No masses. EXTREMITIES: No cyanosis, no clubbing, no edema. SENIOR QUALITY ANALYST: Alert, awake, oriented x2. No neurological deficit could be appreciated. ASSESSMENT: Frequent vomiting and nausea secondary to diabetic gastroparesis; end-stage renal disease, on hemodialysis; urgent hypertension. PLAN: Resume the patient's antihypertensive medications. Reglan and pantoprazole as per GI. Continue hemodialysis as per Nephrology. Tal Mcgrath MD
[2017-06-07] MEDS: Sucralfate 1 gm/10 ml Oral Susp UD PO SCH ×4 (07:56→21:12)
[2017-06-07] MEDS: Insulin Regular 100 units/ml SC SCH ×4 (07:56→21:37)
[2017-06-07] MEDS: Cinacalcet 60 MG TAB PO SCH (08:43)
--- NOTE | 2017-06-07 12:15 | CP.PCM.PN ---
<Mary Parham - Last Filed: 06/07/17 12:13> Subjective - Date & Time of Evaluation Date of Evaluation: 06/07/17 Time of Evaluation: 12:05 - Subjective Subjective: GI Fellow PGY4 Progress Note Pt seen and evaluated at bedside, pt complaining of nausea, vomiting for a few days. Says he is unable to tolerate any liquids or solids at this time. ROS: A 12pt ROS was negative except as above. Objective - Vital Signs/Intake and Output Vital Signs (last 24 hours): Temp Pulse Resp BP Pulse Ox 98.9 F 87 20 127/75 99 06/07/17 08:14 06/07/17 08:14 06/07/17 08:14 06/07/17 08:14 06/07/17 08:14 - Medications Medications: Current Medications Acetaminophen (Tylenol 325mg Tab) 650 mg PO Q6 PRN PRN Reason: Pain, moderate (4-7) Amlodipine Besylate (Norvasc) 10 mg PO DAILY [facility] Last Admin: 06/07/17 08:44 Dose: 10 mg Aspirin (Aspirin Chewable) 81 mg PO DAILY [facility] Last Admin: 06/07/17 08:43 Dose: 81 mg Cinacalcet (Sensipar) 60 mg PO DAILY [facility] Last Admin: 06/07/17 08:43 Dose: 60 mg Dicyclomine HCl (Bentyl) 20 mg PO QID [facility] Last Admin: 06/07/17 12:01 Dose: Not Given Heparin Sodium (Porcine) (Heparin) 5,000 units SC Q12 [facility] PRN Reason: Protocol Last Admin: 06/07/17 08:44 Dose: Not Given Hydralazine HCl (Apresoline) 50 mg PO TID [facility] Last Admin: 06/07/17 12:01 Dose: Not Given Insulin Detemir (Levemir) 10 units SC HS [facility] Last Admin: 06/06/17 22:02 Dose: 10 units Insulin Human Regular (Humulin R) 0 units SC ACHS [facility] PRN Reason: Protocol Last Admin: 06/07/17 11:57 Dose: 4 units Lisinopril (Zestril) 10 mg PO DAILY [facility] Last Admin: 06/07/17 08:44 Dose: 10 mg Metoclopramide HCl (Reglan) 10 mg IVP Q6 PRN PRN Reason: Nausea/Vomiting Last Admin: 06/07/17 11:56 Dose: 10 mg Ondansetron HCl (Zofran Inj) 4 mg IV Q6 PRN PRN Reason: Nausea/Vomiting Last Admin: 06/07/17 00:24 Dose: 4 mg Pantoprazole Sodium (Protonix Inj) 40 mg IVP DAILY [facility] Last Admin: 06/07/17 08:41 Dose: 40 mg Sevelamer HCl (Renagel) 2,400 mg PO TIDWM [facility] Last Admin: 06/07/17 12:02 Dose: Not Given Sucralfate (Carafate Oral Susp) 1 gm PO ACHS [facility] Last Admin: 06/07/17 12:01 Dose: Not Given - Labs Labs: 06/06/17 00:05 06/06/17 00:05 PT 11.2 Seconds (9.8-13.1) 06/06/17 00:05 INR 1.0 (0.9-1.2) 06/06/17 00:05 APTT 27.8 Seconds (25.6-37.1) 06/06/17 00:05 - Constitutional Appears: Non-toxic, No Acute Distress - Head Exam Head Exam: ATRAUMATIC, NORMAL INSPECTION, NORMOCEPHALIC - Eye Exam Eye Exam: EOMI, PERRL - ENT Exam ENT Exam: Mucous Membranes Moist - Respiratory Exam Respiratory Exam: NORMAL BREATHING PATTERN - Cardiovascular Exam Cardiovascular Exam: REGULAR RHYTHM - GI/Abdominal Exam GI & Abdominal Exam: Soft, Tenderness. absent: Distended, Guarding - Extremities Exam Extremities Exam: Full ROM, Normal Inspection - Neurological Exam Neurological Exam: Alert, Awake, Oriented x3 - Psychiatric Exam Psychiatric exam: Normal Affect, Normal Mood - Skin Skin Exam: Dry, Intact, Normal Color, Warm Assessment and Plan - Assessment and Plan (Free Text) Assessment: This is a 36 yr old M with DM, HTN, ESRD on HD with multiple admissions for nausea and vomiting. 1. Nausea and Vomiting 2. Gastroparesis 3. LA Grade C esophagitis 4. Gastritis 5. Hx of Cannabis induced Cyclical Vomiting Syndrome Plan: -Continue supportive care with anti emetic as needed -Better glycemic control -No plan for emergent endoscopic evaluation at this time -Continue PPI daily, protonix 40mg daily -Diet as tolerated, currently on clears, can advance as tolerated -Continue reglan before meals and bedtime -Continue carafate -Pt with multiple hospitalizations due to gastroparesis, may need to consider feeding tube as an outpt -Please call with any questions or concerns <Panda Sumner - Last Filed: 06/07/17 13:18> Objective - Vital Signs/Intake and Output Vital Signs (last 24 hours): Temp Pulse Resp BP Pulse Ox 98.9 F 87 20 127/75 99 06/07/17 08:14 06/07/17 08:14 06/07/17 08:14 06/07/17 08:14 06/07/17 08:14 - Medications Medications: Current Medications Acetaminophen (Tylenol 325mg Tab) 650 mg PO Q6 PRN PRN Reason: Pain, moderate (4-7) Amlodipine Besylate (Norvasc) 10 mg PO DAILY [facility] Last Admin: 06/07/17 08:44 Dose: 10 mg Aspirin (Aspirin Chewable) 81 mg PO DAILY [facility] Last Admin: 06/07/17 08:43 Dose: 81 mg Cinacalcet (Sensipar) 60 mg PO DAILY [facility] Last Admin: 06/07/17 08:43 Dose: 60 mg Dicyclomine HCl (Bentyl) 20 mg PO QID [facility] Last Admin: 06/07/17 12:01 Dose: Not Given Heparin Sodium (Porcine) (Heparin) 5,000 units SC Q12 [facility] PRN Reason: Protocol Last Admin: 06/07/17 08:44 Dose: Not Given Hydralazine HCl (Apresoline) 50 mg PO TID [facility] Last Admin: 06/07/17 12:01 Dose: Not Given Insulin Detemir (Levemir) 10 units SC HS [facility] Last Admin: 06/06/17 22:02 Dose: 10 units Insulin Human Regular (Humulin R) 0 units SC ACHS [facility] PRN Reason: Protocol Last Admin: 06/07/17 11:57 Dose: 4 units Lisinopril (Zestril) 10 mg PO DAILY [facility] Last Admin: 06/07/17 08:44 Dose: 10 mg Metoclopramide HCl (Reglan) 10 mg IVP Q6 PRN PRN Reason: Nausea/Vomiting Last Admin: 06/07/17 11:56 Dose: 10 mg Metoclopramide HCl (Reglan) 5 mg IVP Q8 [facility] Ondansetron HCl (Zofran Inj) 4 mg IV Q6 PRN PRN Reason: Nausea/Vomiting Last Admin: 06/07/17 00:24 Dose: 4 mg Pantoprazole Sodium (Protonix Inj) 40 mg IVP DAILY [facility] Last Admin: 06/07/17 08:41 Dose: 40 mg Sevelamer HCl (Renagel) 2,400 mg PO TIDWM [facility] Last Admin: 06/07/17 12:02 Dose: Not Given Sucralfate (Carafate Oral Susp) 1 gm PO ACHS [facility] Last Admin: 06/07/17 12:01 Dose: Not Given - Labs Labs: 06/06/17 00:05 06/06/17 00:05 PT 11.2 Seconds (9.8-13.1) 06/06/17 00:05 INR 1.0 (0.9-1.2) 06/06/17 00:05 APTT 27.8 Seconds (25.6-37.1) 06/06/17 00:05 Attending/Attestation - Attestation I have personally seen and examined this patient.: Yes I have fully participated in the care of the patient.: Yes I have reviewed all pertinent clinical information, including history, physical exam and plan: Yes Notes (Text): 06/07/17 13:17 36 year old male with h/o ESRD on HD, DM, gastroparesis admitted with recurrent vomiting/abdominal pain. 1. Gastroparesis 2. Erosive esophagitis Plan: -recommend supportive care with IV hydration -continue ppi -continue prokinetics -avoid narcotics, as opiate addiction may be a significant part of his clinical presentation and frequent admissions -optimize glycemic control
--- NOTE | 2017-06-07 15:12 | PN ---
DATE: 06/07/2017 DAILY PROGRESS NOTE SUBJECTIVE: The patient is seen today, 06/07/2017. He still has nausea and vomiting. The patient is afebrile and he is on both Reglan and Zofran. PHYSICAL EXAMINATION: VITAL SIGNS: Blood pressure 127/75, temperature 98.9, respiratory rate 20 and pulse 87. HEENT: Pupils equal, reactive to light. Normal-appearing mucosa of the conjunctivae, oropharyngeal and nasal membrane mucosa. NECK: Supple. No JVD. No carotid bruit. No lymph node. No thyromegaly. CHEST AND LUNGS: Bilateral symmetrical expansion. Good air exchange. No rales. No rhonchi. CARDIOVASCULAR SYSTEM: PMI not localized. S1 and S2. No additional sounds. ABDOMEN: Normoactive bowel sounds. No tenderness. No organomegaly. No masses. EXTREMITIES: No cyanosis. No clubbing. No edema. CENTRAL NERVOUS SYSTEM: Alert, awake, oriented x2. No neurological deficit could be appreciated. ASSESSMENT: 1. Diabetic gastroparesis. 2. Substance abuse. 3. End-stage renal disease, on hemodialysis. 4. Hypertension. PLAN: Continue Reglan. We will give planned Reglan around the clock and also p.r.n. doses as needed. Continue current antihypertensive medications and we will advance diet as tolerated. Tal Mcgrath MD
--- NOTE | 2017-06-07 17:09 | CP.PCM.PN ---
Subjective - Date & Time of Evaluation Date of Evaluation: 06/07/17 Time of Evaluation: 17:08 - Subjective Subjective: Follow up Nephrology Consultation Note Assessment: Stable recurrent nausea/vomiting, cyclic emesis syndrome, marijuana abuse, gastroparesis Diabetic chronic Kidney Disease (E11.22) Hypertensive Chronic Kidney Disease (I12.0) End stage renal disease (N18.6) dependence on hemodialysis (Z99.2) (MWF) via AVF Anemia (D64.9), Hyperphosphatemia (E83.39), Secondary Hyperparathyroidism (E21.1 ), HTN (I12.0) uncontrolled severe HTN ? compliance to meds Plan: dialysis MWF as ordered. Continue with Nephrovite 1 tab/day. no SWAPNIL as Hb >11 Continue with phos binders BP control with meds as ordered. secondary HTN work up with plasma metanephrine , renin/sharlene and Renal artery doppler has been negative. Glycemic control, Dialysis consistent diet Further work up/management as per primary team Dose meds/antibiotics (if needed) for ESRD status. Avoid fleets enema/magnesium based laxatives. pt to abstain from marijuana Thanks for allowing me to participate in care of your patient. Will follow patient with you. Please call if any Qs Dr Darrel Reynaga Office: [phone] HPI: Pt is a 36 y/o M with hx of ESRD on hemodialysis (MWF) via AVF, last dialysis yesterday, chronic anemia, hyperphosphatemia, secondary hyperparathyroidism, Diabetes Mellitus, hypertension, recurrent nausea/vomiting and multiple hospitalization for same came back with nausea/vomitting and pain abdomen feels better Denies chest pain, palpitation, shortness of breath, leg swelling. c/o nausea and vomitting. c/o pain abdomen Physical Examination: General Appearance: comfortable, in no acute respiratory distress, co-operative . Vitals reviewed and noted as below Head; Atraumatic, normocephalic ENT: no ulcers no thrush. Tongue is midline. Oropharynx: no rash or ulcers. EYES: Pupils are equal, round and reactive to light accommodation. Eye muscles and extraocular movement intact. Sclera is anicteric. Neck; supple no lymphadenopathy, no thyromegaly or bruit Lungs: Normal respiratory rate/effort. Breath sounds bilateral equal and clear Heart: Normal rate. s1s2 normal. No rub or gallop. Extremities: no edema. No varicose veins Neurological: Patient is alert, awake and oriented to person, place and time. No focal deficit. Strength bilateral appropriate and equal Skin: Warm and dry. Normal turgor. No rash. Palpitation: Normal elasticity for age Abdomen: Abdomen is soft. Bowel sounds +. There is no epigastric abdominal tenderness, no guarding/rigidity or organomegaly Psych: limited insight and has normal affect/mood MSK: no joint tenderness or swelling. Digits and nails normal, no deformity. : kidney or bladder not palpable. Access: AVF Labs/imaging reviewed. Past medical history, past surgical history, family history, social history, allergy reviewed and noted as below Family Hx: no hx of CKD. Non contributory Objective - Vital Signs/Intake and Output Vital Signs (last 24 hours): Temp Pulse Resp BP Pulse Ox 98.6 F 90 18 110/57 L 97 06/07/17 16:21 06/07/17 16:21 06/07/17 16:21 06/07/17 16:21 06/07/17 16:21 - Medications Medications: Current Medications Acetaminophen (Tylenol 325mg Tab) 650 mg PO Q6 PRN PRN Reason: Pain, moderate (4-7) Amlodipine Besylate (Norvasc) 10 mg PO DAILY [facility] Last Admin: 06/07/17 08:44 Dose: 10 mg Aspirin (Aspirin Chewable) 81 mg PO DAILY [facility] Last Admin: 06/07/17 08:43 Dose: 81 mg Cinacalcet (Sensipar) 60 mg PO DAILY [facility] Last Admin: 06/07/17 08:43 Dose: 60 mg Dicyclomine HCl (Bentyl) 20 mg PO QID [facility] Last Admin: 06/07/17 16:55 Dose: Not Given Heparin Sodium (Porcine) (Heparin) 5,000 units SC Q12 [facility] PRN Reason: Protocol Last Admin: 06/07/17 08:44 Dose: Not Given Hydralazine HCl (Apresoline) 50 mg PO TID [facility] Last Admin: 06/07/17 16:55 Dose: Not Given Insulin Detemir (Levemir) 10 units SC HS [facility] Last Admin: 06/06/17 22:02 Dose: 10 units Insulin Human Regular (Humulin R) 0 units SC ACHS [facility] PRN Reason: Protocol Last Admin: 06/07/17 16:49 Dose: Not Given Lisinopril (Zestril) 10 mg PO DAILY [facility] Last Admin: 06/07/17 08:44 Dose: 10 mg Metoclopramide HCl (Reglan) 10 mg IVP Q6 PRN PRN Reason: Nausea/Vomiting Last Admin: 06/07/17 11:56 Dose: 10 mg Metoclopramide HCl (Reglan) 5 mg IVP Q8 [facility] Last Admin: 06/07/17 16:55 Dose: 5 mg Ondansetron HCl (Zofran Inj) 4 mg IV Q6 PRN PRN Reason: Nausea/Vomiting Last Admin: 06/07/17 00:24 Dose: 4 mg Pantoprazole Sodium (Protonix Inj) 40 mg IVP DAILY [facility] Last Admin: 06/07/17 08:41 Dose: 40 mg Sevelamer HCl (Renagel) 2,400 mg PO TIDWM [facility] Last Admin: 06/07/17 16:56 Dose: Not Given Sucralfate (Carafate Oral Susp) 1 gm PO [facility] Last Admin: 06/07/17 16:56 Dose: Not Given - Labs Labs: 06/06/17 00:05 06/06/17 00:05 PT 11.2 Seconds (9.8-13.1) 06/06/17 00:05 INR 1.0 (0.9-1.2) 06/06/17 00:05 APTT 27.8 Seconds (25.6-37.1) 06/06/17 00:05
[2017-06-07] MEDS: Insulin Detemir 100 Units/ml Inj SC SCH (21:45)
[2017-06-08] MEDS: Sucralfate 1 gm/10 ml Oral Susp UD PO SCH ×5 (08:15→23:49)
[2017-06-08] MEDS: Insulin Regular 100 units/ml SC SCH ×4 (08:15→21:40)
[2017-06-08] MEDS: Cinacalcet 60 MG TAB PO SCH (08:17)
--- NOTE | 2017-06-08 16:17 | CP.PCM.PN ---
Subjective - Date & Time of Evaluation Date of Evaluation: 06/08/17 Time of Evaluation: 16:17 - Subjective Subjective: Follow up Nephrology Consultation Note Assessment: Stable recurrent nausea/vomiting, cyclic emesis syndrome, marijuana abuse, gastroparesis Diabetic chronic Kidney Disease (E11.22) Hypertensive Chronic Kidney Disease (I12.0) End stage renal disease (N18.6) dependence on hemodialysis (Z99.2) (MWF) via AVF Anemia (D64.9), Hyperphosphatemia (E83.39), Secondary Hyperparathyroidism (E21.1 ), HTN (I12.0) uncontrolled severe HTN ? compliance to meds Plan: dialysis MWF as ordered. Continue with Nephrovite 1 tab/day. no SWAPNIL as Hb >11 Continue with phos binders BP control with meds as ordered. secondary HTN work up with plasma metanephrine , renin/sharlene and Renal artery doppler has been negative. Glycemic control, Dialysis consistent diet Further work up/management as per primary team Dose meds/antibiotics (if needed) for ESRD status. Avoid fleets enema/magnesium based laxatives. pt to abstain from marijuana Thanks for allowing me to participate in care of your patient. Will follow patient with you. Please call if any Qs Dr Darrel Reynaga Office: [phone] HPI: Pt is a 36 y/o M with hx of ESRD on hemodialysis (MWF) via AV[facility], last dialysis yesterday, chronic anemia, hyperphosphatemia, secondary hyperparathyroidism, Diabetes Mellitus, hypertension, recurrent nausea/vomiting and multiple hospitalization for same came back with nausea/vomitting and pain abdomen feels better Denies chest pain, palpitation, shortness of breath, leg swelling. c/o nausea and vomitting. c/o pain abdomen Physical Examination: General Appearance: comfortable, in no acute respiratory distress, co-operative . Vitals reviewed and noted as below Head; Atraumatic, normocephalic ENT: no ulcers no thrush. Tongue is midline. Oropharynx: no rash or ulcers. EYES: Pupils are equal, round and reactive to light accommodation. Eye muscles and extraocular movement intact. Sclera is anicteric. Neck; supple no lymphadenopathy, no thyromegaly or bruit Lungs: Normal respiratory rate/effort. Breath sounds bilateral equal and clear Heart: Normal rate. s1s2 normal. No rub or gallop. Extremities: no edema. No varicose veins Neurological: Patient is alert, awake and oriented to person, place and time. No focal deficit. Strength bilateral appropriate and equal Skin: Warm and dry. Normal turgor. No rash. Palpitation: Normal elasticity for age Abdomen: Abdomen is soft. Bowel sounds +. There is no epigastric abdominal tenderness, no guarding/rigidity or organomegaly Psych: limited insight and has normal affect/mood MSK: no joint tenderness or swelling. Digits and nails normal, no deformity. : kidney or bladder not palpable. Access: [facility] Labs/imaging reviewed. Past medical history, past surgical history, family history, social history, allergy reviewed and noted as below Family Hx: no hx of CKD. Non contributory Objective - Vital Signs/Intake and Output Vital Signs (last 24 hours): Temp Pulse Resp BP Pulse Ox 98.8 F 83 20 132/65 98 06/08/17 07:57 06/08/17 08:18 06/08/17 07:57 06/08/17 08:18 06/08/17 07:57 - Medications Medications: Current Medications Acetaminophen (Tylenol 325mg Tab) 650 mg PO Q6 PRN PRN Reason: Pain, moderate (4-7) Last Admin: 06/07/17 20:33 Dose: 650 mg Amlodipine Besylate (Norvasc) 10 mg PO DAILY [facility] Last Admin: 06/08/17 08:17 Dose: 10 mg Aspirin (Aspirin Chewable) 81 mg PO DAILY [facility] Last Admin: 06/08/17 08:17 Dose: 81 mg Cinacalcet (Sensipar) 60 mg PO DAILY [facility] Last Admin: 06/08/17 08:17 Dose: 60 mg Dicyclomine HCl (Bentyl) 20 mg PO QID [facility] Last Admin: 06/08/17 12:41 Dose: Not Given Diphenhydramine HCl (Benadryl) 25 mg PO HS PRN PRN Reason: Insomnia Last Admin: 06/08/17 02:04 Dose: 25 mg Heparin Sodium (Porcine) (Heparin) 5,000 units SC Q12 [facility] PRN Reason: Protocol Last Admin: 06/08/17 08:17 Dose: Not Given Hydralazine HCl (Apresoline) 50 mg PO TID [facility] Last Admin: 06/08/17 12:41 Dose: Not Given Insulin Detemir (Levemir) 10 units SC [facility] Last Admin: 06/07/17 21:45 Dose: 10 units Insulin Human Regular (Humulin R) 0 units SC [facility] PRN Reason: Protocol Last Admin: 06/08/17 12:40 Dose: Not Given Lisinopril (Zestril) 10 mg PO DAILY [facility] Last Admin: 06/08/17 08:16 Dose: 10 mg Metoclopramide HCl (Reglan) 10 mg IVP Q6 PRN PRN Reason: Nausea/Vomiting Last Admin: 06/07/17 22:36 Dose: 10 mg Metoclopramide HCl (Reglan) 5 mg IVP Q8 [facility] Last Admin: 06/08/17 08:29 Dose: 5 mg Ondansetron HCl (Zofran Inj) 4 mg IV Q6 PRN PRN Reason: Nausea/Vomiting Last Admin: 06/07/17 00:24 Dose: 4 mg Pantoprazole Sodium (Protonix Inj) 40 mg IVP DAILY [facility] Last Admin: 06/08/17 08:15 Dose: 40 mg Sevelamer HCl (Renagel) 2,400 mg PO TIDWM [facility] Last Admin: 06/08/17 12:41 Dose: Not Given Sucralfate (Carafate Oral Susp) 1 gm PO [facility] Last Admin: 06/08/17 12:40 Dose: Not Given Vitamin B Complex/Vit C/Folic Acid (Nephro-Víctor) 1 tab PO DAILY [facility] - Labs Labs: 06/06/17 00:05 06/06/17 00:05 PT 11.2 Seconds (9.8-13.1) 06/06/17 00:05 INR 1.0 (0.9-1.2) 06/06/17 00:05 APTT 27.8 Seconds (25.6-37.1) 06/06/17 00:05
[2017-06-08] MEDS: Insulin Detemir 100 Units/ml Inj SC SCH (21:40)
[2017-06-09] MEDS: Insulin Detemir 100 Units/ml Inj SC SCH (00:11)
[2017-06-09 08:03] VITALS: O2SAT 98
--- NOTE | 2017-06-09 08:17 | CP.PCM.PN ---
<Vlad Sawyer - Last Filed: 06/09/17 08:17> Subjective - Date & Time of Evaluation Date of Evaluation: 06/09/17 Time of Evaluation: 08:00 - Subjective Subjective: PGY4 GI Follow-up Pt seen and examined bedside Still complaining of lower abd pain Denies any nausea or vomiting able to tolerate meals ROS: 10- point ROS conducted, neg other than above Objective - Vital Signs/Intake and Output Vital Signs (last 24 hours): Temp Pulse Resp BP Pulse Ox 98.1 F 88 20 97/54 L 98 06/09/17 07:59 06/09/17 07:59 06/09/17 07:59 06/09/17 07:59 06/09/17 07:59 Intake and Output: 06/09/17 06/09/17 06:59 18:59 Intake Total 240 Balance 240 - Medications Medications: Current Medications Acetaminophen (Tylenol 325mg Tab) 650 mg PO Q6 PRN PRN Reason: Pain, moderate (4-7) Last Admin: 06/07/17 20:33 Dose: 650 mg Amlodipine Besylate (Norvasc) 10 mg PO DAILY [facility] Last Admin: 06/08/17 08:17 Dose: 10 mg Aspirin (Aspirin Chewable) 81 mg PO DAILY [facility] Last Admin: 06/08/17 08:17 Dose: 81 mg Cinacalcet (Sensipar) 60 mg PO DAILY [facility] Last Admin: 06/08/17 08:17 Dose: 60 mg Dicyclomine HCl (Bentyl) 20 mg PO QID [facility] Last Admin: 06/08/17 23:49 Dose: 20 mg Diphenhydramine HCl (Benadryl) 25 mg PO HS PRN PRN Reason: Insomnia Last Admin: 06/09/17 00:18 Dose: 25 mg Heparin Sodium (Porcine) (Heparin) 5,000 units SC Q12 [facility] PRN Reason: Protocol Last Admin: 06/08/17 21:40 Dose: Not Given Hydralazine HCl (Apresoline) 50 mg PO TID [facility] Last Admin: 06/08/17 16:23 Dose: 50 mg Insulin Detemir (Levemir) 10 units SC HS [facility] Last Admin: 06/09/17 00:11 Dose: 10 units Insulin Human Regular (Humulin R) 0 units SC ACHS [facility] PRN Reason: Protocol Last Admin: 06/08/17 21:40 Dose: Not Given Lisinopril (Zestril) 10 mg PO DAILY [facility] Last Admin: 06/08/17 08:16 Dose: 10 mg Metoclopramide HCl (Reglan) 10 mg IVP Q6 PRN PRN Reason: Nausea/Vomiting Last Admin: 06/07/17 22:36 Dose: 10 mg Metoclopramide HCl (Reglan) 5 mg IVP Q8 [facility] Last Admin: 06/09/17 00:06 Dose: 5 mg Ondansetron HCl (Zofran Inj) 4 mg IV Q6 PRN PRN Reason: Nausea/Vomiting Last Admin: 06/09/17 04:54 Dose: 4 mg Pantoprazole Sodium (Protonix Inj) 40 mg IVP DAILY [facility] Last Admin: 06/08/17 08:15 Dose: 40 mg Sevelamer HCl (Renagel) 2,400 mg PO TIDWM [facility] Last Admin: 06/08/17 16:22 Dose: 2,400 mg Sucralfate (Carafate Oral Susp) 1 gm PO ACHS [facility] Last Admin: 06/08/17 23:49 Dose: 1 gm Vitamin B Complex/Vit C/Folic Acid (Nephro-Víctor) 1 tab PO DAILY [facility] - Labs Labs: 06/06/17 00:05 06/06/17 00:05 PT 11.2 Seconds (9.8-13.1) 06/06/17 00:05 INR 1.0 (0.9-1.2) 06/06/17 00:05 APTT 27.8 Seconds (25.6-37.1) 06/06/17 00:05 - Constitutional Appears: Well, No Acute Distress - Head Exam Head Exam: ATRAUMATIC, NORMOCEPHALIC - Eye Exam Eye Exam: Normal appearance - ENT Exam ENT Exam: Mucous Membranes Moist - Neck Exam Neck Exam: Normal Inspection - Respiratory Exam Respiratory Exam: Clear to Ausculation Bilateral, NORMAL BREATHING PATTERN. absent: Rales, Rhonchi, Wheezes, Respiratory Distress - Cardiovascular Exam Cardiovascular Exam: REGULAR RHYTHM, +S1, +S2 - GI/Abdominal Exam GI & Abdominal Exam: Tenderness Additional comments: lower quadrant B/L - Extremities Exam Extremities Exam: absent: Joint Swelling, Pedal Edema - Neurological Exam Neurological Exam: Alert, Awake, Oriented x3 - Psychiatric Exam Psychiatric exam: Normal Affect, Normal Mood - Skin Skin Exam: Dry, Intact, Normal Color, Warm Assessment and Plan - Assessment and Plan (Free Text) Assessment: This is a 36 yr old M with DM, HTN, ESRD on HD with multiple admissions for nausea and vomiting. 1. Nausea and Vomiting (resolved) 2. Gastroparesis 3. LA Grade C esophagitis 4. Gastritis 5. Hx of Cannabis induced Cyclical Vomiting Syndrome Plan: -Continue supportive care with anti emetic as needed -Better glycemic control -No plan for emergent endoscopic evaluation at this time -Continue PPI daily, protonix 40mg daily -continue diet as tolerated -Continue reglan 10mg TID -Continue carafate -Pt with multiple hospitalizations due to gastroparesis, may need to consider feeding tube as an outpt -recommend geriatric social work professor consult for placement, as pt notes that his mother can no longer care for him will D/W Dr. Bermeo <Jean-Claude TONG,[facility] - Last Filed: 06/09/17 13:54> Objective - Vital Signs/Intake and Output Vital Signs (last 24 hours): Temp Pulse Resp BP Pulse Ox 98.1 F 88 20 97/54 L 98 06/09/17 07:59 06/09/17 07:59 06/09/17 07:59 06/09/17 07:59 06/09/17 07:59 Intake and Output: 06/09/17 06/09/17 06:59 18:59 Intake Total 240 Balance 240 - Medications Medications: Current Medications Acetaminophen (Tylenol 325mg Tab) 650 mg PO Q6 PRN PRN Reason: Pain, moderate (4-7) Last Admin: 06/07/17 20:33 Dose: 650 mg Amlodipine Besylate (Norvasc) 10 mg PO DAILY [facility] Last Admin: 06/09/17 08:58 Dose: Not Given Aspirin (Aspirin Chewable) 81 mg PO DAILY [facility] Last Admin: 06/09/17 08:59 Dose: 81 mg Cholestyramine Resin (Questran) 4 gm PO DAILY [facility] Last Admin: 06/09/17 13:00 Dose: 4 gm Cinacalcet (Sensipar) 60 mg PO DAILY [facility] Last Admin: 06/09/17 08:56 Dose: 60 mg Dicyclomine HCl (Bentyl) 20 mg PO QID [facility] Last Admin: 06/09/17 12:50 Dose: Not Given Diphenhydramine HCl (Benadryl) 25 mg PO HS PRN PRN Reason: Insomnia Last Admin: 06/09/17 00:18 Dose: 25 mg Heparin Sodium (Porcine) (Heparin) 5,000 units SC Q12 [facility] PRN Reason: Protocol Last Admin: 06/09/17 08:57 Dose: Not Given Hydralazine HCl (Apresoline) 50 mg PO TID [facility] Last Admin: 06/09/17 12:50 Dose: Not Given Insulin Detemir (Levemir) 10 units SC HS [facility] Last Admin: 06/09/17 00:11 Dose: 10 units Insulin Human Regular (Humulin R) 0 units SC [facility] PRN Reason: Protocol Last Admin: 06/09/17 11:39 Dose: Not Given Lisinopril (Zestril) 10 mg PO DAILY [facility] Last Admin: 06/09/17 08:59 Dose: Not Given Metoclopramide HCl (Reglan) 10 mg IVP Q6 PRN PRN Reason: Nausea/Vomiting Last Admin: 06/07/17 22:36 Dose: 10 mg Metoclopramide HCl (Reglan) 5 mg IVP Q8 [facility] Last Admin: 06/09/17 09:13 Dose: 5 mg Ondansetron HCl (Zofran Inj) 4 mg IV Q6 PRN PRN Reason: Nausea/Vomiting Last Admin: 06/09/17 04:54 Dose: 4 mg Pantoprazole Sodium (Protonix Inj) 40 mg IVP DAILY [facility] Last Admin: 06/09/17 08:56 Dose: 40 mg Sevelamer HCl (Renagel) 2,400 mg PO TIDWM [facility] Last Admin: 06/09/17 12:51 Dose: Not Given Sucralfate (Carafate Oral Susp) 1 gm PO [facility] Last Admin: 06/09/17 11:39 Dose: Not Given Vitamin B Complex/Vit C/Folic Acid (Nephro-Víctor) 1 tab PO DAILY [facility] Last Admin: 06/09/17 08:57 Dose: 1 tab - Labs Labs: 06/06/17 00:05 06/06/17 00:05 PT 11.2 Seconds (9.8-13.1) 06/06/17 00:05 INR 1.0 (0.9-1.2) 06/06/17 00:05 APTT 27.8 Seconds (25.6-37.1) 06/06/17 00:05 Attending/Attestation - Attestation I have personally seen and examined this patient.: Yes I have fully participated in the care of the patient.: Yes I have reviewed all pertinent clinical information, including history, physical exam and plan: Yes Notes (Text): 06/09/17 13:53 This is a 36 yr old M with uncontrolled DM, ESRD on HD with frequent hospitalizations at all 3 hospitals every week for same complains. He is admitted again after being discharged from [facility] last week where he was treated for gastroparesis which is chronic. He had EGD that showed Grade C esophagitis, H pylori biopsies negative. He is hemodynamically stable. No vomiting in past 24 hours. Diet as tolerated -Will get professor of social work consult. - Advance diet as tolerated. Will go for HD today as scheduled. - Small frequent meals - Tight glycemic control - Reglan tid - Anti emetics as needed
[2017-06-09] MEDS: Cinacalcet 60 MG TAB PO SCH (08:56)
[2017-06-09] MEDS: Insulin Regular 100 units/ml SC SCH ×3 (08:57→16:30)
[2017-06-09] MEDS: Sucralfate 1 gm/10 ml Oral Susp UD PO SCH ×3 (08:58→16:30)
[2017-06-09] MEDS ORDERED: Multivitamin Vitamin B Complex (Nephro-Vite) Tab PO SCH (09:00)
--- NOTE | 2017-06-09 09:06 | CP.PCM.PN ---
Subjective - Date & Time of Evaluation Date of Evaluation: 06/09/17 Time of Evaluation: 09:04 - Subjective Subjective: Dialysis note Patient seen on hemodialysis now. I discussed the dialysis of done with the nurse at the bedside. Patient is still complaining intermittent abdominal pain with some intermittent diarrhea. Objective - Vital Signs/Intake and Output Vital Signs (last 24 hours): Temp Pulse Resp BP Pulse Ox 98.1 F 88 20 97/54 L 98 06/09/17 07:59 06/09/17 07:59 06/09/17 07:59 06/09/17 07:59 06/09/17 07:59 Intake and Output: 06/09/17 06/09/17 06:59 18:59 Intake Total 240 Balance 240 - Medications Medications: Current Medications Acetaminophen (Tylenol 325mg Tab) 650 mg PO Q6 PRN PRN Reason: Pain, moderate (4-7) Last Admin: 06/07/17 20:33 Dose: 650 mg Amlodipine Besylate (Norvasc) 10 mg PO DAILY [facility] Last Admin: 06/08/17 08:17 Dose: 10 mg Aspirin (Aspirin Chewable) 81 mg PO DAILY [facility] Last Admin: 06/08/17 08:17 Dose: 81 mg Cinacalcet (Sensipar) 60 mg PO DAILY [facility] Last Admin: 06/08/17 08:17 Dose: 60 mg Dicyclomine HCl (Bentyl) 20 mg PO QID [facility] Last Admin: 06/08/17 23:49 Dose: 20 mg Diphenhydramine HCl (Benadryl) 25 mg PO HS PRN PRN Reason: Insomnia Last Admin: 06/09/17 00:18 Dose: 25 mg Heparin Sodium (Porcine) (Heparin) 5,000 units SC Q12 [facility] PRN Reason: Protocol Last Admin: 06/08/17 21:40 Dose: Not Given Hydralazine HCl (Apresoline) 50 mg PO TID [facility] Last Admin: 06/08/17 16:23 Dose: 50 mg Insulin Detemir (Levemir) 10 units SC HS [facility] Last Admin: 06/09/17 00:11 Dose: 10 units Insulin Human Regular (Humulin R) 0 units SC ACHS [facility] PRN Reason: Protocol Last Admin: 06/08/17 21:40 Dose: Not Given Lisinopril (Zestril) 10 mg PO DAILY [facility] Last Admin: 06/08/17 08:16 Dose: 10 mg Metoclopramide HCl (Reglan) 10 mg IVP Q6 PRN PRN Reason: Nausea/Vomiting Last Admin: 06/07/17 22:36 Dose: 10 mg Metoclopramide HCl (Reglan) 5 mg IVP Q8 [facility] Last Admin: 06/09/17 00:06 Dose: 5 mg Ondansetron HCl (Zofran Inj) 4 mg IV Q6 PRN PRN Reason: Nausea/Vomiting Last Admin: 06/09/17 04:54 Dose: 4 mg Pantoprazole Sodium (Protonix Inj) 40 mg IVP DAILY [facility] Last Admin: 06/08/17 08:15 Dose: 40 mg Sevelamer HCl (Renagel) 2,400 mg PO TIDWM [facility] Last Admin: 06/08/17 16:22 Dose: 2,400 mg Sucralfate (Carafate Oral Susp) 1 gm PO ACHS [facility] Last Admin: 06/08/17 23:49 Dose: 1 gm Vitamin B Complex/Vit C/Folic Acid (Nephro-Víctor) 1 tab PO DAILY [facility] - Labs Labs: 06/06/17 00:05 06/06/17 00:05 PT 11.2 Seconds (9.8-13.1) 06/06/17 00:05 INR 1.0 (0.9-1.2) 06/06/17 00:05 APTT 27.8 Seconds (25.6-37.1) 06/06/17 00:05 - Constitutional Appears: No Acute Distress - ENT Exam ENT Exam: Mucous Membranes Moist - Respiratory Exam Respiratory Exam: NORMAL BREATHING PATTERN. absent: Chest Wall Tenderness, Rales - Cardiovascular Exam Cardiovascular Exam: REGULAR RHYTHM. absent: Rubs - GI/Abdominal Exam GI & Abdominal Exam: Soft, Normal Bowel Sounds - Extremities Exam Extremities Exam: absent: Calf Tenderness - Back Exam Back Exam: absent: CVA tenderness (L), CVA tenderness (R) - Neurological Exam Neurological Exam: Alert - Psychiatric Exam Psychiatric exam: Normal Affect - Skin Skin Exam: absent: Cyanosis Assessment and Plan (1) CKD (chronic kidney disease) requiring chronic dialysis Assessment & Plan: End stage renal disease patient receiving hemodialysis now. Potassium bath 2 mEq Bicarbonate bath 34 Sodium bath 138 Ultrafiltration 1500 mL Patient tolerating hemodialysis The rest of the medical problem as noted recurrent nausea/vomiting, cyclic emesis syndrome, marijuana abuse, gastroparesis Diabetic chronic Kidney Disease (E11.22) Hypertensive Chronic Kidney Disease (I12.0) End stage renal disease (N18.6) dependence on hemodialysis (Z99.2) (MWF) via AVF Anemia (D64.9), Hyperphosphatemia (E83.39), Secondary Hyperparathyroidism (E21.1 ), HTN (I12.0) uncontrolled severe HTN ? compliance to meds Status: Acute (2) Gastroparesis due to DM Status: Acute (3) Abdominal discomfort Status: Acute
[2017-06-09] MEDS ORDERED: Cholestyramine 4 gm/Pkt UD PO SCH (12:15)
[2017-06-09 13:37] LABS: HEMOGLOBIN 9.9 g/dL (12.0-18.0); MEAN CELL VOLUME 88.6 fl (80.0-94.0); MEAN CORPUSCULAR HGB CONC 31.7 g/dL (33.0-37.0); RBC 3.54 Mil/uL (4.40-5.90); RED CELL DISTRIBUTION WIDTH 20.3 % (11.5-14.5)
--- NOTE | 2017-06-09 15:24 | PQF GENQUE ---
Dr. Mcgrath, Please specify the type and acuity of heart failure in your progress notes: VERSUS : hx. of CHF: not a chronic condition 1. TYPE: Combined systolic and diastolic Heart failure with reduced ejection fraction and diastolic dysfunction Diastolic HFpEF Systolic HFrEF Left heart failure Right heart failure Right heart failure due to left heart failure High Output failure End stage heart failure Other (please specify) Clinically unable to determine Unknown 2. ACUITY: Acute Chronic Acute on chronic Other (please specify) Clinically unable to determine Unknown ER note GI and Renal consult notes include: History CHF: Yes This form is a permanent part of the medical record Clarification of your documentation is requested to better reflect the severity of illness and intensity of treatment of your patient. Indicators present [] Specify: [] [] Specify: [] [] Specify: [] [] Specify: [] Location in the medical record that reflects the above clinical findings: [] Treatment Provided: [] PHYSICIAN'S RESPONSE Based on your medical judgment of the clinical indicators outlined above please clarify the following: [] Practitioner response [] If unable to determine, please check the box, sign and date. Present On Admission (POA) Indicator: [] Present at the time of admission [] Not present at the time of admission [] Clinically Undetermined In responding to this query, please exercise your independent professional judgment. The fact that a question is asked does not imply that any particular answer is desired or expected. Thank you for your clarification on this documentation. If you have any questions please call. * Thank you, Shira Madsen RN ext. #[phone] MTDD
[2017-06-09 15:26] VITALS: BP 98/60; PULSE 85; RESP 18; TEMP 98.8
--- NOTE | 2017-06-09 15:28 | PQF GENQUE ---
Dr. Carter, Please clarify the type of anemia: if known: i.e. Blood loss anemia, acute Blood loss anemia, chronic Chronic anemia Deficiency anemia (please specify type) Due to/in/with antineoplastic chemotherapy Due to/in/with chronic kidney disease Due to/in/with kidney failure Due to/in/with neoplastic disease Iron deficiency anemia Macrocytic anemia Microcytic anemia Normocytic anemia Postoperative blood loss anemia Pernicious anemia Other anemia (please specify) Clinically unable to determine Unknown 06/06 Renal note: hx. ESRD/Hemodialysis: Anemia patient to receive EPO H/H: 11.0/34.6->9.9/31.4 This form is a permanent part of the medical record Clarification of your documentation is requested to better reflect the severity of illness and intensity of treatment of your patient. Indicators present [] Specify: [] [] Specify: [] [] Specify: [] [] Specify: [] Location in the medical record that reflects the above clinical findings: [] Treatment Provided: [] PHYSICIAN'S RESPONSE Based on your medical judgment of the clinical indicators outlined above please clarify the following: [] Practitioner response [] If unable to determine, please check the box, sign and date. Present On Admission (POA) Indicator: [] Present at the time of admission [] Not present at the time of admission [] Clinically Undetermined In responding to this query, please exercise your independent professional judgment. The fact that a question is asked does not imply that any particular answer is desired or expected. Thank you for your clarification on this documentation. If you have any questions please call. * Thank you, Shira Madsen RN ext. #[phone] MTDD
[2017-06-09] MEDS ORDERED: Vancomycin 500 mg (Oral/Rectal USE) PO SCH (17:00)
--- NOTE | 2017-06-10 20:55 | DS ---
REASON FOR ADMISSION: This is a 36-year-old male with history of end-stage renal disease, on hemodialysis, who was admitted for urgent hypertension as well as nausea and vomiting. COURSE OF HOSPITALIZATION: Patient was admitted to medical floor and he had a GI consult done by Dr. Bermeo. Patient was continued on Reglan and Zofran and he was placed on Accu-Cheks with insulin coverage as well as his antihypertensive medication was resumed. Patient was continued on hemodialysis as per his blood bank laboratory technician. Patient developed diarrhea and C. diff came back positive. Patient was started on vancomycin p.o., but he did sign against medical advice before the completion of treatment. FINAL DIAGNOSES: Diabetic gastroparesis; Clostridium difficile colitis; urgent hypertension; end-stage renal disease, on hemodialysis. Tal Mcgrath MD
== END 2017-06-09 17:30 | disposition left against medical advice (07) | DRG 73 ==
LOC: H.ER 23:44 → H.ERHOLD 06-06 03:18 → H.MEDSURG1 06-06 04:06 → OBSVTOIN 06-06 21:15
PROVIDERS: ADMIT Internal Medicine; ATTEND Internal Medicine
PROC: 5A1D70Z Performance of Urinary Filtration, Intermittent, Less than 6 Hours Per Day (ICD-10-PCS; principal; 2017-06-06)
PROC: 5A1D70Z Performance of Urinary Filtration, Intermittent, Less than 6 Hours Per Day (ICD-10-PCS; 2017-06-09)
DX: E10.43 Type 1 diabetes mellitus with diabetic autonomic (poly)neuropathy (principal); N18.6 End stage renal disease; I13.2 Hypertensive heart and chronic kidney disease with heart failure and with stage 5 chronic kidney disease, or end stage renal disease; E10.22 Type 1 diabetes mellitus with diabetic chronic kidney disease; A04.72 Enterocolitis due to Clostridium difficile, not specified as recurrent; E83.39 Other disorders of phosphorus metabolism; E87.5 Hyperkalemia; K22.10 Ulcer of esophagus without bleeding; N25.81 Secondary hyperparathyroidism of renal origin; E78.00 Pure hypercholesterolemia, unspecified; F12.10 Cannabis abuse, uncomplicated; I16.0 Hypertensive urgency; I50.9 Heart failure, unspecified; K29.70 Gastritis, unspecified, without bleeding; K31.84 Gastroparesis; K59.00 Constipation, unspecified; Z79.4 Long term (current) use of insulin; Z79.899 Other long term (current) drug therapy; Z99.2 Dependence on renal dialysis; H26.9 Unspecified cataract; Z98.42 Cataract extraction status, left eye; Z98.41 Cataract extraction status, right eye; D63.8 Anemia in other chronic diseases classified elsewhere; K21.0 Gastro-esophageal reflux disease with esophagitis; K64.4 Residual hemorrhoidal skin tags; K31.89 Other diseases of stomach and duodenum; R79.89 Other specified abnormal findings of blood chemistry

== ENCOUNTER 2017-07-11 12:34 | Inpatient (IN) | payer MEDICARE, MEDICAID ==
[2017-07-11 12:34] VITALS: BMI 19.5
--- NOTE | 2017-07-11 14:31 | ED PDOC ---
HPI: Abdomen Time Seen by Provider: 07/11/17 14:29 Chief Complaint (Nursing): GI Problem Chief Complaint (Provider): VOMITING/ABD PAIN History Per: Patient (36 Y/O MALE ESRD MWF H/O GASTROPARESIS AND MULTIPLE ABD SURGERIES HERE WITH VOMITING/ABDOMINAL PAIN. ADMITS TO MARIJUANA USE. NO FEVERS /CHILLS PER HIM.) Past Medical History Reviewed: Historical Data, Nursing Documentation, Vital Signs Vital Signs: Last Vital Signs Temp 98.1 F 07/11/17 13:18 Pulse 94 H 07/11/17 18:17 Resp 20 07/11/17 18:17 BP 140/93 H 07/11/17 18:17 Pulse Ox 98 07/11/17 18:17 - Medical History PMH: Anemia, CHF, Diabetes (type I; ), Gastritis (gastroparesis), HTN, Hypercholesterolemia, Peripheral Edema, End Stage Renal Disease, Chronic Kidney Disease Denies: HIV, Kidney Stones - Family History Family History: States: Unknown Family Hx, Diabetes, Hypertension - Immunization History Hx Tetanus Toxoid Vaccination: Yes Hx Influenza Vaccination: Yes Hx Pneumococcal Vaccination: Yes - Home Medications Home Medications: Ambulatory Orders Medication Instructions Recorded Aspirin [Aspirin Chewable] 81 mg PO DAILY #60 chew 05/30/17 Lisinopril [Zestril] 10 mg PO DAILY #60 tablet 05/30/17 amLODIPine [Norvasc] 10 mg PO DAILY #30 tab 05/30/17 Insulin Aspart, Recombinant 15 units SC ACTID 05/31/17 [Novolog] Sevelamer [Renagel] 2,400 mg PO TID 05/31/17 Dicyclomine [Bentyl] 10 mg PO QID PRN 07/11/17 Famotidine [Pepcid] 20 mg PO BID 07/11/17 Metoprolol Tartrate [Lopressor] 50 mg PO Q12H 07/11/17 Ondansetron [Zofran Tab] 4 mg PO Q8H PRN 07/11/17 Pantoprazole [Protonix EC Tab] 40 mg PO DAILY 07/11/17 cloNIDine [Catapres] 0.2 mg PO TID 07/11/17 hydrALAZINE [Apresoline] 25 mg PO Q6H 07/11/17 - Allergies Allergies/Adverse Reactions: Allergies Allergy/AdvReac Type Severity Reaction Status Date / Time No Known Allergies Allergy Verified 07/11/17 13:18 Review of Systems ROS Statement: Except As Marked, All Systems Reviewed And Found Negative Gastrointestinal: Positive for: Vomiting, Abdominal Pain Physical Exam - Reviewed Nursing Documentation Reviewed: Yes Vital Signs Reviewed: Yes - Physical Exam Appears: Positive for: Well, Non-toxic, No Acute Distress Head Exam: Positive for: ATRAUMATIC, NORMAL INSPECTION, NORMOCEPHALIC Skin: Positive for: Normal Color, Warm, DRY Eye Exam: Positive for: EOMI, Normal appearance, PERRL ENT: Positive for: Normal ENT Inspection Neck: Positive for: Normal, Painless ROM Cardiovascular/Chest: Positive for: Regular Rate, Rhythm Respiratory: Positive for: CNT, Normal Breath Sounds Gastrointestinal/Abdominal: Positive for: Normal Exam, Bowel Sounds, Soft, Tenderness (GENERALIZED ABDOMINAL PAIN; ACTIVE BM) Back: Positive for: Normal Inspection Extremity: Positive for: Normal ROM Neurologic/Psych: Positive for: Alert, Oriented - Laboratory Results Result Diagrams: 07/11/17 14:00 07/11/17 14:00 - ECG O2 Sat by Pulse Oximetry: 97 - Progress ED Course And Treament: NOTED WITH BROWNISH MATERIAL IN EMESIS BASIN. REGLAN 10 MG IV X 1 DOSE PROTONIX 80 MG IV X [address] ABD/PELVIS:IMPRESSION: Limited examination. Extensive patient motion during the acquisition of the upper abdomen. Severe circumferential mural thickening of distal esophagus consistent with nonspecific esophagitis. No other acute abnormality is identified. MORPHINE 2MG IV X 1 DOSE NS 500MG IV BOLUS INSULIN 10 MG IV X 1 DOSE LISINOPRIL 10 MG X 1 DOSE HCTZ 50 MG X 1 DOSE MORPHINE 2 MG IV X 1 DOSE FOR PAIN D/W DR. TOMLINSON. D/W DR. THOMAS. WILL ADMIT FOR DIALYSIS TOMORROW. Disposition - Clinical Impression Clinical Impression: Gastritis, Hyperglycemia, Elevated troponin, Hematemesis - Patient ED Disposition Is Patient to be Admitted: Yes - Disposition Disposition Time: 19:10 Condition: FAIR - Pt Status Changed To: Hospital Disposition Of: Observation
[2017-07-11 14:40] LABS: BASO # 0.1 K/uL (0.0-0.2); BASO % 0.4 % (0.0-2.0); HEMOGLOBIN 14.6 g/dL (12.0-18.0); LYMPH # 0.5 K/uL (1.0-4.3); LYMPH % 3.2 % (20.0-40.0); MEAN CELL VOLUME 91.4 fl (80.0-94.0); MEAN CORPUSCULAR HEMOGLOBIN 28.5 pg (27.0-31.0); MEAN CORPUSCULAR HGB CONC 31.2 g/dL (33.0-37.0); MEAN PLATELET VOLUME 9.9 fl (7.2-11.7); MONO # 1.1 K/uL (0.0-0.8); MONO % 6.7 % (0.0-10.0); NEUT % 89.7 % (50.0-75.0); PLATELET COUNT 221 K/uL (130-400); RBC 5.13 Mil/uL (4.40-5.90); RED CELL DISTRIBUTION WIDTH 19.5 % (11.5-14.5); WHITE BLOOD COUNT 16.7 K/uL (4.8-10.8)
[2017-07-11] MEDS ORDERED: Sodium Chloride 0.9% 500 ML IV ONE (15:00)
--- NOTE | 2017-07-11 15:29 | RAD ---
PROCEDURE: CHEST RADIOGRAPH, 1 VIEW HISTORY: HTN COMPARISON: Chest radiograph dated 05/31/2017. FINDINGS: LUNGS: Clear. PLEURA: No pneumothorax or pleural fluid seen. CARDIOVASCULAR: Normal. OSSEOUS STRUCTURES: No significant abnormalities. VISUALIZED UPPER ABDOMEN: Normal. OTHER FINDINGS: None. IMPRESSION: No active disease.
--- NOTE | 2017-07-11 15:30 | RAD ---
PROCEDURE: Radiographs of the abdomen (obstructive series) HISTORY: ABDOMINAL PAIN COMPARISON: No prior. TECHNIQUE: AP radiograph of the chest, with upright and supine radiographs of the abdomen. FINDINGS: Bowel: Unremarkable bowel gas pattern. No evidence of mechanical obstruction. Free air: None. Bones: Unremarkable. Other findings: None. IMPRESSION: Unremarkable radiographs of abdomen. No evidence of mechanical bowel obstruction.
[2017-07-11 15:38] LABS: LYMPHOCYTE 2 % (20-50); MONOCYTE 4 % (0-10); NEUTROPHIL 94 % (42-75); PLATELET ESTIMATE NORMAL (NORMAL); TOTAL CELLS COUNTED 100
[2017-07-11 15:39] LABS: ANISOCYTOSIS SLIGHT; HYPOCHROMIC SLIGHT; OVALOCYTES MODERATE; TEARDROP CELLS SLIGHT
[2017-07-11 15:40] LABS: LARGE PLATELETS PRESENT; MICROCYTOSIS SLIGHT
[2017-07-11 15:42] LABS: ALB/GLOB RATIO 1.2 (1.0-2.1); ALBUMIN 4.2 g/dL (3.5-5.0); CALCIUM 7.6 mg/dL (8.4-10.2); MAGNESIUM 1.9 MG/DL (1.6-2.3); TROPONIN I 0.224 ng/mL (0.00-0.120)
[2017-07-11] MEDS ORDERED: Insulin Regular 100 units/ml IV STA (15:44)
[2017-07-11 15:47] LABS: VENOUS BLOOD GAS BASE EXCESS 8.4 mmol/L (0.0-2.0); VENOUS BLOOD GAS PCO2 55 mmHg (40-60); VENOUS BLOOD GAS PO2 40 mm/Hg (30-55); VENOUS BLOOD PH 7.41 (7.32-7.43)
--- NOTE | 2017-07-11 16:05 | CT ---
PROCEDURE: CT Abdomen and Pelvis without intravenous contrast HISTORY: ABDOMINAL PAIN HEMATEMESIS H/O MULT SX COMPARISON: 05/01/2017 TECHNIQUE: Without contrast.. Contrast Dose: 0 Radiation dose: Total exam DLP = 375.28 mGy-cm. This CT exam was performed using one or more of the following dose reduction techniques: Automated exposure control, adjustment of the mA and/or kV according to patient size, and/or use of iterative reconstruction technique. FINDINGS: Examination is grossly limited due to extensive patient motion during acquisition of the upper abdomen. LOWER THORAX: Circumferential mural thickening distal esophagus consistent with nonspecific esophagitis. LIVER: Unremarkable. No gross lesion or ductal dilatation. GALLBLADDER AND BILE DUCTS: Unremarkable. PANCREAS: Unremarkable. No gross lesion or ductal dilatation. SPLEEN: Unremarkable. ADRENALS: Unremarkable. No mass. KIDNEYS AND URETERS: Unremarkable. No hydronephrosis. No solid mass. VASCULATURE: Unremarkable. No aortic aneurysm. BOWEL: Unremarkable. No obstruction. No gross mural thickening. APPENDIX: Unremarkable. Normal appendix. PERITONEUM: Unremarkable. No free fluid. No free air. LYMPH NODES: Unremarkable. No enlarged lymph nodes. BLADDER: Unremarkable. REPRODUCTIVE: Unremarkable prostate BONES: Minimal anterior wedge compression deformity of the T11 vertebra, unchanged from prior CT. Unchanged compared to 11/19. OTHER FINDINGS: None. IMPRESSION: Limited examination. Extensive patient motion during the acquisition of the upper abdomen. Severe circumferential mural thickening of distal esophagus consistent with nonspecific esophagitis. No other acute abnormality is identified.
[2017-07-11] MEDS ORDERED: Insulin Regular 100 units/ml ONE (16:15)
--- NOTE | 2017-07-12 10:27 | CARD ---
APPROVED REPORT EKG Measurement Heart [id number] DC [id number] [id number] <Conclusion> Normal sinus rhythm Left atrial enlargement T wave abnormality, consider anterior ischemia Abnormal ECG
--- NOTE | 2017-07-12 10:58 | CP.PCM.CON ---
History of Present Illness - History of Present Illness History of Present Illness: Initial Nephrology Consultation Note Assessment: Stable recurrent nausea/vomitting, gastroparesis Diabetic chronic Kidney Disease (E11.22) Hypertensive Chronic Kidney Disease (I12.0) End stage renal disease (N18.6) dependence on hemodialysis (Z99.2) (MWF) via AVF Anemia (D64.9), Hyperphosphatemia (E83.39), Secondary Hyperparathyroidism (E21.1 ), HTN (I12.0) Plan: dialysis today as ordered. Continue with Nephrovite. Hb stable no need for juan phos quite elevated, continue renvela bp elevated, resume home meds, will reeval p hd DM per primary team Chief Complaint; nausea/vomiting Reason for consult; ESRD, HTN HPI: Pt is a 36 y/o M with hx of ESRD on hemodialysis, chronic anemia, hyperphosphatemia, secondary hyperparathyroidism, Diabetes Mellitus, that presens w/ n/v. he complains of abdominal pain and recurrent n/v. he states its very similar to his other hospitalizations. he denies any fever or chills. He is due for HD today. He has been compliant w/ HD he states. It has been difficult he states to take meds due to n/v. ros: a full detailed ROS is negative except as in my hpi. Physical Examination: General Appearance: uncomfortable, in no acute respiratory distress, co- operative . Vitals reviewed and noted as below Head; Atraumatic, normocephalic ENT: no ulcers no thrush. Tongue is midline. Oropharynx: no rash or ulcers. EYES: Pupils are equal, round and reactive to light accommodation. Eye muscles and extraocular movement intact. Sclera is anicteric. Neck; supple no lymphadenopathy, no thyromegaly or bruit Lungs: Normal respiratory rate/effort. Breath sounds bilateral equal and clear Heart: Normal rate. s1s2 normal. No rub or gallop. Extremities: no edema. No varicose veins Neurological: Patient is alert, awake and oriented to person, place and time. No focal deficit. Strength bilateral appropriate and equal Skin: Warm and dry. Normal turgor. No rash. Palpitation: Normal elasticity for age Abdomen: Abdomen is soft. Bowel sounds +. There is mild epigastric abdominal tenderness, no guarding/rigidity or organomegaly Psych: limited insight and normal affect/mood MSK: no joint tenderness or swelling. Digits and nails normal, no deformity. : kidney or bladder not palpable. Access: AVF Labs/imaging reviewed. Past medical history, past surgical history, family history, social history, allergy reviewed and noted as below Family Hx: no hx of CKD. Non contributory sec HTN work up neg as renin/sharlene, metanephrine and renal artery doppler Past Patient History - Infectious Disease Hx of Infectious Diseases: None - Past Medical History & Family History Past Medical History?: Yes - Past Social History Smoking Status: Current Some Days Smoker - CARDIAC Hx Cardiac Disorders: Yes Hx Congestive Heart Failure: Yes Hx Hypercholesterolemia: Yes Hx Hypertension: Yes Hx Peripheral Edema: Yes - PULMONARY Hx Respiratory Disorders: No - NEUROLOGICAL Hx Neurological Disorder: No - HEENT Hx HEENT Problems: Yes Hx Cataracts: Yes (rt cat sx) - RENAL Hx Chronic Kidney Disease: Yes Hx Dialysis: Yes Type of Dialysis Access: LAV SHUNT Date of Last Dialysis Treatment: 07/09/17 Hx Kidney Stones: No Hx Renal Failure: Yes - ENDOCRINE/METABOLIC Hx Endocrine Disorders: Yes Hx Diabetes Mellitus Type 1: Yes - HEMATOLOGICAL/ONCOLOGICAL Hx Blood Disorders: Yes Hx Anemia: Yes Hx Human Immunodeficiency Virus (HIV): No - INTEGUMENTARY Hx Dermatological Problems: No - MUSCULOSKELETAL/RHEUMATOLOGICAL Hx Musculoskeletal Disorders: No Hx Falls: No - GASTROINTESTINAL Hx Gastrointestinal Disorders: Yes Hx Gastritis: Yes (gastroparesis) - GENITOURINARY/GYNECOLOGICAL Hx Genitourinary Disorders: No - PSYCHIATRIC Hx Psychophysiologic Disorder: No Hx Substance Use: Yes - SURGICAL HISTORY Hx Surgeries: Yes Hx Cataract Extraction: Yes (bilateral) Hx Vascular Access Device: Yes Other/Comment: Hx RT.PERMACATH INSERTION 04/17. Hx LT.AV SHUNT CREATION . Hx UNDESCENDED TESTES LT. REMOVED DURING CHILDHOOD - ANESTHESIA Hx Anesthesia: Yes Hx Anesthesia Reactions: No Hx Malignant Hyperthermia: No Meds Allergies/Adverse Reactions: Allergies Allergy/AdvReac Type Severity Reaction Status Date / Time No Known Allergies Allergy Verified 07/11/17 13:18 - Medications Medications: Current Medications Acetaminophen (Tylenol 325mg Tab) 650 mg PO Q6 PRN PRN Reason: pain, pain scale 1-10 Amlodipine Besylate (Norvasc) 10 mg PO DAILY [facility] Aspirin (Aspirin Chewable) 81 mg PO DAILY [facility] Clonidine HCl (Catapres) 0.2 mg PO TID [facility] [place] Last Admin: 07/12/17 08:45 Dose: Not Given Dicyclomine HCl (Bentyl) 10 mg PO QID PRN PRN Reason: ABDOMINAL CRAMP/PAIN Famotidine (Pepcid) 20 mg PO BID [facility] [place] Last Admin: 07/12/17 08:49 Dose: Not Given Hydralazine HCl (Apresoline) 25 mg PO Q6H [facility] Last Admin: 07/12/17 04:57 Dose: 25 mg Insulin Human Lispro (Humalog) 15 units SC ACTID [facility] [place] Lisinopril (Zestril) 10 mg PO DAILY [facility] [place] Metoclopramide HCl (Reglan) 5 mg IVP Q8 [facility] Last Admin: 07/12/17 08:44 Dose: 5 mg Metoprolol Tartrate (Lopressor) 50 mg PO Q12H [facility] [place] Last Admin: 07/12/17 00:26 Dose: 50 mg Morphine Sulfate (Morphine) 2 mg IVP Q4H PRN PRN Reason: Pain, severe (8-10) Last Admin: 07/11/17 22:20 Dose: 2 mg Ondansetron HCl (Zofran Tab) 4 mg PO Q8H PRN PRN Reason: Nausea/Vomiting Last Admin: 07/12/17 00:06 Dose: 4 mg Pantoprazole Sodium (Protonix Ec Tab) 40 mg PO DAILY [facility] Sevelamer HCl (Renagel) 2,400 mg PO TID [facility] Last Admin: 07/12/17 08:47 Dose: Not Given Results - Vital Signs Recent Vital Signs: Last Vital Signs Temp 98.4 F 07/12/17 07:54 Pulse 81 07/12/17 07:54 Resp 18 07/12/17 07:54 BP 165/83 H 07/12/17 07:54 Pulse Ox 96 07/12/17 07:54 - Labs Result Diagrams: 07/11/17 14:00 07/11/17 14:00 Labs: Laboratory Results - last 24 hr 07/11/17 07/11/17 07/11/17 14:00 14:00 15:43 WBC 16.7 H D RBC 5.13 Hgb 14.6 D Hct 46.9 MCV 91.4 D MCH 28.5 MCHC 31.2 L RDW 19.5 H Plt Count 221 MPV 9.9 Neut % (Auto) 89.7 H Lymph % (Auto) 3.2 L Sullivan % (Auto) 6.7 Eos % (Auto) 0.0 Baso % (Auto) 0.4 Neut # (Auto) 15.0 H Lymph # (Auto) 0.5 L Sullivan # (Auto) 1.1 H Eos # (Auto) 0.0 Baso # (Auto) 0.1 Neutrophils % (Manual) 94 H Lymphocytes % (Manual) 2 L Monocytes % (Manual) 4 Platelet Estimate Normal Large Platelets Present Hypochromasia (manual) Slight Anisocytosis (manual) Slight Microcytosis (manual) Slight Macrocytosis (manual) Slight Tear Drop Cells Slight Ovalocytes Moderate pO2 40 VBG pH 7.41 VBG pCO2 55 VBG HCO3 30.9 VBG Total CO2 36.6 H VBG O2 Sat (Calc) 76.2 H VBG Base Excess 8.4 H VBG Potassium 4.5 Glucose 648 H* Lactate 4.2 H* FiO2 21.0 Crit Value Called To Silverio muse Crit Value Called By Dori Crit Value Read Back Y Blood Gas Notified Time 1547 Sodium 135 133.0 Potassium 4.3 Chloride 81 L 82.0 L Carbon Dioxide 30 Anion Gap 28 H BUN 70 H Creatinine 6.5 H Est GFR ( Amer) 12 Est GFR (Non-Af Amer) 10 POC Glucose (mg/dL) Random Glucose 591 H* D Calcium 7.6 L Phosphorus 9.7 H Magnesium 1.9 Total Bilirubin 0.9 AST 27 ALT 44 Alkaline Phosphatase 162 H Troponin I 0.2240 H* Total Protein 7.7 Albumin 4.2 Globulin 3.5 Albumin/Globulin Ratio 1.2 Venous Blood Potassium 4.5 07/11/17 07/11/17 07/12/17 16:59 18:16 05:09 WBC RBC Hgb Hct MCV MCH MCHC RDW Plt Count MPV Neut % (Auto) Lymph % (Auto) Sullivan % (Auto) Eos % (Auto) Baso % (Auto) Neut # (Auto) Lymph # (Auto) Sullivan # (Auto) Eos # (Auto) Baso # (Auto) Neutrophils % (Manual) Lymphocytes % (Manual) Monocytes % (Manual) Platelet Estimate Large Platelets Hypochromasia (manual) Anisocytosis (manual) Microcytosis (manual) Macrocytosis (manual) Tear Drop Cells Ovalocytes pO2 VBG pH VBG pCO2 VBG HCO3 VBG Total CO2 VBG O2 Sat (Calc) VBG Base Excess VBG Potassium Glucose Lactate FiO2 Crit Value Called To Crit Value Called By Crit Value Read Back Blood Gas Notified Time Sodium Potassium Chloride Carbon Dioxide Anion Gap BUN Creatinine Est GFR ( Amer) Est GFR (Non-Af Amer) POC Glucose (mg/dL) 406 H* 318 H 337 H Random Glucose Calcium Phosphorus Magnesium Total Bilirubin AST ALT Alkaline Phosphatase Troponin I Total Protein Albumin Globulin Albumin/Globulin Ratio Venous Blood Potassium
[2017-07-12] MEDS: Insulin Lispro (humaLOG) 100 Units/ml Inj SC SCH ×3 (11:12→17:15)
[2017-07-12] MEDS: Pantoprazole 40 mg EC Tab PO SCH (17:17)
--- NOTE | 2017-07-13 01:09 | HP ---
HISTORY OF PRESENT ILLNESS: This is a 36-year-old male with history of end-stage renal disease on hemodialysis. The patient also has history of diabetic gastroparesis with frequent nausea and vomiting. The patient had multiple admissions to different area hospitals including [facility]. The patient presented to Emergency Room with symptoms of frequent vomiting as well as uncontrolled hypertension and the patient missed his hemodialysis on the day of admission. The patient was also found to have fraction elevation of troponin. The patient was admitted to telemetry floor for further management. Other review of systems is negative. ALLERGIES: NO KNOWN ALLERGY. MEDICATIONS: As per MAR. PAST MEDICAL HISTORY: Hypertension, complicated type 2 diabetes mellitus, diabetic gastroparesis, end-stage renal disease on hemodialysis. SOCIAL HISTORY: Positive marijuana use. Denied smoking, EtOH use. FAMILY HISTORY: Noncontributory. PHYSICAL EXAMINATION GENERAL: The patient is in bed in mild distress due to the upper abdominal pain with blood pressure 194/98, temperature 98.5, respiratory rate 18 and pulse 82. HEENT: Pupils equal, reactive to light. Normal-appearing mucosa of the conjunctivae, oropharynx and nasal membrane mucosa. NECK: Supple. No JVD. No carotid bruit. No lymph node. No thyromegaly. CHEST/LUNGS: Bilateral symmetrical expansion. Good air exchange. No rales, no rhonchi. CARDIOVASCULAR: PMI not localized. S1, S2. No additional sounds. ABDOMEN: Normoactive bowel sounds. No tenderness. No organomegaly. No masses. EXTREMITIES: No cyanosis, no clubbing, no edema. CINNA[place] GRINDER: Alert, awake, oriented x2. No neurological deficit could be appreciated. Chest x-ray done in Emergency Room showed no active disease and also abdominal and pelvic CAT scan was done in Emergency Room on admission, which showed severe circumferential mural thickening of the distal esophagus consistent with nonspecific esophagitis. ASSESSMENT: 1. Diabetic gastroparesis with frequent vomiting. 2. Uncontrolled hypertension secondary to noncompliance. 3. End-stage renal disease on hemodialysis. 4. Uncontrolled type 2 diabetes mellitus. PLAN: We will resume the patient's home medications including sliding scale with insulin coverage. Nephrology consult for dialysis. Resume Accu-Cheks with insulin coverage according to a sliding scale. Sameh MD [facility] # [id number]
[2017-07-13] MEDS: Multivitamin Vitamin B Complex (Nephro-Vite) Tab PO SCH (09:11)
[2017-07-13] MEDS: Pantoprazole 40 mg EC Tab PO SCH (09:14)
[2017-07-13] MEDS: Insulin Lispro (humaLOG) 100 Units/ml Inj SC SCH ×3 (09:16→16:38)
--- NOTE | 2017-07-13 14:02 | CP.PCM.PN ---
Subjective - Date & Time of Evaluation Date of Evaluation: 07/13/17 Time of Evaluation: 14:01 - Subjective Subjective: RENAL FOLLOW UP S: seen and examined, still w/ abdominal pain vs as below gen: nad sclera anicteric op clear neck supple cv +s1+s2 lungs cta abd soft ext no edema neuro A+OX3 psych nml affect skin no rash IMP: recurrent nausea/vomitting, gastroparesis Diabetic chronic Kidney Disease (E11.22) Hypertensive Chronic Kidney Disease (I12.0) End stage renal disease (N18.6) dependence on hemodialysis (Z99.2) (MWF) via AVF Anemia (D64.9), Hyperphosphatemia (E83.39), Secondary Hyperparathyroidism (E21.1 ), HTN (I12.0) Plan: dialysis tomorrow, and continue MWF Continue with Nephrovite. Hb stable no need for juan phos quite elevated, continue renvela bp improved post hd yesterday DM per primary team Objective - Vital Signs/Intake and Output Vital Signs (last 24 hours): Temp Pulse Resp BP Pulse Ox 97.8 F 65 18 120/74 100 07/13/17 12:13 07/13/17 12:13 07/13/17 12:13 07/13/17 12:13 07/13/17 12:13 - Medications Medications: Current Medications Acetaminophen (Tylenol 325mg Tab) 650 mg PO Q6 PRN PRN Reason: pain, pain scale 1-10 Amlodipine Besylate (Norvasc) 10 mg PO DAILY [facility] Last Admin: 07/13/17 09:15 Dose: 10 mg Aspirin (Aspirin Chewable) 81 mg PO DAILY [facility] Last Admin: 07/13/17 09:16 Dose: 81 mg Clonidine HCl (Catapres) 0.2 mg PO TID [facility] Last Admin: 07/13/17 12:04 Dose: 0.2 mg Dicyclomine HCl (Bentyl) 10 mg PO QID PRN PRN Reason: ABDOMINAL CRAMP/PAIN Last Admin: 07/13/17 09:11 Dose: 10 mg Famotidine (Pepcid) 20 mg PO BID [facility] Last Admin: 07/13/17 09:15 Dose: 20 mg Hydralazine HCl (Apresoline) 25 mg PO Q6H [facility] Last Admin: 07/13/17 12:07 Dose: 25 mg Insulin Human Lispro (Humalog) 15 units SC ACTID [facility] Last Admin: 07/13/17 12:06 Dose: 15 units Lisinopril (Zestril) 10 mg PO DAILY [facility] Last Admin: 07/13/17 09:12 Dose: 10 mg Metoclopramide HCl (Reglan) 5 mg IVP Q8 [facility] Last Admin: 07/13/17 09:14 Dose: 5 mg Metoprolol Tartrate (Lopressor) 50 mg PO Q12H [facility] Last Admin: 07/13/17 12:11 Dose: 50 mg Morphine Sulfate (Morphine) 2 mg IVP Q4H PRN PRN Reason: Pain, severe (8-10) Last Admin: 07/13/17 12:01 Dose: 2 mg Ondansetron HCl (Zofran Tab) 4 mg PO Q8H PRN PRN Reason: Nausea/Vomiting Last Admin: 07/13/17 09:12 Dose: 4 mg Pantoprazole Sodium (Protonix Ec Tab) 40 mg PO DAILY [facility] Last Admin: 07/13/17 09:14 Dose: 40 mg Sevelamer HCl (Renagel) 2,400 mg PO TID [facility] Last Admin: 07/13/17 12:12 Dose: 2,400 mg Vitamin B Complex/Vit C/Folic Acid (Nephro-Víctor) 1 tab PO DAILY [facility] Last Admin: 07/13/17 09:11 Dose: 1 tab - Labs Labs: 07/11/17 14:00 07/11/17 14:00
[2017-07-14] MEDS: Morphine 4 MG/ML VIAL IVP PRN ×3 (03:15→14:24)
[2017-07-14] MEDS: Insulin Lispro (humaLOG) 100 Units/ml Inj SC SCH ×3 (08:42→18:26)
[2017-07-14 08:49] LABS: HEMOGLOBIN 12.8 g/dL (12.0-18.0); MEAN CELL VOLUME 90.1 fl (80.0-94.0); MEAN CORPUSCULAR HEMOGLOBIN 28.7 pg (27.0-31.0); MEAN CORPUSCULAR HGB CONC 31.9 g/dL (33.0-37.0); RBC 4.47 Mil/uL (4.40-5.90); RED CELL DISTRIBUTION WIDTH 18.1 % (11.5-14.5); WHITE BLOOD COUNT 9.3 K/uL (4.8-10.8)
--- NOTE | 2017-07-14 09:13 | CP.PCM.PN ---
Subjective - Date & Time of Evaluation Date of Evaluation: 07/14/17 Time of Evaluation: 09:13 - Subjective Subjective: dictated Objective - Vital Signs/Intake and Output Vital Signs (last 24 hours): Temp Pulse Resp BP Pulse Ox 98.5 F 69 18 146/82 97 07/14/17 05:09 07/14/17 08:41 07/14/17 05:09 07/14/17 08:41 07/14/17 05:09 Intake and Output: 07/14/17 07/14/17 06:59 18:59 Intake Total 200 Balance 200 - Medications Medications: Current Medications Acetaminophen (Tylenol 325mg Tab) 650 mg PO Q6 PRN PRN Reason: pain, pain scale 1-10 Amlodipine Besylate (Norvasc) 10 mg PO DAILY [facility] Last Admin: 07/13/17 09:15 Dose: 10 mg Aspirin (Aspirin Chewable) 81 mg PO DAILY [facility] Last Admin: 07/13/17 09:16 Dose: 81 mg Clonidine HCl (Catapres) 0.2 mg PO TID [facility] Last Admin: 07/14/17 08:41 Dose: Not Given Dicyclomine HCl (Bentyl) 10 mg PO QID PRN PRN Reason: ABDOMINAL CRAMP/PAIN Last Admin: 07/13/17 09:11 Dose: 10 mg Famotidine (Pepcid) 20 mg PO BID [facility] Last Admin: 07/14/17 08:43 Dose: Not Given Hydralazine HCl (Apresoline) 25 mg PO Q6H [facility] Last Admin: 07/14/17 05:12 Dose: 25 mg Insulin Human Lispro (Humalog) 15 units SC ACTID [facility] Last Admin: 07/14/17 08:42 Dose: 15 units Lisinopril (Zestril) 10 mg PO DAILY [facility] Last Admin: 07/13/17 09:12 Dose: 10 mg Metoclopramide HCl (Reglan) 5 mg IVP Q8 [facility] Last Admin: 07/14/17 08:41 Dose: 5 mg Metoprolol Tartrate (Lopressor) 50 mg PO Q12H [facility] Last Admin: 07/14/17 00:11 Dose: 50 mg Morphine Sulfate (Morphine) 2 mg IVP Q4H PRN PRN Reason: Pain, severe (8-10) Last Admin: 07/14/17 08:54 Dose: 2 mg Ondansetron HCl (Zofran Tab) 4 mg PO Q8H PRN PRN Reason: Nausea/Vomiting Last Admin: 07/13/17 09:12 Dose: 4 mg Pantoprazole Sodium (Protonix Ec Tab) 40 mg PO DAILY [facility] Last Admin: 07/13/17 09:14 Dose: 40 mg Sevelamer HCl (Renagel) 2,400 mg PO TID [facility] Last Admin: 07/14/17 08:43 Dose: Not Given Vitamin B Complex/Vit C/Folic Acid (Nephro-Víctor) 1 tab PO DAILY [facility] Last Admin: 07/13/17 09:11 Dose: 1 tab - Labs Labs: 07/14/17 08:42 07/11/17 14:00
[2017-07-14 10:32] VITALS: RESP 20
[2017-07-14 13:06] VITALS: O2SAT 99
[2017-07-14] MEDS: Multivitamin Vitamin B Complex (Nephro-Vite) Tab PO SCH (14:27)
[2017-07-14] MEDS: Pantoprazole 40 mg EC Tab PO SCH (14:28)
[2017-07-14 15:58] VITALS: TEMP 97.7
--- NOTE | 2017-07-14 16:38 | CP.PCM.PCO ---
Assessment/Plan - Assessment/Plan Assessment (Free Text): Patient seen and examined. Denies chest pain, shortness of breath, nausea vomiting. Getting Hemodialysis at this time Labs reviewed, wbc 9.3 from [address] Mcgrath, patient may go home on reglan tid, and protonix daily Pt to follow up with PMD in 3-5 days RICH Russell to reinstate patient for HD outpatient schedule. - Problems Patient Problems: Problem List (Active/Current) Problem Status Onset Code Elevated troponin Acute R74.8 Gastritis Acute K29.70 Hematemesis Acute K92.0 Hyperglycemia Acute R73.9
[2017-07-14 18:27] VITALS: BP 175/89; PULSE 68
[2017-07-14 21:01] LABS: HEPATITIS B SURFACE AG Negative (NEGATIVE)
[2017-07-14 21:18] LABS: HEPATITIS C ANTIBODY NEGATIVE (NEGATIVE)
--- NOTE | 2017-07-15 04:17 | DS ---
REASON FOR ADMISSION: This is a 36-year-old male with end-stage renal disease on hemodialysis was admitted through Emergency Room for uncontrolled hypertension, uncontrolled diabetes and frequent vomiting. COURSE OF HOSPITALIZATION: The patient was admitted to telemetry floor and blood pressure medications as well as antihyperglycemic medications were resumed. The patient initially had leukocytosis on admission that was completely resolved. The patient was started on Reglan as well as Zofran and proton pump inhibitors. The patient was continued on hemodialysis as per Board Certified Family Physician. The patient was discharged home in a stable condition, to follow up with primary care physician as well as Board Certified Family Physician for hemodialysis. FINAL DIAGNOSES: 1. Diabetic gastroparesis with frequent vomiting. 2. Uncontrolled hypertension due to noncompliance. 3. Uncontrolled type 2 diabetes mellitus due to noncompliance. 4. End-stage renal disease on hemodialysis. Tal Mcgrath MD
--- NOTE | 2017-07-15 08:58 | PN ---
DATE: SUBJECTIVE: The patient is sitting up in bed, awake, not in acute distress. The patient complained of chronic pain. No vomiting. PHYSICAL EXAMINATION: VITAL SIGNS: Blood pressure 146/82, pulse 69, temperature 98.5. NECK: Supple. CHEST: Clear. HEART: No rubs. ABDOMEN: Soft. EXTREMITIES: No edema. NEUROLOGIC: Appeared to be okay. LABORATORY DATA: As noted with the creatinine 6.5 and rest of the electrolyte acceptable for his level of renal failure. IMPRESSION: The patient was admitted as usual with multiple complaints, abdominal pain, and uncontrolled diabetes mellitus with high glucose. In addition to the end-stage renal disease, on maintenance hemodialysis and hypertension, the patient has previously Clostridium difficile. He has been treated with Flagyl and receiving Flagyl. We will discuss with . The patient scheduled for hemodialysis shortly. Arrangement has been made, order in place. Continue the management and phosphorus binder for hyperphosphatemia and Sensipar for secondary hyperparathyroidism. Blaine Carter MD
== END 2017-07-14 18:00 | disposition home or self-care (01) | DRG 73 ==
LOC: H.ER 12:34 → H.ERHOLD 19:10 → H.TEL 22:34
PROVIDERS: ADMIT Internal Medicine; ATTEND Internal Medicine
PROC: 5A1D70Z Performance of Urinary Filtration, Intermittent, Less than 6 Hours Per Day (ICD-10-PCS; principal; 2017-07-12)
PROC: 5A1D70Z Performance of Urinary Filtration, Intermittent, Less than 6 Hours Per Day (ICD-10-PCS; 2017-07-14)
DX: E11.43 Type 2 diabetes mellitus with diabetic autonomic (poly)neuropathy (principal); N18.6 End stage renal disease; K92.0 Hematemesis; E11.22 Type 2 diabetes mellitus with diabetic chronic kidney disease; I12.0 Hypertensive chronic kidney disease with stage 5 chronic kidney disease or end stage renal disease; E11.65 Type 2 diabetes mellitus with hyperglycemia; N25.81 Secondary hyperparathyroidism of renal origin; K31.84 Gastroparesis; Z79.4 Long term (current) use of insulin; Z79.84 Long term (current) use of oral hypoglycemic drugs; D64.9 Anemia, unspecified; D72.829 Elevated white blood cell count, unspecified; Z99.2 Dependence on renal dialysis; E78.00 Pure hypercholesterolemia, unspecified; E83.39 Other disorders of phosphorus metabolism; F12.90 Cannabis use, unspecified, uncomplicated; K29.00 Acute gastritis without bleeding; Z87.891 Personal history of nicotine dependence; Z91.19 Patient's noncompliance with other medical treatment and regimen; Z98.41 Cataract extraction status, right eye; R60.0 Localized edema; Z79.899 Other long term (current) drug therapy; R74.8 Abnormal levels of other serum enzymes

== ENCOUNTER 2017-08-07 12:20 | Inpatient (IN) | payer MEDICARE, MEDICAID ==
[2017-08-07 12:20] VITALS: BMI 19.5
[2017-08-07] MEDS ORDERED: Sodium Chloride 0.9% 500 ML IV STA (12:57)
[2017-08-07] MEDS ORDERED: Morphine 4 MG/ML VIAL IV ONE (12:57)
[2017-08-07] MEDS ORDERED: Morphine 4 MG/ML VIAL ONE (13:00)
--- NOTE | 2017-08-07 13:30 | ED PDOC ---
HPI: General Adult Time Seen by Provider: 08/07/17 12:41 Chief Complaint (Nursing): Chest Pain Chief Complaint (Provider): Chest Pain History Per: Patient History/Exam Limitations: no limitations Current Symptoms Are (Timing): Still Present Additional Complaint(s): 36 year old male presents to the emergency department with a complaint of chest pain, abdominal pain, nausea, and vomiting that started while getting an extra dialysis today. Reports he usually receives dialysis, Friday, Friday, and Friday. Denies headache, dizziness, weakness, back pain, leg pain, numbness, or tingling. States morphine and zofran helped. Of note, patient reports symptoms were similar to symptoms he gets with gastroparesis. Past Medical History Reviewed: Historical Data, Nursing Documentation, Vital Signs Vital Signs: Last Vital Signs Temp 97.0 F L 08/07/17 12:28 Pulse 100 H 08/07/17 15:48 Resp 19 08/07/17 15:48 BP 245/83 H 08/07/17 15:48 Pulse Ox 100 08/07/17 16:09 - Medical History PMH: Anemia, CHF, Diabetes (type I; ), Gastritis (gastroparesis), HTN, Hypercholesterolemia, Peripheral Edema, End Stage Renal Disease, Chronic Kidney Disease Denies: HIV, Kidney Stones - Family History Family History: States: Unknown Family Hx - Immunization History Hx Tetanus Toxoid Vaccination: Yes Hx Influenza Vaccination: Yes Hx Pneumococcal Vaccination: Yes - Home Medications Home Medications: Ambulatory Orders Medication Instructions Recorded Aspirin [Aspirin Chewable] 81 mg PO DAILY #60 chew 05/30/17 Lisinopril [Zestril] 10 mg PO DAILY #60 tablet 05/30/17 amLODIPine [Norvasc] 10 mg PO DAILY #30 tab 05/30/17 Sevelamer [Renagel] 2,400 mg PO TID 05/31/17 Metoprolol Tartrate [Lopressor] 50 mg PO Q12H 07/11/17 Ondansetron [Zofran Tab] 4 mg PO Q8H PRN 07/11/17 cloNIDine [Catapres] 0.2 mg PO TID 07/11/17 hydrALAZINE [Apresoline] 25 mg PO Q6H 07/11/17 Insulin Aspart, Recombinant 15 units SC ACTID #7 vial 07/14/17 [Novolog] Metoclopramide HCl [Reglan] 5 mg PO TID #30 tablet 07/14/17 Pantoprazole [Protonix EC Tab] 40 mg PO DAILY #30 ect 07/14/17 - Allergies Allergies/Adverse Reactions: Allergies Allergy/AdvReac Type Severity Reaction Status Date / Time No Known Allergies Allergy Verified 07/28/17 02:26 Review of Systems ROS Statement: Except As Marked, All Systems Reviewed And Found Negative (As per HPI, otherwise negative) Cardiovascular: Positive for: Chest Pain Gastrointestinal: Positive for: Nausea, Vomiting, Abdominal Pain Musculoskeletal: Negative for: Back Pain, Leg Pain Neurological: Negative for: Weakness, Numbness (tingling), Headache, Dizziness Physical Exam - Reviewed Nursing Documentation Reviewed: Yes Vital Signs Reviewed: Yes - Physical Exam Appears: Positive for: No Acute Distress Head Exam: Positive for: NORMAL INSPECTION Skin: Positive for: Normal Color, Warm, Dry Eye Exam: Positive for: Normal appearance, EOMI, PERRL ENT: Positive for: Normal ENT Inspection Neck: Positive for: Normal, Painless ROM, Supple Cardiovascular/Chest: Positive for: Regular Rate, Rhythm. Negative for: Murmur Respiratory: Positive for: Normal Breath Sounds. Negative for: Accessory Muscle Use, Wheezing, Respiratory Distress Gastrointestinal/Abdominal: Positive for: Soft, Tenderness (Mild diffusely). Negative for: Normal Exam Back: Positive for: Normal Inspection. Negative for: L CVA Tenderness, R CVA Tenderness Extremity: Positive for: Normal ROM. Negative for: Tenderness, Pedal Edema Neurologic/Psych: Positive for: Alert, Oriented (x3) - Laboratory Results Result Diagrams: 08/07/17 13:35 08/07/17 13:35 Interpretation Of Abn Labs: elevated trop, borderline; 420 sugar - ECG ECG: Positive for: Interpreted By Me, Viewed By Me ECG Rhythm: Positive for: Nonspecific Changes Interpretation Of Abn EKG: similar to old O2 Sat by Pulse Oximetry: 100 (RA) Pulse Ox Interpretation: Normal - Progress ED Course And Treament: 1606: Stable. Pain free. Spoke with Dr. Mcgrath. Will admit and give further orders when pt. reaches floor. Troponin borderline elevated, could be related to renal. Will continue monitoring. Medical Decision Making Medical Decision Making: Time: 1256 Initial Impression: Abdominal pain, nausea, vomiting, and chest pain after dialysis Initial Plan: VBG Alcohol Serum CMP Lipase Troponin I PTT & Prothrombin CBC w/ diff Morphine 4 mg IV Sodium Chloride 100 mls/hr Zofran 4 mg IV Reevaluation Scribe Attestation: Documented by Brie Garcia, acting as a scribe for Pablito Erickson MD. Provider Scribe Attestation: All medical record entries made by the Scribe were at my direction and personally dictated by me. I have reviewed the chart and agree that the record accurately reflects my personal performance of the history, physical exam, medical decision making, and the department course for this patient. I have also personally directed, reviewed, and agree with the discharge instructions and disposition. Disposition - Clinical Impression Clinical Impression: Gastroparesis, Hyperglycemia, Hypertensive urgency, Elevated troponin - Patient ED Disposition Is Patient to be Admitted: Yes Counseled Patient/Family Regarding: Studies Performed, Diagnosis - Disposition Disposition Time: 16:08 Condition: FAIR - Pt Status Changed To: Hospital Disposition Of: Inpatient - Admit Certification Admit to Inpatient:: After my assessment, the patient will require hospitalization for at least two midnights. This is because of the severity of symptoms shown, intensity of services needed, and/or the medical risk in this patient being treated as an outpatient. - POA Present On Arrival: None
[2017-08-07 14:09] LABS: BASO # 0.1 K/uL (0.0-0.2); BASO % 0.6 % (0.0-2.0); EOS # 0.2 K/uL (0.0-0.7); EOS % 1.5 % (0.0-4.0); HEMOGLOBIN 12.8 g/dL (12.0-18.0); LYMPH # 0.9 K/uL (1.0-4.3); LYMPH % 7.9 % (20.0-40.0); MEAN CELL VOLUME 87.4 fl (80.0-94.0); MEAN CORPUSCULAR HGB CONC 32.1 g/dL (33.0-37.0); MEAN PLATELET VOLUME 9.5 fl (7.2-11.7); MONO # 0.7 K/uL (0.0-0.8); MONO % 6.3 % (0.0-10.0); NEUT # 9.6 K/uL (1.8-7.0); NEUT % 83.7 % (50.0-75.0); PLATELET COUNT 174 K/uL (130-400); RBC 4.57 Mil/uL (4.40-5.90); WHITE BLOOD COUNT 11.5 K/uL (4.8-10.8)
[2017-08-07] MEDS ORDERED: Labetalol 5 mg/ml Inj 20ML IVP STA (14:12)
[2017-08-07 14:14] LABS: INR 0.8 (0.9-1.2); PARTIAL THROMBOPLASTIN TIME 29.1 Seconds (25.6-37.1); PROTHROMBIN TIME 9.3 Seconds (9.8-13.1)
[2017-08-07 14:39] LABS: ALBUMIN 3.3 g/dL (3.5-5.0); ALT/SGPT 49 U/L (21-72); AST/SGOT 31 U/L (17-59); BLOOD UREA NITROGEN 43 mg/dl (9-20); CALCIUM 8.3 mg/dL (8.4-10.2); GFR AFRICAN-AMERICAN 19; GFR NON-AFRICAN AMERICAN 16; LIPASE 252 U/L (23-300)
[2017-08-07 15:01] LABS: ANISOCYTOSIS SLIGHT; LYMPHOCYTE 6 % (20-50); MONOCYTE 4 % (0-10); NEUTROPHIL 90 % (42-75); PLATELET ESTIMATE NORMAL (NORMAL); TOTAL CELLS COUNTED 100
[2017-08-07] MEDS ORDERED: Insulin Regular 100 units/ml IV STA (15:38)
[2017-08-07] MEDS ORDERED: Insulin Regular 100 units/ml ONE (15:47)
[2017-08-07] MEDS ORDERED: Nicardipine 20 MG/200 ML 20 MG/200 ML BAG IV ONE (17:01)
[2017-08-07] MEDS ORDERED: Nicardipine 20 MG/200 ML 20 MG/200 ML BAG ONE (17:17)
--- NOTE | 2017-08-07 17:22 | RAD ---
HISTORY: Chest pain COMPARISON: 07/11/2017 FINDINGS: LUNGS: No active pulmonary disease. PLEURA: No significant pleural effusion identified, no pneumothorax apparent. CARDIOVASCULAR: Normal. 07/11/2017 OSSEOUS STRUCTURES: No significant abnormalities. VISUALIZED UPPER ABDOMEN: Normal. OTHER FINDINGS: None. IMPRESSION: No active disease. No significant interval change compared to the prior examination(s). Concordant results with the preliminary interpretation rendered by the emergency department physician procedure.
--- NOTE | 2017-08-07 19:30 | CT ---
EXAM: CT Head Without Intravenous Contrast EXAM DATE/TIME: 08/07/2017 4:58 PM CLINICAL HISTORY: 36 years old, male; Signs and symptoms; Other: Accelerated HTN; Additional info: Accelerated HTN with nausea/ vomiting. Sent phy. Doc. TECHNIQUE: Axial computed tomography images of the head/brain without intravenous contrast. All CT scans at this facility use one or more dose reduction techniques, viz.: automated exposure control; ma/kV adjustment per patient size (including targeted exams where dose is matched to indication; i.e. head); or iterative reconstruction technique. Coronal and sagittal reformatted images were created and reviewed. COMPARISON: CT - HEAD W/O CONTRAST 2017-05-31 15:56 FINDINGS: Artifacts: Streak artifact degrades image quality.Motion artifact degrades image quality. Brain: Ventricles are normal in size and configuration. There is no midline shift. There are no intra-axial or extra-axial mass lesions or areas of hemorrhage. There are no abnormal fluid collections. De Souza-white differentiation is maintained. Ventricles: See above. Bones: Cranial vault is intact. Soft tissues: unremarkable Sinuses: There is opacification of occasional ethmoid air cells. Ears and mastoids: Middle ears and mastoids are unremarkable Orbits: There are no acute orbital abnormalities. IMPRESSION: No acute intracranial abnormality
--- NOTE | 2017-08-07 21:48 | HP ---
HISTORY OF PRESENT ILLNESS: This is a 36-year-old male with history of end-stage renal disease, on hemodialysis, gastroparesis, and uncontrolled hypertension. The patient is noncompliant to his medications neither to hemodialysis. The patient has multiple admissions to the [facility] related to gastroparesis with frequent vomiting and uncontrolled hypertension secondary to noncompliance to his medications. The patient presented today to emergency room after he only took 1 hour of hemodialysis as he started to have frequent vomiting. The patient was referred to emergency room for evaluation and admitted for further management. REVIEW OF SYSTEMS: Other review of systems is negative. ALLERGIES: NO KNOWN ALLERGIES. MEDICATIONS: As per MAR. SOCIAL HISTORY: Light smoker, but he has positive substance abuse of marijuana. FAMILY HISTORY: Noncontributory. PAST MEDICAL HISTORY: As above. PHYSICAL EXAMINATION: GENERAL: The patient is in bed, not in any cardiopulmonary distress at the time of this examination. VITAL SIGNS: Blood pressure 142/77, temperature 98.0, respiratory rate 16, and pulse 87. HEENT: Pupils equal and reactive to light. Normal-appearing mucosa of the conjunctivae, oropharynx, and nasal membrane mucosa. NECK: Supple. No JVD. No carotid bruit. No lymph node. No thyromegaly. CHEST AND LUNGS: Bilateral symmetrical expansion. Good air exchange. No rales. No rhonchi. CARDIOVASCULAR: PMI not localized. S1 and S2. No additional sounds. ABDOMEN: Normoactive bowel sounds. No tenderness. No organomegaly. No masses. EXTREMITIES: No cyanosis. No clubbing. No edema. CENTRAL NERVOUS SYSTEM: Alert, awake, and oriented x2 and moves all extremities equally. LABORATORY DATA: Blood work done in the emergency room showed white blood cell count of 11.5 and glucose of 420 and troponin is 0.7. ASSESSMENT: 1. Frequent vomiting secondary to gastroparesis. 2. Uncontrolled hypertension. 3. Uncontrolled type 2 diabetes mellitus. 4. End-stage renal disease, on hemodialysis. PLAN: Nephrology consult for hemodialysis. We will resume the patient's medications of proton pump inhibitors as well as the prokinetics and antiemetics that the patient has been on. Resume the patient's antihypertensive medications. Sameh MD [facility] # [id number]
[2017-08-07] MEDS: Insulin Regular 100 units/ml SC SCH (22:30)
[2017-08-08] MEDS: Labetalol 5mg/ml (4ml) IVP PRN ×2 (03:34→13:11)
[2017-08-08 05:31] LABS: HEMOGLOBIN 12.5 g/dL (12.0-18.0); MEAN CELL VOLUME 88.9 fl (80.0-94.0); MEAN CORPUSCULAR HEMOGLOBIN 28.3 pg (27.0-31.0); MEAN CORPUSCULAR HGB CONC 31.8 g/dL (33.0-37.0); RBC 4.44 Mil/uL (4.40-5.90); RED CELL DISTRIBUTION WIDTH 18.1 % (11.5-14.5); WHITE BLOOD COUNT 9.2 K/uL (4.8-10.8)
[2017-08-08 05:48] LABS: ALB/GLOB RATIO 0.9 (1.0-2.1); ALBUMIN 2.9 g/dL (3.5-5.0)
[2017-08-08 06:11] LABS: TROPONIN I 0.8 ng/mL (0.00-0.120)
[2017-08-08] MEDS: Insulin Regular 100 units/ml SC SCH ×4 (07:00→22:08)
--- NOTE | 2017-08-08 12:03 | CP.PCM.PN ---
Subjective - Date & Time of Evaluation Date of Evaluation: 08/08/17 Time of Evaluation: 11:00 - Subjective Subjective: Patient seen and examined at 8 AM. Patient has no specific complaints. Objective - Vital Signs/Intake and Output Vital Signs (last 24 hours): Temp Pulse Resp BP Pulse Ox 98.4 F 88 11 L 152/80 H 96 08/08/17 08:00 08/08/17 10:00 08/08/17 10:00 08/08/17 10:00 08/08/17 10:00 Intake and Output: 08/08/17 08/08/17 06:59 18:59 Intake Total 220 300 Output Total 150 Balance 70 300 - Medications Medications: Current Medications Acetaminophen (Tylenol 325mg Tab) 650 mg PO Q6 PRN PRN Reason: Headache Amlodipine Besylate (Norvasc) 10 mg PO DAILY [facility] Last Admin: 08/08/17 09:40 Dose: 10 mg Aspirin (Aspirin Chewable) 81 mg PO DAILY [facility] Last Admin: 08/08/17 08:42 Dose: 81 mg Clonidine HCl (Catapres) 0.2 mg PO TID [facility] Last Admin: 08/08/17 09:40 Dose: 0.2 mg Heparin Sodium (Porcine) (Heparin) 5,000 units SC Q12 [facility] PRN Reason: Protocol Last Admin: 08/08/17 08:47 Dose: Not Given Insulin Human Regular (Humulin R) 0 units SC ACCU-CHECK [facility] PRN Reason: Protocol Last Admin: 08/08/17 07:00 Dose: 4 units Labetalol HCl (Trandate) 20 mg IVP Q4H PRN PRN Reason: Systolic Blood Pressure Last Admin: 08/08/17 03:34 Dose: 20 mg Lisinopril (Zestril) 10 mg PO DAILY [facility] Last Admin: 08/08/17 08:43 Dose: 10 mg Metoprolol Tartrate (Lopressor) 50 mg PO Q12 [facility] Last Admin: 08/08/17 08:42 Dose: 50 mg Morphine Sulfate (Morphine) 2 mg IVP Q4 PRN PRN Reason: Pain, moderate (4-7) Last Admin: 08/08/17 09:14 Dose: 2 mg Ondansetron HCl (Zofran Inj) 4 mg IVP Q4 PRN PRN Reason: Nausea/Vomiting Pantoprazole Sodium (Protonix Inj) 40 mg IVP DAILY [facility] Last Admin: 08/08/17 08:43 Dose: 40 mg - Labs Labs: 08/08/17 04:40 08/08/17 04:40 PT 9.3 Seconds (9.8-13.1) L 08/07/17 13:35 INR 0.8 (0.9-1.2) L 08/07/17 13:35 APTT 29.1 Seconds (25.6-37.1) 08/07/17 13:35 - Constitutional Appears: Well, No Acute Distress - Head Exam Head Exam: ATRAUMATIC - Respiratory Exam Respiratory Exam: Clear to Ausculation Bilateral, NORMAL BREATHING PATTERN - Cardiovascular Exam Cardiovascular Exam: REGULAR RHYTHM, +S1, +S2, +S4, Murmur - GI/Abdominal Exam GI & Abdominal Exam: Soft. absent: Tenderness - Extremities Exam Extremities Exam: Full ROM Assessment and Plan - Assessment and Plan (Free Text) Assessment: HTN: controlled with home medications: restart home medications including clonidine, obtain ESRD on HD: HD as per renal -DM: obtain endocrine follow up as patient has a long history of diabetes -Diabetic retinopathy: suspect legally blind, obtain opthhal eval as outpatient -diabetic gastropathy: avoid morphine or other medications which increase gastric transit time, consider reglan -Given history of uncontrolled Dm and renal failure patient has PVD and likely CAD: will benefit from asa, statin and lopressor and ACEI -continue DVT/PUD ppx Patient not on any IV cardene or IV labetalol Patient is not in hypertensive urgency crisis.
--- NOTE | 2017-08-08 12:50 | PQF GENQUE ---
Dr. Mcgrath, After work up completed and if known: etiology of elevated troponins ? OR: Unable to determine OR: Other explanation of clinical finding Troponin 1: 0.7940->0.9270->0.8000 ER note: Troponin borderline elevated, could be related to renal. Will continue monitoring H and P: documentation includes: Blood work done in the emergency room showed white blood cell count of 11.5 and glucose of 420 and troponin is 0.7. ASSESSMENT: 1. Frequent vomiting secondary to gastroparesis. 2. Uncontrolled hypertension. 3. Uncontrolled type 2 diabetes mellitus. 4. End-stage renal disease, on hemodialysis. This form is a permanent part of the medical record Clarification of your documentation is requested to better reflect the severity of illness and intensity of treatment of your patient. Indicators present [] Specify: [] [] Specify: [] [] Specify: [] [] Specify: [] Location in the medical record that reflects the above clinical findings: [] Treatment Provided: [] PHYSICIAN'S RESPONSE Based on your medical judgment of the clinical indicators outlined above please clarify the following: [] Practitioner response [] If unable to determine, please check the box, sign and date. Present On Admission (POA) Indicator: [] Present at the time of admission [] Not present at the time of admission [] Clinically Undetermined In responding to this query, please exercise your independent professional judgment. The fact that a question is asked does not imply that any particular answer is desired or expected. Thank you for your clarification on this documentation. If you have any questions please call. * Thank you, Shira Madsen RN ext. #[phone] MTDD
--- NOTE | 2017-08-08 12:58 | PQF GENQUE ---
Dr. Mcgrath, 2 queries: Please specify the type and acuity of heart failure in your progress notes if ruled in versus ruled out 1. TYPE:: Combined systolic and diastolic Heart failure with reduced ejection fraction and diastolic dysfunction Diastolic HFpEF Systolic HFrEF Left heart failure Right heart failure Right heart failure due to left heart failure High Output failure End stage heart failure Other (please specify) Clinically unable to determine Unknown 2. ACUITY: Acute Chronic Acute on chronic Other (please specify) Clinically unable to determine Unknown 08/07 CXR: Impression : No active disease. No significant interval change compared to the prior examination(s). ER MD : PMH: dxs, include CHF H and P: ASSESSMENT: 1. Frequent vomiting secondary to gastroparesis. 2. Uncontrolled hypertension. 3. Uncontrolled type 2 diabetes mellitus. 4. End-stage renal disease, on hemodialysis. This form is a permanent part of the medical record Clarification of your documentation is requested to better reflect the severity of illness and intensity of treatment of your patient. Indicators present [] Specify: [] [] Specify: [] [] Specify: [] [] Specify: [] Location in the medical record that reflects the above clinical findings: [] Treatment Provided: [] PHYSICIAN'S RESPONSE Based on your medical judgment of the clinical indicators outlined above please clarify the following: [] Practitioner response [] If unable to determine, please check the box, sign and date. Present On Admission (POA) Indicator: [] Present at the time of admission [] Not present at the time of admission [] Clinically Undetermined In responding to this query, please exercise your independent professional judgment. The fact that a question is asked does not imply that any particular answer is desired or expected. Thank you for your clarification on this documentation. If you have any questions please call. * Thank you, Shira Madsen RN ext. #[phone] MTDD
--- NOTE | 2017-08-08 13:12 | CP.PCM.CON ---
History of Present Illness - History of Present Illness History of Present Illness: Patient is a 36 years of age nontender man with end stage renal disease on maintenance hemodialysis who presented to the emergency room complaining of nausea vomiting and blood tests showed hyperkalemia. Patient whole did not complete dialysis yesterday and came to the emergency room complaining also of some shortness of breath in addition to the epigastric pain and nausea. Past medical history Multitude of admissions related to GI complaint patient has multiple upper and lower endoscopy and his GI complaints felt related to gastroparesis and do the use of marijuana which she continued to smoke. PAST MEDICAL HISTORY DIABETES MELLITUS AND HYPERTENSION HYPERPHOSPHATEMIA AND SECONDARY HYPERPARATHYROIDISM Review of Systems - Constitutional Constitutional: Anorexia, Malaise, Weakness. absent: Chills, Fever - EENT Eyes: As Per HPI, Blurred Vision Nose/Mouth/Throat: absent: Epistaxis, Nasal Congestion, Nasal Discharge - Cardiovascular Cardiovascular: Dyspnea on Exertion, Edema, Leg Edema. absent: Chest Pain, Dyspnea - Respiratory Respiratory: Dyspnea. absent: Hemoptysis - Gastrointestinal Gastrointestinal: Abdominal Pain, Cramping, Vomiting - Genitourinary Genitourinary: Nocturia - Reproductive: Male Reproductive:Male: As Per HPI - Musculoskeletal Musculoskeletal: Muscle Weakness. absent: Back Pain, Numbness - Neurological Neurological: Abnormal Gait - Psychiatric Psychiatric: absent: Confusion - Hematologic/Lymphatic Hematologic: absent: Easy Bleeding Past Patient History - Infectious Disease Hx of Infectious Diseases: None - Past Medical History & Family History Past Medical History?: Yes - Past Social History Smoking Status: Light Smoker < 10 Cigarettes Daily - CARDIAC Hx Congestive Heart Failure: Yes Hx Hypercholesterolemia: Yes Hx Hypertension: Yes Hx Peripheral Edema: Yes - PULMONARY Hx Respiratory Disorders: No - NEUROLOGICAL Hx Neurological Disorder: No - HEENT Hx HEENT Problems: Yes - RENAL Hx Chronic Kidney Disease: Yes - ENDOCRINE/METABOLIC Hx Endocrine Disorders: Yes - HEMATOLOGICAL/ONCOLOGICAL Hx Anemia: Yes Hx Human Immunodeficiency Virus (HIV): No - INTEGUMENTARY Hx Dermatological Problems: No - MUSCULOSKELETAL/RHEUMATOLOGICAL Hx Musculoskeletal Disorders: No - GASTROINTESTINAL Hx Gastritis: Yes (gastroparesis) - GENITOURINARY/GYNECOLOGICAL Hx Genitourinary Disorders: No - PSYCHIATRIC Hx Psychophysiologic Disorder: No - SURGICAL HISTORY Hx Surgeries: Yes Hx Cataract Extraction: Yes (bilateral) Hx Vascular Access Device: Yes Other/Comment: Hx RT.PERMACATH INSERTION 04/17. Hx LT.AV SHUNT CREATION . Hx UNDESCENDED TESTES LT. REMOVED DURING CHILDHOOD - ANESTHESIA Hx Anesthesia: Yes Hx Anesthesia Reactions: No Hx Malignant Hyperthermia: No Meds Allergies/Adverse Reactions: Allergies Allergy/AdvReac Type Severity Reaction Status Date / Time No Known Allergies Allergy Verified 07/28/17 02:26 - Medications Medications: Current Medications Acetaminophen (Tylenol 325mg Tab) 650 mg PO Q6 PRN PRN Reason: Headache Amlodipine Besylate (Norvasc) 10 mg PO DAILY [facility] Last Admin: 08/08/17 09:40 Dose: 10 mg Aspirin (Aspirin Chewable) 81 mg PO DAILY [facility] Last Admin: 08/08/17 08:42 Dose: 81 mg Clonidine HCl (Catapres) 0.2 mg PO TID [facility] Last Admin: 08/08/17 12:39 Dose: 0.2 mg Heparin Sodium (Porcine) (Heparin) 5,000 units SC Q12 [facility] PRN Reason: Protocol Last Admin: 08/08/17 08:47 Dose: Not Given Insulin Human Regular (Humulin R) 0 units SC ACCU-CHECK [facility] PRN Reason: Protocol Last Admin: 08/08/17 12:41 Dose: 4 units Labetalol HCl (Trandate) 20 mg IVP Q4H PRN PRN Reason: Systolic Blood Pressure Last Admin: 08/08/17 03:34 Dose: 20 mg Lisinopril (Zestril) 10 mg PO DAILY [facility] Last Admin: 08/08/17 08:43 Dose: 10 mg Metoprolol Tartrate (Lopressor) 50 mg PO Q12 [facility] Last Admin: 08/08/17 08:42 Dose: 50 mg Morphine Sulfate (Morphine) 2 mg IVP Q4 PRN PRN Reason: Pain, moderate (4-7) Last Admin: 08/08/17 09:14 Dose: 2 mg Ondansetron HCl (Zofran Inj) 4 mg IVP Q4 PRN PRN Reason: Nausea/Vomiting Pantoprazole Sodium (Protonix Inj) 40 mg IVP DAILY [facility] Last Admin: 08/08/17 08:43 Dose: 40 mg Physical Exam - Constitutional Appears: No Acute Distress - ENT Exam ENT Exam: Mucous Membranes Moist - Neck Exam Neck exam: Negative for: Lymphadenopathy - Respiratory Exam Respiratory Exam: Rhonchi, NORMAL BREATHING PATTERN. absent: Chest Wall Tenderness - Cardiovascular Exam Cardiovascular Exam: REGULAR RHYTHM. absent: Gallop, JVD, Rubs - GI/Abdominal Exam GI & Abdominal Exam: Guarding, Normal Bowel Sounds. absent: Distended - Extremities Exam Extremities exam: Negative for: calf tenderness - Back Exam Back exam: absent: CVA tenderness (L), CVA tenderness (R) - Neurological Exam Neurological exam: Alert - Psychiatric Exam Psychiatric exam: Normal Affect Results - Vital Signs Recent Vital Signs: Last Vital Signs Temp 98.5 F 08/08/17 12:00 Pulse 87 08/08/17 12:39 Resp 12 08/08/17 12:00 BP 168/94 H 08/08/17 12:39 Pulse Ox 95 08/08/17 12:00 - Labs Result Diagrams: 08/08/17 04:40 08/08/17 04:40 Labs: Laboratory Results - last 24 hr 08/07/17 08/07/17 08/07/17 13:07 13:35 13:35 WBC 11.5 H RBC 4.57 Hgb 12.8 Hct 40.0 MCV 87.4 D MCH 28.0 MCHC 32.1 L RDW 18.0 H Plt Count 174 MPV 9.5 Neut % (Auto) 83.7 H Lymph % (Auto) 7.9 L Franklin % (Auto) 6.3 Eos % (Auto) 1.5 Baso % (Auto) 0.6 Neut # (Auto) 9.6 H Lymph # (Auto) 0.9 L Franklin # (Auto) 0.7 Eos # (Auto) 0.2 Baso # (Auto) 0.1 Neutrophils % (Manual) 90 H Lymphocytes % (Manual) 6 L Monocytes % (Manual) 4 Platelet Estimate Normal Anisocytosis (manual) Slight PT INR APTT Sodium 135 Potassium 4.1 Chloride 93 L Carbon Dioxide 28 Anion Gap 18 BUN 43 H Creatinine 4.3 H Est GFR ( Amer) 19 Est GFR (Non-Af Amer) 16 POC Glucose (mg/dL) 352 H Random Glucose 420 H* D Calcium 8.3 L Total Bilirubin 0.4 AST 31 ALT 49 Alkaline Phosphatase 170 H D Troponin I 0.7940 H* Total Protein 6.6 Albumin 3.3 L D Globulin 3.3 Albumin/Globulin Ratio 1.0 Lipase 252 Alcohol, Quantitative < 10 08/07/17 08/07/17 08/07/17 13:35 16:17 17:32 WBC RBC Hgb Hct MCV MCH MCHC RDW Plt Count MPV Neut % (Auto) Lymph % (Auto) Franklin % (Auto) Eos % (Auto) Baso % (Auto) Neut # (Auto) Lymph # (Auto) Franklin # (Auto) Eos # (Auto) Baso # (Auto) Neutrophils % (Manual) Lymphocytes % (Manual) Monocytes % (Manual) Platelet Estimate Anisocytosis (manual) PT 9.3 L INR 0.8 L APTT 29.1 Sodium Potassium Chloride Carbon Dioxide Anion Gap BUN Creatinine Est GFR ( Amer) Est GFR (Non-Af Amer) POC Glucose (mg/dL) 342 H 220 H Random Glucose Calcium Total Bilirubin AST ALT Alkaline Phosphatase Troponin I Total Protein Albumin Globulin Albumin/Globulin Ratio Lipase Alcohol, Quantitative 08/07/17 08/07/17 08/08/17 21:04 22:07 04:40 WBC 9.2 RBC 4.44 Hgb 12.5 Hct 39.5 MCV 88.9 MCH 28.3 MCHC 31.8 L RDW 18.1 H Plt Count 163 MPV Neut % (Auto) Lymph % (Auto) Franklin % (Auto) Eos % (Auto) Baso % (Auto) Neut # (Auto) Lymph # (Auto) Franklin # (Auto) Eos # (Auto) Baso # (Auto) Neutrophils % (Manual) Lymphocytes % (Manual) Monocytes % (Manual) Platelet Estimate Anisocytosis (manual) PT INR APTT Sodium Potassium Chloride Carbon Dioxide Anion Gap BUN Creatinine Est GFR ( Amer) Est GFR (Non-Af Amer) POC Glucose (mg/dL) 232 H Random Glucose Calcium Total Bilirubin AST ALT Alkaline Phosphatase Troponin I 0.9270 H* Total Protein Albumin Globulin Albumin/Globulin Ratio Lipase Alcohol, Quantitative 08/08/17 08/08/17 04:40 06:19 WBC RBC Hgb Hct MCV MCH MCHC RDW Plt Count MPV Neut % (Auto) Lymph % (Auto) Franklin % (Auto) Eos % (Auto) Baso % (Auto) Neut # (Auto) Lymph # (Auto) Franklin # (Auto) Eos # (Auto) Baso # (Auto) Neutrophils % (Manual) Lymphocytes % (Manual) Monocytes % (Manual) Platelet Estimate Anisocytosis (manual) PT INR APTT Sodium 137 Potassium 4.2 Chloride 95 L Carbon Dioxide 25 Anion Gap 21 H BUN 50 H Creatinine 5.1 H Est GFR ( Amer) 16 Est GFR (Non-Af Amer) 13 POC Glucose (mg/dL) 252 H Random Glucose 300 H Calcium 8.0 L Total Bilirubin 0.4 AST 24 ALT 37 Alkaline Phosphatase 121 Troponin I 0.8000 H* Total Protein 6.0 L Albumin 2.9 L Globulin 3.1 Albumin/Globulin Ratio 0.9 L Lipase Alcohol, Quantitative Assessment & Plan (1) CKD (chronic kidney disease) requiring chronic dialysis Assessment and Plan: Patient with end stage renal disease on maintenance hemodialysis admitted with abdominal pain and nausea. Patient scheduled to have dialysis shortly order was given. To ultrafiltrate approximately 3500 mL because of the leg edema Potassium bath 1 mEq Sodium Bath 138 #2 abdominal pain patient having this recurrent problem he has many GI evaluation in the past and it is believed related to the use of marijuana. #3 hypertension continue on antihypertensive medication #4 diabetes mellitus continue with the management to control diabetes mellitus. #5 hyperphosphatemia continue binders #6 secondary hyperparathyroidism continue Sensipar Status: Acute (2) Elevated troponin Status: Acute (3) Gastroparesis Status: Acute (4) Hyperglycemia Status: Acute (5) Abdominal pain Status: Acute
--- NOTE | 2017-08-08 13:42 | CARD ---
APPROVED REPORT EKG Measurement Heart [id number] <Conclusion> Sinus tachycardia Nonspecific T wave abnormality Abnormal ECG
--- NOTE | 2017-08-08 16:45 | CP.PCM.PN ---
Subjective - Date & Time of Evaluation Date of Evaluation: 08/08/17 Time of Evaluation: 16:41 - Subjective Subjective: Dialysis note Patient was seen in the afternoon. Hemodialysis started from the left upper arm fistula Patient is sitting up on the bedside No chest pain and no vomiting Objective - Vital Signs/Intake and Output Vital Signs (last 24 hours): Temp Pulse Resp BP Pulse Ox 98.9 F 84 13 147/92 H 94 L 08/08/17 16:00 08/08/17 16:00 08/08/17 16:00 08/08/17 16:00 08/08/17 16:00 Intake and Output: 08/08/17 08/08/17 06:59 18:59 Intake Total 220 500 Output Total 150 Balance 70 500 - Medications Medications: Current Medications Acetaminophen (Tylenol 325mg Tab) 650 mg PO Q6 PRN PRN Reason: Headache Amlodipine Besylate (Norvasc) 10 mg PO DAILY [facility] Last Admin: 08/08/17 09:40 Dose: 10 mg Aspirin (Aspirin Chewable) 81 mg PO DAILY [facility] Last Admin: 08/08/17 08:42 Dose: 81 mg Clonidine HCl (Catapres) 0.2 mg PO TID [facility] Last Admin: 08/08/17 12:39 Dose: 0.2 mg Heparin Sodium (Porcine) (Heparin) 5,000 units SC Q12 [facility] PRN Reason: Protocol Last Admin: 08/08/17 08:47 Dose: Not Given Insulin Human Regular (Humulin R) 0 units SC ACCU-CHECK [facility] PRN Reason: Protocol Last Admin: 08/08/17 12:41 Dose: 4 units Labetalol HCl (Trandate) 20 mg IVP Q4H PRN PRN Reason: Systolic Blood Pressure Last Admin: 08/08/17 13:11 Dose: 20 mg Lisinopril (Zestril) 10 mg PO DAILY [facility] Last Admin: 08/08/17 08:43 Dose: 10 mg Metoprolol Tartrate (Lopressor) 50 mg PO Q12 [facility] Last Admin: 08/08/17 08:42 Dose: 50 mg Morphine Sulfate (Morphine) 2 mg IVP Q4 PRN PRN Reason: Pain, moderate (4-7) Last Admin: 08/08/17 14:34 Dose: 2 mg Ondansetron HCl (Zofran Inj) 4 mg IVP Q4 PRN PRN Reason: Nausea/Vomiting Pantoprazole Sodium (Protonix Inj) 40 mg IVP DAILY [facility] Last Admin: 08/08/17 08:43 Dose: 40 mg - Labs Labs: 08/08/17 04:40 08/08/17 04:40 PT 9.3 Seconds (9.8-13.1) L 08/07/17 13:35 INR 0.8 (0.9-1.2) L 08/07/17 13:35 APTT 29.1 Seconds (25.6-37.1) 08/07/17 13:35 - Constitutional Appears: No Acute Distress - Neck Exam Neck Exam: absent: Lymphadenopathy - Respiratory Exam Respiratory Exam: Rhonchi, NORMAL BREATHING PATTERN. absent: Chest Wall Tenderness - Cardiovascular Exam Cardiovascular Exam: REGULAR RHYTHM. absent: Rubs - GI/Abdominal Exam GI & Abdominal Exam: Soft, Normal Bowel Sounds - Extremities Exam Extremities Exam: absent: Calf Tenderness - Back Exam Back Exam: absent: CVA tenderness (L), CVA tenderness (R) - Neurological Exam Neurological Exam: Alert - Psychiatric Exam Psychiatric exam: Normal Affect - Skin Skin Exam: absent: Cyanosis Assessment and Plan (1) CKD (chronic kidney disease) requiring chronic dialysis Assessment & Plan: End stage renal disease patient receiving dialysis now discussed with the dialysis nurse at the bedside Volume overloaded and gastroparesis vomiting when he was admitted Sodium bath 138 Potassium bath 2 mEq Bicarbonate baths 34 Ultrafiltration 2500 mL Vital sign noted to be stable Patient tolerating dialysis very well Continue the same Status: Acute (2) Elevated troponin Status: Acute (3) Gastroparesis Status: Acute (4) Hyperglycemia Status: Acute (5) Abdominal pain Status: Acute
[2017-08-09 06:07] LABS: HEMOGLOBIN 11.6 g/dL (12.0-18.0); MEAN CELL VOLUME 88.1 fl (80.0-94.0); MEAN CORPUSCULAR HEMOGLOBIN 28.4 pg (27.0-31.0); MEAN CORPUSCULAR HGB CONC 32.2 g/dL (33.0-37.0); RBC 4.08 Mil/uL (4.40-5.90); RED CELL DISTRIBUTION WIDTH 18.3 % (11.5-14.5); WHITE BLOOD COUNT 8.1 K/uL (4.8-10.8)
[2017-08-09] MEDS: Insulin Regular 100 units/ml SC SCH ×4 (06:54→22:13)
--- NOTE | 2017-08-09 09:20 | CP.PCM.PN ---
Subjective - Date & Time of Evaluation Date of Evaluation: 08/09/17 Time of Evaluation: :18 - Subjective Subjective: Patient tolerated HD yesterday, no complaints today, Hydralazine "fell off" from medical list patient takes 25 mg of hydralzine QID as per home medications Objective - Vital Signs/Intake and Output Vital Signs (last 24 hours): Temp Pulse Resp BP Pulse Ox 98.0 F 84 15 172/83 H 98 08/09/17 08:00 08/09/17 09:12 08/09/17 06:00 08/09/17 09:12 08/09/17 06:00 Intake and Output: 08/09/17 08/09/17 06:59 18:59 Intake Total 240 Output Total 3150 Balance -2910 - Medications Medications: Current Medications Acetaminophen (Tylenol 325mg Tab) 650 mg PO Q6 PRN PRN Reason: Headache Amlodipine Besylate (Norvasc) 10 mg PO DAILY [facility] Last Admin: 08/09/17 09:11 Dose: 10 mg Aspirin (Aspirin Chewable) 81 mg PO DAILY [facility] Last Admin: 08/09/17 08:48 Dose: 81 mg Clonidine HCl (Catapres) 0.2 mg PO TID [facility] Last Admin: 08/09/17 08:48 Dose: 0.2 mg Heparin Sodium (Porcine) (Heparin) 5,000 units SC Q12 [facility] PRN Reason: Protocol Last Admin: 08/09/17 09:11 Dose: Not Given Hydralazine HCl (Apresoline) 25 mg PO TID [facility] Insulin Human Regular (Humulin R) 0 units SC ACCU-CHECK [facility] PRN Reason: Protocol Last Admin: 08/09/17 06:54 Dose: 4 units Labetalol HCl (Trandate) 20 mg IVP Q4H PRN PRN Reason: Systolic Blood Pressure Last Admin: 08/08/17 13:11 Dose: 20 mg Lisinopril (Zestril) 10 mg PO DAILY [facility] Last Admin: 08/09/17 09:12 Dose: 10 mg Metoprolol Tartrate (Lopressor) 75 mg PO Q12 [facility] Morphine Sulfate (Morphine) 2 mg IVP Q4 PRN PRN Reason: Pain, moderate (4-7) Last Admin: 08/09/17 08:38 Dose: 2 mg Ondansetron HCl (Zofran Inj) 4 mg IVP Q4 PRN PRN Reason: Nausea/Vomiting Pantoprazole Sodium (Protonix Inj) 40 mg IVP DAILY [facility] Last Admin: 08/09/17 09:12 Dose: 40 mg - Labs Labs: 08/09/17 04:38 08/09/17 04:38 PT 9.3 Seconds (9.8-13.1) L 08/07/17 13:35 INR 0.8 (0.9-1.2) L 08/07/17 13:35 APTT 29.1 Seconds (25.6-37.1) 08/07/17 13:35 - Head Exam Head Exam: ATRAUMATIC, NORMOCEPHALIC - ENT Exam ENT Exam: Mucous Membranes Moist - Neck Exam Neck Exam: Normal Inspection - Respiratory Exam Respiratory Exam: NORMAL BREATHING PATTERN - Cardiovascular Exam Cardiovascular Exam: REGULAR RHYTHM, +S1, +S2, +S4, Murmur - GI/Abdominal Exam GI & Abdominal Exam: Normal Bowel Sounds Assessment and Plan - Assessment and Plan (Free Text) Assessment: HTN: controlled with home medications: restart home medications including clonidine, hydralazine "fell off" restart hydralzine ESRD on HD: HD as per renal -DM: obtain endocrine follow up as patient has a long history of diabetes -Diabetic retinopathy: suspect legally blind, obtain opthhal eval as outpatient -diabetic gastropathy: avoid morphine or other medications which increase gastric transit time, consider reglan -Given history of uncontrolled Dm and renal failure patient has PVD and likely CAD: will benefit from asa, statin and lopressor and ACEI -continue DVT/PUD ppx Patient not on any IV cardene or IV labetalol Patient is not in hypertensive urgency crisis. Please reconcile medications.
--- NOTE | 2017-08-09 17:42 | CP.PCM.PN ---
Subjective - Date & Time of Evaluation Date of Evaluation: 08/09/17 Time of Evaluation: 17:40 - Subjective Subjective: Follow up Nephrology Consultation Note Assessment: Stable recurrent nausea/vomiting, cyclic emesis syndrome, marijuana abuse, gastroparesis Diabetic chronic Kidney Disease (E11.22) Hypertensive Chronic Kidney Disease (I12.0) End stage renal disease (N18.6) dependence on hemodialysis (Z99.2) (MWF) via AVF Anemia (D64.9), Hyperphosphatemia (E83.39), Secondary Hyperparathyroidism (E21.1 ), HTN (I12.0) Plan: dialysis friday as ordered. Continue with Nephrovite 1 tab/day. Hb 11+ hence no SWAPNIL at this time Continue with phos binders as ordered. BP control with meds as ordered. on lisinopril Glycemic control, Dialysis consistent diet Further work up/management as per primary team Dose meds/antibiotics (if needed) for ESRD status. Avoid fleets enema/magnesium based laxatives. Thanks for allowing me to participate in care of your patient. Please call if any Qs Dr Darrel Reynaga Office: [phone] ROS: Constitutional Symptoms: Denies fever. No chills. No Recent Weight Changes Cardiovascular: No chest pain. There is shortness of breath. No palpitations. Pulmonary: No cough. Gastrointestinal: c/o abdominal pain no nausea no vomiting. Denies change in bowel habits. Denies Bleeding All other negative. Physical Examination: General Appearance: comfortable, in no acute respiratory distress, co-operative . Vitals reviewed and noted as below Head; Atraumatic, normocephalic ENT: no ulcers no thrush. Tongue is midline. Oropharynx: no rash or ulcers. EYES: Pupils are equal, round and reactive to light accommodation. Eye muscles and extraocular movement intact. Sclera is anicteric. Neck; supple no lymphadenopathy, no thyromegaly or bruit Lungs: Normal respiratory rate/effort. Breath sounds bilateral equal and clear except Rt basal rale Heart: Normal rate. s1s2 normal. No rub or gallop. Extremities: 1-2+ edema. No varicose veins Neurological: Patient is alert, awake and oriented to person, place and time. No focal deficit. Strength bilateral appropriate and equal Skin: Warm and dry. Normal turgor. No rash. Palpitation: Normal elasticity for age Abdomen: Abdomen is soft. Bowel sounds +. There is mild epigastric abdominal tenderness, no guarding/rigidity or organomegaly Psych: limited insight and normal affect/mood MSK: no joint tenderness or swelling. Digits and nails normal, no deformity. : kidney or bladder not palpable. Access: AVF Labs/imaging reviewed. Past medical history, past surgical history, family history, social history, allergy reviewed and noted as below Family Hx: no hx of CKD. Non contributory sec HTN work up neg as renin/sharlene, metanephrine and renal artery dopple Objective - Vital Signs/Intake and Output Vital Signs (last 24 hours): Temp Pulse Resp BP Pulse Ox 97.5 F L 77 24 138/73 100 08/09/17 12:00 08/09/17 16:55 08/09/17 14:00 08/09/17 16:55 08/09/17 14:00 Intake and Output: 08/09/17 08/09/17 06:59 18:59 Intake Total 240 Output Total 3150 Balance -2910 - Medications Medications: Current Medications Acetaminophen (Tylenol 325mg Tab) 650 mg PO Q6 PRN PRN Reason: Headache Amlodipine Besylate (Norvasc) 10 mg PO DAILY [facility] Last Admin: 08/09/17 09:11 Dose: 10 mg Aspirin (Aspirin Chewable) 81 mg PO DAILY [facility] Last Admin: 08/09/17 08:48 Dose: 81 mg Clonidine HCl (Catapres) 0.2 mg PO TID [facility] Last Admin: 08/09/17 16:54 Dose: 0.2 mg Heparin Sodium (Porcine) (Heparin) 5,000 units SC Q12 [facility] PRN Reason: Protocol Last Admin: 08/09/17 09:11 Dose: Not Given Hydralazine HCl (Apresoline) 25 mg PO TID [facility] Last Admin: 08/09/17 16:55 Dose: 25 mg Hydralazine HCl (Apresoline) 10 mg IV Q6 PRN PRN Reason: Systolic Blood Pressure Last Admin: 08/09/17 11:05 Dose: 10 mg Insulin Human Regular (Humulin R) 0 units SC ACCU-CHECK [facility] PRN Reason: Protocol Last Admin: 08/09/17 16:59 Dose: 2 units Labetalol HCl (Trandate) 20 mg IVP Q4H PRN PRN Reason: Systolic Blood Pressure Last Admin: 08/08/17 13:11 Dose: 20 mg Lisinopril (Zestril) 10 mg PO DAILY [facility] Last Admin: 08/09/17 09:12 Dose: 10 mg Metoprolol Tartrate (Lopressor) 75 mg PO Q12 [facility] Ondansetron HCl (Zofran Inj) 4 mg IVP Q4 PRN PRN Reason: Nausea/Vomiting Pantoprazole Sodium (Protonix Ec Tab) 40 mg PO DAILY [facility] Sevelamer HCl (Renagel) 1,600 mg PO TID [facility] Last Admin: 08/09/17 16:55 Dose: 1,600 mg Vitamin B Complex/Vit C/Folic Acid (Nephro-Víctor) 1 tab PO DAILY [facility] - Labs Labs: 08/09/17 04:38 08/09/17 04:38 PT 9.3 Seconds (9.8-13.1) L 08/07/17 13:35 INR 0.8 (0.9-1.2) L 08/07/17 13:35 APTT 29.1 Seconds (25.6-37.1) 08/07/17 13:35
[2017-08-09] MEDS ORDERED: DiphenhydrAMINE 50 mg/ml Inj IM STA (21:10)
[2017-08-10 07:42] VITALS: RESP 19; O2SAT 97
[2017-08-10] MEDS ORDERED: Multivitamin Vitamin B Complex (Nephro-Vite) Tab PO SCH (09:00)
[2017-08-10] MEDS ORDERED: Pantoprazole 40 mg EC Tab PO SCH (09:00)
[2017-08-10] MEDS: Insulin Regular 100 units/ml SC SCH ×3 (09:30→16:01)
[2017-08-10 15:24] VITALS: BP 150/83; PULSE 84; TEMP 97.4
--- NOTE | 2017-08-10 17:39 | CP.PCM.PN ---
Subjective - Date & Time of Evaluation Date of Evaluation: 08/10/17 Time of Evaluation: 17:39 - Subjective Subjective: Follow up Nephrology Consultation Note Assessment: Stable recurrent nausea/vomiting, cyclic emesis syndrome, marijuana abuse, gastroparesis Diabetic chronic Kidney Disease (E11.22) Hypertensive Chronic Kidney Disease (I12.0) End stage renal disease (N18.6) dependence on hemodialysis (Z99.2) (MWF) via AVF Anemia (D64.9), Hyperphosphatemia (E83.39), Secondary Hyperparathyroidism (E21.1 ), HTN (I12.0) Plan: dialysis friday as ordered. Continue with Nephrovite 1 tab/day. Hb 11+ hence no SWAPNIL at this time Continue with phos binders as ordered. BP control with meds as ordered. on lisinopril Glycemic control, Dialysis consistent diet Further work up/management as per primary team Dose meds/antibiotics (if needed) for ESRD status. Avoid fleets enema/magnesium based laxatives. Thanks for allowing me to participate in care of your patient. Please call if any Qs Dr Darrel Reynaga Office: [phone] ROS: Constitutional Symptoms: Denies fever. No chills. No Recent Weight Changes Cardiovascular: No chest pain. There is shortness of breath. No palpitations. Pulmonary: No cough. Gastrointestinal: c/o abdominal pain no nausea no vomiting. Denies change in bowel habits. Denies Bleeding All other negative. Physical Examination: General Appearance: comfortable, in no acute respiratory distress, co-operative . Vitals reviewed and noted as below Head; Atraumatic, normocephalic ENT: no ulcers no thrush. Tongue is midline. Oropharynx: no rash or ulcers. EYES: Pupils are equal, round and reactive to light accommodation. Eye muscles and extraocular movement intact. Sclera is anicteric. Neck; supple no lymphadenopathy, no thyromegaly or bruit Lungs: Normal respiratory rate/effort. Breath sounds bilateral equal and clear except Rt basal rale Heart: Normal rate. s1s2 normal. No rub or gallop. Extremities: 1-2+ edema. No varicose veins Neurological: Patient is alert, awake and oriented to person, place and time. No focal deficit. Strength bilateral appropriate and equal Skin: Warm and dry. Normal turgor. No rash. Palpitation: Normal elasticity for age Abdomen: Abdomen is soft. Bowel sounds +. There is mild epigastric abdominal tenderness, no guarding/rigidity or organomegaly Psych: limited insight and normal affect/mood MSK: no joint tenderness or swelling. Digits and nails normal, no deformity. : kidney or bladder not palpable. Access: AVF Labs/imaging reviewed. Past medical history, past surgical history, family history, social history, allergy reviewed and noted as below Family Hx: no hx of CKD. Non contributory sec HTN work up neg as renin/sharlene, metanephrine and renal artery dopple Objective - Vital Signs/Intake and Output Vital Signs (last 24 hours): Temp Pulse Resp BP Pulse Ox 97.4 F L 84 19 150/83 97 08/10/17 15:23 08/10/17 16:01 08/10/17 15:23 08/10/17 16:01 08/10/17 15:23 - Medications Medications: Current Medications Acetaminophen (Tylenol 325mg Tab) 650 mg PO Q6 PRN PRN Reason: Headache Amlodipine Besylate (Norvasc) 10 mg PO DAILY [facility] Last Admin: 08/10/17 08:34 Dose: 10 mg Aspirin (Aspirin Chewable) 81 mg PO DAILY [facility] Last Admin: 08/10/17 08:32 Dose: 81 mg Clonidine HCl (Catapres) 0.2 mg PO TID [facility] Last Admin: 08/10/17 16:01 Dose: 0.2 mg Heparin Sodium (Porcine) (Heparin) 5,000 units SC Q12 [facility] PRN Reason: Protocol Last Admin: 08/10/17 08:33 Dose: Not Given Hydralazine HCl (Apresoline) 25 mg PO TID [facility] Last Admin: 08/10/17 16:01 Dose: 25 mg Hydralazine HCl (Apresoline) 10 mg IV Q6 PRN PRN Reason: Systolic Blood Pressure Last Admin: 08/09/17 11:05 Dose: 10 mg Insulin Human Regular (Humulin R) 0 units SC ACCU-CHECK [facility] PRN Reason: Protocol Last Admin: 08/10/17 16:01 Dose: Not Given Labetalol HCl (Trandate) 20 mg IVP Q4H PRN PRN Reason: Systolic Blood Pressure Last Admin: 08/08/17 13:11 Dose: 20 mg Lisinopril (Zestril) 10 mg PO DAILY [facility] Last Admin: 08/10/17 08:33 Dose: 10 mg Metoprolol Tartrate (Lopressor) 75 mg PO Q12 [facility] Last Admin: 08/10/17 08:32 Dose: 75 mg Ondansetron HCl (Zofran Inj) 4 mg IVP Q4 PRN PRN Reason: Nausea/Vomiting Pantoprazole Sodium (Protonix Ec Tab) 40 mg PO DAILY [facility] Last Admin: 08/10/17 08:33 Dose: 40 mg Sevelamer HCl (Renagel) 1,600 mg PO TID [facility] Last Admin: 08/10/17 16:01 Dose: 1,600 mg Vitamin B Complex/Vit C/Folic Acid (Nephro-Víctor) 1 tab PO DAILY [facility] Last Admin: 08/10/17 08:32 Dose: 1 tab - Labs Labs: 08/09/17 04:38 08/09/17 04:38 PT 9.3 Seconds (9.8-13.1) L 08/07/17 13:35 INR 0.8 (0.9-1.2) L 08/07/17 13:35 APTT 29.1 Seconds (25.6-37.1) 08/07/17 13:35
--- NOTE | 2017-08-11 02:10 | DS ---
REASON FOR ADMISSION: The patient is a 36-year-old male with history of end stage renal disease on hemodialysis, not compliant to dialysis neither to his medications, was admitted through Emergency Room for persistent vomiting and in-completion of his dialysis of the day on the day of admission. COURSE OF HOSPITALIZATION: The patient was admitted to medical floor and he was resumed on his medications. The patient was initially admitted to Intensive Care Unit and he was monitored closely for fractional elevation of troponin, that was thought to be due to his kidney function and his end stage renal disease on hemodialysis. The patient does not have any chest pain. The patient was given Reglan and Zofran for the vomiting. The patient's symptoms gradually improved and the patient was discharged home to continue his regular antihypertensive medications and aspirin and beta-sole and to follow with his primary care physician Dr. David Gtz. The patient also was asked to continue hemodialysis with hemodialysis schedule. The patient's phosphorus was elevated and he admits that he was not compliant to his medications and he was advised to continue with his medicine and to be compliant. The patient never had a chest pain during this admission and never had any cardiac decompensation symptoms. Again, the patient was advised to be compliant with his medications. Tal Mcgrath MD
--- NOTE | 2017-08-11 08:48 | PN ---
DAILY PROGRESS NOTE DATE: 08/09/2017 SUBJECTIVE: The patient is seen today 08/09/2017. He is tolerating food and intermittent occasional nausea. OBJECTIVE: VITAL SIGNS: Blood pressure 132/75, temperature 97.6, respiratory rate 19, and pulse 80. HEENT: Pupils equal and reactive to light. Normal appearing mucosa of the conjunctivae, oropharynx, and nasal membrane mucosa. NECK: Supple. No JVD. No carotid bruit. No lymph node. No thyromegaly. CHEST AND LUNGS: Bilateral symmetrical expansion. Good air exchange. No rales. No rhonchi. CARDIOVASCULAR: PMI not localized. S1 and S2. No additional sounds. ABDOMEN: Normoactive bowel sounds. No tenderness. No organomegaly. No mass. EXTREMITIES: No cyanosis. No clubbing. No edema. CENTRAL NERVOUS SYSTEM: Alert, awake, and oriented x3. No neurological deficit could be appreciated. ASSESSMENT: Gastroparesis with frequent vomiting and nausea; end-stage renal disease, on hemodialysis not compliant; uncontrolled hypertension not compliant; and type 2 diabetes mellitus not compliant with medications, uncontrolled. PLAN: Continue hemodialysis as per senior accounts payable specialist. Continue current medications including antiemetics and prokinetics as well as antihypertensive medications. Tal Mcgrath MD
--- NOTE | 2017-08-11 08:51 | PN ---
DAILY PROGRESS NOTE DATE: 08/08/2017 SUBJECTIVE: The patient is seen today 08/08/2017. He is not in any cardiopulmonary distress. The patient is seen during hemodialysis. OBJECTIVE: VITAL SIGNS: Blood pressure 133/76, temperature 98.9, respiratory rate 17, and pulse 80. HEENT: Pupils equal and reactive to light. Normal-appearing mucosa of the conjunctivae, oropharynx, and nasal membrane mucosa. NECK: Supple. No JVD. No carotid bruit. No lymph node. No thyromegaly. CHEST AND LUNGS: Bilateral symmetrical expansion. Good air exchange. No rales. No rhonchi. CARDIOVASCULAR: PMI not localized. S1 and S2. No additional sounds. ABDOMEN: Normoactive bowel sounds. No tenderness. No organomegaly. No masses. EXTREMITIES: No cyanosis. No clubbing. No edema. CENTRAL NERVOUS SYSTEM: Alert, awake, and oriented x2. No neurological deficit could be appreciated. ASSESSMENT: 1. Frequent nausea and vomiting secondary to diabetic gastroparesis. 2. End-stage renal disease, on hemodialysis. 3. Uncontrolled type 2 diabetes mellitus. 4. Uncontrolled hypertension. PLAN: Continue the Reglan and Zofran p.r.n. Hemodialysis as per professor of early childhood education. Resume the patient's antihypertensive medications. Tal Mcgrtah MD
--- NOTE | 2017-08-11 12:25 | PQF ANEMIA ---
This form is a permanent part of the medical record DR. CRYSTAL TOMLINSON: COULD YOU PLEASE CLARIFY THE ETIOLOGY OF ANEMIA IN PATIENT WITH ESRD AND UNCONTROLLED DM TYPE 2 AND UNCONTROLLED HYPERTENSION. Clarification of your documentation is requested to better reflect the severity of illness and intensity of treatment of your patient. Indicators present [] Anemia [] Drop in H&H from []___ to []___ [] Hypotension [] GI Bleed [] Transfusion(s) [] Acute bleed other sites [] Tachycardia [] Surgical Procedure Blood Loss (expected not a complication) Other:[] Location in the medical record that reflects the above clinical findings: [] Treatment Provided: [] PHYSICIAN'S RESPONSE Based on your medical judgment of the clinical indicators outlined above, are you treating this patient for a known or suspected: [] Acute blood loss anemia [] Chronic blood loss anemia [] Acute on Chronic blood loss anemia [] Anemia due to malignancy [] Anemia due to chemotherapy or radiation therapy [] Anemia of Chronic Disease, please specify: [] [] Other, please indicate type of anemia []____ [] If Unable to Determine, please check the box, sign and date. Present On Admission (POA) Indicator: [] Present at the time of admission [] Not present at the time of admission [] Clinically Undetermined In responding to this query, please exercise your independent professional judgment. The fact that a question is asked does not imply that any particular answer is desired or expected. Thank you for your clarification on this documentation. If you have any questions please call:[ ] * Thank you, * SHAILESH GARCIA [ [phone] cooperative education coordinator [employer]
== END 2017-08-10 19:52 | disposition home or self-care (01) | DRG 73 ==
LOC: H.ER 12:20 → H.ERHOLD 16:05 → H.ICU/CCU 21:54 → H.MEDSURG1 08-09 14:44
PROVIDERS: ADMIT Internal Medicine; ATTEND Internal Medicine
PROC: 5A1D70Z Performance of Urinary Filtration, Intermittent, Less than 6 Hours Per Day (ICD-10-PCS; principal; 2017-08-08)
DX: E11.43 Type 2 diabetes mellitus with diabetic autonomic (poly)neuropathy (principal); N18.6 End stage renal disease; E11.22 Type 2 diabetes mellitus with diabetic chronic kidney disease; E11.69 Type 2 diabetes mellitus with other specified complication; N25.81 Secondary hyperparathyroidism of renal origin; I12.0 Hypertensive chronic kidney disease with stage 5 chronic kidney disease or end stage renal disease; K31.84 Gastroparesis; E83.39 Other disorders of phosphorus metabolism; Z91.19 Patient's noncompliance with other medical treatment and regimen; Z99.2 Dependence on renal dialysis; K29.70 Gastritis, unspecified, without bleeding; Z79.899 Other long term (current) drug therapy; I25.10 Atherosclerotic heart disease of native coronary artery without angina pectoris; R74.8 Abnormal levels of other serum enzymes; D64.9 Anemia, unspecified; E78.00 Pure hypercholesterolemia, unspecified; E87.5 Hyperkalemia; F12.10 Cannabis abuse, uncomplicated; F17.200 Nicotine dependence, unspecified, uncomplicated; I16.0 Hypertensive urgency; I50.84 End stage heart failure; E11.65 Type 2 diabetes mellitus with hyperglycemia; E11.319 Type 2 diabetes mellitus with unspecified diabetic retinopathy without macular edema

== ENCOUNTER 2017-10-18 20:38 | Inpatient (IN) | payer MEDICARE, MEDICAID ==
[2017-10-18] MEDS ORDERED: Sodium Chloride 0.9% 250 ML IV STA (21:15)
[2017-10-18] MEDS ORDERED: DiphenhydrAMINE 50 mg/ml Inj IVP STA (21:15)
[2017-10-18] MEDS ORDERED: DiphenhydrAMINE 50 mg/ml Inj ONE (21:26)
[2017-10-18 21:57] LABS: BASO # 0.1 K/uL (0.0-0.2); BASO % 1.1 % (0.0-2.0); EOS # 0.2 K/uL (0.0-0.7); EOS % 2.1 % (0.0-4.0); HEMOGLOBIN 12.9 g/dL (12.0-18.0); LYMPH # 1.3 K/uL (1.0-4.3); LYMPH % 17.6 % (20.0-40.0); MEAN CORPUSCULAR HGB CONC 31.9 g/dL (33.0-37.0); MEAN PLATELET VOLUME 9.3 fl (7.2-11.7); MONO % 13.2 % (0.0-10.0); NEUT # 4.8 K/uL (1.8-7.0); NRBC % 0.1 % (0.0-0.0); RBC 4.44 Mil/uL (4.40-5.90); RED CELL DISTRIBUTION WIDTH 20.5 % (11.5-14.5); WHITE BLOOD COUNT 7.2 K/uL (4.8-10.8)
[2017-10-18 22:01] LABS: MEAN CELL VOLUME 90.7 fl (80.0-94.0)
[2017-10-18 22:04] LABS: ALB/GLOB RATIO 0.9 (1.0-2.1); ALBUMIN 3.9 g/dL (3.5-5.0); ALT/SGPT 31 U/L (21-72); AST/SGOT 30 U/L (17-59); BLOOD UREA NITROGEN 32 mg/dl (9-20); GFR AFRICAN-AMERICAN 11; GFR NON-AFRICAN AMERICAN 9; LIPASE 56 U/L (23-300)
--- NOTE | 2017-10-18 22:05 | ED PDOC ---
HPI: Abdomen Time Seen by Provider: 10/18/17 20:46 Chief Complaint (Nursing): Abdominal Pain Chief Complaint (Provider): Abdominal Pain History Per: Patient History/Exam Limitations: no limitations Onset/Duration Of Symptoms: Days Current Symptoms Are (Timing): Still Present Location Of Pain/Discomfort: Diffuse Quality Of Discomfort: Cramping Associated Symptoms: Vomiting (non-bilious and non-bloody). denies: Diarrhea Additional Complaint(s): 37 year old male with a history of hypertension, diabetes, and end stage renal disease presents to the ED complaining of diffuse cramping abdominal pain. Patient had an episode of non-bilious and non-bloody vomiting 3 days ago. Reports he has dialysis on Friday, Friday, and Friday. States he was admitted multiple times for gastroparesis. Denies diarrhea. Patients past medical history was obtained from previous discharge. PMD: No Family Provider Past Medical History Reviewed: Historical Data, Nursing Documentation, Vital Signs Vital Signs: Last Vital Signs Temp 98.3 F 10/20/17 12:31 Pulse 87 10/20/17 12:31 Resp 18 10/20/17 12:31 BP 160/79 H 10/20/17 12:31 Pulse Ox 99 10/20/17 12:31 - Medical History PMH: Anemia, CHF, Diabetes (type I; ), Gastritis (gastroparesis), HTN, Hypercholesterolemia, Peripheral Edema, End Stage Renal Disease, Chronic Kidney Disease Denies: HIV, Kidney Stones - Family History Family History: States: Unknown Family Hx, Diabetes, Hypertension - Immunization History Hx Tetanus Toxoid Vaccination: Yes Hx Influenza Vaccination: Yes Hx Pneumococcal Vaccination: Yes - Home Medications Home Medications: Ambulatory Orders Medication Instructions Recorded Vancomycin [Vancomycin Inj] 500 mg IVPB MWF #1 vial 09/08/17 Atorvastatin Calcium 40 mg PO DAILY #30 tablet 09/09/17 Ondansetron HCl [Zofran] 4 mg PO Q8H PRN #14 tablet 09/09/17 Sucralfate [Carafate] 1 gm PO Q12H #60 tablet 09/09/17 amLODIPine [Norvasc] 10 mg PO DAILY #30 tab 09/09/17 hydrALAZINE [Apresoline] 25 mg PO Q6H #30 tab 09/09/17 Sevelamer Carbonate [Renvela] 800 mg PO TID #90 tab 09/16/17 Aspirin [Aspirin Chewable] 81 mg PO DAILY chew 09/22/17 Insulin Aspart, Recombinant 10 unit SC ACTID unit 09/30/17 [Novolog] - Allergies Allergies/Adverse Reactions: Allergies Allergy/AdvReac Type Severity Reaction Status Date / Time No Known Allergies Allergy Verified 10/18/17 20:39 Review of Systems ROS Statement: Except As Marked, All Systems Reviewed And Found Negative (As pr HPI, otherwise negative) Gastrointestinal: Positive for: Vomiting, Abdominal Pain. Negative for: Diarrhea Physical Exam - Reviewed Nursing Documentation Reviewed: Yes Vital Signs Reviewed: Yes - Physical Exam Appears: Positive for: Uncomfortable, In Acute Distress Head Exam: Positive for: ATRAUMATIC, NORMOCEPHALIC Skin: Positive for: Warm, Dry Eye Exam: Positive for: EOMI, PERRL ENT: Positive for: Pharynx Is (clear), Other (mucous membrane pasty) Neck: Positive for: Painless ROM, Supple Cardiovascular/Chest: Positive for: Regular Rate, Rhythm. Negative for: Murmur Respiratory: Positive for: Normal Breath Sounds. Negative for: Respiratory Distress Gastrointestinal/Abdominal: Positive for: Soft, Tenderness (diffuse with palpation ). Negative for: Guarding, Rebound Back: Positive for: Normal Inspection. Negative for: Decreased ROM Extremity: Positive for: Normal ROM. Negative for: Deformity Lymphatic: Negative for: Adenopathy Neurologic/Psych: Positive for: Alert. Negative for: Motor/Sensory Deficits - Laboratory Results Result Diagrams: 10/20/17 10:30 10/20/17 10:30 - ECG O2 Sat by Pulse Oximetry: 96 (RA) Pulse Ox Interpretation: Normal Medical Decision Making Medical Decision Making: Time: 2110 Initial Impression: vomiting Differential Diagnosis includes but is not limited to: gastroparesis, electrolyte abnormalities, gastritis, dehydrated Initial Plan: --EKG --Alcohol Serum --CMP --LACT Acid, Plasma --Lipase --Magnesium --Phosphorous --Troponin I --CBC w/ Differential --PTT --Prothrombin Time --Benadryl 25mg --Famotidine 20mg --Normal Saline 250 mls/hr --Reglan 10mg --IV Insertion --Glucose, Blood, POC --Reevaluation Labs c/w mild dehydration and renal failure, as expected 1130p Reeval pt initially felt better an hour ago, but since then nausea has returned. Similar to previous course of his gastroparesis in the past. ANIBAL Mcgrath for Dr Gtz for [facility]. Scribe Attestation: Documented by Dwight Swenson, acting as a scribe for Remedios Hewitt MD Provider Scribe Attestation: All medical record entries made by the Scribe were at my direction and personally dictated by me. I have reviewed the chart and agree that the record accurately reflects my personal performance of the history, physical exam, medical decision making, and the department course for this patient. I have also personally directed, reviewed, and agree with the discharge instructions and disposition. Disposition - Clinical Impression Clinical Impression: Intractable vomiting, ESRD (end stage renal disease) Counseled Patient/Family Regarding: Studies Performed, Diagnosis - Disposition Disposition Time: 23:00 Condition: FAIR - Pt Status Changed To: Hospital Disposition Of: Observation - POA Present On Arrival: None
[2017-10-18 22:10] LABS: PROTHROMBIN TIME 11.5 Seconds (9.8-13.1)
[2017-10-19] MEDS: Insulin Lispro (humaLOG) 100 Units/ml Inj SC SCH ×7 (06:49→22:44)
[2017-10-19] MEDS: Patient's Own Med (Sevelamer Carbonate [Renvela] 800 MG) PO SCH (13:57)
--- NOTE | 2017-10-20 05:41 | HP ---
HISTORY OF PRESENT ILLNESS: This is a 37-year-old male with history of end-stage renal disease, on hemodialysis with uncontrolled hypertension and type 2 diabetes mellitus. The patient was admitted for the same reason, for which she was admitted many times before for nausea and vomiting and abdominal discomfort. The patient was diagnosed with gastroparesis secondary to uncontrolled diabetes with diabetic gastropathy. The patient had EGD repeatedly before that did not show any local pathological disease. The patient is not compliant to his medications. The patient was evaluated in the emergency room and admitted for further management. REVIEW OF SYSTEMS: Other review of systems is negative. ALLERGIES: NO KNOWN ALLERGY. MEDICATIONS: As per MAR. PAST MEDICAL HISTORY: Type 2 diabetes mellitus; end-stage renal disease, on hemodialysis; hypertension; and diabetic gastroparesis. FAMILY HISTORY: Noncontributory. SOCIAL HISTORY: Positive marijuana use. Denied smoking or EtOH abuse or any other substance abuse. PHYSICAL EXAMINATION: GENERAL: The patient is in bed, not in any cardiopulmonary distress at the time of this examination. VITAL SIGNS: Blood pressure 119/66, temperature 98.7, respiratory rate 18, and pulse 84. HEENT: Pupils equal and reactive to light. Normal-appearing mucosa of the conjunctivae, oropharynx, and nasal membrane mucosa. NECK: Supple. No JVD. No carotid bruit. No lymph node. No thyromegaly. CHEST AND LUNGS: Bilateral symmetrical expansion. Good air exchange. No rales. No rhonchi. CARDIOVASCULAR: PMI not localized. S1 and S2. No additional sounds. ABDOMEN: Normoactive bowel sounds. No tenderness. No organomegaly. No masses. EXTREMITIES: No cyanosis. No clubbing. No edema. CENTRAL NERVOUS SYSTEM: Alert, awake, and oriented x2. No neurological deficit could be appreciated. ASSESSMENT: 1. Diabetic gastroparesis. 2. Uncontrolled type 2 diabetes mellitus. 3. Uncontrolled hypertension. 4. End-stage renal disease, on hemodialysis. PLAN: 1. Continue Reglan IV as well as Zofran as needed. 2. Continue Accu-Cheks with insulin coverage. 3. Renal consult for hemodialysis orders. 4. Resume the patient's antihypertensive medications. Tal Mcgrath MD
--- NOTE | 2017-10-20 06:25 | CARD ---
APPROVED REPORT EKG Measurement Heart [id number] <Conclusion> Normal sinus rhythm Minimal voltage criteria for LVH, may be normal variant T wave abnormality, consider inferior ischemia Prolonged QT Abnormal ECG
[2017-10-20] MEDS ORDERED: Vancomycin 500 mg Inj IVPB SCH (09:00)
--- NOTE | 2017-10-20 09:19 | CP.PCM.CON ---
History of Present Illness - History of Present Illness History of Present Illness: Nephrology Consultation Note Assessment: stable ESRD MWF recurrent nausea/vomiting, Cyclic Emesis Syndrome, marijuana abuse, gastroparesis, esophagitis Diabetic chronic Kidney Disease (E11.22) Hypertensive Chronic Kidney Disease (I12.0) Anemia (D64.9), Hyperphosphatemia (E83.39), Secondary Hyperparathyroidism (E21.1 ), HTN (I12.0) Plan: dialysis today as per MWF schedule as ordered. Continue with Nephrovite 1 tab/ day. Hold SWAPNIL hgb > 12 very high phos, will inc renvela to 2400 mg tid BP control with meds as ordered. no ACEI/ARB due to hyperkalemia episodes intermittently/frequently. Can consider addition of long acting metoprolol Glycemic control, Dialysis consistent diet N/V per primary HPI: Pt is a 37 y/o M with hx of ESRD on hemodialysis (MWF) via AVF, chronic anemia, hyperphosphatemia, secondary hyperparathyroidism, Diabetes Mellitus, hypertension, recurrent nausea/vomiting and multiple hospitalization for same, that presented again w/ abdominal pain and n/v. He states abdominal pain is throughout and unable to eat though he is drinking coffee and appears to have eaten half his breakfast. He denies any naussea today. He denies any fever or chills. He states he has been compliant w/ HD. ROS:A full detailed ROS is negative except as in my hpi Physical Examination: General Appearance: comfortable, in no acute respiratory distress, co-operative. Vitals reviewed and noted as below Head; Atraumatic, normocephalic ENT: no ulcers no thrush. Tongue is midline. Oropharynx: no rash or ulcers. EYES: Pupils are equal, round and reactive to light accommodation. Eye muscles and extraocular movement intact. Sclera is anicteric. Neck; supple no lymphadenopathy, no thyromegaly or bruit Lungs: Normal respiratory rate/effort. Breath sounds bilateral equal and clear Heart: normal rate. s1s2 normal. No rub or gallop. Extremities: no edema. No varicose veins Neurological: Patient is alert, awake and oriented to person, place and time. No focal deficit. Strength bilateral appropriate and equal Skin: Warm and dry. Normal turgor. No rash. Palpitation: Normal elasticity for age Abdomen: Abdomen is soft. Bowel sounds +. no rebound guarding or organomegaly appreciated Psych: limited insight and normal affect/mood MSK: no joint tenderness or swelling. Digits and nails normal, no deformity. : kidney or bladder not palpable. Access: AVF Labs/imaging reviewed. Past medical history, past surgical history, family history, social history, allergy reviewed and noted as below Family Hx: no hx of CKD. sec HTN work up neg as renin/sharlene, metanephrine and renal artery doppler Past Patient History - Infectious Disease Hx of Infectious Diseases: None - Past Medical History & Family History Past Medical History?: Yes - Past Social History Smoking Status: Light Smoker < 10 Cigarettes Daily - CARDIAC Hx Cardiac Disorders: Yes Hx Congestive Heart Failure: Yes Hx Hypercholesterolemia: Yes Hx Hypertension: Yes - PULMONARY Hx Respiratory Disorders: No - NEUROLOGICAL Hx Neurological Disorder: No - HEENT Hx HEENT Problems: Yes Hx Cataracts: Yes - RENAL Hx Chronic Kidney Disease: Yes Hx Dialysis: Yes Type of Dialysis Access: hemodialysis Date of Last Dialysis Treatment: 10/17/17 - ENDOCRINE/METABOLIC Hx Endocrine Disorders: Yes Hx Diabetes Mellitus Type 2: Yes - HEMATOLOGICAL/ONCOLOGICAL Hx Anemia: Yes Hx Human Immunodeficiency Virus (HIV): No - INTEGUMENTARY Hx Dermatological Problems: No - MUSCULOSKELETAL/RHEUMATOLOGICAL Hx Falls: Yes - GASTROINTESTINAL Hx Gastritis: Yes (gastroparesis) - GENITOURINARY/GYNECOLOGICAL Hx Genitourinary Disorders: No - PSYCHIATRIC Hx Substance Use: No (use marijuana) - SURGICAL HISTORY Hx Surgeries: Yes Hx Cataract Extraction: Yes (bilateral) Hx Vascular Surgery: Yes Hx Vascular Access Device: Yes Other/Comment: Hx RT.PERMACATH INSERTION 04/17. Hx LT.AV SHUNT CREATION . Hx UNDESCENDED TESTES LT. REMOVED DURING CHILDHOOD - ANESTHESIA Hx Anesthesia: Yes Hx Anesthesia Reactions: No Hx Malignant Hyperthermia: No Meds Allergies/Adverse Reactions: Allergies Allergy/AdvReac Type Severity Reaction Status Date / Time No Known Allergies Allergy Verified 10/18/17 20:39 - Medications Medications: Current Medications Acetaminophen (Tylenol 325mg Tab) 650 mg PO Q6 PRN PRN Reason: Pain, moderate (4-7) Amlodipine Besylate (Norvasc) 10 mg PO DAILY [facility] Last Admin: 10/19/17 10:10 Dose: 10 mg Aspirin (Aspirin Chewable) 81 mg PO DAILY [facility] Last Admin: 10/19/17 10:13 Dose: 81 mg Atorvastatin Calcium (Lipitor) 40 mg PO DAILY [facility] Last Admin: 10/19/17 10:10 Dose: 40 mg Hydralazine HCl (Apresoline) 25 mg PO Q6H [facility] Last Admin: 10/20/17 05:24 Dose: 25 mg Vancomycin HCl 500 mg/ Sodium (Chloride) 100 mls @ 100 mls/hr IVPB MWF [facility] Insulin Human Lispro (Humalog) 10 units SC ACTID [facility] Last Admin: 10/19/17 17:58 Dose: 10 unit Insulin Human Lispro (Humalog) 0 units SC ACHS [facility] PRN Reason: Protocol Last Admin: 10/19/17 22:44 Dose: Not Given Metoclopramide HCl (Reglan) 5 mg IVP Q8 [facility] Last Admin: 10/20/17 01:30 Dose: Not Given Ondansetron HCl (Zofran Tab) 4 mg PO Q8H PRN PRN Reason: Nausea/Vomiting Last Admin: 10/19/17 10:10 Dose: 4 mg Sevelamer HCl (Renagel) 800 mg PO TIDWM [facility] Last Admin: 10/19/17 17:59 Dose: 800 mg Sucralfate (Carafate Tab) 1 gm PO Q12 [facility] Last Admin: 10/19/17 22:44 Dose: 1 gm Results - Vital Signs Recent Vital Signs: Last Vital Signs Temp 98.7 F 10/20/17 07:55 Pulse 86 10/20/17 07:55 Resp 18 10/20/17 07:55 BP 168/84 H 10/20/17 07:55 Pulse Ox 97 10/20/17 07:55 - Labs Result Diagrams: 10/18/17 21:49 10/18/17 21:49 Labs: Laboratory Results - last 24 hr 10/19/17 10/19/17 10/19/17 05:16 10:46 15:54 POC Glucose (mg/dL) 123 H 386 H 124 H 10/19/17 21:10 POC Glucose (mg/dL) 80
[2017-10-20] MEDS: Insulin Lispro (humaLOG) 100 Units/ml Inj SC SCH ×6 (09:32→16:33)
--- NOTE | 2017-10-20 09:35 | CP.PCM.PN ---
Subjective - Date & Time of Evaluation Date of Evaluation: 10/20/17 Time of Evaluation: 09:34 - Subjective Subjective: dialysis note seen on dialysis uf goal 1-2 kg as bp tolerates Objective - Vital Signs/Intake and Output Vital Signs (last 24 hours): Temp Pulse Resp BP Pulse Ox 98.7 F 86 18 168/84 H 97 10/20/17 07:55 10/20/17 09:31 10/20/17 07:55 10/20/17 09:31 10/20/17 07:55 - Medications Medications: Current Medications Acetaminophen (Tylenol 325mg Tab) 650 mg PO Q6 PRN PRN Reason: Pain, moderate (4-7) Amlodipine Besylate (Norvasc) 10 mg PO DAILY [facility] Last Admin: 10/20/17 09:31 Dose: Not Given Aspirin (Aspirin Chewable) 81 mg PO DAILY [facility] Last Admin: 10/20/17 09:33 Dose: 81 mg Atorvastatin Calcium (Lipitor) 40 mg PO DAILY [facility] Last Admin: 10/20/17 09:31 Dose: 40 mg Hydralazine HCl (Apresoline) 25 mg PO Q6H [facility] Last Admin: 10/20/17 05:24 Dose: 25 mg Vancomycin HCl 500 mg/ Sodium (Chloride) 100 mls @ 100 mls/hr IVPB MWF [facility] Last Admin: 10/20/17 09:30 Dose: 100 mls/hr Insulin Human Lispro (Humalog) 10 units SC ACTID [facility] Last Admin: 10/20/17 09:32 Dose: 10 unit Insulin Human Lispro (Humalog) 0 units SC ACHS [facility] PRN Reason: Protocol Last Admin: 10/20/17 09:32 Dose: 2 unit Metoclopramide HCl (Reglan) 5 mg IVP Q8 [facility] Last Admin: 10/20/17 09:30 Dose: 5 mg Ondansetron HCl (Zofran Tab) 4 mg PO Q8H PRN PRN Reason: Nausea/Vomiting Last Admin: 10/19/17 10:10 Dose: 4 mg Sevelamer HCl (Renagel) 2,400 mg PO TIDWM [facility] Sucralfate (Carafate Tab) 1 gm PO Q12 [facility] Last Admin: 10/20/17 09:33 Dose: 1 gm - Labs Labs: 10/18/17 21:49 10/18/17 21:49 PT 11.5 Seconds (9.8-13.1) 10/18/17 21:49 INR 1.0 (0.9-1.2) 10/18/17:49 APTT 30.0 Seconds (25.6-37.1) 10/18/17 21:49
[2017-10-20 11:30] LABS: BASO % 0.6 % (0.0-2.0); EOS # 0.2 K/uL (0.0-0.7); EOS % 2.6 % (0.0-4.0); LYMPH # 1.7 K/uL (1.0-4.3); LYMPH % 21.1 % (20.0-40.0); MEAN CELL VOLUME 92.5 fl (80.0-94.0); MEAN CORPUSCULAR HEMOGLOBIN 29.4 pg (27.0-31.0); MEAN CORPUSCULAR HGB CONC 31.8 g/dL (33.0-37.0); MEAN PLATELET VOLUME 9.5 fl (7.2-11.7); NEUT # 5.1 K/uL (1.8-7.0); NEUT % 63.7 % (50.0-75.0); RBC 4.09 Mil/uL (4.40-5.90); RED CELL DISTRIBUTION WIDTH 21.3 % (11.5-14.5)
[2017-10-20] MEDS ORDERED: Iohexol 240 (50 ml) PO ONE (11:55)
[2017-10-20 12:42] LABS: ALBUMIN 3.5 g/dL (3.5-5.0); CALCIUM 7.9 mg/dL (8.4-10.2)
[2017-10-20 15:39] VITALS: BP 182/88; PULSE 90; RESP 20; TEMP 98.7; O2SAT 99
[2017-10-20 21:25] LABS: HEPATITIS B SURFACE AG Negative (NEGATIVE)
[2017-10-20 21:30] LABS: HEPATITIS B CORE AB NEGATIVE (NEGATIVE)
[2017-10-20 21:42] LABS: HEPATITIS C ANTIBODY NEGATIVE (NEGATIVE)
--- NOTE | 2017-10-20 23:43 | DS ---
REASON FOR ADMISSION: This is a 37-year-old male with history of end-stage renal disease, on hemodialysis and uncontrolled type 2 diabetes mellitus with diabetic gastroparesis. The patient was admitted for nausea and vomiting. COURSE OF HOSPITALIZATION: The patient was admitted to medical telemetry floor and he was started on both Reglan and Zofran. The patient was getting narcotic medications for abdominal pain. Abdominal exam was within normal and the patient was tolerating diet well. The patient signed against medical advice as narcotic analgesics were not given as he requested. There was no indication for any narcotic analgesics from as the patient's abdominal exam was within normal and the patient's lipase was within normal. It was explained to the patient that any narcotic analgesics will further decrease the intestinal motility and will worsen the diabetic gastroparesis. The patient signed against medical advice. FINAL DIAGNOSES: 1. Diabetic gastroparesis. 2. Uncontrolled type 2 diabetes. 3. End-stage renal disease, on hemodialysis. 4. Hypertension. Tal Mcgrath MD
== END 2017-10-20 18:50 | disposition left against medical advice (07) | DRG 73 ==
LOC: H.ER 20:38 → H.ERHOLD 23:52 → H.TEL 10-19 01:33 → OBSVTOIN 10-20 14:20
PROVIDERS: ADMIT Internal Medicine; ATTEND Internal Medicine
PROC: 5A1D70Z Performance of Urinary Filtration, Intermittent, Less than 6 Hours Per Day (ICD-10-PCS; principal; 2017-10-20)
DX: E11.43 Type 2 diabetes mellitus with diabetic autonomic (poly)neuropathy (principal); N18.6 End stage renal disease; I13.2 Hypertensive heart and chronic kidney disease with heart failure and with stage 5 chronic kidney disease, or end stage renal disease; N25.81 Secondary hyperparathyroidism of renal origin; K31.84 Gastroparesis; E11.65 Type 2 diabetes mellitus with hyperglycemia; E11.22 Type 2 diabetes mellitus with diabetic chronic kidney disease; I50.9 Heart failure, unspecified; Z99.2 Dependence on renal dialysis; K29.70 Gastritis, unspecified, without bleeding; E78.00 Pure hypercholesterolemia, unspecified; E86.0 Dehydration; Z91.14 Patient's other noncompliance with medication regimen; K20.9 Esophagitis, unspecified; D64.9 Anemia, unspecified; E83.39 Other disorders of phosphorus metabolism; G43.A0 Cyclical vomiting, in migraine, not intractable; F12.10 Cannabis abuse, uncomplicated